=== PATIENT | female | born 1945 | race Caucasian/White ===

== ENCOUNTER → 2016-09-01 | Outpatient (CLI) | payer OTHER ==
[~2016-09-01] MED LIST: ASPI81TA28 PO; ATRINS INH; GFNSR600 PO; Ipratropium-Albuterol INH; LSN40 PO; LVQ750 PO; NCTI INH; NRV5 PO; OXGN; PENT400T2 PO; PRD10 PO; SIMV-151 PO
--- NOTE | 2016-09-01 08:29 | DIAGNOSTIC IMAGING REPORT ---
CT OF THE CHEST WITHOUT IV CONTRAST CLINICAL HISTORY: R91.1 pulmonary nodule. Emphysema. Adenopathy. COMPARISON STUDY: 03/14/2016 CT DOSE: 291.55 mGy.cm TECHNIQUE: CT of the thorax was performed from the thoracic inlet to the lung bases. Images are reviewed in the axial, sagittal, and coronal planes. IV contrast was not administered for this examination. FINDINGS: Thyroid: Imaged portions of the thyroid gland are normal in appearance. Thoracic aorta: The thoracic aorta is normal in course and caliber, noting standard 3 vessel arch anatomy. Heart: There are mild coronary artery calcifications. Lungs and pleural spaces: No pleural effusions are visualized. There is moderate pulmonary emphysema. There is no focal pulmonary consolidation. There is lower lobe bronchial wall thickening and mucous plugging. There is been interval resolution of the focal right lower lobe airspace opacities described on the prior study. There are few scattered granulomatous calcifications present. There is a stable 4.5 mm solid right lower lobe pulmonary nodule with associated lung cyst. Mediastinum: Mediastinal lymph nodes remain the upper limits of normal in size. Nadia: Clear. Axilla: There is mild right axillary lymphadenopathy similar to the preceding study Upper abdomen: There is stable left adrenal gland thickening. There is a stable 12 mm left renal mass likely representing a hyperdense cyst Skeletal structures: There is an L1 compression deformity. IMPRESSION: 1. Interval resolution of the previously identified right lower lobe airspace opacities 2. Pulmonary emphysema 3. Stable solid 4.5 mm right lower lobe pulmonary nodule, with an adjacent lung cyst 4. Persistent lower lobe bronchial wall thickening and mucous plugging 5. Partially visualized mild right axillary lymphadenopathy, similar to the prior study Electronically signed by: Dion Stern M.D. 09/01/2016 8:27 AM Dictated Date/Time: 09/01/2016 8:17 AM
== END | disposition home or self-care (01) ==
LOC: C.CTS 08:01
PROVIDERS: ATTEND Internal Medicine Pulmonary Disease
DX: R91.1 Solitary pulmonary nodule (principal); J43.9 Emphysema, unspecified; R59.0 Localized enlarged lymph nodes; J98.09 Other diseases of bronchus, not elsewhere classified

== ENCOUNTER 2018-06-20 14:28 | Inpatient (IN) ==
[2018-06-20 14:50] LABS: Basophils # (auto) 0.02 K/uL (0-0.2); Basophils % (auto) 0.2 %; Eosinophils # (auto) 0.08 K/uL (0-0.5); Eosinophils % (auto) 0.8 %; Hematocrit (blood only) 41.7 % (37-47); Hemoglobin 13.3 g/dL (12.0-16.0); Immature Granulocytes # (auto) 0.03 K/uL (0.00-0.02); Immature Granulocytes % (auto) 0.3 %; Lymphocytes # (auto) 1.86 K/uL (1.2-3.4); Lymphocytes % (auto) 18.1 %; Mean Corpuscular Hgb Conc 31.9 g/dL (32-36); Mean Corpuscular Volume 101.7 fL (80-100); Mean Platelet Volume 10.8 fL (7.4-10.4); Monocytes # (auto) 0.95 K/uL (0.11-0.59); Monocytes % (auto) 9.2 %; Neutrophils # (auto) 7.34 K/uL (1.4-6.5); Neutrophils % (auto) 71.4 %; Platelet Count 186 K/uL (130-400); RDW Coefficient of Variation 13.3 % (11.5-14.5); RDW Standard Deviation 49.6 fL (36.4-46.3); White Blood Count 10.28 K/uL (4.8-10.8)
--- NOTE | 2018-06-20 14:58 | XRay Report ---
XR chest 1V portable CLINICAL HISTORY: 72 years-old Female presenting with Dyspnea. TECHNIQUE: Portable upright AP view of the chest was obtained. COMPARISON: 12/12/[address] from 09/05/2017. FINDINGS: Atherosclerosis of the aortic arch. Cardiac silhouette normal in size. Lungs are hyperinflated. No fo dayan opacity. No pleural effusion or pneumothorax. Osseous structures normal. Upper abdomen normal. IMPRESSION: 1. Findings suggest emphysema. No focal infiltrate to suggest pneumonia. Electronically signed by: Janes Martinez M.D. 06/20/2018 2:57 PM
[2018-06-20 15:00] LABS: Alanine Aminotransferase 16 U/L (12-78); Albumin Level 3.2 gm/dl (3.4-5.0); Aspartate Aminotransferase 14 U/L (15-37); BUN Creatinine Ratio 23.3 (10-20); Blood Urea Nitrogen 16 mg/dl (7-18); Calcium 9.6 mg/dl (8.5-10.1); Carbon Dioxide 38 mmol/L (21-32); Chloride 98 mmol/L (98-107); Est GFR (African American) 102.2; Est GFR (Non-African American) 88.2; Glucose 125 mg/dl (70-99); Potassium 4.1 mmol/L (3.5-5.1); Sodium 139 mmol/L (136-145)
[2018-06-20 15:05] LABS: Albumin Globulin Ratio 0.8 (0.9-2); Alkaline Phosphatase 88 U/L (45-117); Bilirubin,Total 0.3 mg/dl (0.2-1); Globulin 4.2 gm/dl (2.5-4.0); Total Protein 7.4 gm/dl (6.4-8.2); Troponin I < 0.015 ng/ml (0-0.045)
[2018-06-20 15:38] LABS: Influenza A virus by PCR Neg for Influ A (Neg); Influenza B virus by PCR Neg for Influ B (Neg)
--- NOTE | 2018-06-20 17:30 | Emergency Department Note ---
Entered by Bonilla Bailey acting as a scribe for Maximus Linn DO History of Present Illness General Chief complaint: Shortness of Breath/Dyspnea Stated complaint: sob Time Seen by Provider: 06/20/18 14:30 Source: patient, EMS and other (nurse) History of Present Illness Onset (ago): hour(s) (prior to arrival) Location: chest (lungs) Pain Consistency: + other (overall worsening, but currently improved after treatments) Quality: + other (shortness of breath) Relieved By: + medication (increased supplemental oxygen, Duoneb) Associated symptoms: + other (urinary symptoms; denies fevers) The patient is a 72 year old female who presents to the Emergency Room with complaints of worsening shortness of breath prior to arrival. Nursing staff reports that the patient called her PCP complaining of shortness of breath, and today prior to arrival at the office her oxygen saturation was 76% on her usual 4 L of supplemental oxygen. This was increased to 82% after increasing the oxygen to 6 L, and EMS was called. EMS states that the patient was given 3 Duoneb and fluids prior to arrival, and the monitor temporarily showed what appeared to be atrial fibrillation. They note that the patient regularly smokes. They state that she has recently been complaining of urinary symptoms. They deny fevers. The patient reports that her current symptoms are improved from earlier. Home Medications Home Medications Medication Instructions Recorded Confirmed Type amlodipine 5 mg PO DAILY 06/20/18 06/20/18 History aspirin 81 mg PO DAILY 06/20/18 06/20/18 History budesonide-formoterol [Symbicort] 2 puff INHALATION BID 06/20/18 06/20/18 History cholecalciferol (vitamin D3) 1,000 unit PO DAILY 06/20/18 06/20/18 History [Vitamin D3] ipratropium-albuterol 1 vial INHALATION QID 06/20/18 06/20/18 History losartan 50 mg PO DAILY 06/20/18 06/20/18 History pentoxifylline 400 mg PO TID 06/20/18 06/20/18 History simvastatin 20 mg PO DAILY 06/20/18 06/20/18 History Allergies Allergy/AdvReac Type Severity Reaction Status Date / Time codeine Allergy Intermediate tinnitus Verified 06/20/18 14:56 Past Med/Surg History Medical History COPD (chronic obstructive pulmonary disease) (Chronic) Hypertension (Chronic) Pneumonia (Acute) Family History Other Family history non-contributory Social History Feels Safe at Home: Yes Smoking Status: Current every day smoker Review of Systems See HPI for pertinent positives & negatives. and A total of 10 systems reviewed and were otherwise negative Physical Exam Vital Signs Vital Signs - 24 hr 06/20/18 14:40 06/20/18 14:46 06/20/18 14:50 Temperature 36.5 C Temperature Source Oral Sepsis Recent Fever Within 48 Hours No Sepsis Action Taken by Nursing No Action Required Pulse Rate 110 H 109 H 114 H Pulse Rate [Finger] Pulse Rate from SpO2 Sensor 111 H 109 H 102 H Pulse Rhythm Regular Pulse Strength Normal Respiratory Rate 28 H 15 19 Respiratory Effort / Characteristics Spontaneous Pursed Lip Short of Breath Non-Labored Spontaneous Respiratory Depth Normal Blood Pressure 123/93 123/93 Blood Pressure [Right Arm] Blood Pressure Mean 103 103 Blood Pressure Mean [Right Arm] Blood Pressure Position Sitting Pulse Oximetry 83 L 82 L 79 L Oxygen Delivery Method Nasal Cannula Nasal Cannula Oxygen Flow Rate 6 4 06/20/18 15:00 06/20/18 15:03 06/20/18 15:07 Temperature Temperature Source Sepsis Recent Fever Within 48 Hours Sepsis Action Taken by Nursing Pulse Rate 100 H 99 H Pulse Rate [Finger] 100 H Pulse Rate from SpO2 Sensor 100 H 98 H Pulse Rhythm Pulse Strength Respiratory Rate 29 H 29 H 25 H Respiratory Effort / Characteristics Respiratory Depth Blood Pressure 144/84 H Blood Pressure [Right Arm] 144/84 H Blood Pressure Mean 104 Blood Pressure Mean [Right Arm] 104 Blood Pressure Position Pulse Oximetry 99 99 97 Oxygen Delivery Method Oxymask Oxygen Flow Rate 8 06/20/18 15:10 06/20/18 15:20 06/20/18 15:30 Temperature Temperature Source Sepsis Recent Fever Within 48 Hours Sepsis Action Taken by Nursing Pulse Rate 96 H Pulse Rate [Finger] Pulse Rate from SpO2 Sensor 93 H 97 H 104 H Pulse Rhythm Pulse Strength Respiratory Rate 28 H 26 H 27 H Respiratory Effort / Characteristics Respiratory Depth Blood Pressure Blood Pressure [Right Arm] Blood Pressure Mean Blood Pressure Mean [Right Arm] Blood Pressure Position Pulse Oximetry 96 96 95 Oxygen Delivery Method Oxygen Flow Rate 06/20/18 15:31 06/20/18 15:40 06/20/18 15:50 Temperature Temperature Source Sepsis Recent Fever Within 48 Hours Sepsis Action Taken by Nursing Pulse Rate Pulse Rate [Finger] Pulse Rate from SpO2 Sensor 95 H 91 H 86 Pulse Rhythm Pulse Strength Respiratory Rate 24 24 24 Respiratory Effort / Characteristics Respiratory Depth Blood Pressure 136/58 L Blood Pressure [Right Arm] Blood Pressure Mean 84 Blood Pressure Mean [Right Arm] Blood Pressure Position Pulse Oximetry 97 97 98 Oxygen Delivery Method Oxygen Flow Rate 06/20/18 16:00 06/20/18 16:01 06/20/18 16:04 Temperature Temperature Source Sepsis Recent Fever Within 48 Hours Sepsis Action Taken by Nursing Pulse Rate Pulse Rate [Finger] Pulse Rate from SpO2 Sensor 101 H 97 H Pulse Rhythm Pulse Strength Respiratory Rate 19 22 Respiratory Effort / Characteristics Respiratory Depth Blood Pressure 161/75 H Blood Pressure [Right Arm] Blood Pressure Mean 103 Blood Pressure Mean [Right Arm] Blood Pressure Position Pulse Oximetry 97 98 96 Oxygen Delivery Method Nasal Cannula Oxygen Flow Rate 4 06/20/18 16:15 06/20/18 16:33 06/20/18 16:34 Temperature Temperature Source Sepsis Recent Fever Within 48 Hours Sepsis Action Taken by Nursing Pulse Rate Pulse Rate [Finger] 84 Pulse Rate from SpO2 Sensor Pulse Rhythm Pulse Strength Respiratory Rate 37 H Respiratory Effort / Characteristics Respiratory Depth Blood Pressure Blood Pressure [Right Arm] 181/53 H Blood Pressure Mean Blood Pressure Mean [Right Arm] 95 Blood Pressure Position Pulse Oximetry 94 98 Oxygen Delivery Method Nasal Cannula Oxymask Oxymask Oxygen Flow Rate 4 7 5.5 06/20/18 16:45 06/20/18 16:46 Temperature Temperature Source Sepsis Recent Fever Within 48 Hours Sepsis Action Taken by Nursing Pulse Rate Pulse Rate [Finger] Pulse Rate from SpO2 Sensor Pulse Rhythm Pulse Strength Respiratory Rate Respiratory Effort / Characteristics Respiratory Depth Blood Pressure Blood Pressure [Right Arm] Blood Pressure Mean Blood Pressure Mean [Right Arm] Blood Pressure Position Pulse Oximetry 97 Oxygen Delivery Method Oxymask Oxymask Oxygen Flow Rate 5.5 4 CONSTITUTIONAL/VITAL SIGNS: Reviewed / noted above. GENERAL: Non-toxic in appearance. INTEGUMENTARY: Warm, dry, and [place]. HEAD: Normocephalic. EYES: without scleral icterus or trauma. ENT/OROPHARYNX: clear and moist. LYMPHADENOPATHY/NECK: Is supple without lymphadenopathy or meningismus. RESPIRATORY: Bilateral expiratory wheezing, diminished breath sounds bilaterally. CARDIOVASCULAR: Regular rate and rhythm. GI/ABDOMEN: Soft and nontender. No organomegaly or pulsatile mass. No rebound or guarding. Normal bowel sounds. EXTREMITIES: Warm and well perfused. BACK: No CVA tenderness. NEUROLOGICAL: Intact without focal deficits. PSYCHIATRIC: normal affect. MUSCULOSKELETAL: Normally developed with good muscle tone. Course 1435: The patient was evaluated in room A10, and a complete history and physical examination were performed. 1720: I checked on the patient, who is still hypoxic. 1724: I consulted Carmel Corrigan PA-C: [facility]. The patient will be reevaluated for hospitalization. Consultations Consultation #1: I consulted Carmel Corrigan PA-C: [facility]. The patient will be reevaluated for hospitalization. Time: 17:24 Administered Medications Medical Decision Making Differential Diagnosis Differential diagnosis: Etiologies such as infections, reactive airway disease, pneumonia, pneumothorax, COPD, CHF, cardiac ischemia, pulmonary embolism, musculoskeletal, gastrointestinal, as well as others were entertained. Medical Records Attestation: I reviewed the patient's medical records. Home Medications Current Medication List: was personally reviewed by me Laboratory Data Attestation: I reviewed the patient's lab results. Result diagrams: 06/20/18 14:12 06/20/18 14:12 Lab Results 06/20/18 06/20/18 06/20/18 Range/Units 14:12 14:12 14:12 WBC 10.28 (4.8-10.8) K/uL RBC 4.10 L (4.2-5.4) M/uL Hgb 13.3 (12.0-16.0) g/dL Hct 41.7 (37-47) % MCV 101.7 H (80-100) fL MCH 32.4 (25-34) pg MCHC 31.9 L (32-36) g/dL RDW Std Deviation 49.6 H (36.4-46.3) fL RDW Coeff of Frankie 13.3 (11.5-14.5) % Plt Count 186 (130-400) K/uL MPV 10.8 H (7.4-10.4) fL Immature Gran % (Auto) 0.3 % Neut % (Auto) 71.4 % Lymph % (Auto) 18.1 % Bond % (Auto) 9.2 % Eos % (Auto) 0.8 % Baso % (Auto) 0.2 % Immature Gran # (Auto) 0.03 H (0.00-0.02) K/uL Neut # (Auto) 7.34 H (1.4-6.5) K/uL Lymph # (Auto) 1.86 (1.2-3.4) K/uL Bond # (Auto) 0.95 H (0.11-0.59) K/uL Eos # (Auto) 0.08 (0-0.5) K/uL Baso # (Auto) 0.02 (0-0.2) K/uL PT Cancelled INR Cancelled APTT Cancelled PTT Ratio Cancelled Sodium 139 (136-145) mmol/L Potassium 4.1 (3.5-5.1) mmol/L Chloride 98 (98-107) mmol/L Carbon Dioxide 38 H (21-32) mmol/L Anion Gap 2.0 L (3-11) BUN 16 (7-18) mg/dl Creatinine 0.69 (0.6-1.2) mg/dl Est Cr Clr Drug Dosing 78.0 ml/min Est GFR ( Amer) 102.2 Est GFR (Non-Af Amer) 88.2 BUN/Creatinine Ratio 23.3 H (10-20) Glucose 125 H (70-99) mg/dl Calcium 9.6 (8.5-10.1) mg/dl Total Bilirubin 0.3 (0.2-1) mg/dl AST 14 L (15-37) U/L ALT 16 (12-78) U/L Alkaline Phosphatase 88 (45-117) U/L Troponin I < 0.015 (0-0.045) ng/ml Total Protein 7.4 (6.4-8.2) gm/dl Albumin 3.2 L (3.4-5.0) gm/dl Globulin 4.2 H (2.5-4.0) gm/dl Albumin/Globulin Ratio 0.8 L (0.9-2) Influenza Type A (PCR) (Neg) Influenza Type B (PCR) (Neg) 04/04/19 Range/Units 14:57 WBC (4.8-10.8) K/uL RBC (4.2-5.4) M/uL Hgb (12.0-16.0) g/dL Hct (37-47) % MCV (80-100) fL MCH (25-34) pg MCHC (32-36) g/dL RDW Std Deviation (36.4-46.3) fL RDW Coeff of Frankie (11.5-14.5) % Plt Count (130-400) K/uL MPV (7.4-10.4) fL Immature Gran % (Auto) % Neut % (Auto) % Lymph % (Auto) % Bond % (Auto) % Eos % (Auto) % Baso % (Auto) % Immature Gran # (Auto) (0.00-0.02) K/uL Neut # (Auto) (1.4-6.5) K/uL Lymph # (Auto) (1.2-3.4) K/uL Bond # (Auto) (0.11-0.59) K/uL Eos # (Auto) (0-0.5) K/uL Baso # (Auto) (0-0.2) K/uL PT INR APTT PTT Ratio Sodium (136-145) mmol/L Potassium (3.5-5.1) mmol/L Chloride (98-107) mmol/L Carbon Dioxide (21-32) mmol/L Anion Gap (3-11) BUN (7-18) mg/dl Creatinine (0.6-1.2) mg/dl Est Cr Clr Drug Dosing ml/min Est GFR ( Amer) Est GFR (Non-Af Amer) BUN/Creatinine Ratio (10-20) Glucose (70-99) mg/dl Calcium (8.5-10.1) mg/dl Total Bilirubin (0.2-1) mg/dl AST (15-37) U/L ALT (12-78) U/L Alkaline Phosphatase (45-117) U/L Troponin I (0-0.045) ng/ml Total Protein (6.4-8.2) gm/dl Albumin (3.4-5.0) gm/dl Globulin (2.5-4.0) gm/dl Albumin/Globulin Ratio (0.9-2) Influenza Type A (PCR) Neg for Influ A (Neg) Influenza Type B (PCR) Neg for Influ B (Neg) Imaging Data Radiologist's Impression: Radiology results as stated below per my review and the radiologist's interpretation: XR chest 1V portable CLINICAL HISTORY: 72 years-old Female presenting with Dyspnea. TECHNIQUE: Portable upright AP view of the chest was obtained. COMPARISON: 12/12/[address] from 09/05/2017. FINDINGS: Atherosclerosis of the aortic arch. Cardiac silhouette normal in size. Lungs are hyperinflated. No focal opacity. No pleural effusion or pneumothorax. Osseous structures normal. Upper abdomen normal. IMPRESSION: 1. Findings suggest emphysema. No focal infiltrate to suggest pneumonia. Electronically signed by: Janes Martinez M.D. 06/20/2018 2:57 PM ECG Data Attestation: I personally reviewed and interpreted this ECG as follows: Indication: SOB/dyspnea Rate (beats per minute): 104 Rhythm: sinus tachycardia Findings: no PAC, no PVC and no ST elevation Blood Pressure Blood Pressure Findings: Elevated blood pressure Blood Pressure Disposition: further management by hospitalist MDM Narrative This is a 72-year-old female who presents to the ED with a chief complaint of shortness of breath. The patient presented to her family doctor's office and was found to have saturations of 76% on 4 L. This was increased to 6 L and she was saturating 82%. The patient normally uses 4 L. She has a history of COPD. She was given 3 DuoNeb treatments in route by EMS and a fluid bolus of 150 cc. The patient states that she is feeling much better. She continues to smoke despite her COPD. Her physical exam revealed bilateral expiratory wheezing with diminished breath sounds bilateral. EKG showed a sinus tach at a rate of 104. Chest x-ray reveals COPD. Blood work reveals normal CBC. BUN and creatinine are elevated at 38 and 2.0. Uncertain if this is chronic or new. Troponin is negative. Flu swab was negative. The patient had received 3 DuoNeb treatments by EMS. Symptomatically, she seems to be improved. She did not improve with regards to her oxygen saturations, however. She remains hypoxic on her usual 4 L of oxygen. She is requiring 6-8 L Via mask. I spoke with the hospitalist, who will see the patient for further inpatient evaluation and care. Impression & Plan COPD exacerbation, Hypoxia The scribe's documentation has been prepared under my direction and personally reviewed by me in its entirety. I confirm that the note above accurately reflects all work, treatment, procedures, and medical decision making performed by me.
[2018-06-20] MEDS ORDERED: ALBUT/IPRATROP 3MG/0.5MG NEB 3 ML VIAL NEB STA (17:37)
[2018-06-20] MEDS ORDERED: ALBUT/IPRATROP 3MG/0.5MG NEB 3 ML VIAL ONE (17:40)
[2018-06-20 17:41] LABS: Partial Thromboplastin Ratio 0.9; Partial Thromboplastin Time 25.1 Seconds (21.0-31.0); Prothrombin Time 10.3 Seconds (9.0-12.0)
[2018-06-20] MEDS ORDERED: methylPREDNISolone 125 MG/2 ML VIAL IV STA (17:48)
[2018-06-20] MEDS ORDERED: SODIUM CHLORIDE 0.9% 1000ML 500 ML IV ONE (17:49)
--- NOTE | 2018-06-20 18:26 | History & Physical Report ---
Date of Service June 20, 2018 Assessment & Plan (1) Acute on chronic respiratory failure with hypoxia and hypercapnia: (2) COPD exacerbation: This is a 72-year-old female who has significant past medical history of severe COPD on 4 L O2, chronic respiratory failure, MERISSA on BiPAP, HTN, HLD, tobacco abuse, right lung nodule who presents to [facility] ED secondary to hypoxia noted at PCP. Patient was evaluated in ED and noted to be in respiratory distress, tachypneic, tripoding despite being on oxygen mask 9 L ABG ordered revealed pH 7.32, CO2 77, bicarb 39 Order was placed to place patient on BiPAP Further ER eval revealed chest x-ray without acute abnormality, WBC 10.28, hemoglobin 13.3, hematocrit 41.7, platelet 186, BUN 60, creatinine 0.69. Her influenza was negative. She has known Chronic respiratory failure with Severe COPD O2 dependent on [address] Spear Treating for acute COPD exacerbation -admit to telemetry -place pt on bipap given respiratory distress and hypercarbia -consult pulmonology given severity of COPD -IV solumedrol 60mg q6h -IV levaquin 500mg daily -Duoneb q6hr RT -budenoside neb bid -aggressive pulmonary toilet -repeat labs in a.m. (3) Hypertension: -Blood pressure elevated while in ED, likely in the setting of acute respiratory distress -Continue losartan and amlodipine -Treat respiratory distress (4) HLD (hyperlipidemia): -Continue statin (5) Tobacco abuse: -Encourage tobacco cessation -Nicotine patch ordered (6) MERISSA treated with BiPAP: -Bipap at HS (7) DVT prophylaxis: -lovenox Disposition: to be determined Follow up: PCP Dr. Kerr upon discharge Patient was seen and examined in collaboration with Dr. Irizarry, please see addendum Starting 06/21/18 pt will be followed by Dr. Ren History of Present Illness Chief Complaint: Increased SOB x 3 days. Primary Care Provider: Mitesh Kerr MD This is a 72-year-old female who has significant past medical history of severe COPD on 4 L O2, chronic respiratory failure, MERISSA on BiPAP, HTN, HLD, tobacco abuse, right lung nodule who presents to [facility] ED s econdary to hypoxia noted at PCP. Patient has been experiencing increasing shortness of breath for the past 3 days. She was seen by PCP this afternoon when her oxygen saturations were noted to be in the 70s. She made little improvement with increase of O2 to 6 L. Given profound hypoxia and increasing shortness of breath it was recommended she seek ED. EMS was summoned. She received 3 nebulizer treatments in route as well as IV fluid. Upon my evaluation patient was visibly tachypneic and tripoding. She states her symptoms started approximately 3 days ago with increasing shortness of breath. She further notes increased productive cough unsure nature of sputum. She denies fever, chills, sweats, lightheadedness, dizziness, chest pain, palpitations, nausea, vomiting, diarrhea, change in bowel or urinary habits. Overall her appetite remains good, "I need some coffee." Overall she feels slightly improved since arriving in ED but still feels short of breath. No known sick contacts. Allergies Allergy/AdvReac Type Severity Reaction Status Date / Time codeine Allergy Intermediate tinnitus Verified 06/20/18 14:56 Home Medications Home Medications Medication Instructions Recorded Confirmed Type amlodipine 5 mg PO DAILY 06/20/18 06/20/18 History aspirin 81 mg PO DAILY 06/20/18 06/20/18 History budesonide-formoterol [Symbicort] 2 puff INHALATION BID 06/20/18 06/20/18 History cholecalciferol (vitamin D3) 1,000 unit PO DAILY 06/20/18 06/20/18 History [Vitamin D3] ipratropium-albuterol 1 vial INHALATION QID 06/20/18 06/20/18 History losartan 50 mg PO DAILY 06/20/18 06/20/18 History pentoxifylline 400 mg PO TID 06/20/18 06/20/18 History simvastatin 20 mg PO DAILY 06/20/18 06/20/18 History Past Med/Surg History Medical History HLD (hyperlipidemia) (Chronic) Right lower lobe pulmonary nodule (Chronic) Chronic respiratory failure (Chronic) Tobacco abuse (Chronic) MERISSA treated with BiPAP (Chronic) COPD (chronic obstructive pulmonary disease) (Chronic) Hypertension (Chronic) Pneumonia (Resolved) Surgical History No pertinent past surgical history (Chronic) Family History Other Family history non-contributory Social History Preferred Language: [place] Communication Ability: Impaired Communication Ability Comment: secondy to tachypnea Beliefs That Will Affect Care: None Current Living Situation: Alone Other Information That Helps Us Care for You: No Feels Safe at Home: Yes Smoking Status: Current every day smoker Hx Alcohol Use: No Hx Substance Use: No Review of Systems All systems reviewed & are unremarkable except as noted in HPI & below Physical Exam Vital Signs (Past 24 Hours): Last Vital Signs Temp 36.5 C 06/20/18 14:46 Pulse 96 H 06/20/18 17:30 Resp 19 06/20/18 17:30 BP 162/55 H 06/20/18 17:30 Pulse Ox 95 06/20/18 17:30 Physical Exam: Gen: Elderly, F, sitting up at edge of bed in tripod position, visibly in respiratory distress, able to converse but difficulty given respiratory status Head: Normocephalic, Atraumatic Eyes: Sclera normal, no conjunctival injection, PERRLA, EOMI ENT: Gross hearing intact, normal pharynx, mucous membranes dry Neck: supple, no adenopathy, No JVD, no bruit, Resp: Decreased breath sounds throughout with over chest tightness,) expiratory wheezing noted bilaterally anteriorly and posterior, no rales rhonchi, increased inspiratory and exp effort with acute respiratory distress, no accessory muscle use CV: Tachycardic rate, regular rhythm, no murmur, rub, gallop, or ectopy Abd: +BS x 4, soft, nontender, nondistended Musculoskeletal: moves extremities active rom x 4, strength intact, good coding specialist strength Extremities: No edema bilaterally Skin: warm, dry, no rash, mild turgor, cap refill < 2sec Neuro: Alert and oriented x 3, speech normal, good mood/affect, cran nerve 2-12 intact grossly : deferred Results & Data Laboratory Results Short CBC 06/20/18 06/20/18 Range/Units 14:12 14:12 WBC 10.28 (4.8-10.8) K/uL Hgb 13.3 (12.0-16.0) g/dL Hct 41.7 (37-47) % Plt Count 186 (130-400) K/uL BUN 16 (7-18) mg/dl Creatinine 0.69 (0.6-1.2) mg/dl BMP 06/20/18 14:12 Sodium 139 Potassium 4.1 Chloride 98 Carbon Dioxide 38 H BUN 16 Creatinine 0.69 Glucose 125 H Calcium 9.6 Cardiac Enzymes 06/20/18 Range/Units 14:12 Troponin I < 0.015 (0-0.045) ng/ml Liver Function 06/20/18 Range/Units 14:12 Total Bilirubin 0.3 (0.2-1) mg/dl AST 14 L (15-37) U/L ALT 16 (12-78) U/L Alkaline Phosphatase 88 (45-117) U/L Albumin 3.2 L (3.4-5.0) gm/dl Diagnostic Findings CXR: IMPRESSION: 1. Findings suggest emphysema. No focal infiltrate to suggest pneumonia Medications Administered Discontinued Medications Albuterol (Duoneb) Confirm Administered Dose 3 ml .ROUTE .[employer] ONE Stop: 06/20/18 17:41 Last Admin: 06/20/18 17:41 Dose: 3 ml Documented by: [id number] Methylprednisolone (Solumedrol) 60 mg IV NOW STA Stop: 06/20/18 17:49 Last Admin: 06/20/18 18:15 Dose: 60 mg Documented by: [id number] ECG Rate (beats per minute): 104, poor quality ecg, repeat ordered Rhythm: sinus tachycardia Code Status & VTE Plan Code Status Full Code VTE Prophylaxis Plan VTE Prophylaxis will be ordered: Yes Supervising Physician Co-Signing Physician Notes Patient is a 72-year-old female with history of severe COPD, chronic oxygen dependency, obstructive sleep apnea on BiPAP, ongoing tobacco abuse and other problems presents with history of worsening shortness of breath since 3 days duration. Patient was noted to be in respiratory distress while in ED. She was requiring 6 L of supplemental oxygen to maintain her saturations. Her ABG is suggestive of chronic respiratory acidosis with metabolic alkalosis compensated. Chest x-ray showed no signs of infiltrate. On exam patient is chronically appearing, respiratory distress, normocephalic atraumatic, lungs decreased breath sounds, scattered wheezes, S1-S2, tachycardia no murmur, abdomen soft, nontender, trace pedal edema, neurologically alert awake and oriented, grossly no focal deficits. Patient is admitted for management of acute COPD exacerbation. Plan to start on IV Solu-Medrol, bronchodilators, Pulmicort, oxygen support as needed. Consulted pulmonary for input. Also started on Levaquin 500 mg daily. BiPAP as needed. Counseled to quit smoking. I personally reviewed the record. Patient is interviewed and examined at bedside. Patient's care is coordinated with Carmel Corrigan PA-C. Please refer to the documentation above for details of patient's presentation and for discussion of other issues. (1) HLD (hyperlipidemia) Hyperlipidemia type: unspecified Qualified Code(s): E78.5 - Hyperlipidemia, unspecified (2) Hypertension Hypertension type: essential hypertension Qualified Code(s): I10 - Essential (primary) hypertension
[2018-06-20 18:55] LABS: HCO3 ABG 39 mmol/L (19-24); PCO2 ABG 77 mmHg (35-46); PO2 ABG 68 mm/Hg (80-95); pH ABG 7.32 (7.35-7.45)
[2018-06-20 18:57] LABS: Allen Test POS (Pos)
[2018-06-20] MEDS ORDERED: ALUMINUM/MAGNESIUM SUSP 30 ML UDC PO PRN (19:33)
[2018-06-20] MEDS ORDERED: POLYETHYLENE (MIRALAX) 17 GM PACK PO PRN (19:33)
[2018-06-20] MEDS ORDERED: ONDANSETRON INJ 2 MG/ML 2 ML VIAL IV PRN (19:33)
[2018-06-20] MEDS ORDERED: MAGNESIUM HYDROXIDE SUSP 30 ML UDC PO PRN (19:33)
[2018-06-20] MEDS ORDERED: ACETAMINOPHEN 325 MG TAB PO PRN (19:33)
[2018-06-20] MEDS: BUDESONIDE 0.5 MG/2 ML VIAL (PULMICORT) NEB SCH (20:38)
[2018-06-20] MEDS: ALBUT/IPRATROP 3MG/0.5MG NEB 3 ML VIAL NEB SCH (20:38)
[2018-06-20] MEDS: LEVOFLOXACIN/D5W 500 MG/100 ML BAG IV SCH (20:47)
[2018-06-20] MEDS: PENTOXIFYLLINE 400MG EXT REL TAB PO SCH (20:50)
[2018-06-20] MEDS: methylPREDNISolone 60 MG in SYRINGE 0 ML IV SCH (23:18)
[2018-06-21] MEDS ORDERED: methylPREDNISolone 60 MG in SYRINGE 0 ML IV SCH
[2018-06-21 05:03] LABS: Appearance Urine Clear (Clear); Bilirubin Urine Negative (Negative); Blood Urine Negative (Negative); Color Urine Yellow; Glucose Urine UA Negative (Negative); Ketones Urine 1+ (Negative); Leukocyte Esterase Urine Negative (Negative); Nitrite Urine Negative (Negative); Protein Urine Negative (Negative); Specific Gravity Urine 1.023 (1.000-1.030); Urobilinogen Urine Negative (Negative)
[2018-06-21] MEDS: ALBUT/IPRATROP 3MG/0.5MG NEB 3 ML VIAL NEB SCH ×7 (05:42→23:46)
[2018-06-21 06:01] LABS: Hematocrit (blood only) 41.8 % (37-47); Hemoglobin 13.2 g/dL (12.0-16.0); Mean Corpuscular Hgb Conc 31.6 g/dL (32-36); Mean Platelet Volume 10.4 fL (7.4-10.4); Platelet Count 184 K/uL (130-400); RDW Coefficient of Variation 13.2 % (11.5-14.5); RDW Standard Deviation 49.3 fL (36.4-46.3); White Blood Count 9.01 K/uL (4.8-10.8)
[2018-06-21] MEDS: methylPREDNISolone 60 MG in SYRINGE 0 ML IV SCH ×3 (06:01→17:16)
[2018-06-21 06:44] LABS: BUN Creatinine Ratio 26.9 (10-20); Calcium 9.4 mg/dl (8.5-10.1); Creatinine Clr Calc Pharmacy 90.4 ml/min; Est GFR (African American) 108.9; Est GFR (Non-African American) 93.9; Magnesium 2.3 mg/dl (1.8-2.4); Potassium 4.8 mmol/L (3.5-5.1)
[2018-06-21] MEDS: BUDESONIDE 0.5 MG/2 ML VIAL (PULMICORT) NEB SCH ×2 (06:56→19:28)
[2018-06-21] MEDS: CHOLECALCIFEROL 1,000 UNITS TAB PO SCH (07:48)
[2018-06-21] MEDS: AMLODIPINE BESYLATE 5 MG TAB PO SCH (07:49)
[2018-06-21] MEDS: PENTOXIFYLLINE 400MG EXT REL TAB PO SCH ×3 (07:49→21:28)
[2018-06-21] MEDS: ASPIRIN 81 MG ECTAB PO SCH (07:49)
[2018-06-21] MEDS: LOSARTAN POTASSIUM 50 MG TAB PO SCH (07:49)
[2018-06-21] MEDS: SIMVASTATIN 20 MG TAB PO SCH (07:49)
[2018-06-21] MEDS: NICOTINE 21 MG/24 HR TDSY TD SCH (07:49)
--- NOTE | 2018-06-21 13:30 | Pulmonary Consultation ---
Date of Consultation June 21, 2018 Assessment & Plan (1) Acute on chronic respiratory failure with hypoxia and hypercapnia: acute on chronic hypoxic and hypercapnic respiratory failure due to COPD exacerbation continue bipap as needed and at night albuterol/ipratroipum will increase to q4 budesonide continue steroids levofloxacin for COPD no clear infection OOB when able smoking cessation Needs followup Ct for lung nodules in august History of Present Illness Reason for Consultation: COPD exacerbation Attending Physician: Dereck Ren MD History of Present Illness 72 y/o female with a history of COPD, hyperlipidemia, HTN, and MERISSA who presented with shortness of breath. She says that she has been short of breath for the past few days typical for her COPD. went to PCP and was found to be hypoxic to 70s on her usual 4 liters. She was started on bipap due to work of breathing. This morning she desat to 70s when she was taken off the bipap. She says that she has not had other symptoms besides the shortness of breath. no fevers no chills. no URI symptoms. no sick contacts. no cough. Allergies Allergy/AdvReac Type Severity Reaction Status Date / Time codeine Allergy Intermediate tinnitus Verified 06/20/18 14:56 Home Medications Home Medications Medication Instructions Recorded Confirmed Type amlodipine 5 mg PO DAILY 06/20/18 06/20/18 History aspirin 81 mg PO DAILY 06/20/18 06/20/18 History budesonide-formoterol [Symbicort] 2 puff INHALATION BID 06/20/18 06/20/18 History cholecalciferol (vitamin D3) 1,000 unit PO DAILY 06/20/18 06/20/18 History [Vitamin D3] ipratropium-albuterol 1 vial INHALATION QID 06/20/18 06/20/18 History losartan 50 mg PO DAILY 06/20/18 06/20/18 History pentoxifylline 400 mg PO TID 06/20/18 06/20/18 History simvastatin 20 mg PO DAILY 06/20/18 06/20/18 History Patient History Medical History HLD (hyperlipidemia) (Chronic) Right lower lobe pulmonary nodule (Chronic) Chronic respiratory failure (Chronic) Tobacco abuse (Chronic) MERISSA treated with BiPAP (Chronic) COPD (chronic obstructive pulmonary disease) (Chronic) Hypertension (Chronic) Pneumonia (Resolved) Surgical History No pertinent past surgical history (Chronic) Family History Other Family history non-contributory Social History Communication Ability: Effective Beliefs That Will Affect Care: None Current Living Situation: Alone Other Information That Helps Us Care for You: No Feels Safe at Home: Yes Smoking Status: Current every day smoker Hx Alcohol Use: No Hx Substance Use: No Review of Systems Constitutional: no fevers no chills no weight loss Eyes: no blurry or double vision EENT: no sore throat, no congestion Respiratory: no cough + shortness of breath Cardiovascular: no chest pain no palpitations GI: no abdominal pain, no nausea, no vomiting, no diarrhea, no constipation Gu: no dysuria, no frequency MSK: no joint pain, no muscle aches Skin: no rash Neuro: no headache, no dizziness, no focal weakness Endocrine: no heat or cold intolerance heme: no easy bruising, no lymphadenopathy Psych: no depression, no anxiety Physical Exam Vital Signs (Past 24 Hours): Last Vital Signs Temp 36.6 C 06/21/18 11:30 Pulse 86 06/21/18 11:30 Resp 23 06/21/18 11:30 BP 161/74 H 06/21/18 11:30 Pulse Ox 92 06/21/18 11:30 Physical Exam: Constitutional: Comfortable NAD on bipap HEENT: normocephalic atraumatic. MMM. no cervical lymphadenopathy CV: RRR nl s1,s2 no murmurs rubs or gallops Lungs: wheezing bilaterally with poor air movement. no accessory muscle use on bipap with good volumes Abd: soft nontender nondistended. normal bowel sounds Ext: no edema. no cyanosis, no clubbing Skin: warm dry Neuro: alert and oriented. moving all extremities Psych: normal mood and affect Results & Data Laboratory Results Laboratory Results - last 24 hr 06/20/18 06/20/18 06/20/18 14:12 14:12 14:12 WBC 10.28 RBC 4.10 L Hgb 13.3 Hct 41.7 MCV 101.7 H MCH 32.4 MCHC 31.9 L RDW Std Deviation 49.6 H RDW Coeff of Frankie 13.3 Plt Count 186 MPV 10.8 H Immature Gran % (Auto) 0.3 Neut % (Auto) 71.4 Lymph % (Auto) 18.1 Maries % (Auto) 9.2 Eos % (Auto) 0.8 Baso % (Auto) 0.2 Immature Gran # (Auto) 0.03 H Neut # (Auto) 7.34 H Lymph # (Auto) 1.86 Maries # (Auto) 0.95 H Eos # (Auto) 0.08 Baso # (Auto) 0.02 PT Cancelled INR Cancelled APTT Cancelled PTT Ratio Cancelled ABG pH ABG pCO2 ABG pO2 ABG HCO3 ABG O2 Saturation ABG Base Excess Chucho Test Barometric Pressure Oxygen Given Sodium 139 Potassium 4.1 Chloride 98 Carbon Dioxide 38 H Anion Gap 2.0 L BUN 16 Creatinine 0.69 Est Cr Clr Drug Dosing 78.0 Est GFR ( Amer) 102.2 Est GFR (Non-Af Amer) 88.2 BUN/Creatinine Ratio 23.3 H Glucose 125 H Calcium 9.6 Magnesium Total Bilirubin 0.3 AST 14 L ALT 16 Alkaline Phosphatase 88 Troponin I < 0.015 Total Protein 7.4 Albumin 3.2 L Globulin 4.2 H Albumin/Globulin Ratio 0.8 L Procalcitonin Urine Color Urine Appearance Urine pH Ur Specific Taiban Urine Protein Urine Glucose (UA) Urine Ketones Urine Blood Urine Nitrite Urine Bilirubin Urine Urobilinogen Ur Leukocyte Esterase Hepatitis C Ab Screen Influenza Type A (PCR) Influenza Type B (PCR) 06/20/18 06/20/18 06/20/18 14:12 14:12 14:57 WBC RBC Hgb Hct MCV MCH MCHC RDW Std Deviation RDW Coeff of Frankie Plt Count MPV Immature Gran % (Auto) Neut % (Auto) Lymph % (Auto) Maries % (Auto) Eos % (Auto) Baso % (Auto) Immature Gran # (Auto) Neut # (Auto) Lymph # (Auto) Maries # (Auto) Eos # (Auto) Baso # (Auto) PT INR APTT PTT Ratio ABG pH ABG pCO2 ABG pO2 ABG HCO3 ABG O2 Saturation ABG Base Excess Chucho Test Barometric Pressure Oxygen Given Sodium Potassium Chloride Carbon Dioxide Anion Gap BUN Creatinine Est Cr Clr Drug Dosing Est GFR ( Amer) Est GFR (Non-Af Amer) BUN/Creatinine Ratio Glucose Calcium Magnesium Total Bilirubin AST ALT Alkaline Phosphatase Troponin I Total Protein Albumin Globulin Albumin/Globulin Ratio Procalcitonin < 0.05 Urine Color Urine Appearance Urine pH Ur Specific Taiban Urine Protein Urine Glucose (UA) Urine Ketones Urine Blood Urine Nitrite Urine Bilirubin Urine Urobilinogen Ur Leukocyte Esterase Hepatitis C Ab Screen Neg Influenza Type A (PCR) Neg for Influ A Influenza Type B (PCR) Neg for Influ B 06/20/18 06/20/18 06/20/18 15:24 18:15 18:40 WBC RBC Hgb Hct MCV MCH MCHC RDW Std Deviation RDW Coeff of Frankie Plt Count MPV Immature Gran % (Auto) Neut % (Auto) Lymph % (Auto) Maries % (Auto) Eos % (Auto) Baso % (Auto) Immature Gran # (Auto) Neut # (Auto) Lymph # (Auto) Maries # (Auto) Eos # (Auto) Baso # (Auto) PT 10.3 INR 1.0 APTT 25.1 PTT Ratio 0.9 ABG pH Cancelled 7.32 L ABG pCO2 Cancelled 77 H ABG pO2 Cancelled 68 L ABG HCO3 Cancelled 39 H ABG O2 Saturation Cancelled 92.0 ABG Base Excess Cancelled 9.6 H Chucho Test Cancelled POS Barometric Pressure Cancelled 740.5 Oxygen Given Cancelled 6L O2 Sodium Potassium Chloride Carbon Dioxide Anion Gap BUN Creatinine Est Cr Clr Drug Dosing Est GFR ( Amer) Est GFR (Non-Af Amer) BUN/Creatinine Ratio Glucose Calcium Magnesium Total Bilirubin AST ALT Alkaline Phosphatase Troponin I Total Protein Albumin Globulin Albumin/Globulin Ratio Procalcitonin Urine Color Urine Appearance Urine pH Ur Specific [place] Urine Protein Urine Glucose (UA) Urine Ketones Urine Blood Urine Nitrite Urine Bilirubin Urine Urobilinogen Ur Leukocyte Esterase Hepatitis C Ab Screen Influenza Type A (PCR) Influenza Type B (PCR) 06/21/18 06/21/18 06/21/18 04:30 05:34 05:34 WBC 9.01 RBC 4.10 L Hgb 13.2 Hct 41.8 MCV 102.0 H MCH 32.2 MCHC 31.6 L RDW Std Deviation 49.3 H RDW Coeff of Frankie 13.2 Plt Count 184 MPV 10.4 Immature Gran % (Auto) Neut % (Auto) Lymph % (Auto) Maries % (Auto) Eos % (Auto) Baso % (Auto) Immature Gran # (Auto) Neut # (Auto) Lymph # (Auto) Maries # (Auto) Eos # (Auto) Baso # (Auto) PT INR APTT PTT Ratio ABG pH ABG pCO2 ABG pO2 ABG HCO3 ABG O2 Saturation ABG Base Excess Chucho Test Barometric Pressure Oxygen Given Sodium 139 Potassium 4.8 D Chloride 99 Carbon Dioxide 40 H Anion Gap 0 L BUN 15 Creatinine 0.57 L Est Cr Clr Drug Dosing 90.4 Est GFR ( Amer) 108.9 Est GFR (Non-Af Amer) 93.9 BUN/Creatinine Ratio 26.9 H Glucose 143 H Calcium 9.4 Magnesium 2.3 Total Bilirubin AST ALT Alkaline Phosphatase Troponin I Total Protein Albumin Globulin Albumin/Globulin Ratio Procalcitonin Urine Color Yellow Urine Appearance Clear Urine pH 5.0 Ur Specific Taiban 1.023 Urine Protein Negative Urine Glucose (UA) Negative Urine Ketones 1+ H Urine Blood Negative Urine Nitrite Negative Urine Bilirubin Negative Urine Urobilinogen Negative Ur Leukocyte Esterase Negative Hepatitis C Ab Screen Influenza Type A (PCR) Influenza Type B (PCR) Diagnostic Findings XR chest 1V portable CLINICAL HISTORY: 72 years-old Female presenting with Dyspnea. TECHNIQUE: Portable upright AP view of the chest was obtained. COMPARISON: 12/12/[address] from 09/05/2017. FINDINGS: Atherosclerosis of the aortic arch. Cardiac silhouette normal in size. Lungs are hyperinflated. No focal opacity. No pleural effusion or pneumothorax. Osseous structures normal. Upper abdomen normal. IMPRESSION: 1. Findings suggest emphysema. No focal infiltrate to suggest pneumonia. Electronically signed by: Janes Martinez M.D. 06/20/2018 2:57 PM
--- NOTE | 2018-06-21 14:27 | Hospitalist Progress Note ---
Date of Service June 21, 2018 Assessment & Plan (1) Acute on chronic respiratory failure with hypoxia and hypercapnia: Secondary to COPD exacerbation Management as outlined below Present on Admission?: Yes (2) COPD exacerbation: This is a 72-year-old female who has significant past medical history of severe COPD on 4 L O2, chronic respiratory failure, MERISSA on BiPAP, HTN, HLD, tobacco abuse, right lung nodule who presents to [facility] ED secondary to hypoxia noted at PCP. -place pt on bipap given respiratory distress and hypercarbia -consult pulmonology given severity of COPD -IV solumedrol 60mg q6h -IV levaquin 500mg daily -Duoneb q6hr RT -budenoside neb bid -aggressive pulmonary toilet -Clinically a little bit better -We will continue current treatment (3) Hypertension: -Blood pressure elevated while in ED, likely in the setting of acute respiratory distress -Continue losartan and amlodipine -Treat respiratory distress -Blood pressure is controlled (4) HLD (hyperlipidemia): -Continue statin (5) Tobacco abuse: -Encourage tobacco cessation -Nicotine patch ordered (6) MERISSA treated with BiPAP: -Bipap at HS (7) DVT prophylaxis: -lovenox Disposition: to be determined Follow up: PCP Dr. Kerr upon discharge Subjective 06/21 Patient was seen and examined in the telemetry unit She is a 72-year-old female with COPD and ongoing smoking was admitted with an exacerbation Has been feeling a little bit better but requiring BiPAP at the time Denies any chest pain, abdominal pain nausea and Physical Exam Vital Signs (Past 24 Hours): Last Vital Signs Temp 36.6 C 06/21/18 11:30 Pulse 86 06/21/18 11:30 Resp 23 06/21/18 11:30 BP 161/74 H 06/21/18 11:30 Pulse Ox 92 06/21/18 11:30 Physical Exam: Moderate shortness of breath at rest Constitutional: + ill appearing Eyes: PERRL, conjunctivae normal, anicteric sclerae ENMT: external ear and nose normal, oropharynx normal Neck: trachea midline, no thyromegaly Respiratory: + respiratory distress, + labored breathing and + uses accessory muscles Auscultation: + diminished lung sounds and + wheezes (Minimal wheezing secondary to very poor air entry) Cardiovascular: Rate/Rhythm: regular rhythm and + tachycardic Heart Sounds: normal S1 and normal S2 Gastrointestinal (Abdomen): Inspection/Auscultation: abdomen normal to inspection and normal bowel sounds Percussion/Palpation: abdomen soft Neurologic: Alert, awake and oriented x3. Generally weak Results & Data Laboratory Results Short CBC 06/20/18 06/21/18 Range/Units 14:12 05:34 WBC 10.28 9.01 (4.8-10.8) K/uL Hgb 13.3 13.2 (12.0-16.0) g/dL Hct 41.7 41.8 (37-47) % Plt Count 186 184 (130-400) K/uL BMP 06/20/18 06/21/18 14:12 05:34 Sodium 139 139 Potassium 4.1 4.8 D Chloride 98 99 Carbon Dioxide 38 H 40 H BUN 16 15 Creatinine 0.69 0.57 L Glucose 125 H 143 H Calcium 9.6 9.4 Cardiac Enzymes 06/20/18 Range/Units 14:12 Troponin I < 0.015 (0-0.045) ng/ml Liver Function 06/20/18 Range/Units 14:12 Total Bilirubin 0.3 (0.2-1) mg/dl AST 14 L (15-37) U/L ALT 16 (12-78) U/L Alkaline Phosphatase 88 (45-117) U/L Albumin 3.2 L (3.4-5.0) gm/dl Urine 06/21/18 Range/Units 04:30 Urine Color Yellow Urine Appearance Clear (Clear) Urine pH 5.0 (4.5-7.5) Ur Specific Lulu 1.023 (1.000-1.030) Urine Protein Negative (Negative) Urine Glucose (UA) Negative (Negative) Medications Administered Current Inpatient Medications Acetaminophen (Tylenol) 650 mg PO Q4H PRN PRN Reason: Pain or Fever Stop: 07/20/18 19:32 Al Hydrox/Mg Hydrox/Simethicone (Maalox) 15 ml PO Q4H PRN PRN Reason: Dyspepsia Stop: 07/20/18 19:32 Albuterol (Duoneb) 3 ml NEB Q4R JOSELYN Stop: 07/21/18 15:59 Amlodipine Besylate (Norvasc) 5 mg PO DAILY JOSELYN Stop: 07/21/18 08:59 Last Admin: 06/21/18 07:49 Dose: 5 mg Documented by: Aspirin (Ecotrin Ectab) 81 mg PO DAILY [facility] Stop: 07/21/18 08:59 Last Admin: 06/21/18 07:49 Dose: 81 mg Documented by: Budesonide (Pulmicort Respules) 0.5 mg NEB BIDR [facility] Stop: 07/20/18 19:59 Last Admin: 06/21/18 06:56 Dose: 0.5 mg Documented by: Levofloxacin/Dextrose (Levaquin/D5w) 500 mg in 100 mls @ 100 mls/hr IV Q24H [facility]; Protocol Stop: 06/27/18 19:59 Last Infusion: 06/20/18 22:18 Dose: Infused Documented by: Methylprednisolone 60 mg/ (Syringe) 0.96 mls @ 1.5 mls/min IV Q6 [facility] Stop: 07/21/18 00:00 Last Admin: 06/21/18 11:55 Dose: 1.5 mls/min Documented by: Losartan Potassium (Cozaar) 50 mg PO DAILY [facility] Stop: 07/21/18 08:59 Last Admin: 06/21/18 07:49 Dose: 50 mg Documented by: Magnesium Hydroxide (Milk Of Magnesia) 30 ml PO Q12H PRN PRN Reason: Constipation Stop: 07/20/18 19:32 Miscellaneous (Remove Nicoderm Patch) 1 ea N/A HS [facility] Stop: 07/21/18 20:59 Nicotine (Nicoderm Cq) 21 mg TD QAM [facility] Stop: 07/21/18 08:59 Last Admin: 06/21/18 07:49 Dose: 21 mg Documented by: Ondansetron HCl (Zofran) 4 mg IV Q6H PRN PRN Reason: Nausea Stop: 07/20/18 19:32 Pentoxifylline (Trental) 400 mg PO TID [facility] Stop: 07/20/18 20:59 Last Admin: 06/21/18 07:49 Dose: 400 mg Documented by: Polyethylene Glycol (Miralax Powder Packet) 17 gm PO DAILY PRN PRN Reason: Constipation Stop: 07/20/18 19:32 Simvastatin (Zocor) 20 mg PO DAILY [facility] Stop: 07/21/18 08:59 Last Admin: 06/21/18 07:49 Dose: 20 mg Documented by: Vitamin D (Vitamin D3) 1,000 units PO DAILY JOSELYN Stop: 07/21/18 08:59 Last Admin: 06/21/18 07:48 Dose: 1,000 units Documented by: (1) Hypertension Hypertension type: essential hypertension Qualified Code(s): I10 - Essential (primary) hypertension (2) HLD (hyperlipidemia) Hyperlipidemia type: unspecified Qualified Code(s): E78.5 - Hyperlipidemia, unspecified
[2018-06-21] MEDS: LEVOFLOXACIN/D5W 500 MG/100 ML BAG IV SCH (21:27)
[2018-06-22] MEDS: methylPREDNISolone 60 MG in SYRINGE 0 ML IV SCH ×4 (00:15→17:45)
[2018-06-22] MEDS: ALBUT/IPRATROP 3MG/0.5MG NEB 3 ML VIAL NEB SCH ×6 (03:08→23:12)
[2018-06-22 06:17] LABS: Hematocrit (blood only) 39.4 % (37-47); Hemoglobin 12.3 g/dL (12.0-16.0); Immature Granulocytes # (auto) 0.05 K/uL (0.00-0.02); Immature Granulocytes % (auto) 0.6 %; Lymphocytes # (auto) 0.79 K/uL (1.2-3.4); Lymphocytes % (auto) 9.9 %; Mean Corpuscular Hgb Conc 31.2 g/dL (32-36); Mean Corpuscular Volume 102.6 fL (80-100); Mean Platelet Volume 10.5 fL (7.4-10.4); Monocytes # (auto) 0.33 K/uL (0.11-0.59); Monocytes % (auto) 4.1 %; Neutrophils # (auto) 6.82 K/uL (1.4-6.5); Neutrophils % (auto) 85.4 %; Platelet Count 186 K/uL (130-400); RDW Standard Deviation 48.8 fL (36.4-46.3); Red Blood Count 3.84 M/uL (4.2-5.4); White Blood Count 7.99 K/uL (4.8-10.8)
[2018-06-22 06:46] LABS: BUN Creatinine Ratio 36.9 (10-20); Creatinine Clr Calc Pharmacy 79.3 ml/min; Est GFR (African American) 104.3; Magnesium 2.5 mg/dl (1.8-2.4); Potassium 4.8 mmol/L (3.5-5.1)
[2018-06-22] MEDS: BUDESONIDE 0.5 MG/2 ML VIAL (PULMICORT) NEB SCH ×2 (07:05→19:21)
[2018-06-22] MEDS: ASPIRIN 81 MG ECTAB PO SCH (08:06)
[2018-06-22] MEDS: SIMVASTATIN 20 MG TAB PO SCH (08:06)
[2018-06-22] MEDS: NICOTINE 21 MG/24 HR TDSY TD SCH (08:06)
[2018-06-22] MEDS: CHOLECALCIFEROL 1,000 UNITS TAB PO SCH (08:06)
[2018-06-22] MEDS: PENTOXIFYLLINE 400MG EXT REL TAB PO SCH ×3 (08:06→20:40)
[2018-06-22] MEDS: LOSARTAN POTASSIUM 50 MG TAB PO SCH (08:06)
[2018-06-22] MEDS: AMLODIPINE BESYLATE 5 MG TAB PO SCH (08:06)
[2018-06-22] MEDS ORDERED: FUROSEMIDE 20 MG in SYRINGE 0 ML IV ONE (09:45)
--- NOTE | 2018-06-22 09:51 | Pulmonology Progress Note ---
Date of Service June 22, 2018 Assessment & Plan (1) Acute on chronic respiratory failure with hypoxia and hypercapnia: acute on chronic hypoxic and hypercapnic respiratory failure due to COPD exacerbation improving continue bipap as needed and at night albuterol/ipratroipum budesonide continue steroids levofloxacin for COPD no clear infection OOB as much as able smoking cessation Needs followup CT chest for lung nodules in august Subjective breathing improved wore her bipap for part of night Physical Exam Vital Signs (Past 24 Hours): Last Vital Signs Temp 36.8 C 06/22/18 07:00 Pulse 83 06/22/18 07:07 Resp 18 06/22/18 07:07 BP 159/60 H 06/22/18 07:00 Pulse Ox 92 06/22/18 07:07 Physical Exam: Constitutional: Comfortable NAD on bipap HEENT: normocephalic atraumatic. MMM. CV: RRR nl s1,s2 no murmurs rubs or gallops Lungs: wheezing bilaterally with good air movement(improved from yesterday. no accessory muscle use on facemask 5 L Abd: soft nontender nondistended. normal bowel sounds Ext: + LE edema. no cyanosis, no clubbing Skin: warm dry Neuro: alert and awake. moving all extremities Psych: normal mood and affect
[2018-06-22] MEDS: SALMETEROL XINAFOATE 50MCG 28 BLISTER INH INH SCH ×2 (10:31→20:40)
--- NOTE | 2018-06-22 11:08 | Hospitalist Progress Note ---
Date of Service June 22, 2018 Assessment & Plan (1) Acute on chronic respiratory failure with hypoxia and hypercapnia: Secondary to COPD exacerbation Management as outlined below (2) COPD exacerbation: This is a 72-year-old female who has significant past medical history of severe COPD on 4 L O2, chronic respiratory failure, MERISSA on BiPAP, HTN, HLD, tobacco abuse, right lung nodule who presents to [facility] ED secondary to hypoxia noted at PCP. -place pt on bipap given respiratory distress and hypercarbia -consult pulmonology given severity of COPD -IV solumedrol 60mg q6h -IV levaquin 500mg daily -Duoneb q6hr RT -budenoside neb bid -aggressive pulmonary toilet -Clinicall much worse today -We will give a small dose of intravenous Lasix and Serevent disc added -Continue to use BiPAP as needed -If not any better will need pulmonary to evaluate the patient (3) Hypertension: -Blood pressure elevated while in ED, likely in the setting of acute respiratory distress -Continue losartan and amlodipine -Treat respiratory distress -Blood pressure is controlled (4) HLD (hyperlipidemia): -Continue statin (5) Tobacco abuse: -Encourage tobacco cessation -Nicotine patch ordered (6) MERISSA treated with BiPAP: -Bipap at HS (7) DVT prophylaxis: -lovenox Disposition: to be determined Follow up: PCP Dr. Kerr upon discharge Subjective 06/21 Patient was seen and examined in the telemetry unit She is a 72-year-old female with COPD and ongoing smoking was admitted with an exacerbation Has been feeling a little bit better but requiring BiPAP at the time Denies any chest pain, abdominal pain nausea and or vomiting / She has been very short of breath this morning She can hardly speak a sentence Has had her breakfast Denies any pain, any nausea or vomiting Physical Exam Vital Signs (Past 24 Hours): Last Vital Signs Temp 36.8 C 06/22/18 07:00 Pulse 84 06/22/18 08:00 Resp 18 06/22/18 07:07 BP 159/60 H 06/22/18 07:00 Pulse Ox 92 06/22/18 07:07 Physical Exam: Very short of breath at rest with wheezing Constitutional: + ill appearing Eyes: PERRL, conjunctivae normal, anicteric sclerae ENMT: external ear and nose normal, oropharynx normal Neck: trachea midline, no thyromegaly Respiratory: + respiratory distress, + labored breathing and + uses accessory muscles Auscultation: + diminished lung sounds and + wheezes (Minimal wheezi ng secondary to very poor air entry) Cardiovascular: Rate/Rhythm: regular rhythm and + tachycardic Heart Sounds: normal S1 and normal S2 Gastrointestinal (Abdomen): Inspection/Auscultation: abdomen normal to inspection and normal bowel sounds Percussion/Palpation: abdomen soft Neurologic: Alert, awake and oriented x3. Very short of breath to move her Results & Data Laboratory Results Short CBC 06/22/18 Range/Units 05:22 WBC 7.99 (4.8-10.8) K/uL Hgb 12.3 (12.0-16.0) g/dL Hct 39.4 (37-47) % Plt Count 186 (130-400) K/uL BMP 06/22/18 05:22 Sodium 140 Potassium 4.8 Chloride 98 Carbon Dioxide 43 H* BUN 24 H D Creatinine 0.65 Glucose 148 H Calcium 9.0 Medications Administered Current Inpatient Medications Acetaminophen (Tylenol) 650 mg PO Q4H PRN PRN Reason: Pain or Fever Stop: 07/20/18 19:32 Al Hydrox/Mg Hydrox/Simethicone (Maalox) 15 ml PO Q4H PRN PRN Reason: Dyspepsia Stop: 07/20/18 19:32 Albuterol (Duoneb) 3 ml NEB Q4R [facility] Stop: 07/21/18 15:59 Last Admin: 06/22/18 11:04 Dose: 3 ml Documented by: Amlodipine Besylate (Norvasc) 5 mg PO DAILY [facility] Stop: 07/21/18 08:59 Last Admin: 06/22/18 08:06 Dose: 5 mg Documented by: Aspirin (Ecotrin Ectab) 81 mg PO DAILY [facility] Stop: 07/21/18 08:59 Last Admin: 06/22/18 08:06 Dose: 81 mg Documented by: Budesonide (Pulmicort Respules) 0.5 mg NEB BIDR [facility] Stop: 07/20/18 19:59 Last Admin: 06/22/18 07:05 Dose: 0.5 mg Documented by: Levofloxacin/Dextrose (Levaquin/D5w) 500 mg in 100 mls @ 100 mls/hr IV Q24H [facility]; Protocol Stop: 06/27/18 19:59 Last Infusion: 06/21/18 23:54 Dose: Infused Documented by: Methylprednisolone 60 mg/ (Syringe) 0.96 mls @ 1.5 mls/min IV Q6 [facility] Stop: 07/21/18 00:00 Last Admin: 06/22/18 06:14 Dose: 1.5 mls/min Documented by: Losartan Potassium (Cozaar) 50 mg PO DAILY [facility] Stop: 07/21/18 08:59 Last Admin: 06/22/18 08:06 Dose: 50 mg Documented by: Magnesium Hydroxide (Milk Of Magnesia) 30 ml PO Q12H PRN PRN Reason: Constipation Stop: 07/20/18 19:32 Miscellaneous (Remove Nicoderm Patch) 1 ea N/A HS [facility] Stop: 07/21/18 20:59 Last Admin: 06/21/18 21:28 Dose: 1 ea Documented by: Nicotine (Nicoderm Cq) 21 mg TD QAM [facility] Stop: 07/21/18 08:59 Last Admin: 06/22/18 08:06 Dose: 21 mg Documented by: Ondansetron HCl (Zofran) 4 mg IV Q6H PRN PRN Reason: Nausea Stop: 07/20/18 19:32 Pentoxifylline (Trental) 400 mg PO TID [facility] Stop: 07/20/18 20:59 Last Admin: 06/22/18 08:06 Dose: 400 mg Documented by: Polyethylene Glycol (Miralax Powder Packet) 17 gm PO DAILY PRN PRN Reason: Constipation Stop: 07/20/18 19:32 Salmeterol Xinafoate (Serevent Diskus) 1 puffs INH BID [facility] Stop: 07/22/18 09:59 Last Admin: 06/22/18 10:31 Dose: 1 puffs Documented by: Simvastatin (Zocor) 20 mg PO DAILY [facility] Stop: 07/21/18 08:59 Last Admin: 06/22/18 08:06 Dose: 20 mg Documented by: Vitamin D (Vitamin D3) 1,000 units PO DAILY [facility] Stop: 07/21/18 08:59 Last Admin: 06/22/18 08:06 Dose: 1,000 units Documented by: (1) Hypertension Hypertension type: essential hypertension Qualified Code(s): I10 - Essential (primary) hypertension (2) HLD (hyperlipidemia) Hyperlipidemia type: unspecified Qualified Code(s): E78.5 - Hyperlipidemia, unspecified
[2018-06-23] MEDS: methylPREDNISolone 60 MG in SYRINGE 0 ML IV SCH ×4 (00:04→18:18)
[2018-06-23] MEDS: ALBUT/IPRATROP 3MG/0.5MG NEB 3 ML VIAL NEB SCH ×6 (04:13→23:09)
[2018-06-23] MEDS: BUDESONIDE 0.5 MG/2 ML VIAL (PULMICORT) NEB SCH ×2 (07:09→19:22)
[2018-06-23] MEDS: PENTOXIFYLLINE 400MG EXT REL TAB PO SCH ×3 (07:28→20:16)
[2018-06-23] MEDS: AMLODIPINE BESYLATE 5 MG TAB PO SCH (07:28)
[2018-06-23] MEDS: CHOLECALCIFEROL 1,000 UNITS TAB PO SCH (07:28)
[2018-06-23] MEDS: SIMVASTATIN 20 MG TAB PO SCH (07:28)
[2018-06-23] MEDS: LOSARTAN POTASSIUM 50 MG TAB PO SCH (07:28)
[2018-06-23] MEDS: SALMETEROL XINAFOATE 50MCG 28 BLISTER INH INH SCH ×2 (07:29→20:16)
[2018-06-23] MEDS: NICOTINE 21 MG/24 HR TDSY TD SCH (07:29)
[2018-06-23] MEDS: ASPIRIN 81 MG ECTAB PO SCH (07:29)
--- NOTE | 2018-06-23 08:10 | Pulmonology Progress Note ---
Date of Service June 23, 2018 Assessment & Plan (1) Acute on chronic respiratory failure with hypoxia and hypercapnia: acute on chronic hypoxic and hypercapnic respiratory failure due to COPD exacerbation improving after worsening yesterday afternoon encourage her to use bipap as needed and at night albuterol/ipratroipum budesonide and salmeterol taper steroids OOB as much as able smoking cessation Needs followup CT chest for lung nodules in august Subjective says breathing had gotten worse in afternoon yesterday but now overall better pt says she wore bipap overnight but per RN she dd not wear it much Physical Exam Vital Signs (Past 24 Hours): Last Vital Signs Temp 36.7 C 06/23/18 06:57 Pulse 83 06/23/18 07:14 Resp 16 06/23/18 07:14 BP 149/60 H 06/23/18 06:57 Pulse Ox 93 06/23/18 07:14 Physical Exam: Constitutional: Comfortable NAD on bipap HEENT: normocephalic atraumatic. MMM. CV: RRR nl s1,s2 no murmurs rubs or gallops Lungs: wheezing bilaterally with good air movement. no accessory muscle use. has facemask on her head as she is eating and is desatting Abd: soft nontender nondistended. normal bowel sounds Ext: + LE edema. no cyanosis, no clubbing Skin: warm dry Neuro: alert and awake. moving all extremities Psych: normal mood and affect
--- NOTE | 2018-06-23 11:32 | Hospitalist Progress Note ---
Date of Service June 23, 2018 Assessment & Plan (1) Acute on chronic respiratory failure with hypoxia and hypercapnia: Secondary to COPD exacerbation Management as outlined below (2) COPD exacerbation: This is a 72-year-old female who has significant past medical history of severe COPD on 4 L O2, chronic respiratory failure, MERISSA on BiPAP, HTN, HLD, tobacco abuse, right lung nodule who presents to [facility] ED secondary to hypoxia noted at PCP. -place pt on bipap given respiratory distress and hypercarbia -consult pulmonology given severity of COPD -IV solumedrol 60mg q6h -IV levaquin 500mg daily -Duoneb q6hr RT -budenoside neb bid -aggressive pulmonary toilet -Clinicall much worse today -We will give a small dose of intravenous Lasix and Serevent disc added -Continue to use BiPAP as needed -Appreciate pulmonary input and recommendation She is clinically little better today We will transfer her to medical floor and increase ambulation with assistance (3) Hypertension: -Blood pressure elevated while in ED, likely in the setting of acute respiratory distress -Continue losartan and amlodipine -Treat respiratory distress -Blood pressure is controlled (4) HLD (hyperlipidemia): -Continue statin (5) Tobacco abuse: -Encourage tobacco cessation -Nicotine patch ordered (6) MERISSA treated with BiPAP: -Bipap at HS Continue BiPAP (7) DVT prophylaxis: -lovenox Disposition: to be determined Follow up: PCP Dr. Kerr upon discharge Subjective 4/ Patient was seen and examined in the telemetry unit She is a 72-year-old female with COPD and ongoing smoking was admitted with an exacerbation Has been feeling a little bit better but requiring BiPAP at the time Denies any chest pain, abdominal pain nausea and or vomiting 4/ She has been very short of breath this morning She can hardly speak a sentence Has had her breakfast Denies any pain, any nausea or vomiting 06/23 Has been feeling a lot better today Denies any increasing chest pain and/or shortness of breath She feels that she is more or less at her baseline Was advised to have more ambulation and likely discharge tomorrow Physical Exam Vital Signs (Past 24 Hours): Last Vital Signs Temp 36.6 C 06/23/18 11:08 Pulse 84 06/23/18 11:15 Resp 24 06/23/18 11:15 BP 182/60 H 04/07/19 11:08 Pulse Ox 90 06/23/18 11:15 Physical Exam: Moderate shortness of breath at rest Constitutional: + acute distress (Moderate shortness of breath) and + ill appearing Eyes: PERRL, conjunctivae normal, anicteric sclerae ENMT: external ear and nose normal, oropharynx normal Neck: trachea midline, no thyromegaly Respiratory: + respiratory distress, + labored breathing and + uses accessory muscles Auscultation: + diminished lung sounds and + wheezes (Minimal wheezing secondary to very poor air entry); no crackles Cardiovascular: Rate/Rhythm: regular rhythm and + tachycardic Heart Sounds: normal S1 and normal S2 Gastrointestinal (Abdomen): Inspection/Auscultation: abdomen normal to inspection and normal bowel sounds Percussion/Palpation: abdomen soft Neurologic: Alert, awake and oriented x3. Generally very weak and lethargic Results & Data Medications Administered Current Inpatient Medications Acetaminophen (Tylenol) 650 mg PO Q4H PRN PRN Reason: Pain or Fever Stop: 07/20/18 19:32 Al Hydrox/Mg Hydrox/Simethicone (Maalox) 15 ml PO Q4H PRN PRN Reason: Dyspepsia Stop: 07/20/18 19:32 Albuterol (Duoneb) 3 ml NEB Q4R [facility] Stop: 07/21/18 15:59 Last Admin: 06/23/18 11:13 Dose: 3 ml Documented by: Amlodipine Besylate (Norvasc) 5 mg PO DAILY [facility] Stop: 07/21/18 08:59 Last Admin: 06/23/18 07:28 Dose: 5 mg Documented by: Aspirin (Ecotrin Ectab) 81 mg PO DAILY [facility] Stop: 07/21/18 08:59 Last Admin: 06/23/18 07:29 Dose: 81 mg Documented by: Budesonide (Pulmicort Respules) 0.5 mg NEB BIDR [facility] Stop: 07/20/18 19:59 Last Admin: 06/23/18 07:09 Dose: 0.5 mg Documented by: Methylprednisolone 60 mg/ (Syringe) 0.96 mls @ 1.5 mls/min IV Q6 [facility] Stop: 07/21/18 00:00 Last Admin: 06/23/18 11:28 Dose: 1.5 mls/min Documented by: Losartan Potassium (Cozaar) 50 mg PO DAILY [facility] Stop: 07/21/18 08:59 Last Admin: 06/23/18 07:28 Dose: 50 mg Documented by: Magnesium Hydroxide (Milk Of Magnesia) 30 ml PO Q12H PRN PRN Reason: Constipation Stop: 07/20/18 19:32 Miscellaneous (Remove Nicoderm Patch) 1 ea N/A HS [facility] Stop: 07/21/18 20:59 Last Admin: 06/22/18 20:40 Dose: 1 ea Documented by: Nicotine (Nicoderm Cq) 21 mg TD QAM [facility] Stop: 07/21/18 08:59 Last Admin: 06/23/18 07:29 Dose: 21 mg Documented by: Ondansetron HCl (Zofran) 4 mg IV Q6H PRN PRN Reason: Nausea Stop: 07/20/18 19:32 Pentoxifylline (Trental) 400 mg PO TID [facility] Stop: 07/20/18 20:59 Last Admin: 06/23/18 07:28 Dose: 400 mg Documented by: Polyethylene Glycol (Miralax Powder Packet) 17 gm PO DAILY PRN PRN Reason: Constipation Stop: 07/20/18 19:32 Salmeterol Xinafoate (Serevent Diskus) 1 puffs INH BID [facility] Stop: 07/22/18 09:59 Last Admin: 06/23/18 07:29 Dose: 1 puffs Documented by: Simvastatin (Zocor) 20 mg PO DAILY [facility] Stop: 07/21/18 08:59 Last Admin: 06/23/18 07:28 Dose: 20 mg Documented by: Vitamin D (Vitamin D3) 1,000 units PO DAILY [facility] Stop: 07/21/18 08:59 Last Admin: 06/23/18 07:28 Dose: 1,000 units Documented by: (1) Hypertension Hypertension type: essential hypertension Qualified Code(s): I10 - Essential (primary) hypertension (2) HLD (hyperlipidemia) Hyperlipidemia type: unspecified Qualified Code(s): E78.5 - Hyperlipidemia, unspecified
[2018-06-24] MEDS: methylPREDNISolone 60 MG in SYRINGE 0 ML IV SCH ×5 (00:06→23:44)
[2018-06-24] MEDS: ALBUT/IPRATROP 3MG/0.5MG NEB 3 ML VIAL NEB SCH ×8 (03:26→22:43)
[2018-06-24] MEDS ORDERED: ALBUT/IPRATROP 3MG/0.5MG NEB 3 ML VIAL NEB PRN (05:17)
[2018-06-24 06:38] LABS: Hematocrit (blood only) 39.4 % (37-47); Hemoglobin 12.1 g/dL (12.0-16.0); Immature Granulocytes # (auto) 0.07 K/uL (0.00-0.02); Immature Granulocytes % (auto) 0.8 %; Lymphocytes # (auto) 0.74 K/uL (1.2-3.4); Lymphocytes % (auto) 8.1 %; Mean Corpuscular Hgb Conc 30.7 g/dL (32-36); Mean Corpuscular Volume 101.8 fL (80-100); Mean Platelet Volume 10.7 fL (7.4-10.4); Monocytes # (auto) 0.32 K/uL (0.11-0.59); Monocytes % (auto) 3.5 %; Neutrophils # (auto) 7.99 K/uL (1.4-6.5); Neutrophils % (auto) 87.6 %; Platelet Count 198 K/uL (130-400); RDW Coefficient of Variation 13.5 % (11.5-14.5); Red Blood Count 3.87 M/uL (4.2-5.4); White Blood Count 9.12 K/uL (4.8-10.8)
[2018-06-24] MEDS: BUDESONIDE 0.5 MG/2 ML VIAL (PULMICORT) NEB SCH ×2 (07:12→19:52)
[2018-06-24 07:14] LABS: Calcium 9.3 mg/dl (8.5-10.1); Creatinine Clr Calc Pharmacy 81.3 ml/min; Est GFR (African American) 105.3; Est GFR (Non-African American) 90.9
--- NOTE | 2018-06-24 07:36 | XRay Report ---
XR chest 1V portable CLINICAL HISTORY: sob dyspnea COMPARISON STUDY: 03/22/2018 FINDINGS: Mild bibasilar atelectasis. Lungs otherwise are clear. There is a small fixed hiatal hernia . IMPRESSION: Mild bibasilar atelectasis. Otherwise negative study. The above report was generated using voice recognition software. It may contain grammatical, syntax or spelling errors. Electronically signed by: Yohan Patel M.D. 06/24/2018 7:34 AM
[2018-06-24 07:47] LABS: Magnesium 2.6 mg/dl (1.8-2.4); Potassium 4.7 mmol/L (3.5-5.1)
[2018-06-24] MEDS: AMLODIPINE BESYLATE 5 MG TAB PO SCH (07:47)
[2018-06-24] MEDS: LOSARTAN POTASSIUM 50 MG TAB PO SCH (07:47)
[2018-06-24] MEDS: NICOTINE 21 MG/24 HR TDSY TD SCH (07:47)
[2018-06-24] MEDS: SALMETEROL XINAFOATE 50MCG 28 BLISTER INH INH SCH ×2 (07:47→20:16)
[2018-06-24] MEDS: ASPIRIN 81 MG ECTAB PO SCH (07:47)
[2018-06-24] MEDS: CHOLECALCIFEROL 1,000 UNITS TAB PO SCH (07:48)
[2018-06-24] MEDS: PENTOXIFYLLINE 400MG EXT REL TAB PO SCH ×3 (07:48→20:16)
[2018-06-24] MEDS: SIMVASTATIN 20 MG TAB PO SCH (07:48)
--- NOTE | 2018-06-24 08:12 | Hospitalist Progress Note ---
Date of Service June 24, 2018 Assessment & Plan (1) Acute on chronic respiratory failure with hypoxia and hypercapnia: Secondary to COPD exacerbation Management as outlined below (2) COPD exacerbation: gradually improving ABG noted continue Solumedrol, Nebs add Mucomyst continue Budesonide, Salmeterol (3) Hypertension: elevated likely from COPD exacerbation, steroid -Continue losartan and amlodipine monitor (4) HLD (hyperlipidemia): -Continue statin (5) Tobacco abuse: -Encourage tobacco cessation -Nicotine patch ordered (6) MERISSA treated with BiPAP: -Bipap at HS Continue BiPAP (7) DVT prophylaxis: -lovenox Disposition: to be determined Follow up: PCP Dr. Kerr upon discharge Subjective ff up for COPD exacerbation was having SOB placed on Bipap, received nebs improving seen having breakfast dyspnea and cough improved compared to earlier today no chest pain denies other symptoms Physical Exam Vital Signs (Past 24 Hours): Last Vital Signs Temp 36.4 C L 06/23/18 23:00 Pulse 90 06/24/18 07:14 Resp 18 06/24/18 07:14 BP 172/61 H 06/23/18 23:00 Pulse Ox 97 06/24/18 07:14 Physical Exam: General- oriented x 3, not in distress, speaks in sentences with no effort or accessory muscle use Eyes- anicteric Neck- no JVD Lungs- distant breath sounds, mild rhonchi b/l Heart- normal rate, regular rhythm; no murmurs Abdomen- normal bowel sounds, nondistended, soft, nontender Extremities- no pretibial edema, no calf tenderness Neuro- alert, oriented x 3; no gross focal neurologic deficits Skin- warm & dry (1) HLD (hyperlipidemia) Hyperlipidemia type: unspecified Qualified Code(s): E78.5 - Hyperlipidemia, unspecified (2) Hypertension Hypertension type: essential hypertension Qualified Code(s): I10 - Essential (primary) hypertension
[2018-06-24 08:14] LABS: Allen Test Pos (Pos); HCO3 ABG 44 mmol/L (19-24); Oxygen Saturation ABG 92.5 % (90-95); PCO2 ABG 71 mmHg (35-46); PO2 ABG 66 mm/Hg (80-95); pH ABG 7.42 (7.35-7.45)
[2018-06-24] MEDS: ACETYLCYSTEINE 10% INHAL SOLN **DISPENSED FROM RESP. INH SCH ×2 (08:26→19:39)
[2018-06-24] MEDS: ENOXAPARIN INJ 40 MG/0.4 ML SYR SQ SCH (11:14)
--- NOTE | 2018-06-24 16:04 | Progress Note ---
DATE: 06/24/2018 PULMONARY MEDICINE PROGRESS NOTE Chart reviewed, patient examined. SUBJECTIVE: A 72-year-old with history of COPD, dyslipidemia, hypertension and obstructive sleep apnea, followed by Dr. Celestino Spear as an outpatient, was felt to be in acute on chronic hypoxic and hypercapnic respiratory failure due to COPD exacerbation. The patient was seen by Dr. Vikas Chilel on 06/21/2018 and advised to continue patient on nebulizer treatment q. 4 hours with DuoNeb and continue b.i.d. budesonide as well as intravenous steroids, levofloxacin and mobilization. OBJECTIVE: GENERAL: Today, the patient states she feels better. VITAL SIGNS: Her blood pressure is 161/63, pulse 56 and regular, respiratory rate 20, temperature 36.6, O2 sat 93% on 6 liters. SKIN: Without lesion. HEENT: Atraumatic, normocephalic. PERRLA. LUNGS: Wheezes bilaterally. CARDIAC: Regular rate and rhythm. I do not appreciate a gallop. ABDOMEN: Soft, scaphoid. No evidence of hepatosplenomegaly. EXTREMITIES: No pedal edema, clubbing or cyanosis. NEUROLOGICAL: Intact. No lateralizing signs. LABORATORY DATA: Chest x-ray showed mild bibasilar atelectasis, otherwise negative. Blood cultures negative. White count 9100, H and H 12 and 39. No significant peripheral eosinophilia. ABGs today pH 7.42, pCO2 of 71, pO2 of 66 on 5 liters. ASSESSMENT: A 72-year-old white female with severe chronic obstructive pulmonary disease, presents with acute on chronic hypoxic/hypercapnic respiratory failure, currently receiving aggressive medical management with significant improvement. Would slowly taper her IV Solu-Medrol, continue her nebulizer treatments as prescribed and mobilize the patient out of bed as well as continuing her nebulizer treatments with acetylcysteine b.i.d. We will follow along with you.
[2018-06-25] MEDS: ALBUT/IPRATROP 3MG/0.5MG NEB 3 ML VIAL NEB SCH ×6 (03:26→23:27)
[2018-06-25] MEDS: methylPREDNISolone 60 MG in SYRINGE 0 ML IV SCH ×3 (05:24→17:59)
[2018-06-25] MEDS: ACETYLCYSTEINE 10% INHAL SOLN **DISPENSED FROM RESP. INH SCH ×2 (07:12→20:27)
[2018-06-25] MEDS: BUDESONIDE 0.5 MG/2 ML VIAL (PULMICORT) NEB SCH ×2 (07:13→20:26)
[2018-06-25] MEDS: SALMETEROL XINAFOATE 50MCG 28 BLISTER INH INH SCH ×2 (08:03→20:46)
[2018-06-25] MEDS: SIMVASTATIN 20 MG TAB PO SCH (08:03)
[2018-06-25] MEDS: ASPIRIN 81 MG ECTAB PO SCH (08:03)
[2018-06-25] MEDS: PENTOXIFYLLINE 400MG EXT REL TAB PO SCH ×3 (08:03→20:22)
[2018-06-25] MEDS: AMLODIPINE BESYLATE 5 MG TAB PO SCH (08:03)
[2018-06-25] MEDS: CHOLECALCIFEROL 1,000 UNITS TAB PO SCH (08:03)
[2018-06-25] MEDS: NICOTINE 21 MG/24 HR TDSY TD SCH (08:04)
[2018-06-25] MEDS: ENOXAPARIN INJ 40 MG/0.4 ML SYR SQ SCH (08:04)
[2018-06-25] MEDS: LOSARTAN POTASSIUM 50 MG TAB PO SCH (08:07)
--- NOTE | 2018-06-25 18:37 | Hospitalist Progress Note ---
Date of Service June 25, 2018 Assessment & Plan (1) Acute on chronic respiratory failure with hypoxia and hypercapnia: Secondary to COPD exacerbation Management as outlined below (2) COPD exacerbation: gradually improving ABG noted Decrease Solu-Medrol to 60 mg daily Continue nebs every 4 hours Continue Mucomyst every 12 continue Budesonide, Salmeterol Appreciate pulmonary service recommendations (3) Hypertension: elevated likely from COPD exacerbation, steroid Not at goal Increase amlodipine to 7.5 mg p.o. daily -Continue losartan (4) HLD (hyperlipidemia): -Continue statin (5) Tobacco abuse: -Encourage tobacco cessation -Nicotine patch ordered (6) MERISSA treated with BiPAP: -Bipap at HS Continue BiPAP (7) DVT prophylaxis: -lovenox Disposition: to be determined Follow up: PCP Dr. Kerr upon discharge Subjective ff up for COPD exacerbation Seen resting in bed, using her tablet computer Comfortable, not in distress States she feels improved today No active dyspnea on my exam, cough also improving significantly Nonproductive No chest pain, dizziness, palpitations, nausea No other symptoms Physical Exam Vital Signs (Past 24 Hours): Last Vital Signs Temp 36.5 C 06/25/18 15:54 Pulse 79 06/25/18 15:54 Resp 20 06/25/18 15:54 BP 155/64 H 06/25/18 15:54 Pulse Ox 92 06/25/18 15:54 Physical Exam: General- oriented x 3, not in distress, speaks in sentences with no effort or accessory muscle use Eyes- anicteric Neck- no JVD Lungs-mild rhonchi bilateral bases, no wheezing, good air entry bilaterally Heart- normal rate, regular rhythm; no murmurs Abdomen- normal bowel sounds, nondistended, soft, nontender Extremities- no pretibial edema, no calf tenderness Neuro- alert, oriented x 3; no gross focal neurologic deficits Skin- warm & dry (1) Hypertension Hypertension type: essential hypertension Qualified Code(s): I10 - Essential (primary) hypertension (2) HLD (hyperlipidemia) Hyperlipidemia type: unspecified Qualified Code(s): E78.5 - Hyperlipidemia, unspecified
[2018-06-25] MEDS ORDERED: AMLODIPINE BESYLATE 5 MG TAB PO ONE (18:45)
[2018-06-26] MEDS: methylPREDNISolone 60 MG in SYRINGE 0 ML IV SCH ×3 (01:56→21:11)
[2018-06-26] MEDS: ALBUT/IPRATROP 3MG/0.5MG NEB 3 ML VIAL NEB SCH ×6 (03:18→23:06)
[2018-06-26] MEDS: BUDESONIDE 0.5 MG/2 ML VIAL (PULMICORT) NEB SCH ×2 (07:10→19:13)
[2018-06-26] MEDS: ACETYLCYSTEINE 10% INHAL SOLN **DISPENSED FROM RESP. INH SCH ×2 (07:16→19:13)
[2018-06-26] MEDS: PENTOXIFYLLINE 400MG EXT REL TAB PO SCH ×3 (08:13→20:46)
[2018-06-26] MEDS: SALMETEROL XINAFOATE 50MCG 28 BLISTER INH INH SCH ×2 (08:14→20:45)
[2018-06-26] MEDS: LOSARTAN POTASSIUM 50 MG TAB PO SCH (08:15)
[2018-06-26] MEDS: AMLODIPINE BESYLATE 5 MG TAB PO SCH (08:15)
[2018-06-26] MEDS: CHOLECALCIFEROL 1,000 UNITS TAB PO SCH (08:16)
[2018-06-26] MEDS: SIMVASTATIN 20 MG TAB PO SCH (08:16)
[2018-06-26] MEDS: ENOXAPARIN INJ 40 MG/0.4 ML SYR SQ SCH (08:16)
[2018-06-26] MEDS: ASPIRIN 81 MG ECTAB PO SCH (08:16)
[2018-06-26] MEDS: NICOTINE 21 MG/24 HR TDSY TD SCH (08:17)
--- NOTE | 2018-06-26 15:09 | Hospitalist Progress Note ---
Date of Service June 26, 2018 delayed entry date of service as noted above Assessment & Plan (1) Acute on chronic respiratory failure with hypoxia and hypercapnia: Secondary to COPD exacerbation Management as outlined below (2) COPD exacerbation: continues to improve taper Solu-Medrol to 60 mg Continue nebs every 4 hours Continue Mucomyst every 12 continue Budesonide, Salmeterol Appreciate pulmonary service recommendations (3) Hypertension: elevated likely from COPD exacerbation, steroid Not at goal Increase amlodipine to10 mg p.o. daily -Continue losartan (4) HLD (hyperlipidemia): -Continue statin (5) Tobacco abuse: -Encourage tobacco cessation -Nicotine patch ordered (6) MERISSA treated with BiPAP: -Bipap at HS Continue BiPAP (7) DVT prophylaxis: -lovenox Disposition: to be determined Follow up: PCP Dr. Kerr upon discharge Subjective ff up for COPD exacerbation seen resting in bed, comfortable not in distress breathing continues to improve less cough, non productive no other symptoms Physical Exam Vital Signs (Past 24 Hours): Last Vital Signs Temp 36.5 C 06/26/18 07:40 Pulse 86 06/26/18 11:51 Resp 18 06/26/18 11:51 BP 169/72 H 06/26/18 07:40 Pulse Ox 90 06/26/18 11:51 Physical Exam: General- oriented x 3, not in distress, speaks in sentences with no effort or accessory muscle use Eyes- anicteric Neck- no JVD Lungs- distant BS, intermittent rhonchi BL, no wheezing Heart- normal rate, regular rhythm; no murmurs Abdomen- normal bowel sounds, nondistended, soft, nontender Extremities- no pretibial edema, no calf tenderness Neuro- alert, oriented x 3; no gross focal neurologic deficits Skin- warm & dry (1) HLD (hyperlipidemia) Hyperlipidemia type: unspecified Qualified Code(s): E78.5 - Hyperlipidemia, unspecified (2) Hypertension Hypertension type: essential hypertension Qualified Code(s): I10 - Essential (primary) hypertension
[2018-06-26] MEDS ORDERED: AMLODIPINE BESYLATE 5 MG TAB PO SCH (16:15)
[2018-06-26] MEDS: cloNIDine HCl 0.1 MG TAB PO PRN (19:32)
[2018-06-27] MEDS: cloNIDine HCl 0.1 MG TAB PO PRN (00:36)
[2018-06-27] MEDS: ALBUT/IPRATROP 3MG/0.5MG NEB 3 ML VIAL NEB SCH ×5 (03:37→19:11)
[2018-06-27] MEDS: BUDESONIDE 0.5 MG/2 ML VIAL (PULMICORT) NEB SCH ×2 (07:05→19:11)
[2018-06-27] MEDS: ACETYLCYSTEINE 10% INHAL SOLN **DISPENSED FROM RESP. INH SCH ×2 (07:06→19:12)
[2018-06-27] MEDS: ENOXAPARIN INJ 40 MG/0.4 ML SYR SQ SCH (08:46)
[2018-06-27] MEDS: ASPIRIN 81 MG ECTAB PO SCH (08:46)
[2018-06-27] MEDS: PENTOXIFYLLINE 400MG EXT REL TAB PO SCH ×3 (08:46→20:33)
[2018-06-27] MEDS: NICOTINE 21 MG/24 HR TDSY TD SCH (08:47)
[2018-06-27] MEDS: CHOLECALCIFEROL 1,000 UNITS TAB PO SCH (08:48)
[2018-06-27] MEDS: SALMETEROL XINAFOATE 50MCG 28 BLISTER INH INH SCH ×2 (08:49→20:33)
[2018-06-27] MEDS: SIMVASTATIN 20 MG TAB PO SCH (08:49)
[2018-06-27] MEDS: AMLODIPINE BESYLATE 5 MG TAB PO SCH (08:50)
[2018-06-27] MEDS: LOSARTAN POTASSIUM 50 MG TAB PO SCH (08:50)
[2018-06-27] MEDS ORDERED: LOSARTAN POTASSIUM 25 MG TAB PO SCH (09:15)
[2018-06-27] MEDS ORDERED: AMLODIPINE BESYLATE 5 MG TAB PO SCH (09:15)
[2018-06-27] MEDS: methylPREDNISolone 60 MG in SYRINGE 0 ML IV SCH (09:45)
[2018-06-27] MEDS: LOSARTAN POTASSIUM 25 MG TAB PO SCH (09:50)
--- NOTE | 2018-06-27 15:02 | Hospitalist Progress Note ---
Date of Service June 27, 2018 Assessment & Plan (1) Acute on chronic respiratory failure with hypoxia and hypercapnia: Secondary to COPD exacerbation Management as outlined below (2) COPD exacerbation: continues to improve taper Solu-Medrol to 60 mg daily--> start Prednisone 60mg po tomorrow, slow taper course Continue nebs every 4 hours Continue Mucomyst every 12 continue Budesonide, Salmeterol Appreciate pulmonary service recommendations possible d/c tomorrow (3) Hypertension: elevated likely from COPD exacerbation, steroid Not at goal Increase amlodipine to10 mg p.o. daily -Continue losartan - monitor BP (4) HLD (hyperlipidemia): -Continue statin (5) Tobacco abuse: -Encourage tobacco cessation -Nicotine patch ordered (6) MERISSA treated with BiPAP: -Bipap at HS Continue BiPAP (7) DVT prophylaxis: -lovenox Disposition: to be determined Follow up: PCP Dr. Kerr upon discharge needs to ff up with Utility Mechanic Supervisor as well Subjective ff up for COPD exacerbation seen resting in bed, comfortable not in distress had some mild dyspnea with ambulation with PT OT today cough resolving no other symptoms Physical Exam Vital Signs (Past 24 Hours): Last Vital Signs Temp 36.7 C 06/27/18 07:56 Pulse 91 H 06/27/18 11:19 Resp 18 06/27/18 11:19 BP 157/62 H 06/27/18 07:56 Pulse Ox 89 L 06/27/18 11:19 Physical Exam: General- oriented x 3, not in distress, speaks in sentences with no effort or accessory muscle use Eyes- anicteric Neck- no JVD Lungs- distant but clear breath sounds bilaterally, no rales/wheezes Heart- normal rate, regular rhythm; no murmurs Abdomen- normal bowel sounds, nondistended, soft, nontender Extremities- no pretibial edema, no calf tenderness Neuro- alert, oriented x 3; no gross focal neurologic deficits Skin- warm & dry (1) Hypertension Hypertension type: essential hypertension Qualified Code(s): I10 - Essential (primary) hypertension (2) HLD (hyperlipidemia) Hyperlipidemia type: unspecified Qualified Code(s): E78.5 - Hyperlipidemia, unspecified
[2018-06-27] MEDS ORDERED: ALBUT/IPRATROP 3MG/0.5MG NEB 3 ML VIAL NEB PRN (15:21)
[2018-06-28] MEDS: ALBUT/IPRATROP 3MG/0.5MG NEB 3 ML VIAL NEB SCH ×3 (01:39→13:54)
[2018-06-28] MEDS: ACETYLCYSTEINE 10% INHAL SOLN **DISPENSED FROM RESP. INH SCH (06:56)
[2018-06-28] MEDS: BUDESONIDE 0.5 MG/2 ML VIAL (PULMICORT) NEB SCH (06:56)
[2018-06-28] MEDS ORDERED: predniSONE 20 MG TAB PO SCH (09:00)
[2018-06-28] MEDS ORDERED: AMLODIPINE BESYLATE 5 MG TAB PO SCH (09:00)
[2018-06-28] MEDS: SALMETEROL XINAFOATE 50MCG 28 BLISTER INH INH SCH (09:01)
[2018-06-28] MEDS: LOSARTAN POTASSIUM 25 MG TAB PO SCH (09:02)
[2018-06-28] MEDS: PENTOXIFYLLINE 400MG EXT REL TAB PO SCH ×2 (09:02→14:13)
[2018-06-28] MEDS: ENOXAPARIN INJ 40 MG/0.4 ML SYR SQ SCH (09:03)
[2018-06-28] MEDS: ASPIRIN 81 MG ECTAB PO SCH (09:03)
[2018-06-28] MEDS: SIMVASTATIN 20 MG TAB PO SCH (09:03)
[2018-06-28] MEDS: CHOLECALCIFEROL 1,000 UNITS TAB PO SCH (09:03)
[2018-06-28] MEDS: NICOTINE 21 MG/24 HR TDSY TD SCH (09:04)
[2018-06-28 10:05] LABS: Basophils # (auto) 0.01 K/uL (0-0.2); Basophils % (auto) 0.1 %; Eosinophils # (auto) 0.01 K/uL (0-0.5); Eosinophils % (auto) 0.1 %; Hematocrit (blood only) 38.7 % (37-47); Hemoglobin 12.5 g/dL (12.0-16.0); Immature Granulocytes % (auto) 2.1 %; Lymphocytes # (auto) 3.03 K/uL (1.2-3.4); Mean Corpuscular Hgb Conc 32.3 g/dL (32-36); Mean Corpuscular Volume 97.7 fL (80-100); Mean Platelet Volume 11.2 fL (7.4-10.4); Monocytes # (auto) 1.03 K/uL (0.11-0.59); Monocytes % (auto) 7.1 %; Neutrophils # (auto) 10.08 K/uL (1.4-6.5); Neutrophils % (auto) 69.6 %; Nucleated RBC # (auto) 0.05 K/uL (0-0); Nucleated RBC % (auto) 0.4 %; Platelet Count 181 K/uL (130-400); RDW Coefficient of Variation 13.7 % (11.5-14.5); RDW Standard Deviation 48.6 fL (36.4-46.3); Red Blood Count 3.96 M/uL (4.2-5.4); White Blood Count 14.46 K/uL (4.8-10.8)
[2018-06-28 10:37] LABS: BUN Creatinine Ratio 40.4 (10-20); Calcium 8.5 mg/dl (8.5-10.1); Creatinine Clr Calc Pharmacy 76.4 ml/min; Est GFR (African American) 103.2; Est GFR (Non-African American) 89.1
--- NOTE | 2018-06-28 12:07 | Hospitalist Progress Note ---
Date of Service June 28, 2018 Assessment & Plan (1) Acute on chronic respiratory failure with hypoxia and hypercapnia: Secondary to COPD exacerbation Management as outlined below (2) COPD exacerbation: continues to improve taper Solu-Medrol to 60 mg daily--> will taper steroid on discharge Continue nebs every 4 hours Continue Mucomyst every 12 continue Budesonide, Salmeterol Appreciate pulmonary service recommendations Clinically stable and seems to be better today She does have shortness of breath at rest and seems to be at her baseline She wants to go home today (3) Hypertension: elevated likely from COPD exacerbation, steroid Not at goal Increase amlodipine to10 mg p.o. daily -Continue losartan -BP has been under control (4) HLD (hyperlipidemia): -Continue statin (5) Tobacco abuse: -Encourage tobacco cessation -Nicotine patch ordered -Again stressed on quitting smoking (6) MERISSA treated with BiPAP: -Bipap at HS Continue BiPAP (7) DVT prophylaxis: -lovenox Disposition: to be determined Follow up: PCP Dr. Kerr upon discharge needs to ff up with Manager Patient as well We will discharge home this afternoon Subjective 06/28 Patient was seen and examined the medical floor She has been shortness of breath at rest which seems to be at her baseline She wants to go home today Denies any chest pain and/or palpitation, any nausea or vomiting He has been ambulating reasonably well Physical Exam Vital Signs (Past 24 Hours): Last Vital Signs Temp 36.9 C 06/28/18 07:48 Pulse 83 06/28/18 07:48 Resp 20 06/28/18 07:48 BP 163/71 H 06/28/18 07:48 Pulse Ox 96 06/28/18 07:48 Physical Exam: Moderate shortness of breath at rest Constitutional: + acute distress (Moderate shortness of breath) and + ill appearing Eyes: PERRL, conjunctivae normal, anicteric sclerae ENMT: external ear and nose normal, oropharynx normal Neck: trachea midline, no thyromegaly Respiratory: + respiratory distress, + labored breathing (Back to her baseline) and + uses accessory muscles (Back to her baseline) Auscultation: + diminished lung sounds and + wheezes (Minimal wheezing secondary to very poor air entry); no crackles Cardiovascular: Rate/Rhythm: regular rhythm and + tachycardic Heart Sounds: normal S1 and normal S2 Gastrointestinal (Abdomen): Inspection/Auscultation: abdomen normal to inspection and normal bowel sounds Percussion/Palpation: abdomen soft Neurologic: Alert, awake and oriented x3. Generally weak but no apparent neuro deficit Results & Data Laboratory Results Short CBC 06/28/18 Range/Units 09:54 WBC 14.46 H (4.8-10.8) K/uL Hgb 12.5 (12.0-16.0) g/dL Hct 38.7 (37-47) % Plt Count 181 (130-400) K/uL BMP 06/28/18 09:54 Sodium 136 Potassium Chloride 97 L Carbon Dioxide 36 H BUN 27 H Creatinine 0.67 Glucose 157 H Calcium 8.5 Medications Administered Current Inpatient Medications Acetaminophen (Tylenol) 650 mg PO Q4H PRN PRN Reason: Pain or Fever Stop: 07/20/18 19:32 Acetylcysteine (Mucomyst 10%) 3 ml INH Q12R JOSELYN Stop: 07/24/18 10:59 Last Admin: 06/28/18 06:56 Dose: 3 ml Documented by: Al Hydrox/Mg Hydrox/Simethicone (Maalox) 15 ml PO Q4H PRN PRN Reason: Dyspepsia Stop: 07/20/18 19:32 Albuterol (Duoneb) 3 ml NEB Q6R JOSELYN Stop: 07/27/18 19:59 Last Admin: 06/28/18 06:56 Dose: 3 ml Documented by: Albuterol (Duoneb) 3 ml NEB Q2H PRN PRN Reason: Shortness Of Breath Or Wheezing Stop: 07/27/18 15:20 Amlodipine Besylate (Norvasc) 10 mg PO DAILY [facility] Stop: 07/28/18 08:59 Last Admin: 06/28/18 09:03 Dose: 10 mg Documented by: Aspirin (Ecotrin Ectab) 81 mg PO DAILY JOSELYN Stop: 07/21/18 08:59 Last Admin: 06/28/18 09:03 Dose: 81 mg Documented by: Budesonide (Pulmicort Respules) 0.5 mg NEB BIDR JOSELYN Stop: 07/20/18 19:59 Last Admin: 06/28/18 06:56 Dose: 0.5 mg Documented by: Clonidine HCl (Catapres) 0.1 mg PO Q6H PRN PRN Reason: Hypertension Stop: 07/26/18 19:12 Last Admin: 06/27/18 00:36 Dose: 0.1 mg Documented by: Enoxaparin Sodium (Lovenox) 40 mg SQ QAM [facility] Stop: 07/24/18 09:59 Last Admin: 06/28/18 09:03 Dose: 40 mg Documented by: Losartan Potassium (Cozaar) 75 mg PO DAILY [facility] Stop: 07/27/18 08:59 Last Admin: 06/28/18 09:02 Dose: 75 mg Documented by: Magnesium Hydroxide (Milk Of Magnesia) 30 ml PO Q12H PRN PRN Reason: Constipation Stop: 07/20/18 19:32 Miscellaneous (Remove Nicoderm Patch) 1 ea N/A HS [facility] Stop: 07/21/18 20:59 Last Admin: 06/27/18 20:32 Dose: 1 ea Documented by: Nicotine (Nicoderm Cq) 21 mg TD QAM [facility] Stop: 07/21/18 08:59 Last Admin: 06/28/18 09:04 Dose: 21 mg Documented by: Ondansetron HCl (Zofran) 4 mg IV Q6H PRN PRN Reason: Nausea Stop: 07/20/18 19:32 Pentoxifylline (Trental) 400 mg PO TID [facility] Stop: 07/20/18 20:59 Last Admin: 06/28/18 09:02 Dose: 400 mg Documented by: Polyethylene Glycol (Miralax Powder Packet) 17 gm PO DAILY PRN PRN Reason: Constipation Stop: 07/20/18 19:32 Prednisone (Prednisone) 60 mg PO DAILY [facility] Stop: 07/28/18 08:59 Last Admin: 06/28/18 09:05 Dose: 60 mg Documented by: Salmeterol Xinafoate (Serevent Diskus) 1 puffs INH BID [facility] Stop: 07/22/18 09:59 Last Admin: 06/28/18 09:01 Dose: 1 puffs Documented by: Simvastatin (Zocor) 20 mg PO DAILY [facility] Stop: 07/21/18 08:59 Last Admin: 06/28/18 09:03 Dose: 20 mg Documented by: Vitamin D (Vitamin D3) 1,000 units PO DAILY [facility] Stop: 07/21/18 08:59 Last Admin: 04/12/19 09:03 Dose: 1,000 units Documented by: (1) Hypertension Hypertension type: essential hypertension Qualified Code(s): I10 - Essential (primary) hypertension (2) HLD (hyperlipidemia) Hyperlipidemia type: unspecified Qualified Code(s): E78.5 - Hyperlipidemia, unspecified
--- NOTE | 2018-07-01 09:12 | Discharge Summary ---
Date of Service July 01, 2018 Admission HPI Per Admitting Provider This is a 72-year-old female who has significant past medical history of severe COPD on 4 L O2, chronic respiratory failure, MERISSA on BiPAP, HTN, HLD, tobacco abuse, right lung nodule who presents to [facility] ED secondary to hypoxia noted at PCP. Patient has been experiencing increasing shortness of breath for the past 3 days. She was seen by PCP this afternoon when her oxygen saturations were noted to be in the 70s. She made little improvement with increase of O2 to 6 L. Given profound hypoxia and increasing shortness of breath it was recommended she seek ED. EMS was summoned. She received 3 nebulizer treatments in route as well as IV fluid. Upon my evaluation patient was visibly tachypneic and tripoding. She states her symptoms started approximately 3 days ago with increasing shortness of breath. She further notes increased productive cough unsure nature of sputum. She denies fever, chills, sweats, lightheadedness, dizziness, chest pain, palpitations, nausea, vomiting, diarrhea, change in bowel or urinary habits. Overall her appetite remains good, "I need some coffee." Overall she feels slightly improved since arriving in ED but still feels short of breath. No known sick contacts. Admission Exam Per Admitting Provider Vital Signs (Past 24 Hours): Last Vital Signs Temp 36.5 C 06/20/18 14:46 Pulse 96 H 06/20/18 17:30 Resp 19 06/20/18 17:30 BP 162/55 H 06/20/18 17:30 Pulse Ox 95 06/20/18 17:30 Physical Exam: Gen: Elderly, F, sitting up at edge of bed in tripod position, visibly in respiratory distress, able to converse but difficulty given respiratory status Head: Normocephalic, Atraumatic Eyes: Sclera normal, no conjunctival injection, PERRLA, EOMI ENT: Gross hearing intact, normal pharynx, mucous membranes dry Neck: supple, no adenopathy, No JVD, no bruit, Resp: Decreased breath sounds throughout with over chest tightness,) expiratory wheezing noted bilaterally anteriorly and posterior, no rales rhonchi, increased inspiratory and exp effort with acute respiratory distress, no accessory muscle use CV: Tachycardic rate, regular rhythm, no murmur, rub, gallop, or ectopy Abd: +BS x 4, soft, nontender, nondistended Musculoskeletal: moves extremities active rom x 4, strength intact, good border measurer and cutter strength Extremities: No edema bilaterally Skin: warm, dry, no rash, mild turgor, cap refill < 2sec Neuro: Alert and oriented x 3, speech normal, good mood/affect, cran nerve 2-12 intact grossly : deferred Principal Diagnosis COPD exacerbation, obstructive sleep apnea treated with BiPAP Discharge Exam Constitutional + acute distress (Moderate shortness of breath) and + ill appearing Eyes PERRL, conjunctivae normal, anicteric sclerae ENMT external ear and nose normal, oropharynx normal Neck trachea midline, no thyromegaly Respiratory + respiratory distress, + labored breathing (Back to her baseline) and + uses accessory muscles (Back to her baseline) Auscultation: + diminished lung sounds and + wheezes (Minimal wheezing secondary to very poor air entry); no crackles Cardiovascular Rate/Rhythm: regular rhythm and + tachycardic Heart Sounds: normal S1 and normal S2 Gastrointestinal (Abdomen) Inspection/Auscultation: abdomen normal to inspection and normal bowel sounds Percussion/Palpation: abdomen soft Discharge Data Allergies Allergy/AdvReac Type Severity Reaction Status Date / Time codeine Allergy Intermediate tinnitus Verified 06/20/18 14:56 Consultations 06/20/18 17:27 ED Decision to Admit Stat 06/20/18 19:33 Consult Case Management - Discharge Planning Routine 06/20/18 19:55 Consult Pulmonology Routine Hospital Course (1) Acute on chronic respiratory failure with hypoxia and hypercapnia: Secondary to COPD exacerbation Management as outlined below (2) COPD exacerbation: continues to improve taper Solu-Medrol to 60 mg daily--> will taper steroid on discharge Continue nebs every 4 hours Continue Mucomyst every 12 continue Budesonide, Salmeterol Appreciate pulmonary service recommendations Clinically stable and seems to be better today She does have shortness of breath at rest and seems to be at her baseline She wants to go home today (3) Hypertension: elevated likely from COPD exacerbation, steroid Not at goal Increase amlodipine to10 mg p.o. daily -Continue losartan -BP has been under control (4) HLD (hyperlipidemia): -Continue statin (5) Tobacco abuse: -Encourage tobacco cessation -Nicotine patch ordered -Again stressed on quitting smoking (6) MERISSA treated with BiPAP: -Bipap at HS Continue BiPAP (7) DVT prophylaxis: -lovenox Disposition: to be determined Follow up: PCP Dr. Kerr upon discharge needs to ff up with Mainframe Systems Engineer as well We will discharge home this afternoon Total Time Total Time Spent Total Time Spent (In Minutes): 35 Minutes Total Time Includes: Examination of the Patient, Discharge Planning, Medication Reconciliation and Communication With Other Providers Discharge Plan Discharge Items Patient Disposition: Home - Self-Care Reason For Visit: COPD EXACERBATION Discharge Diagnosis: COPD exacerbation, obstructive sleep apnea treated with BiPAP Condition: Fair Discharge Goals: Decrease discomfort, Improve function and Increase independence Activity: Resume your previous activity Non-emergency contact: Primary Care Provider Call non-emergency contact if: you have any medication questions and your symptoms worsen Follow-up/Referrals: Bradly Funez PA-C [[employer] [employer]] - 07/10/18 3:00 pm Mitesh Kerr MD [Primary Care Provider] - 07/02/18 9:05 am (Will need to see a Mainframe Systems Engineer as an OP) Diet: Heart Healthy Addtl Provider Instructions: Please quit smoking. Please take precaution to avoid exacerbating factors for your COPD as explained Prescriptions: New Serevent Diskus 50 mcg/dose Blister With Device 1 puff inhalation BID 30 Days Qty: 1 RF: 0 Combivent Respimat 20-100 mcg/actuation mist 1 puffs INH Q6H PRN (Reason: sob) Qty: 4 RF: 0 amlodipine [Norvasc] 5 mg Tablet 10 mg PO DAILY 30 Days Qty: 60 RF: 0 losartan 25 mg Tablet 75 mg PO DAILY 30 Days Qty: 90 RF: 0 prednisone 10 mg tablet 10 mg PO UD Qty: 50 RF: 0 Continued ipratropium-albuterol 0.5 mg-3 mg(2.5 mg base)/3 mL solution for nebulization 1 vial inhalation QID RF: 0 aspirin 81 mg Tablet,Delayed Release (Dr/Ec) 81 mg PO DAILY RF: 0 pentoxifylline 400 mg tablet extended release 400 mg PO TID RF: 0 simvastatin 20 mg tablet 20 mg PO DAILY RF: 0 cholecalciferol (vitamin D3) [Vitamin D3] 1,000 unit Capsule 1,000 unit PO DAILY RF: 0 Symbicort 160-4.5 mcg/actuation HFA aerosol inhaler 2 puff inhalation BID RF: 0 Changed losartan 50 mg tablet 75 mg PO DAILY Qty: 0 RF: 0 amlodipine 5 mg tablet 10 mg PO DAILY Qty: 0 RF: 0 Stand-Alone Forms: Counts Include [facility] Discharge Orders: Discharge Order (Routine); Ordered 06/28/18 Ordered By: Dereck Ren Admission Data Admit Date/Time: 06/20/18 18:19 Attending Provider: Dereck Ren Admit Provider: Les Irizarry Primary Care Provider: Mitesh Kerr Other Providers: Les Irizarry ; Vikas Chilel ; Dereck Ren ; IRB Approved Study,Marah ; Pk Harris Service: Medical Other Interventions: Discharge Summary Assessment (RN) Last Done: 06/28/18 13:17 DC Date/Time DO NOT enter until pt leaves facility: 06/28/18 14:49
== END 2018-06-28 14:49 | disposition home or self-care (01) | DRG 189 ==
LOC: ED 14:28 → SUATTDRO 18:19 → 2E 18:19 → 2W 06-23 15:33 → 4W 06-25 19:07

== ENCOUNTER 2018-08-16 17:33 | Inpatient (IN) ==
[2018-08-16] MEDS ORDERED: ALBUT/IPRATROP 3MG/0.5MG NEB 3 ML VIAL NEB STA (18:03)
[2018-08-16 18:25] LABS: Hematocrit (blood only) 36.3 % (37-47); Hemoglobin 11.9 g/dL (12.0-16.0); Mean Corpuscular Hgb Conc 32.8 g/dL (32-36); Mean Corpuscular Volume 95.5 fL (80-100); Mean Platelet Volume 10.3 fL (7.4-10.4); Platelet Count 178 K/uL (130-400); RDW Coefficient of Variation 14.1 % (11.5-14.5); RDW Standard Deviation 49.3 fL (36.4-46.3); White Blood Count 8.81 K/uL (4.8-10.8)
--- NOTE | 2018-08-16 18:25 | XRay Report ---
SINGLE VIEW CHEST CLINICAL HISTORY: Hypoxia. COPD. FINDINGS: An AP, portable, upright chest radiograph is compared to study dated 07/10/2018 and correlat ed with chest CT dated 09/05/2017. The examination is degraded by portable technique and apical lordot ic positioning. The heart is top normal for projection and there is atherosclerotic calcification of the thoracic aorta. The pulmonary vasculature is noncongested. Emphysema and chronic interstitial th ickening are similar to previous. There is bibasilar scarring/atelectasis. No airspace consolidation or pleural effusion is identified. No pneumothorax is seen. The skeletal structures are osteopenic. T he bony thorax is grossly intact. IMPRESSION: Emphysema with no acute cardiopulmonary abnormality. Electronically signed by: Pietro Soto M.D. 08/16/2018 6:23 PM
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
[2018-08-16 18:41] LABS: BUN Creatinine Ratio 21.6 (10-20); Calcium 9.5 mg/dl (8.5-10.1); Creatinine Clr Calc Pharmacy 77.1 ml/min; Est GFR (African American) 101.5; Est GFR (Non-African American) 87.6
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
[2018-08-16] MEDS ORDERED: ACETAMINOPHEN 325 MG TAB PO PRN (22:08)
[2018-08-16] MEDS ORDERED: POLYETHYLENE (MIRALAX) 17 GM PACK PO PRN (22:08)
[2018-08-16] MEDS ORDERED: ONDANSETRON INJ 2 MG/ML 2 ML VIAL IV PRN (22:08)
[2018-08-16] MEDS: BUDESONIDE/FORMOTEROL FUMARATE 160/4.5 60 PUFFS/INHALER INH SCH (23:15)
[2018-08-16] MEDS: ALBUTEROL HFA 8 GM INHALER INH PRN (23:16)
[2018-08-16] MEDS: OXYCODONE/ACETAMINOPHEN 5mg/325mg TAB PO PRN (23:18)
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
[2018-08-16] MEDS: NICOTINE 7 MG/24 HR TDSY TD SCH (23:56)
[2018-08-17] MEDS: SODIUM CHLORIDE 0.9% 1000ML 1,000 ML IV SCH ×2 (00:04→12:06)
[2018-08-17] MEDS ORDERED: HYDROmorphone INJ 0.5 MG/0.5 ML SYR IV PRN (00:06)
[2018-08-17] MEDS: ALBUTEROL HFA 8 GM INHALER INH PRN ×3 (04:51→23:28)
[2018-08-17 05:31] LABS: Basophils # (auto) 0.02 K/uL (0-0.2); Basophils % (auto) 0.3 %; Eosinophils # (auto) 0.07 K/uL (0-0.5); Eosinophils % (auto) 0.9 %; Hematocrit (blood only) 35.3 % (37-47); Hemoglobin 11.6 g/dL (12.0-16.0); Immature Granulocytes # (auto) 0.04 K/uL (0.00-0.02); Immature Granulocytes % (auto) 0.5 %; Lymphocytes # (auto) 3.25 K/uL (1.2-3.4); Lymphocytes % (auto) 40.9 %; Mean Corpuscular Hgb Conc 32.9 g/dL (32-36); Mean Corpuscular Volume 95.7 fL (80-100); Mean Platelet Volume 10.1 fL (7.4-10.4); Monocytes # (auto) 0.82 K/uL (0.11-0.59); Monocytes % (auto) 10.3 %; Neutrophils # (auto) 3.74 K/uL (1.4-6.5); Neutrophils % (auto) 47.1 %; Platelet Count 162 K/uL (130-400); RDW Standard Deviation 48.7 fL (36.4-46.3); Red Blood Count 3.69 M/uL (4.2-5.4); White Blood Count 7.94 K/uL (4.8-10.8)
[2018-08-17] MEDS: OXYCODONE/ACETAMINOPHEN 5mg/325mg TAB PO PRN ×3 (05:34→20:33)
[2018-08-17 05:50] LABS: Calcium 8.4 mg/dl (8.5-10.1); Creatinine Clr Calc Pharmacy 79.4 ml/min; Est GFR (African American) 102.5; Est GFR (Non-African American) 88.4; Magnesium 2.1 mg/dl (1.8-2.4); Potassium 3.5 mmol/L (3.5-5.1)
[2018-08-17] MEDS: ALBUT/IPRATROP 3MG/0.5MG NEB 3 ML VIAL INH SCH ×4 (07:35→19:38)
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
[2018-08-17] MEDS: BUDESONIDE/FORMOTEROL FUMARATE 160/4.5 60 PUFFS/INHALER INH SCH ×2 (07:55→20:34)
[2018-08-17] MEDS: PENTOXIFYLLINE 400MG EXT REL TAB PO SCH ×3 (07:56→20:35)
[2018-08-17] MEDS: LOSARTAN POTASSIUM 25 MG TAB PO SCH (07:57)
[2018-08-17] MEDS: ASPIRIN 81 MG ECTAB PO SCH (07:57)
[2018-08-17] MEDS: CHOLECALCIFEROL 1,000 UNITS TAB PO SCH (07:57)
[2018-08-17] MEDS: NICOTINE 7 MG/24 HR TDSY TD SCH (08:04)
[2018-08-17] MEDS: TIOTROPIUM BROMIDE 5 PUFF/90 MCG INH INH SCH (09:26)
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
[2018-08-17] MEDS: LORATADINE 10 MG TAB PO SCH (20:34)
[2018-08-17] MEDS: SIMVASTATIN 20 MG TAB PO SCH (20:35)
[2018-08-17] MEDS: AMLODIPINE BESYLATE 5 MG TAB PO SCH (20:35)
[2018-08-18 06:50] LABS: Hematocrit (blood only) 32.8 % (37-47); Hemoglobin 10.7 g/dL (12.0-16.0); Mean Corpuscular Hgb Conc 32.6 g/dL (32-36); Mean Platelet Volume 10.5 fL (7.4-10.4); Platelet Count 151 K/uL (130-400); RDW Coefficient of Variation 14.3 % (11.5-14.5); RDW Standard Deviation 51.2 fL (36.4-46.3); Red Blood Count 3.38 M/uL (4.2-5.4); White Blood Count 7.87 K/uL (4.8-10.8)
[2018-08-18] MEDS: ALBUT/IPRATROP 3MG/0.5MG NEB 3 ML VIAL INH SCH ×4 (07:13→19:44)
[2018-08-18 07:21] LABS: BUN Creatinine Ratio 27.2 (10-20); Calcium 8.4 mg/dl (8.5-10.1); Creatinine Clr Calc Pharmacy 91.8 ml/min; Est GFR (African American) 107.5; Est GFR (Non-African American) 92.7; Potassium 3.9 mmol/L (3.5-5.1)
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
[2018-08-18] MEDS: TIOTROPIUM BROMIDE 5 PUFF/90 MCG INH INH SCH (09:01)
[2018-08-18] MEDS: BUDESONIDE/FORMOTEROL FUMARATE 160/4.5 60 PUFFS/INHALER INH SCH ×2 (09:01→21:10)
[2018-08-18] MEDS: ASPIRIN 81 MG ECTAB PO SCH (09:02)
[2018-08-18] MEDS: CHOLECALCIFEROL 1,000 UNITS TAB PO SCH (09:02)
[2018-08-18] MEDS: NICOTINE 7 MG/24 HR TDSY TD SCH (09:02)
[2018-08-18] MEDS: PENTOXIFYLLINE 400MG EXT REL TAB PO SCH ×3 (09:03→21:10)
[2018-08-18] MEDS: LOSARTAN POTASSIUM 25 MG TAB PO SCH (09:03)
[2018-08-18 09:08] LABS: Prothrombin Time 9.9 Seconds (9.0-12.0)
[2018-08-18] MEDS: HEPARIN SOD 5,000 UNIT/0.5 ML VIAL SQ SCH ×2 (13:16→21:11)
[2018-08-18] MEDS: OXYCODONE/ACETAMINOPHEN 5mg/325mg TAB PO PRN (14:09)
[2018-08-18] MEDS: LORATADINE 10 MG TAB PO SCH (21:10)
[2018-08-18] MEDS: AMLODIPINE BESYLATE 5 MG TAB PO SCH (21:10)
[2018-08-18] MEDS: SIMVASTATIN 20 MG TAB PO SCH (21:10)
[2018-08-19] MEDS: OXYCODONE/ACETAMINOPHEN 5mg/325mg TAB PO PRN ×2 (01:15→13:10)
[2018-08-19] MEDS: HEPARIN SOD 5,000 UNIT/0.5 ML VIAL SQ SCH ×2 (05:53→13:09)
[2018-08-19 06:03] LABS: Hematocrit (blood only) 32.9 % (37-47); Hemoglobin 10.5 g/dL (12.0-16.0); Mean Corpuscular Hgb Conc 31.9 g/dL (32-36); Mean Corpuscular Volume 96.8 fL (80-100); Mean Platelet Volume 10.7 fL (7.4-10.4); Platelet Count 160 K/uL (130-400); RDW Coefficient of Variation 14.2 % (11.5-14.5); RDW Standard Deviation 49.8 fL (36.4-46.3); White Blood Count 7.82 K/uL (4.8-10.8)
[2018-08-19 06:38] LABS: BUN Creatinine Ratio 28.2 (10-20); Calcium 8.8 mg/dl (8.5-10.1); Creatinine Clr Calc Pharmacy 77.1 ml/min; Est GFR (African American) 101.5; Est GFR (Non-African American) 87.6; Potassium 3.8 mmol/L (3.5-5.1)
[2018-08-19] MEDS: ALBUT/IPRATROP 3MG/0.5MG NEB 3 ML VIAL INH SCH ×2 (08:05→11:29)
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
[2018-08-19] MEDS: TIOTROPIUM BROMIDE 5 PUFF/90 MCG INH INH SCH (08:44)
[2018-08-19] MEDS: BUDESONIDE/FORMOTEROL FUMARATE 160/4.5 60 PUFFS/INHALER INH SCH (08:44)
[2018-08-19] MEDS: CHOLECALCIFEROL 1,000 UNITS TAB PO SCH (08:45)
[2018-08-19] MEDS: PENTOXIFYLLINE 400MG EXT REL TAB PO SCH ×2 (08:45→13:11)
[2018-08-19] MEDS: ASPIRIN 81 MG ECTAB PO SCH (08:45)
[2018-08-19] MEDS: LOSARTAN POTASSIUM 25 MG TAB PO SCH (08:45)
[2018-08-19] MEDS: NICOTINE 7 MG/24 HR TDSY TD SCH (08:46)
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
== END 2018-08-19 16:19 | DRG 563 ==
LOC: ED 17:33 → 3N 21:05

== ENCOUNTER 2018-10-27 14:10 | Inpatient (IN) ==
--- NOTE | 2018-10-27 15:45 | XRay Report ---
XR chest 1V portable CLINICAL HISTORY: 73 years-old Female presenting with sob. TECHNIQUE: Portable upright AP view of the chest was obtained. COMPARISON: 09/27/2018. FINDINGS: Atherosclerosis of the aortic arch. Cardiac silhouette enlarged. Main pulmonary artery may be enlarge d. Bibasilar opacities new from prior. Lungs are mildly hyperinflated. No large effusion or pneumotho rax. Osteopenia suspected. IMPRESSION: 1. Bibasilar opacities new from prior likely atelectasis or aspiration. 2. Cardiomegaly. No advanced congestive change or wendi pulmonary edema. Electronically signed by: Janes Martinez M.D. 10/27/2018 3:44 PM
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
[2018-10-27 16:07] LABS: Basophils # (auto) 0.01 K/uL (0-0.2); Basophils % (auto) 0.1 %; Hemoglobin 11.7 g/dL (12.0-16.0); Immature Granulocytes # (auto) 0.05 K/uL (0.00-0.02); Immature Granulocytes % (auto) 0.5 %; Lymphocytes # (auto) 2.29 K/uL (1.2-3.4); Lymphocytes % (auto) 21.9 %; Mean Corpuscular Hgb Conc 33.4 g/dL (32-36); Mean Corpuscular Volume 95.4 fL (80-100); Mean Platelet Volume 9.7 fL (7.4-10.4); Monocytes # (auto) 0.97 K/uL (0.11-0.59); Monocytes % (auto) 9.3 %; Neutrophils # (auto) 7.03 K/uL (1.4-6.5); Neutrophils % (auto) 67.2 %; Platelet Count 208 K/uL (130-400); RDW Coefficient of Variation 14.5 % (11.5-14.5); RDW Standard Deviation 50.4 fL (36.4-46.3); Red Blood Count 3.67 M/uL (4.2-5.4); White Blood Count 10.45 K/uL (4.8-10.8)
[2018-10-27 16:23] LABS: Alanine Aminotransferase 69 U/L (12-78); Albumin Level 3.3 gm/dl (3.4-5.0); Aspartate Aminotransferase 47 U/L (15-37); BUN Creatinine Ratio 39.2 (10-20); Blood Urea Nitrogen 32 mg/dl (7-18); Calcium 9.6 mg/dl (8.5-10.1); Carbon Dioxide 33 mmol/L (21-32); Chloride 101 mmol/L (98-107); Est GFR (African American) 84.7; Est GFR (Non-African American) 73.1; Glucose 96 mg/dl (70-99); Magnesium 2.4 mg/dl (1.8-2.4); Potassium 3.7 mmol/L (3.5-5.1); Sodium 140 mmol/L (136-145)
[2018-10-27 16:25] LABS: D Dimer 1800 ug/L FEU (0-500)
[2018-10-27 16:28] LABS: Albumin Globulin Ratio 0.8 (0.9-2); Alkaline Phosphatase 100 U/L (45-117); Bilirubin,Total 0.6 mg/dl (0.2-1); Globulin 4.3 gm/dl (2.5-4.0); NT Pro B Type Natriuretic Pept 132 pg/ml (0-900); Total Protein 7.6 gm/dl (6.4-8.2); Troponin I < 0.015 ng/ml (0-0.045)
[2018-10-27] MEDS ORDERED: methylPREDNISolone 125 MG/2 ML VIAL IV STA (16:57)
[2018-10-27] MEDS ORDERED: ALBUT/IPRATROP 3MG/0.5MG NEB 3 ML VIAL NEB STA (16:57)
[2018-10-27] MEDS ORDERED: OPTIRAY 320 125ml IV PRN (17:13)
--- NOTE | 2018-10-27 17:35 | CT Scan Report ---
CT angio chest PE protocol CLINICAL HISTORY: 73 years-old Female presenting with shortness of breath, clinical concern for pulmo nary embolus. TECHNIQUE: Multidetector CT angiography of the chest was performed after administration of intravenou s contrast. 3-D volumetric and/or maximum intensity projection (MIP) images were subsequently reconst ructed for review. IV contrast: Optiray 320. One or more dose lowering techniques were used consisten t with the principles of ALARA (as low as reasonably achievable), including automatic exposure contro l, mA or kV adjustment to individual patient size, and/or use of iterative reconstruction. COMPARISON: CTA chest from 08/17/2018. CT DOSE (mGy.cm): The estimated cumulative dose is 745.23 mGy.cm. FINDINGS: Pressure Test Operator topogram: Unremarkable. Pulmonary vasculature: The study is adequate for assessment of the pulmonary vascular tree. No filling defect within the pul monary arteries to suggest embolus. Main pulmonary artery is not enlarged. No flattening of the inter ventricular septum. No intracardiac filling defect. No reflux of contrast into the hepatic veins. Remaining chest: Soft tissues: Normal thyroid and thoracic inlet. No axillary, supraclavicular, mediastinal, or hilar lymphadenopathy. Atherosclerosis of the aorta. 4 vessel aortic arch. Normal heart size. Coronary laurel ry and aortic valve calcification. No pericardial or pleural effusion. Hepatic steatosis. Punctate ca lcifications in the spleen likely indicate a history of granulomatous disease. Nodular thickening of the left adrenal gland likely underlying benign adenomas though indeterminate. Exophytic high density lesion arising from the upper pole of the left kidney, indeterminate. Lungs and airways: No pneumothorax. Debris noted in the mid to lower trachea. Extensive debris or muc ous plugging in segmental and subsegmental bronchi of the lower lobes, right greater than left. Bronc hial wall thickening. Moderate centrilobular emphysema with an upper lobe predominance. Pulmonary art eries mildly enlarged relative to adjacent bronchi. No interlobular septal thickening. Dependent cons olidation in the lower lobes, likely atelectasis. Peripheral nodular consolidation in the left upper lobe (series 4 image 131), new from prior. Musculoskeletal: Degenerative changes of the spine. Moderate compression deformity of L1 incompletely included within the field of view on prior exam but chronic appearing. IMPRESSION: 1. No evidence of pulmonary embolus. 2. Debris in the trachea and extensive debris and/or leak mucous plugging in the lower lobe segmenta l and subsegmental airways with bronchial wall thickening. This could indicate bronchitis or aspirati on. 3. Associated lower lobe atelectasis. 4. Nodular peripheral consolidation in the left upper lobe new from prior. Follow-up CT in 3-6 month s recommended to ensure resolution. 5. 6. 7. Electronically signed by: Janes Martinez M.D. 8. 10/27/2018 5:33 PM
[2018-10-27] MEDS ORDERED: SODIUM CHLORIDE 0.9% 1000ML 1,000 ML IV ONE (18:26)
[2018-10-27] MEDS ORDERED: PIPERACILLIN/TAZOBACTAM 4.5 GM/120 ML BAG IV ONE (18:47)
[2018-10-27] MEDS ORDERED: PIPERACILL/TAZOBAC CONSULT ACTIVE PRN ×2 (18:47→20:59)
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
[2018-10-27] MEDS ORDERED: POLYETHYLENE (MIRALAX) 17 GM PACK PO PRN (20:59)
[2018-10-27] MEDS ORDERED: GLUCOSE 40% GEL 15 GM TUBE PO PRN (20:59)
[2018-10-27] MEDS ORDERED: DEXTROSE 50% 50 ML SYRINGE IV PRN (20:59)
[2018-10-27] MEDS ORDERED: GLUCAGON FOR INJ 1 MG VIAL SQ PRN (20:59)
[2018-10-27] MEDS ORDERED: MAGNESIUM HYDROXIDE SUSP 30 ML UDC PO PRN (20:59)
[2018-10-27] MEDS ORDERED: CARBOHYDRATES FOR HYPOGLYCEMIA PO PRN (20:59)
[2018-10-27] MEDS ORDERED: ONDANSETRON INJ 2 MG/ML 2 ML VIAL IV PRN (20:59)
[2018-10-27] MEDS ORDERED: ALUMINUM/MAGNESIUM SUSP 30 ML UDC PO PRN (20:59)
[2018-10-27] MEDS ORDERED: GLUCOSE 10 TABS/TUBE PO PRN (20:59)
[2018-10-27] MEDS ORDERED: ACETAMINOPHEN 325 MG TAB PO PRN (20:59)
--- NOTE | 2018-10-27 21:54 | Emergency Department Note ---
Entered by Yvette Haque acting as a scribe for History of Present Illness General Chief complaint: Shortness of Breath/Dyspnea Stated complaint: SHORTNESS OF BREATH, LEFT LEG BRUISE Time Seen by Provider: 10/27/18 15:00 Source: patient History of Present Illness Onset (ago): day(s) (few) Location: chest Pain Consistency: + other (worsening ) Maximum Pain Intensity: 1 Quality: + other (shortness of breath) Associated symptoms: + other (+bruise on left leg; +trouble moving; -dizziness; -lightheadeness; -heart issues); no chest pain, no fever/chills and no nausea/vomiting The patient is a 73 year old female who presents to the Emergency Room with complaints of worsening shortness of breath over the past few days. The patient also notes of a bruise on her left leg, but the patient reports that she does not know how she obtained it. The patient reports she fell two day ago and had to call a friend to get back up to her feet in her house. The patient notes she was standing all day without drinking and eating two days ago before the fall. The patient does not believe the fall and the bruise on her left leg are related. The patient then reports that she could not move or breathe well yesterday. The patient also reports she felt short of breath earlier today. The patient denies fevers, chills, cough different from baseline, or being around anyone who has been sick. The patient also denies chest pain, dizziness, lightheadedness, nausea/vomiting, or heart issues. The patient reports she recently had a pneumonia shot. The patient notes history of COPD, and the patient notes she uses 4 L of oxygen and 7 L when standing. The patient notes using a nebulizer at home. The patient reports she has a concentrator at home for oxygen, and she reports she feels comfortable with the amount of oxygen she has. The patient reports she does not have to take prednisone each day for breathing, but she notes she has used it in the past. The patient states she typically takes Claritin for allergies. No other recent travel or sick contacts. States she has previously had a pneumonia vaccination. EMR reviewed including recent admission in August. Home Medications Home Medications Medication Instructions Recorded Confirmed Type Symbicort 2 puff INHALATION AMHS 06/20/18 10/27/18 History aspirin 81 mg PO QAM 06/20/18 10/27/18 History cholecalciferol (vitamin D3) 1,000 unit PO QAM 06/20/18 10/27/18 History [Vitamin D3] pentoxifylline 400 mg PO TID 06/20/18 10/27/18 History albuterol sulfate [Ventolin HFA] 2 puff INHALATION Q4H PRN 08/16/18 10/27/18 History loratadine 10 mg PO HS 08/16/18 10/27/18 History Fleet Enema 197 ml KS DIRECTED PRN 09/06/18 10/27/18 History Spiriva Respimat 2 puff INHALATION QAM 09/06/18 10/27/18 History acetaminophen [Mapap 650 mg PO Q4H PRN MDD 3000 MG/24 09/06/18 10/27/18 History (acetaminophen)] HOURS bisacodyl [Dulcolax (bisacodyl)] 10 mg KS DIRECTED PRN 09/06/18 10/27/18 History magnesium hydroxide [Milk of 30 ml PO DIRECTED PRN 09/06/18 10/27/18 History Magnesia] levalbuterol HCl 1.25 mg INHALATION Q6R #30 ea 09/11/18 10/27/18 Rx amlodipine 5 mg PO DAILY 10/27/18 10/27/18 History atorvastatin 20 mg PO PM 10/27/18 10/27/18 History losartan 75 mg PO DAILY 10/27/18 10/27/18 History Allergies Allergy/AdvReac Type Severity Reaction Status Date / Time codeine AdvReac Intermediate tinnitus Verified 10/27/18 15:01 Past Med/Surg History Medical History COPD (chronic obstructive pulmonary disease) (Chronic) Dyslipidemia (Chronic) Peripheral vascular disease (Chronic) COPD (chronic obstructive pulmonary disease) (Chronic) Acute on chronic respiratory failure with hypoxia and hypercapnia (Chronic) HLD (hyperlipidemia) (Chronic) Right lower lobe pulmonary nodule (Chronic) Chronic respiratory failure (Chronic) Tobacco abuse (Chronic) MERISSA treated with BiPAP (Chronic) COPD (chronic obstructive pulmonary disease) (Chronic) Hypertension (Chronic) Pneumonia (Resolved) Surgical History History of lumbar surgery (Chronic) Family History Brother Heart disease Social History Preferred Language: Peruvian Communication Ability: Effective Documentation Liaison Required: No Beliefs That Will Affect Care: None marital status: / Current Living Situation: Alone Other Information That Helps Us Care for You: No Feels Safe at Home: Yes Safety Concerns: Feels Safe At This Time Smoking Status: Former smoker Tobacco Type: cigarettes ; Cigarettes Per Day: 0.5-1ppd x 55 years ; Do You Dip or Chew Tobacco: No ; Smoking End Date: quit 06/2018 ; Second Hand Exposure: No ; Tobacco Cessation Education Requested by Patient: No Hx Alcohol Use: No Hx Substance Use: No Review of Systems See HPI for pertinent positives & negatives. and A total of 10 systems reviewed and were otherwise negative Physical Exam Vital Signs Vital Signs - 24 hr 10/27/18 14:11 10/27/18 14:14 10/27/18 16:00 Temperature 36.6 C Temperature Source Oral Sepsis Recent Fever Within 48 Hours No Sepsis New/Unexplained Change in Mental Status No Sepsis Action Taken by Nursing No Action Required Pulse Rate 66 77 Pulse Rate [Apical] Pulse Rate from SpO2 Sensor 77 Respiratory Rate 20 23 Respiratory Effort / Characteristics Non-Labored Spontaneous Respiratory Depth Normal Respiratory Pattern Regular Blood Pressure 134/104 H 165/54 H Blood Pressure Mean 114 91 Pulse Oximetry 92 92 96 Oxygen Delivery Method Nasal Cannula Nasal Cannula Nasal Cannula Oxygen Flow Rate 2 2 4 10/27/18 16:30 10/27/18 17:13 10/27/18 17:30 Temperature Temperature Source Sepsis Recent Fever Within 48 Hours Sepsis New/Unexplained Change in Mental Status Sepsis Action Taken by Nursing Pulse Rate 72 89 82 Pulse Rate [Apical] Pulse Rate from SpO2 Sensor 74 92 H 72 Respiratory Rate 21 25 H 20 Respiratory Effort / Characteristics Respiratory Depth Respiratory Pattern Blood Pressure 165/106 H Blood Pressure Mean 125 Pulse Oximetry 94 93 94 Oxygen Delivery Method Nasal Cannula Oxygen Flow Rate 4 10/27/18 17:39 10/27/18 18:00 10/27/18 19:04 Temperature Temperature Source Sepsis Recent Fever Within 48 Hours Sepsis New/Unexplained Change in Mental Status Sepsis Action Taken by Nursing Pulse Rate 83 79 Pulse Rate [Apical] 82 Pulse Rate from SpO2 Sensor 83 Respiratory Rate 21 20 22 Respiratory Effort / Characteristics Spontaneous Respiratory Depth Respiratory Pattern Blood Pressure 167/65 H 157/52 H Blood Pressure Mean 99 87 Pulse Oximetry 92 93 95 Oxygen Delivery Method Nasal Cannula Nasal Cannula Oxygen Flow Rate 4 4 GENERAL: alert, well appearing, well nourished, no distress, non-toxic, nasal cannula in place EYE EXAM: normal conjunctiva, PERRL and EOM's grossly intact OROPHARYNX: no exudate, no erythema, lips, buccal mucosa, and tongue normal and mucous membranes are moist NECK: supple, no nuchal rigidity, no adenopathy, non-tender LUNGS: Diminished bilaterally. No wheezes, rhonchi, or rales. Normal chest wall mechanics HEART: no murmurs, S1 normal and S2 normal ABDOMEN: abdomen soft, non-tender, normo-active bowel sounds, no masses, no rebound or guarding. BACK: Back is symmetrical on inspection and there is no deformity, no midline tenderness, no CVA tenderness. SKIN: no rashes and no bruising UPPER EXTREMITIES: upper extremities are grossly normal. FROM, nml pulses b/l. LOWER EXTREMITIES: 1+ edema bilaterally. Contusion noted to left mid-shaft pretibial region that is tender to palpation. No obvious joint effusions or joint deformities. NEURO EXAM: Normal sensorium, cranial nerves II-XII grossly intact, normal speech, no gross weakness of arms, no gross weakness of legs. Course 151: Past medical records reviewed. The patient was evaluated in room C11B. A complete history and physical exam was performed. 0: I reevaluated and updated the patient on her case. 185: I discussed the patient with FITO Ross. Carmel will further evaluate the patient. Consultations Consultation #1: I discussed the patient with FITO Ross. Carmel will further evaluate the patient. Time: 18:54 Administered Medications Discontinued Medications Albuterol (Duoneb) 3 ml NEB NOW STA Stop: 10/27/18 16:58 Last Admin: 10/27/18 17:38 Dose: 3 ml Documented by: [id number] Sodium Chloride (Nss 1000ml) 1,000 mls @ 999 mls/hr IV .Q1H1M ONE Stop: 10/27/18 19:26 Last Infusion: 10/27/18 19:37 Dose: 0 mls/hr Documented by: [id number] Admin: 10/27/18 18:30 Dose: 999 mls/hr Documented by: [id number] Piperacillin Sod/Tazobactam Sod (Zosyn) 4.5 gm in 120 mls @ 240 mls/hr IV NOW ONE Stop: 10/27/18 19:16 Last Infusion: 10/27/18 20:02 Dose: 0 mls/hr Documented by: [id number] Admin: 10/27/18 19:29 Dose: 240 mls/hr Documented by: [id number] Ioversol (Optiray 320 125ml) 92 ml IV ONCE PRN PRN Reason: Interaction Checking Stop: 10/31/18 17:12 Last Admin: 10/27/18 17:13 Dose: 91 ml Documented by: [id number] Methylprednisolone (Solumedrol) 60 mg IV NOW STA Stop: 10/27/18 16:58 Last Admin: 10/27/18 17:36 Dose: 60 mg Documented by: [id number] Medical Decision Making Differential Diagnosis Differential diagnosis: Etiologies such as infections, reactive airway disease, pneumonia, pneumothorax, COPD, CHF, cardiac ischemia, pulmonary embolism, musculoskeletal, gastrointestinal, as well as others were entertained. Medical Records Attestation: I reviewed the patient's medical records. Home Medications Current Medication List: was personally reviewed by me Laboratory Data Attestation: I reviewed the patient's lab results. Result diagrams: 10/27/18 15:55 10/27/18 15:55 Lab Results 10/27/18 10/27/18 10/27/18 Range/Units 15:55 15:55 15:55 WBC 10.45 (4.8-10.8) K/uL RBC 3.67 L (4.2-5.4) M/uL Hgb 11.7 L (12.0-16.0) g/dL Hct 35.0 L (37-47) % MCV 95.4 (80-100) fL MCH 31.9 (25-34) pg MCHC 33.4 (32-36) g/dL RDW Std Deviation 50.4 H (36.4-46.3) fL RDW Coeff of Frankie 14.5 (11.5-14.5) % Plt Count 208 (130-400) K/uL MPV 9.7 (7.4-10.4) fL Immature Gran % (Auto) 0.5 % Neut % (Auto) 67.2 % Lymph % (Auto) 21.9 % Charlotte % (Auto) 9.3 % Eos % (Auto) 1.0 % Baso % (Auto) 0.1 % Immature Gran # (Auto) 0.05 H (0.00-0.02) K/uL Neut # (Auto) 7.03 H (1.4-6.5) K/uL Lymph # (Auto) 2.29 (1.2-3.4) K/uL Charlotte # (Auto) 0.97 H (0.11-0.59) K/uL Eos # (Auto) 0.10 (0-0.5) K/uL Baso # (Auto) 0.01 (0-0.2) K/uL D-Dimer 1800 H* (0-500) ug/L FEU Sodium 140 (136-145) mmol/L Potassium 3.7 (3.5-5.1) mmol/L Chloride 101 (98-107) mmol/L Carbon Dioxide 33 H (21-32) mmol/L Anion Gap 6.0 (3-11) BUN 32 H (7-18) mg/dl Creatinine 0.81 (0.6-1.2) mg/dl Est Cr Clr Drug Dosing Not Reportable Est GFR ( Amer) 84.7 Est GFR (Non-Af Amer) 73.1 BUN/Creatinine Ratio 39.2 H (10-20) Glucose 96 (70-99) mg/dl Calcium 9.6 (8.5-10.1) mg/dl Magnesium 2.4 (1.8-2.4) mg/dl Total Bilirubin 0.6 (0.2-1) mg/dl AST 47 H (15-37) U/L ALT 69 (12-78) U/L Alkaline Phosphatase 100 (45-117) U/L Troponin I < 0.015 (0-0.045) ng/ml NT-Pro-B Natriuret Pep 132 (0-900) pg/ml Total Protein 7.6 (6.4-8.2) gm/dl Albumin 3.3 L (3.4-5.0) gm/dl Globulin 4.3 H (2.5-4.0) gm/dl Albumin/Globulin Ratio 0.8 L (0.9-2) Procalcitonin (0-0.5) ng/ml 10/27/18 Range/Units 15:55 WBC (4.8-10.8) K/uL RBC (4.2-5.4) M/uL Hgb (12.0-16.0) g/dL Hct (37-47) % MCV (80-100) fL MCH (25-34) pg MCHC (32-36) g/dL RDW Std Deviation (36.4-46.3) fL RDW Coeff of Frankie (11.5-14.5) % Plt Count (130-400) K/uL MPV (7.4-10.4) fL Immature Gran % (Auto) % Neut % (Auto) % Lymph % (Auto) % Charlotte % (Auto) % Eos % (Auto) % Baso % (Auto) % Immature Gran # (Auto) (0.00-0.02) K/uL Neut # (Auto) (1.4-6.5) K/uL Lymph # (Auto) (1.2-3.4) K/uL Charlotte # (Auto) (0.11-0.59) K/uL Eos # (Auto) (0-0.5) K/uL Baso # (Auto) (0-0.2) K/uL D-Dimer (0-500) ug/L FEU Sodium (136-145) mmol/L Potassium (3.5-5.1) mmol/L Chloride (98-107) mmol/L Carbon Dioxide (21-32) mmol/L Anion Gap (3-11) BUN (7-18) mg/dl Creatinine (0.6-1.2) mg/dl Est Cr Clr Drug Dosing Est GFR ( Amer) Est GFR (Non-Af Amer) BUN/Creatinine Ratio (10-20) Glucose (70-99) mg/dl Calcium (8.5-10.1) mg/dl Magnesium (1.8-2.4) mg/dl Total Bilirubin (0.2-1) mg/dl AST (15-37) U/L ALT (12-78) U/L Alkaline Phosphatase (45-117) U/L Troponin I (0-0.045) ng/ml NT-Pro-B Natriuret Pep (0-900) pg/ml Total Protein (6.4-8.2) gm/dl Albumin (3.4-5.0) gm/dl Globulin (2.5-4.0) gm/dl Albumin/Globulin Ratio (0.9-2) Procalcitonin 0.34 (0-0.5) ng/ml Imaging Data Radiologist's Impression: Radiology results as stated below per my review and the radiologist's interpretation: XR chest 1V portable CLINICAL HISTORY: 73 years-old Female presenting with sob. TECHNIQUE: Portable upright AP view of the chest was obtained. COMPARISON: 09/27/2018. FINDINGS: Atherosclerosis of the aortic arch. Cardiac silhouette enlarged. Main pulmonary artery may be enlarged. Bibasilar opacities new from prior. Lungs are mildly hyperinflated. No large effusion or pneumothorax. Osteopenia suspected. IMPRESSION: 1. Bibasilar opacities new from prior likely atelectasis or aspiration. 2. Cardiomegaly. No advanced congestive change or wendi pulmonary edema. Electronically signed by: Janes Martinez M.D. 10/27/2018 3:44 PM XR tibia fibula LT 2V CLINICAL HISTORY: 73 years-old Female presenting with leg pain, trauma. TECHNIQUE: Frontal and lateral views of the left lower leg were obtained. COMPARISON: None. FINDINGS: Left knee joint and ankle mortise congruent. [place] inferior to the lateral malleolus likely represents a remote avulsion fracture. No acute fracture or malalignment. Underlying osteopenia may be present. No advanced degenerative change. Subcutaneous edema is noted in the mid to lower leg. IMPRESSION: 1. No acute osseous injury. 2. Nonspecific edema in the mid to lower leg. Electronically signed by: Janes Martinez M.D. 10/27/2018 3:[address] angio chest PE protocol CLINICAL HISTORY: 73 years-old Female presenting with shortness of breath, clinical concern for pulmonary embolus. TECHNIQUE: Multidetector CT angiography of the chest was performed after admin istration of intravenous contrast. 3-D volumetric and/or maximum intensity projection (MIP) images were subsequently reconstructed for review. IV contrast: Optiray 320. One or more dose lowering techniques were used consistent with the principles of ALARA (as low as reasonably achievable), including automatic exposure control, mA or kV adjustment to individual patient size, and/or use of iterative reconstruction. COMPARISON: CTA chest from 08/17/2018. CT DOSE (mGy.cm): The estimated cumulative dose is 745.23 mGy.cm. FINDINGS: Endocrinologist topogram: Unremarkable. Pulmonary vasculature: The study is adequate for assessment of the pulmonary vascular tree. No filling defect within the pulmonary arteries to suggest embolus. Main pulmonary artery is not enlarged. No flattening of the interventricular septum. No intracardiac filling defect. No reflux of contrast into the hepatic veins. Remaining chest: Soft tissues: Normal thyroid and thoracic inlet. No axillary, supraclavicular, mediastinal, or hilar lymphadenopathy. Atherosclerosis of the aorta. 4 vessel aortic arch. Normal heart size. Coronary artery and aortic valve calcification. No pericardial or pleural effusion. Hepatic steatosis. Punctate calcifications in the spleen likely indicate a history of granulomatous disease. Nodular thickening of the left adrenal gland likely underlying benign adenomas though indeterminate. Exophytic high density lesion arising from the upper pole of the left kidney, indeterminate. Lungs and airways: No pneumothorax. Debris noted in the mid to lower trachea. Extensive debris or mucous plugging in segmental and subsegmental bronchi of the lower lobes, right greater than left. Bronchial wall thickening. Moderate centrilobular emphysema with an upper lobe predominance. Pulmonary arteries mild ly enlarged relative to adjacent bronchi. No interlobular septal thickening. Dependent consolidation in the lower lobes, likely atelectasis. Peripheral nodular consolidation in the left upper lobe (series 4 image 131), new from prior. Musculoskeletal: Degenerative changes of the spine. Moderate compression deformity of L1 incompletely included within the field of view on prior exam but chronic appearing. IMPRESSION: 1. No evidence of pulmonary embolus. 2. Debris in the trachea and extensive debris and/or leak mucous plugging in the lower lobe segmental and subsegmental airways with bronchial wall thickening. This could indicate bronchitis or aspiration. 3. Associated lower lobe atelectasis. 4. Nodular peripheral consolidation in the left upper lobe new from prior. Follow-up CT in 3-6 months recommended to ensure resolution. 5. 6. 7. Electronically signed by: Janes Martinez M.D. 8. 10/27/2018 5:33 PM ECG Data Attestation: I personally reviewed and interpreted this ECG as follows: Indication: SOB/dyspnea Rate (beats per minute): 81 Rhythm: normal sinus Findings: + other (normal axis, normal intervals ); no PAC, no PVC, no acute ischemic change and no ectopy Blood Pressure Blood Pressure Findings: Normal blood pressure Blood Pressure Disposition: further management by hospitalist MDM Narrative Patient here well-appearing despite complaints. Patient with significant past pulmonary history including COPD/emphysema, chronic home oxygen, prior multilobar pneumonia, prior cor pulmonale. Patient's labs here are reassuring, however chest x-ray and subsequent follow-up CT suggestive of possible severe bronchitis versus aspiration. Troponin negative and EKG reassuring, I do not suspect ACS. No evidence of acute congestive heart failure contributing to shortness of breath. CT negative for PE. Patient reported feeling improved with nebs and steroids here. Patient was started on Zosyn to cover for possible aspiration. Upon additional questioning, patient does admit to occasional choking on food, particularly meat. Discussed with patient likely need for dysphasia and swallow evaluation. Patient states she has never had this previously. Patient denies any prior history of severe GERD or EGD. Patient made aware of all results and was in agreement with plan for additional inpatient management. Patient's oxygen saturations remained stable here on her usual 4 L/min via nasal cannula. Patient's other vital signs stable throughout. Impression & Plan Acute dyspnea, COPD (chronic obstructive pulmonary disease), Dysphagia, Acute pain of left lower extremity Discharge Plan Visit Data *Final* Discharge Date/Time: 10/27/18 20:46 Chief Complaint: Shortness of Breath/Dyspnea Stated Complaint: SHORTNESS OF BREATH, LEFT LEG BRUISE ED Provider: Rupal Doe Discharge Problem: Acute dyspnea, COPD (chronic obstructive pulmonary disease), Dysphagia, Acute pain of left lower extremity Patient Disposition: Admitted As Inpatient Discharge Instructions Interventions: ED Discharge Assessment Last Done: 10/27/18 20:46 Discharge Problem: COPD (chronic obstructive pulmonary disease) Qualifiers: COPD type: unspecified COPD Qualified Code(s): J44.9 - Chronic obstructive pulmonary disease, unspecified Dysphagia Qualifiers: Dysphagia type: unspecified Qualified Code(s): R13.10 - Dysphagia, unspecified The scribe's documentation has been prepared under my direction and personally reviewed by me in its entirety. I confirm that the note above accurately reflects all work, treatment, procedures, and medical decision making performed by me.
[2018-10-27 22:15] LABS: Prothrombin Time 10.2 Seconds (9.0-12.0)
[2018-10-27] MEDS: LORATADINE 10 MG TAB PO SCH (22:53)
[2018-10-27] MEDS: ATORVASTATIN 20 MG TAB PO SCH (22:53)
[2018-10-27] MEDS: PENTOXIFYLLINE 400MG EXT REL TAB PO SCH (22:53)
[2018-10-27] MEDS: BUDESONIDE/FORMOTEROL FUMARATE 160/4.5 60 PUFFS/INHALER INH SCH (22:54)
[2018-10-27] MEDS: AMLODIPINE BESYLATE 5 MG TAB PO SCH (22:58)
[2018-10-27] MEDS: ALBUT/IPRATROP 3MG/0.5MG NEB 3 ML VIAL NEB SCH ×2 (23:34)
[2018-10-28] MEDS: PIPERACILLIN/TAZOBACTAM 3.375 GM in DEXTROSE 5% 100 ML IV SCH ×3 (00:26→15:49)
[2018-10-28] MEDS: ALBUT/IPRATROP 3MG/0.5MG NEB 3 ML VIAL NEB SCH ×6 (03:11→23:19)
[2018-10-28] MEDS: ENOXAPARIN INJ 40 MG/0.4 ML SYR SQ SCH (06:36)
[2018-10-28 06:54] LABS: Est GFR (African American) 84.7; Est GFR (Non-African American) 73.1
[2018-10-28] MEDS ORDERED: Nursing to Pharmacy Communication ONE (06:54)
[2018-10-28] MEDS: AMLODIPINE BESYLATE 5 MG TAB PO SCH ×2 (06:59→21:00)
[2018-10-28] MEDS: PENTOXIFYLLINE 400MG EXT REL TAB PO SCH ×3 (07:55→21:00)
[2018-10-28] MEDS: ASPIRIN 81 MG ECTAB PO SCH (07:56)
[2018-10-28] MEDS: LOSARTAN POTASSIUM 50 MG TAB PO SCH (07:56)
[2018-10-28] MEDS: CHOLECALCIFEROL 1,000 UNITS TAB PO SCH (07:56)
[2018-10-28] MEDS: predniSONE 20 MG TAB PO SCH (07:56)
[2018-10-28] MEDS: TIOTROPIUM BROMIDE 5 PUFF/90 MCG INH INH SCH (07:57)
[2018-10-28] MEDS: BUDESONIDE/FORMOTEROL FUMARATE 160/4.5 60 PUFFS/INHALER INH SCH ×2 (07:57→21:00)
--- NOTE | 2018-10-28 12:56 | Fluoroscopy Report ---
FL video swallow HISTORY: Aspiration assess for aspiration, abnormal Chest CT TECHNIQUE: Video fluoroscopic evaluation of swallowing was performed in the AP and lateral projection s by the speech pathology staff. The patient is fed nectar-thick and thin liquid barium, a barium coa mimi wafer, and barium pudding. FLUOROSCOPY TIME: 2.9 minutes NUMBER OF FLUOROSCOPIC IMAGES: 444 COMPARISON STUDY: None. FINDINGS: There is normal hyoid excursion and epiglottic deflection. No significant penetration or as piration identified. Swallowing function is within normal limits. IMPRESSION: 1. No aspiration identified. 2. Please see the speech pathologist report for detailed findings and recommendations. The above report was generated using voice recognition software. It may contain grammatical, syntax or spelling errors. Electronically signed by: Yohan Patel M.D. 10/28/2018 12:55 PM
--- NOTE | 2018-10-28 15:05 | Hospitalist Progress Note ---
Date of Service October 28, 2018 Assessment & Plan (1) Chronic respiratory failure: (2) COPD exacerbation: Infective exacerbation of COPD Management as mentioned below Clinically much better We will continue nebulized bronchodilator, oral steroid and extensive pulmonary toileting Was advised to ambulate (3) Pneumonia: Mrs. Mayfield is a 73-year-old female who has significant past medical history of severe COPD on 4 L O2, chronic respiratory failure, MERISSA on BiPAP, HTN, HLD, former tobacco abuse, right lung nodule who presents to [facility] ED secondary to increased SOB x 2 days and LLE pain x 2 days. Chest x-ray concerning for bibasilar atelectasis versus aspiration CTA: Negative for PE, debris and trachea, extensive mucus plugging, bronchial wall thickening in the lower lobe segmental and subsegmental airways with yudelka rn for bronchitis versus aspiration, along with new OLIMPIA pulm nodule Patient remained stable on her chronic 4 L of O2, no increased oxygen requirement Discussed about pulmonary evaluation and possible bronchoscopy-she refused to have that right now We will keep for appointment to the rice drier operator as an outpatient (4) Dehydration: Secondary to poor p.o. intake for the past 2 days BUN/creatinine elevated from baseline 33/0.81 Baseline creatinine 0.6 Mild renal insufficiency Received IVF 1 L while in ED Repeat BMP in a.m. (5) Hematoma of left lower extremity: Exam consistent with LLE hematoma Conservative management, ice, rest, elevation Ambulate as tolerated Denies any significant symptoms (6) Hypertension: Blood pressure elevated while in ED On losartan, amlodipine Remains on the upper side of normal (7) MERISSA treated with BiPAP: Bipap at HS (8) HLD (hyperlipidemia): Continue statin (9) Peripheral vascular disease: continue pentoxifylline (10) Left upper lobe pulmonary nodule: new per current CT scan recommend f/u CT in 3-6 months (11) DVT prophylaxis: Lovenox SQ Disposition: To be determined Follow-up: PCP Dr. Ding upon discharge, repeat CT scan 3-6 month Clinically much better We will continue current treatment Possible discharge tomorrow or day after We will keep appointment with the rice drier operator and outpatient Subjective 10/28 The patient was seen and examined in telemetry unit She has history of CAD COPD on 4 L nasal cannula at home Admitted with COPD exacerbation likely secondary to pneumonia She has been feeling a lot better since admission and getting adequate pulmonary toileting Denies any significant symptoms Review of Systems Review of Systems: All systems reviewed and are unremarkable except as noted below Constitutional: + weakness Respiratory: + cough and + dyspnea on exertion Cardiovascular: no chest pain Physical Exam Physical Exam: Minimal shortness of breath at rest Constitutional: well developed and well nourished; no acute distress Eyes: PERRL, conjunctivae normal, anicteric sclerae ENMT: external ear and nose normal, oropharynx normal Neck: trachea midline, no thyromegaly Respiratory: normal respiratory effort and + respiratory distress (Minimal distress at rest due to shortness of breath but no wheezing) Auscultation: + diminished lung sounds; no wheezes Cardiovascular: Rate/Rhythm: regular rate and regular rhythm Gastrointestinal (Abdomen): Inspection/Auscultation: abdomen normal to inspection Percussion/Palpation: abdomen soft Musculoskeletal: No acute arthritis in any joint. Hematoma of the left neves seems to be improving Neurologic: moves all extremities Lymphatic: no cervical or axillary lymphadenopathy Results & Data Vital Signs (Past 12 Hours) Vital Signs Temp Pulse Pulse Pulse Resp BP Pulse Ox 10/28/18 12:37 36.6 C 81 20 157/72 H 10/28/18 11:12 80 18 94 10/28/18 07:07 77 18 92 10/28/18 06:54 36.6 C 76 24 152/66 H 92 10/28/18 04:20 36.5 C 80 19 158/67 H 93 10/28/18 03:11 80 80 16 96 Laboratory Results Short CBC 10/27/18 Range/Units 15:55 WBC 10.45 (4.8-10.8) K/uL Hgb 11.7 L (12.0-16.0) g/dL Hct 35.0 L (37-47) % Plt Count 208 (130-400) K/uL BMP 10/27/18 10/28/18 15:55 05:40 Sodium 140 Potassium 3.7 Chloride 101 Carbon Dioxide 33 H BUN 32 H Creatinine 0.81 0.81 Glucose 96 Calcium 9.6 Cardiac Enzymes 10/27/18 Range/Units 15:55 Troponin I < 0.015 (0-0.045) ng/ml Liver Function 10/27/18 Range/Units 15:55 Total Bilirubin 0.6 (0.2-1) mg/dl AST 47 H (15-37) U/L ALT 69 (12-78) U/L Alkaline Phosphatase 100 (45-117) U/L Albumin 3.3 L (3.4-5.0) gm/dl Medications Administered Current Inpatient Medications Acetaminophen (Tylenol) 650 mg PO Q4H PRN PRN Reason: Pain or Fever Stop: 11/26/18 20:58 Al Hydrox/Mg Hydrox/Simethicone (Maalox) 15 ml PO Q4H PRN PRN Reason: Dyspepsia Stop: 11/26/18 20:58 Albuterol (Duoneb) 3 ml NEB Q4R JOSELYN Stop: 11/26/18 20:58 Last Admin: 10/28/18 11:12 Dose: 3 ml Documented by: Amlodipine Besylate (Norvasc) 5 mg PO HS COUNTS INCLUDE 234 BEDS AT THE [facility] Stop: 11/27/18 20:59 Aspirin (Ecotrin Ectab) 81 mg PO QAM JOSELYN Stop: 11/27/18 08:59 Last Admin: 10/28/18 07:56 Dose: 81 mg Documented by: Atorvastatin Calcium (Lipitor) 20 mg PO PM JOSELYN Stop: 11/26/18 20:59 Last Admin: 10/27/18 22:53 Dose: 20 mg Documented by: Budesonide/Formoterol Fumarate (Symbicort 160mcg/4.5mcg) 2 puffs INH AMHS COUNTS INCLUDE 234 BEDS AT THE [facility] Stop: 11/26/18 20:59 Last Admin: 10/28/18 07:57 Dose: 2 puffs Documented by: Dextrose (Dextrose 50%) 25 - 50 ml IV UD PRN; Protocol PRN Reason: Hypoglycemia Protocol Stop: 11/26/18 20:58 Enoxaparin Sodium (Lovenox) 40 mg SQ Q24H JOSELYN Stop: 11/27/18 05:59 Last Admin: 10/28/18 06:36 Dose: 40 mg Documented by: Glucagon (Glucagen) 1 mg SQ UD PRN; Protocol PRN Reason: Hypoglycemia Protocol Stop: 11/26/18 20:58 Glucose (Glucose 40%) 15 - 30 gm PO UD PRN; Protocol PRN Reason: Hypoglycemia Protocol Stop: 11/26/18 20:58 Glucose (Dex4 Glucose) 4 - 8 tabs PO UD PRN; Protocol PRN Reason: Hypoglycemia Protocol Stop: 11/26/18 20:58 Piperacillin Sod/Tazobactam (Sod 3.375 gm/ Dextrose) 115 mls @ 28.75 mls/hr IV Q8H COUNTS INCLUDE 234 BEDS AT THE [facility]; Protocol Stop: 11/04/18 00:00 Last Infusion: 10/28/18 11:28 Dose: Infused Documented by: Loratadine (Claritin) 10 mg PO HS JOSELYN Stop: 11/26/18 20:59 Last Admin: 10/27/18 22:53 Dose: 10 mg Documented by: Losartan Potassium (Cozaar) 75 mg PO DAILY JOSELYN Stop: 11/27/18 08:59 Last Admin: 10/28/18 07:56 Dose: 75 mg Documented by: Magnesium Hydroxide (Milk Of Magnesia) 30 ml PO Q12H PRN PRN Reason: Constipation Stop: 11/26/18 20:58 Miscellaneous (Carbohydrates For Hypoglycemia) 15 - 30 gm PO UD PRN PRN Reason: Hypoglycemia Treatment Stop: 11/26/18 20:58 Miscellaneous Information (Consult) 1 ea N/A UD PRN PRN Reason: Consult Stop: 11/26/18 20:58 Ondansetron HCl (Zofran) 4 mg IV Q6H PRN PRN Reason: Nausea Stop: 11/26/18 20:58 Pentoxifylline (Trental) 400 mg PO TID COUNTS INCLUDE 234 BEDS AT THE [facility] Stop: 11/26/18 20:59 Last Admin: 10/28/18 07:55 Dose: 400 mg Documented by: Polyethylene Glycol (Miralax Powder Packet) 17 gm PO DAILY PRN PRN Reason: Constipation Stop: 11/26/18 20:58 Prednisone (Prednisone) 40 mg PO DAILY COUNTS INCLUDE 234 BEDS AT THE [facility] Stop: 11/27/18 08:59 Last Admin: 10/28/18 07:56 Dose: 40 mg Documented by: Tiotropium [place] (Spiriva) 1 puffs INH QAM COUNTS INCLUDE 234 BEDS AT THE [facility] Stop: 11/27/18 08:59 Last Admin: 10/28/18 07:57 Dose: 1 puffs Documented by: Vitamin D (Vitamin D3) 1,000 units PO QAM COUNTS INCLUDE 234 BEDS AT THE [facility] Stop: 11/27/18 08:59 Last Admin: 10/28/18 07:56 Dose: 1,000 units Documented by: (1) Pneumonia Laterality: bilateral Lung location: unspecified part of lung Pneumonia type: due to unspecified organism Qualified Code(s): J18.9 - Pneumonia, unspecified organism (2) Hypertension Hypertension type: essential hypertension Qualified Code(s): I10 - Essential (primary) hypertension (3) HLD (hyperlipidemia) Hyperlipidemia type: unspecified Qualified Code(s): E78.5 - Hyperlipidemia, unspecified
[2018-10-28] MEDS: ATORVASTATIN 20 MG TAB PO SCH (21:00)
[2018-10-28] MEDS: LORATADINE 10 MG TAB PO SCH (21:00)
[2018-10-29] MEDS: ALBUT/IPRATROP 3MG/0.5MG NEB 3 ML VIAL NEB SCH ×6 (04:15→23:09)
[2018-10-29] MEDS: ENOXAPARIN INJ 40 MG/0.4 ML SYR SQ SCH (05:54)
[2018-10-29 07:26] LABS: Basophils # (auto) 0.02 K/uL (0-0.2); Basophils % (auto) 0.2 %; Eosinophils # (auto) 0.09 K/uL (0-0.5); Hematocrit (blood only) 31.7 % (37-47); Hemoglobin 10.2 g/dL (12.0-16.0); Immature Granulocytes # (auto) 0.06 K/uL (0.00-0.02); Immature Granulocytes % (auto) 0.7 %; Lymphocytes # (auto) 2.64 K/uL (1.2-3.4); Lymphocytes % (auto) 29.5 %; Mean Corpuscular Hgb Conc 32.2 g/dL (32-36); Mean Corpuscular Volume 95.8 fL (80-100); Mean Platelet Volume 10.3 fL (7.4-10.4); Monocytes # (auto) 0.73 K/uL (0.11-0.59); Monocytes % (auto) 8.2 %; Neutrophils % (auto) 60.4 %; Platelet Count 203 K/uL (130-400); RDW Coefficient of Variation 14.4 % (11.5-14.5); RDW Standard Deviation 50.8 fL (36.4-46.3); Red Blood Count 3.31 M/uL (4.2-5.4); White Blood Count 8.94 K/uL (4.8-10.8)
[2018-10-29] MEDS: BUDESONIDE/FORMOTEROL FUMARATE 160/4.5 60 PUFFS/INHALER INH SCH ×2 (08:03→20:26)
[2018-10-29] MEDS: LOSARTAN POTASSIUM 50 MG TAB PO SCH (08:03)
[2018-10-29] MEDS: TIOTROPIUM BROMIDE 5 PUFF/90 MCG INH INH SCH (08:03)
[2018-10-29] MEDS: PENTOXIFYLLINE 400MG EXT REL TAB PO SCH ×3 (08:04→20:26)
[2018-10-29] MEDS: predniSONE 20 MG TAB PO SCH (08:04)
[2018-10-29] MEDS: ASPIRIN 81 MG ECTAB PO SCH (08:04)
[2018-10-29] MEDS: CHOLECALCIFEROL 1,000 UNITS TAB PO SCH (08:04)
[2018-10-29 08:11] LABS: BUN Creatinine Ratio 27.7 (10-20); Calcium 8.6 mg/dl (8.5-10.1); Creatinine Clr Calc Pharmacy 76.1 ml/min; Est GFR (Non-African American) 88.9; Magnesium 2.2 mg/dl (1.8-2.4); Potassium 3.3 mmol/L (3.5-5.1)
[2018-10-29] MEDS: PIPERACILLIN/TAZOBACTAM 3.375 GM in DEXTROSE 5% 100 ML IV SCH ×3 (08:15→15:33)
--- NOTE | 2018-10-29 16:25 | Hospitalist Progress Note ---
Date of Service October 29, 2018 Assessment & Plan (1) Chronic respiratory failure: Secondary to COPD exacerbation and management as below Present on Admission?: Yes (2) COPD exacerbation: Infective exacerbation of COPD Management as mentioned below Clinically much better We will continue nebulized bronchodilator, oral steroid and extensive pulmonary toileting Was advised to ambulate Clinically shows improvement Likely to be discharged tomorrow (3) Pneumonia: Mrs. Mayfield is a 73-year-old female who has significant past medical history of severe COPD on 4 L O2, chronic respiratory failure, MERISSA on BiPAP, HTN, HLD, former tobacco abuse, right lung nodule who presents to [facility] ED secondary to increased SOB x 2 days and LLE pain x 2 days. Chest x-ray concerning for bibasilar atelectasis versus aspiration CTA: Negative for PE, debris and trachea, extensive mucus plugging, bronchial wall thickening in the lower lobe segmental and subsegmental airways with concern for bronchitis versus aspiration, along with new OLIMPIA pulm nodule Patient remained stable on her chronic 4 L of O2, no increased oxygen requirement Discussed about pulmonary evaluation and possible bronchoscopy-she refused to have that right now We will keep for appointment to the chief engineer research as an outpatient Continue Zosyn for now likely to continue with doxycycline on discharge (4) Dehydration: Secondary to poor p.o. intake for the past 2 days BUN/creatinine elevated from baseline 33/0.81 Baseline creatinine 0.6 Mild renal insufficiency Received IVF 1 L while in ED Repeat BMP in a.m. (5) Hematoma of left lower extremity: Exam consistent with LLE hematoma Conservative management, ice, rest, elevation Ambulate as tolerated Denies any significant symptoms Improved a lot (6) Hypertension: Blood pressure elevated while in ED On losartan, amlodipine Remains on the upper side of normal (7) MERISSA treated with BiPAP: Bipap at HS (8) HLD (hyperlipidemia): Continue statin (9) Peripheral vascular disease: continue pentoxifylline (10) Left upper lobe pulmonary nodule: new per current CT scan recommend f/u CT in 3-6 months (11) DVT prophylaxis: Lovenox SQ Disposition: To be determined Follow-up: PCP Dr. Ding upon discharge, repeat CT scan 3-6 month Clinically much better We will continue current treatment Possible discharge tomorrow or day after We will keep appointment with the chief engineer research and outpatient No active home tomorrow Subjective 8/12 The patient was seen and examined in telemetry unit She has history of CAD COPD on 4 L nasal cannula at home Admitted with COPD exacerbation likely secondary to pneumonia She has been feeling a lot better since admission and getting adequate pulmonary toileting Denies any significant symptoms 10/29 The patient was seen and examined in telemetry unit Her breathing is much improved but not yet ready to be discharged Still has wheezing and significant shortness of breath on ambulation Review of Systems Review of Systems: All systems reviewed and are unremarkable except as noted below Constitutional: + weakness Respiratory: + cough and + dyspnea on exertion Physical Exam Physical Exam: Minimal shortness of breath at rest Constitutional: well developed, well nourished, + acute distress and + ill appearing Eyes: PERRL, conjunctivae normal, anicteric sclerae ENMT: external ear and nose normal, oropharynx normal Neck: trachea midline, no thyromegaly Respiratory: normal respiratory effort and + respiratory distress (Minimal distress at rest due to shortness of breath but no wheezing) Auscultation: + diminished lung sounds; no wheezes Cardiovascular: Rate/Rhythm: regular rate and regular rhythm Gastrointestinal (Abdomen): Inspection/Auscultation: abdomen normal to inspection Percussion/Palpation: abdomen soft Neurologic: moves all extremities General awake Lymphatic: no cervical or axillary lymphadenopathy Results & Data Vital Signs (Past 12 Hours) Vital Signs Temp Pulse Resp BP Pulse Ox 10/29/18 15:30 88 24 94 10/29/18 11:47 36.6 C 85 20 165/66 H 90 10/29/18 11:24 78 18 94 10/29/18 07:16 78 18 93 10/29/18 07:04 36.6 C 79 20 151/61 H 90 Laboratory Results Short CBC 10/29/18 Range/Units 07:10 WBC 8.94 (4.8-10.8) K/uL Hgb 10.2 L (12.0-16.0) g/dL Hct 31.7 L (37-47) % Plt Count 203 (130-400) K/uL BMP 10/29/18 07:10 Sodium 144 Potassium 3.3 L Chloride 107 Carbon Dioxide 31 BUN 18 Creatinine 0.66 Glucose 100 H Calcium 8.6 Medications Administered Current Inpatient Medications Acetaminophen (Tylenol) 650 mg PO Q4H PRN PRN Reason: Pain or Fever Stop: 11/26/18 20:58 Al Hydrox/Mg Hydrox/Simethicone (Maalox) 15 ml PO Q4H PRN PRN Reason: Dyspepsia Stop: 11/26/18 20:58 Albuterol (Duoneb) 3 ml NEB Q4R JOSELYN Stop: 11/26/18 20:58 Last Admin: 10/29/18 15:25 Dose: 3 ml Documented by: Amlodipine Besylate (Norvasc) 5 mg PO HS JOSELYN Stop: 11/27/18 20:59 Last Admin: 10/28/18 21:00 Dose: 5 mg Documented by: Aspirin (Ecotrin Ectab) 81 mg PO QAM JOSELYN Stop: 11/27/18 08:59 Last Admin: 10/29/18 08:04 Dose: 81 mg Documented by: Atorvastatin Calcium (Lipitor) 20 mg PO PM [facility] Stop: 11/26/18 20:59 Last Admin: 10/28/18 21:00 Dose: 20 mg Documented by: Budesonide/Formoterol Fumarate (Symbicort 160mcg/4.5mcg) 2 puffs INH [facility]HS [facility] Stop: 11/26/18 20:59 Last Admin: 10/29/18 08:03 Dose: 2 puffs Documented by: Dextrose (Dextrose 50%) 25 - 50 ml IV UD PRN; Protocol PRN Reason: Hypoglycemia Protocol Stop: 11/26/18 20:58 Enoxaparin Sodium (Lovenox) 40 mg SQ Q24H JOSELYN Stop: 11/27/18 05:59 Last Admin: 10/29/18 05:54 Dose: 40 mg Documented by: Glucagon (Glucagen) 1 mg SQ UD PRN; Protocol PRN Reason: Hypoglycemia Protocol Stop: 11/26/18 20:58 Glucose (Glucose 40%) 15 - 30 gm PO UD PRN; Protocol PRN Reason: Hypoglycemia Protocol Stop: 11/26/18 20:58 Glucose (Dex4 Glucose) 4 - 8 tabs PO UD PRN; Protocol PRN Reason: Hypoglycemia Protocol Stop: 11/26/18 20:58 Piperacillin Sod/Tazobactam (Sod 3.375 gm/ Dextrose) 115 mls @ 28.75 mls/hr IV Q8H JOSELYN; Protocol Stop: 11/04/18 00:00 Last Admin: 10/29/18 15:33 Dose: 28.8 mls/hr Documented by: Loratadine (Claritin) 10 mg PO HS JOSELYN Stop: 11/26/18 20:59 Last Admin: 10/28/18 21:00 Dose: 10 mg Documented by: Losartan Potassium (Cozaar) 75 mg PO DAILY JOSELYN Stop: 11/27/18 08:59 Last Admin: 10/29/18 08:03 Dose: 75 mg Documented by: Magnesium Hydroxide (Milk Of Magnesia) 30 ml PO Q12H PRN PRN Reason: Constipation Stop: 11/26/18 20:58 Miscellaneous (Carbohydrates For Hypoglycemia) 15 - 30 gm PO UD PRN PRN Reason: Hypoglycemia Treatment Stop: 11/26/18 20:58 Miscellaneous Information (Consult) 1 ea N/A UD PRN PRN Reason: Consult Stop: 11/26/18 20:58 Ondansetron HCl (Zofran) 4 mg IV Q6H PRN PRN Reason: Nausea Stop: 11/26/18 20:58 Pentoxifylline (Trental) 400 mg PO TID [facility] Stop: 11/26/18 20:59 Last Admin: 10/29/18 14:25 Dose: 400 mg Documented by: Polyethylene Glycol (Miralax Powder Packet) 17 gm PO DAILY PRN PRN Reason: Constipation Stop: 11/26/18 20:58 Prednisone (Prednisone) 40 mg PO DAILY [facility] Stop: 11/27/18 08:59 Last Admin: 10/29/18 08:04 Dose: 40 mg Documented by: Tiotropium [place] (Spiriva) 1 puffs INH QAM [facility] Stop: 11/27/18 08:59 Last Admin: 10/29/18 08:03 Dose: Not Given Documented by: Vitamin D (Vitamin D3) 1,000 units PO QAM [facility] Stop: 11/27/18 08:59 Last Admin: 10/29/18 08:04 Dose: 1,000 units Documented by: (1) Pneumonia Laterality: bilateral Lung location: unspecified part of lung Pneumonia type: due to unspecified organism Qualified Code(s): J18.9 - Pneumonia, unspecified organism (2) Hypertension Hypertension type: essential hypertension Qualified Code(s): I10 - Essential (primary) hypertension (3) HLD (hyperlipidemia) Hyperlipidemia type: unspecified Qualified Code(s): E78.5 - Hyperlipidemia, unspecified
[2018-10-29] MEDS: LORATADINE 10 MG TAB PO SCH (20:25)
[2018-10-29] MEDS: AMLODIPINE BESYLATE 5 MG TAB PO SCH (20:25)
[2018-10-29] MEDS: ATORVASTATIN 20 MG TAB PO SCH (20:25)
[2018-10-29] MEDS ORDERED: ALBUTEROL HFA 8 GM INHALER INH PRN (21:16)
[2018-10-29] MEDS ORDERED: cloNIDine HCl 0.1 MG TAB PO ONE (21:59)
[2018-10-30] MEDS: PIPERACILLIN/TAZOBACTAM 3.375 GM in DEXTROSE 5% 100 ML IV SCH ×2 (00:18→08:08)
[2018-10-30] MEDS: ALBUT/IPRATROP 3MG/0.5MG NEB 3 ML VIAL NEB SCH ×3 (03:26→11:16)
[2018-10-30] MEDS: ENOXAPARIN INJ 40 MG/0.4 ML SYR SQ SCH (05:50)
[2018-10-30 07:16] LABS: Creatinine Clr Calc Pharmacy 67.5 ml/min; Est GFR (African American) 92.9; Est GFR (Non-African American) 80.2
[2018-10-30] MEDS: predniSONE 20 MG TAB PO SCH (08:05)
[2018-10-30] MEDS: ASPIRIN 81 MG ECTAB PO SCH (08:05)
[2018-10-30] MEDS: CHOLECALCIFEROL 1,000 UNITS TAB PO SCH (08:05)
[2018-10-30] MEDS: PENTOXIFYLLINE 400MG EXT REL TAB PO SCH (08:05)
[2018-10-30] MEDS: LOSARTAN POTASSIUM 50 MG TAB PO SCH (08:05)
[2018-10-30] MEDS: BUDESONIDE/FORMOTEROL FUMARATE 160/4.5 60 PUFFS/INHALER INH SCH (08:06)
[2018-10-30] MEDS: TIOTROPIUM BROMIDE 5 PUFF/90 MCG INH INH SCH (08:08)
--- NOTE | 2018-10-30 10:53 | Hospitalist Progress Note ---
Date of Service October 30, 2018 Assessment & Plan (1) Chronic respiratory failure: Secondary to COPD exacerbation and management as below (2) COPD exacerbation: Infective exacerbation of COPD Management as mentioned below Clinically much better We will continue nebulized bronchodilator, oral steroid and extensive pulmonary toileting Was advised to ambulate Clinically shows improvement Much improved today and is ambulating without any significant symptoms Wants to go home today and will be discharged home this afternoon (3) Pneumonia: Mrs. Mayfield is a 73-year-old female who has significant past medical history of severe COPD on 4 L O2, chronic respiratory failure, MERISSA on BiPAP, HTN, HLD, former tobacco abuse, right lung nodule who presents to [facility] ED secondary to increased SOB x 2 days and LLE pain x 2 days. Chest x-ray concerning for bibasilar atelectasis versus aspiration CTA: Negative for PE, debris and trachea, extensive mucus plugging, bronchial wall thickening in the lower lobe segmental and subsegmental airways with concern for bronchitis versus aspiration, along with new OLIMPIA pulm nodule Patient remained stable on her chronic 4 L of O2, no increased oxygen requirement Discussed about pulmonary evaluation and possible bronchoscopy-she refused to have that right now We will keep for appointment to the restaurant assistant manager as an outpatient Continue Zosyn for now likely to continue with doxycycline on discharge We will continue oral digoxin for 10 days in total of (4) Dehydration: Secondary to poor p.o. intake for the past 2 days BUN/creatinine elevated from baseline 33/0.81 Baseline creatinine 0.6 Mild renal insufficiency Received IVF 1 L while in ED Repeat BMP in a.m. (5) Hematoma of left lower extremity: Exam consistent with LLE hematoma Conservative management, ice, rest, elevation Ambulate as tolerated Denies any significant symptoms Improved a lot (6) Hypertension: Blood pressure elevated while in ED On losartan, amlodipine Remains on the upper side of normal (7) MERISSA treated with BiPAP: Bipap at HS (8) HLD (hyperlipidemia): Continue statin (9) Peripheral vascular disease: continue pentoxifylline (10) Left upper lobe pulmonary nodule: new per current CT scan recommend f/u CT in 3-6 months (11) DVT prophylaxis: Lovenox SQ Disposition: To be determined Follow-up: PCP Dr. Ding upon discharge, repeat CT scan 3-6 month Clinically much better We will continue current treatment Possible discharge tomorrow or day after We will keep appointment with the restaurant assistant manager and outpatient Will discharge home today 10/30 Supervising Physician Co-Signing Physician Notes Care coordinated with Carmel PAYTON. Agree with above note. Patient seen and examined. Please refer to her notes for full details. Vital signs reviewed. Physical exam: General exam: Alert and oriented. Not in acute distress. CVS: S1 and S2 heard, regular rate and rhythm, no murmurs. RS: Clear to auscultation, mild b/l wheezing or crackles. ABD: Soft, bowel sounds present, nontender, no distention. OPERATING ROOM SCHEDULER: Nonfocal. EXT: No edema, no erythema. Labs: Reviewed. Assessment and plan: 73 F with hx of copd chronic resp failure on home oxygen presents with sob and hematoma of left lower extremity. Copd ex possible aspiration iv zosyn, steroids and nebs monitor Left leg hematoma spontaneous? will monitor. Other diagnosis and plan of care as per Carmel PAYTON. Alfonso sommer MD. Subjective 10/28 The patient was seen and examined in telemetry unit She has history of CAD COPD on 4 L nasal cannula at home Admitted with COPD exacerbation likely secondary to pneumonia She has been feeling a lot better since admission and getting adequate pulmonary toileting Denies any significant symptoms 10/29 The patient was seen and examined in telemetry unit Her breathing is much improved but not yet ready to be discharged Still has wheezing and significant shortness of breath on ambulation 10/30 Patient was seen and examined in telemetry unit He complains of weakness and tiredness and she has not had a good sleep last night Her breathing seems to be much better She has been ambulating around without any significant shortness of breath She wants to go home today and is ready Review of Systems Review of Systems: All systems reviewed and are unremarkable except as noted below Respiratory: + dyspnea (Minimal shortness of breath at rest); no cough Integumentary: Has generalized bruising with a small hematoma left neves without any breach of skin Physical Exam Physical Exam: Sitting on a chair with minimal shortness of breath with normal conversation Constitutional: well developed, well nourished, + acute distress and + ill appearing Eyes: PERRL, conjunctivae normal, anicteric sclerae ENMT: external ear and nose normal, oropharynx normal Neck: trachea midline, no thyromegaly Respiratory: normal respiratory effort and + respiratory distress (Minimal distress at rest due to shortness of breath but no wheezing) Auscultation: + diminished lung sounds; no wheezes Cardiovascular: Rate/Rhythm: regular rate and regular rhythm Gastrointestinal (Abdomen): Inspection/Auscultation: abdomen normal to inspection Percussion/Palpation: abdomen soft Musculoskeletal: No acute arthritis in any joints Neurologic: moves all extremities Lymphatic: no cervical or axillary lymphadenopathy Results & Data Vital Signs (Past 12 Hours) Vital Signs Temp Pulse Resp BP Pulse Ox 10/30/18 07:31 71 18 98 10/30/18 07:08 36.8 C 76 18 162/72 H 97 10/30/18 03:26 86 16 93 10/30/18 02:43 36.6 C 78 20 168/75 H 91 10/29/18 23:41 36.6 C 82 20 171/62 H 92 10/29/18 23:09 85 16 94 Laboratory Results BMP 10/30/18 06:10 Creatinine 0.75 Medications Administered Current Inpatient Medications Acetaminophen (Tylenol) 650 mg PO Q4H PRN PRN Reason: Pain or Fever Stop: 11/26/18 20:58 Al Hydrox/Mg Hydrox/Simethicone (Maalox) 15 ml PO Q4H PRN PRN Reason: Dyspepsia Stop: 11/26/18 20:58 Albuterol (Duoneb) 3 ml NEB Q4R JOSELYN Stop: 11/26/18 20:58 Last Admin: 10/30/18 07:31 Dose: 3 ml Documented by: Albuterol (Ventolin Hfa) 2 puffs INH Q4H PRN PRN Reason: Shortness Of Breath Or Wheezin Stop: 11/28/18 21:15 Amlodipine Besylate (Norvasc) 5 mg PO HS JOSELYN Stop: 11/27/18 20:59 Last Admin: 10/29/18 20:25 Dose: 5 mg Documented by: Aspirin (Ecotrin Ectab) 81 mg PO QAM JOSELYN Stop: 11/27/18 08:59 Last Admin: 10/30/18 08:05 Dose: 81 mg Documented by: Atorvastatin Calcium (Lipitor) 20 mg PO PM JOSELYN Stop: 11/26/18 20:59 Last Admin: 10/29/18 20:25 Dose: 20 mg Documented by: Budesonide/Formoterol Fumarate (Symbicort 160mcg/4.5mcg) 2 puffs INH AMHS JOSELYN Stop: 11/26/18 20:59 Last Admin: 10/30/18 08:06 Dose: 1 puffs Documented by: Dextrose (Dextrose 50%) 25 - 50 ml IV UD PRN; Protocol PRN Reason: Hypoglycemia Protocol Stop: 11/26/18 20:58 Enoxaparin Sodium (Lovenox) 40 mg SQ Q24H JOSELYN Stop: 11/27/18 05:59 Last Admin: 10/30/18 05:50 Dose: 40 mg Documented by: Glucagon (Glucagen) 1 mg SQ UD PRN; Protocol PRN Reason: Hypoglycemia Protocol Stop: 11/26/18 20:58 Glucose (Glucose 40%) 15 - 30 gm PO UD PRN; Protocol PRN Reason: Hypoglycemia Protocol Stop: 11/26/18 20:58 Glucose (Dex4 Glucose) 4 - 8 tabs PO UD PRN; Protocol PRN Reason: Hypoglycemia Protocol Stop: 11/26/18 20:58 Piperacillin Sod/Tazobactam (Sod 3.375 gm/ Dextrose) 115 mls @ 28.75 mls/hr IV Q8H JOSELYN; Protocol Stop: 11/04/18 00:00 Last Admin: 10/30/18 08:08 Dose: 28.8 mls/hr Documented by: Loratadine (Claritin) 10 mg PO HS COUNTS INCLUDE 234 BEDS AT THE [facility] Stop: 11/26/18 20:59 Last Admin: 10/29/18 20:25 Dose: 10 mg Documented by: Losartan Potassium (Cozaar) 75 mg PO DAILY JOSELYN Stop: 11/27/18 08:59 Last Admin: 10/30/18 08:05 Dose: 75 mg Documented by: Magnesium Hydroxide (Milk Of Magnesia) 30 ml PO Q12H PRN PRN Reason: Constipation Stop: 11/26/18 20:58 Miscellaneous (Carbohydrates For Hypoglycemia) 15 - 30 gm PO UD PRN PRN Reason: Hypoglycemia Treatment Stop: 11/26/18 20:58 Miscellaneous Information (Consult) 1 ea N/A UD PRN PRN Reason: Consult Stop: 11/26/18 20:58 Ondansetron HCl (Zofran) 4 mg IV Q6H PRN PRN Reason: Nausea Stop: 11/26/18 20:58 Pentoxifylline (Trental) 400 mg PO TID COUNTS INCLUDE 234 BEDS AT THE [facility] Stop: 11/26/18 20:59 Last Admin: 10/30/18 08:05 Dose: 400 mg Documented by: Polyethylene Glycol (Miralax Powder Packet) 17 gm PO DAILY PRN PRN Reason: Constipation Stop: 11/26/18 20:58 Prednisone (Prednisone) 40 mg PO DAILY COUNTS INCLUDE 234 BEDS AT THE [facility] Stop: 11/27/18 08:59 Last Admin: 10/30/18 08:05 Dose: 40 mg Documented by: Tiotropium [place] (Spiriva) 1 puffs INH QAM COUNTS INCLUDE 234 BEDS AT THE [facility] Stop: 11/27/18 08:59 Last Admin: 10/30/18 08:08 Dose: Not Given Documented by: Vitamin D (Vitamin D3) 1,000 units PO QAM COUNTS INCLUDE 234 BEDS AT THE [facility] Stop: 11/27/18 08:59 Last Admin: 10/30/18 08:05 Dose: 1,000 units Documented by: (1) HLD (hyperlipidemia) Hyperlipidemia type: unspecified Qualified Code(s): E78.5 - Hyperlipidemia, unspecified (2) Hypertension Hypertension type: essential hypertension Qualified Code(s): I10 - Essential (primary) hypertension (3) Pneumonia Laterality: bilateral Lung location: unspecified part of lung Pneumonia type: due to unspecified organism Qualified Code(s): J18.9 - Pneumonia, unspecified organism
[2018-10-30 11:30] LABS: BUN Creatinine Ratio 26.6 (10-20); Calcium 9.1 mg/dl (8.5-10.1); Creatinine Clr Calc Pharmacy 65.8 ml/min; Est GFR (Non-African American) 77.7; Potassium 3.6 mmol/L (3.5-5.1)
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
== END 2018-10-30 13:50 | disposition home health service (06) | DRG 190 ==
LOC: ED 14:10 → 2S 19:45

== ENCOUNTER 2023-07-20 13:06 | Inpatient (IN) ==
[2023-07-20] MEDS ORDERED: MoRPHine SULFATE 2 MG/ML CARP IV PRN (14:00)
--- NOTE | 2023-07-20 14:06 | Emergency Department Note ---
Impression & Plan Fracture of right hip, COPD (chronic obstructive pulmonary disease), Fall, Leukocytosis ED Provider Note NAME: MICHELLE TALLEY AGE: 78 SEX: F : 1945 ARRIVES VIA: Ambulance INFORMANT: [Patient][nursing] ED PROVIDER(S): [Pietro Coulter MD] CHIEF COMPLAINT: Hip pain, fall HISTORY OF PRESENT ILLNESS: The patient is a 78-year-old female with severe COPD. She typically wears 6 L of oxygen daily. The patient fell in her kitchen, she is not sure why she fell but she did not lose consciousness. She was not able to stand after the fall because of right hip pain. She was brought by ambulance. In route, she was given a nebulizer treatment, nothing was administered for pain. Patient denies any headache or neck pain. No upper extremity pain, back pain or rib pain. She has been in baseline health. PMHx/PSHx/Social Hx: See Below PHYSICAL EXAM: GENERAL: Patient is in no acute distress. HEENT: No acute trauma, normocephalic atraumatic, mucous membranes moist, no nasal congestion. NECK: No stridor, no adenopathy, no meningismus, trachea is midline. LUNGS: Diminished breath sounds with wheezing bilaterally, no obvious respiratory distress. HEART: Heart tones are quite distant. Rhythm did seem slightly irregular, no obvious murmur. ABDOMEN: Soft, nontender, no peritonitis. EXTREMITIES: No cyanosis. There is shortening with external rotation of the right lower extremity. She has a strong distal right dorsalis pedis pulse. She is tender in the area of the right lateral hip with palpation. NEUROLOGIC: Oriented x 3, no acute motor or sensory deficits, no focal weakness. SKIN: No jaundice, no diaphoresis. DIFFERENTIAL DIAGNOSIS: Fracture, dislocation, sprain, strain, anemia, electrolyte imbalance, among others. EMERGENCY DEPARTMENT PROCEDURES: MEDICAL DECISION MAKING: There is a moderate leukocytosis. This white count elevation could be consistent with infection or just her stress and pain. There is a normal hemoglobin. There is a normal platelet count. No coagulopathy. No renal failure or significant electrolyte abnormality. No concerning liver enzyme elevation. Urinalysis does not show findings of infection. Chest x-ray shows COPD with some atelectasis, no obvious pneumonia, no CHF. Right hip and pelvis films were performed, there was a right intertrochanteric hip fracture, no pelvic fracture. Patient received IV morphine for pain, IV Zofran for nausea. She was maintained on nasal cannula O2 supplementation. I talked to the patient about her findings. She will need a hospital stay with an orthopedic consult. She likely will require surgical intervention. It appears only the right hip has been injured with this fall. I spoke with orthopedics on-call-Dr. Foy, I spoke with case management. The on-call hospitalist was consulted. Prior/Outside records/notes reviewed: Today's EMS notes describing her presentation and transport to this hospital. ECG per my interpretation: Indication was hip fracture. The ECG shows a sinus rhythm with some PVCs. The rate was 97. There was no acute ST elevation, QTc was 472. Continuous Cardiac Monitoring per my interpretation: An order was placed for continuous cardiac monitoring. The monitor shows a rate of 98 with sinus rhythm with PVCs. Imaging/x-ray results per my interpretation: Chest x-ray shows some COPD with atelectasis at the bases. No pneumonia or pneumothorax. Right pelvis and femur films show a fracture of the right hip which appears intratrochanteric. Chronic Medical/Social conditions affecting care: Advanced age. Care/Management discussed with: Case management, the on-call hospitalist. Orthopedics on-call-Dr. Foy. Level of care consideration(s): After review of the information above and other included data: --I believe the patient requires escalation of care to admission DISPOSITION: Admission with orthopedic consult Past Med/Surg History Medical History COPD (chronic obstructive pulmonary disease) Dyslipidemia Peripheral vascular disease COPD (chronic obstructive pulmonary disease) Acute on chronic respiratory failure with hypoxia and hypercapnia HLD (hyperlipidemia) Right lower lobe pulmonary nodule Chronic respiratory failure Tobacco abuse MERISSA treated with BiPAP Pneumonia Hypertension COPD (chronic obstructive pulmonary disease) Surgical History History of lumbar surgery Family History Brother Heart disease Social History Smoking Status: Current every day smoker Cigarettes Per Day: 0.5-1ppd x 55 years; Second Hand Exposure: No; Do You Dip or Chew Tobacco: No; Hx Alcohol Use: No Hx Substance Use: No Preferred Language: Croatian Communication Ability: Effective Communication Ability Comment: secondy to tachypnea Visual Impairment: No Limitations Pilot Control Operator Required: No Beliefs That Will Affect Care: None marital status: / Current Living Situation: Alone How many Children do You have: 3 Feels Safe at Home: Yes Assistive Devices: Oxygen - Continuous Allergies Allergies Allergy/AdvReac Type Severity Reaction Status Date / Time codeine AdvReac Intermediate tinnitus Verified 02/11/19 12:57 Home Meds Home Medications Medication Instructions Recorded Confirmed aspirin 81 mg tablet,delayed 81 mg PO QAM 06/20/18 12/25/18 release budesonide-formoterol HFA 160 2 puff inhalation AMHS 06/20/18 12/25/18 mcg-4.5 mcg/actuation aerosol inhaler (Symbicort) cholecalciferol (vitamin D3) 25 1,000 unit PO QAM 06/20/18 12/25/18 mcg (1,000 unit) capsule (Vitamin D3) pentoxifylline 400 mg 400 mg PO TID 06/20/18 12/25/18 tablet,extended release loratadine 10 mg tablet 10 mg PO HS 08/16/18 12/25/18 amlodipine 5 mg tablet 5 mg PO DAILY 10/27/18 12/25/18 atorvastatin 20 mg tablet 20 mg PO PM 10/27/18 12/25/18 losartan 50 mg tablet 75 mg PO DAILY 10/27/18 12/25/18 Oxygen Home E0424 #1 ea 11/05/18 12/25/18 potassium 99 mg tablet 99 mg PO DAILY 12/25/18 12/25/18 Previous Rx's Medication Instructions Recorded guaifenesin 600 mg tablet, 600 mg PO BID #60 tabs 11/05/18 extended release 12 hr (Mucinex) tiotropium bromide 2.5 2 puffs inhalation DAILY #1 inhaler 11/05/18 mcg/actuation mist for inhalation (Spiriva Respimat) CPAP Supplies #1 ea 12/25/18 sodium chloride 7 % for 4 ml inhalation DAILY PRN cough 12/30/18 nebulization and congestion #60 mL albuterol sulfate 90 mcg/actuation 2 puff inhalation Q4H PRN 02/11/19 aerosol inhaler (Ventolin HFA) Shortness Of Breath Or Wheezing #54 grams levalbuterol HCl 0.63 mg/3 mL 0.63 mg (3 mL) inhalation Q6H #360 02/11/19 solution for nebulization mL furosemide 20 mg tablet 20 mg PO DAILY PRN edema #30 tabs 04/03/19 Results & Data (ED) Vital Signs Vital Signs - 24 hr 07/20/23 13:29 07/20/23 13:32 07/20/23 13:36 Temperature 36.8 C Temperature Source Oral Pulse Rate 100 H 98 H Pulse Rate [Right Finger] Pulse Rhythm [Right Finger] Pulse Strength [Right Finger] Respiratory Rate 22 Respiratory Effort / Characteristics Non-Labored Respiratory Depth Normal Respiratory Pattern Regular Blood Pressure 165/90 H Blood Pressure [Right Arm] Blood Pressure Mean 115 Blood Pressure Mean [Right Arm] Blood Pressure Position Sitting Blood Pressure Position [Right Arm] Pulse Oximetry 88 L 98 Oxygen Delivery Method Room Air Nasal Cannula Oxygen Flow Rate 6 Sepsis Recent Fever Within 48 Hours No Sepsis New/Unexplained Change in Mental Status N/A Sepsis Action Taken by Nursing No Action Required 07/20/23 16:43 Temperature Temperature Source Pulse Rate Pulse Rate [Right Finger] 93 H Pulse Rhythm [Right Finger] Regular Pulse Strength [Right Finger] Normal Respiratory Rate 18 Respiratory Effort / Characteristics Non-Labored Respiratory Depth Normal Respiratory Pattern Regular Blood Pressure Blood Pressure [Right Arm] 195/151 H Blood Pressure Mean Blood Pressure Mean [Right Arm] 165 Blood Pressure Position Blood Pressure Position [Right Arm] Sitting Pulse Oximetry 98 Oxygen Delivery Method Oxymask Oxygen Flow Rate 8 Sepsis Recent Fever Within 48 Hours Sepsis New/Unexplained Change in Mental Status Sepsis Action Taken by [facility] Medications Current Medication List: was personally reviewed by me Laboratory Data Attestation: I reviewed the patient's lab results. 07/20/23 13:25 07/20/23 13:25 Lab Results 07/20/23 07/20/23 Range/Units 13:25 15:28 WBC 16.45 H (4.8-10.8) K/ul RBC 3.94 L (4.20-5.40) M/uL Hgb 12.1 (12.0-16.0) g/dl Hct 38.9 (37.0-47.0) % MCV 98.7 (80.0-100.0) fL MCH 30.7 (25.0-34.0) pg MCHC 31.1 L (32.0-36.0) g/dL RDW Std Deviation 44.8 (36.4-46.3) fL RDW Coeff of Frankie 12.3 (11.5-14.5) % Plt Count 136 (130-400) K/uL MPV 11.8 (9.4-12.4) fL Immature Gran % (Auto) 0.6 % Neut % (Auto) 89.9 % Lymph % (Auto) 4.2 % Redwood % (Auto) 5.0 % Eos % (Auto) 0.1 % Baso % (Auto) 0.2 % Neut # (Auto) 14.79 H (1.40-6.50) K/uL Lymph # (Auto) 0.69 L (1.20-3.40) K/uL Redwood # (Auto) 0.83 H (0.11-0.59) K/uL Eos # (Auto) 0.01 (0.00-0.50) K/uL Baso # (Auto) 0.03 (0.00-0.20) K/uL Immature Gran # (Auto) 0.10 (0.01-0.20) K/uL PT 10.2 (9.0-12.0) Seconds INR 0.9 (0.9-1.1) APTT 22 (21-31) Seconds PTT Ratio 0.8 Sodium 138 (136-145) mmol/L Potassium 4.4 (3.5-5.1) mmol/L Chloride 97 L (98-107) mmol/L Carbon Dioxide 36 H (21-32) mmol/L Anion Gap 5 (3-11) BUN 19 (6-23) mg/dl Creatinine 0.69 (0.6-1.2) mg/dl Est Cr Clr Drug Dosing 109.0 ml/min Est GFR ( Amer) 98.0 ml/min Est GFR (Non-Af Amer) 84.6 ml/min BUN/Creatinine Ratio 27.5 H (10-20) Glucose 163 H (70-99(Fasting)) mg/dl Calcium 9.4 (8.6-10.3) mg/dl Total Bilirubin 0.5 (0.2-1.0) mg/dl AST 24 (13-39) U/L ALT 18 (7-52) U/L Alkaline Phosphatase 92 (34-104) U/L Total Protein 6.7 (6.0-8.3) gm/dl Albumin 4.2 (3.4-5.0) gm/dl Globulin 2.5 (2.5-4.0) gm/dl Albumin/Globulin Ratio 1.7 (0.9-2) Urine Color Yellow Urine Appearance Clear (Clear) Urine pH 6.5 (4.5-7.5) Ur Specific [place] 1.016 (1.000-1.030) Urine Protein 1+ H (Negative) Urine Glucose (UA) Negative (Negative) Urine Ketones Negative (Negative) Urine Blood Negative (Negative) Urine Nitrite Negative (Negative) Urine Bilirubin Negative (Negative) Urine Urobilinogen Negative (Negative) Ur Leukocyte Esterase Negative (Negative) Urine WBC (Auto) 0-5 (0-5) /hpf Urine RBC (Auto) 0-2 (0-2) /hpf U Hyaline Cast (Auto) 0-2 (0-2) /lpf U Epithel Cells (Auto) 0-2 (0-2) /hpf Urine Bacteria (Auto) None Seen (None Seen) Administered Medications Discontinued Medications Morphine Sulfate (Morphine Sulfate 2 Mg/Ml Carp) 2 mg IV NOW STA Stop: 07/20/23 14:01 Last Admin: 07/20/23 14:16 Dose: 2 mg [place] [facility] [place]dans[place] HCl (Ondansetron Inj 2 Mg/Ml 2 Ml Vial) 4 mg IV NOW STA Stop: 07/20/23 14:01 Last Admin: 07/20/23 14:26 Dose: 4 mg [place]ed [place] [facility] [place] Data Radiologist's Impression: Hip/Pelvis X-Ray 07/20/23 14:00 SINGLE VIEW PELVIS SINGLE 2 VIEWS RIGHT HIP CLINICAL HISTORY: Fall. Right hip injury. FINDINGS: An AP view of the pelvis with AP and crosstable lateral views of the right hip are correlated with pelvic CT dated 11/09/2013. The skeletal structures are osteopenic. There is a comminuted and mildly displaced intertrochanteric fracture of the right proximal femur. There is medial displacement of the lesser trochanter. Overlying soft tissue edema is observed. No additional acute fracture is seen involving the left hip or the bony pelvis. Severe osteoarthritic change is present in both hips. There is degenerative sclerosis pelvis the sacroiliac joints. Atherosclerotic calcification is noted in the femoral arteries. IMPRESSION: Comminuted intertrochanteric fracture of the right proximal femur as above. Electronically signed by: Pietro Soto M.D. 07/20/2023 2:58 PM Chest X-Ray 07/20/23 14:01 XR chest 1V portable HISTORY: 78 years-old Female hip fx acute chest trauma status post fall COMPARISON: 12/20/2018 TECHNIQUE: AP view the chest FINDINGS: Cardiomediastinal and hilar silhouettes are unchanged. Atherosclerosis of the aorta. Emphysema with chronic interstitial coarsening. Mild bibasilar atelectasis. The bones appear to be grossly intact. IMPRESSION: Emphysema without acute process. ACT 112: Negative or not required by law. The above report was generated using voice recognition software. It may contain grammatical, syntax or spelling errors. Electronically signed by: Nathaniel Keene M.D. 07/20/2023 3:09 PM Discharge Plan Visit Data Chief Complaint: Fall Stated Complaint: GROUND LEVEL FALL, R HIP PAIN ED Provider: Pietro Coulter Discharge Problem: Fracture of right hip, COPD (chronic obstructive pulmonary disease), Fall, Leukocytosis Patient Disposition: Admitted As Inpatient Condition: Fair Forms Stand Alone Forms: [facility], [facility] Prescriptions Prescriptions: No Action sodium chloride 7 % solution for nebulization 4 ml INH DAILY PRN (Reason: cough and congestion ) Qty: 60 3RF Rx Instructions: mix with levalbuterol furosemide 20 mg tablet 20 mg PO DAILY PRN (Reason: edema) Qty: 30 0RF levalbuterol HCl 0.63 mg/3 mL solution for nebulization 1.25 mg inhalation ONCE Qty: 3 0RF albuterol sulfate [Ventolin HFA] 90 mcg/actuation HFA aerosol inhaler 2 puff inhalation Q4H PRN (Reason: Shortness Of Breath Or Wheezing) Qty: 54 3RF levalbuterol HCl 0.63 mg/3 mL solution for nebulization 0.63 mg INH Q6H Qty: 360 3RF Rx Instructions: J44.9 COPD R00.0 TACHYCARDIA Can be mixed with 7% NaCl once daily (DME) Oxygen Home E0424 Liters Per Minute See Dose Instructions .ROUTE .MEDSUPPLY Qty: 1 Rx Instructions: As directed Spiriva Respimat 2.5 mcg/actuation mist 2 puffs INH DAILY Qty: 1 5RF guaifenesin [Mucinex] 600 mg tablet extended release 12hr 600 mg PO BID Qty: 60 5RF potassium 99 mg tablet 99 mg PO DAILY (DME) CPAP Supplies Misc See Dose Instructions .ROUTE .MEDSUPPLY Qty: 1 0RF Dose Instruction: As directed Rx Instructions: BIPAP SUPPLIES- [facility] CHO[facility] losartan 50 mg tablet 75 mg PO DAILY atorvastatin 20 mg Tablet 20 mg PO PM amlodipine 5 mg Tablet 5 mg PO DAILY aspirin 81 mg Tablet,Delayed Release (Dr/Ec) 81 mg PO QAM pentoxifylline 400 mg tablet extended release 400 mg PO TID Patient Comments: Patient states she takes 1 tablet in the morning and 2 tablets at bedtime cholecalciferol (vitamin D3) [Vitamin D3] 1,000 unit Capsule 1,000 unit PO QAM Symbicort 160-4.5 mcg/actuation HFA aerosol inhaler 2 puff inhalation AMHS loratadine 10 mg tablet 10 mg PO HS Referrals Referrals: PCP,NO [Physician] - Discharge Problem: Fracture of right hip Qualifiers: Encounter type: initial encounter Fracture type: closed Qualified Code(s): S 72.001A - Fracture of unspecified part of neck of right femur, initial encounter for closed fracture COPD (chronic obstructive pulmonary disease) Qualifiers: COPD type: unspecified COPD Qualified Code(s): J44.9 - Chronic obstructive pulmonary disease, unspecified Fall Qualifiers: Encounter type: initial encounter Qualified Code(s): W19.XXXA - Unspecified fall, initial encounter Leukocytosis Qualifiers: Leukocytosis type: unspecified Qualified Code(s): D72.829 - Elevated white blood cell count, unspecified
[2023-07-20] MEDS: MoRPHine SULFATE 2 MG/ML CARP IV STA (14:16)
[2023-07-20] MEDS: ONDANSETRON INJ 2 MG/ML 2 ML VIAL IV STA (14:26)
[2023-07-20 14:40] LABS: Basophils # (auto) 0.03 K/uL (0.00-0.20); Basophils % (auto) 0.2 %; Eosinophils # (auto) 0.01 K/uL (0.00-0.50); Eosinophils % (auto) 0.1 %; Hematocrit (blood only) 38.9 % (37.0-47.0); Hemoglobin 12.1 g/dl (12.0-16.0); Immature Granulocytes % (auto) 0.6 %; Lymphocytes # (auto) 0.69 K/uL (1.20-3.40); Lymphocytes % (auto) 4.2 %; Mean Corpuscular Hemoglobin 30.7 pg (25.0-34.0); Mean Corpuscular Hgb Conc 31.1 g/dL (32.0-36.0); Mean Corpuscular Volume 98.7 fL (80.0-100.0); Mean Platelet Volume 11.8 fL (9.4-12.4); Monocytes # (auto) 0.83 K/uL (0.11-0.59); Neutrophils # (auto) 14.79 K/uL (1.40-6.50); Neutrophils % (auto) 89.9 %; Platelet Count 136 K/uL (130-400); RDW Coefficient of Variation 12.3 % (11.5-14.5); RDW Standard Deviation 44.8 fL (36.4-46.3); Red Blood Count 3.94 M/uL (4.20-5.40); White Blood Count 16.45 K/ul (4.8-10.8)
[2023-07-20 14:46] LABS: INR 0.9 (0.9-1.1); Partial Thromboplastin Ratio 0.8; Partial Thromboplastin Time 22 Seconds (21-31); Prothrombin Time 10.2 Seconds (9.0-12.0)
[2023-07-20 14:55] LABS: Albumin Globulin Ratio 1.7 (0.9-2); Albumin Level 4.2 gm/dl (3.4-5.0); BUN Creatinine Ratio 27.5 (10-20); Bilirubin,Total 0.5 mg/dl (0.2-1.0); Calcium 9.4 mg/dl (8.6-10.3); Est GFR (Non-African American) 84.6 ml/min; Globulin 2.5 gm/dl (2.5-4.0); Potassium 4.4 mmol/L (3.5-5.1); Total Protein 6.7 gm/dl (6.0-8.3)
--- NOTE | 2023-07-20 14:59 | XRay Report ---
SINGLE VIEW PELVIS SINGLE 2 VIEWS RIGHT HIP CLINICAL HISTORY: Fall. Right hip injury. FINDINGS: An AP view of the pelvis with AP and crosstable lateral views of the right hip are correlat ed with pelvic CT dated 11/09/2013. The skeletal structures are osteopenic. There is a comminuted and mildly displaced intertrochanteric fracture of the right proximal femur. There is medial displacement of the lesser trochanter. Overlying soft tissue edema is observed. No additional acute fracture is s een involving the left hip or the bony pelvis. Severe osteoarthritic change is present in both hips. There is degenerative sclerosis pelvis the sacroiliac joints. Atherosclerotic calcification is noted in the femoral arteries. IMPRESSION: Comminuted intertrochanteric fracture of the right proximal femur as above. Electronically signed by: Pietro Soto M.D. 07/20/2023 2:58 PM
--- NOTE | 2023-07-20 15:10 | XRay Report ---
XR chest 1V portable HISTORY: 78 years-old Female hip fx acute chest trauma status post fall COMPARISON: 12/20/2018 TECHNIQUE: AP view the chest FINDINGS: Cardiomediastinal and hilar silhouettes are unchanged. Atherosclerosis of the aorta. Emphysema with c hronic interstitial coarsening. Mild bibasilar atelectasis. The bones appear to be grossly intact. IMPRESSION: Emphysema without acute process. ACT 112: Negative or not required by law. The above report was generated using voice recognition software. It may contain grammatical, syntax o r spelling errors. Electronically signed by: Nathaniel Keene M.D. 07/20/2023 3:09 PM
[2023-07-20 15:42] LABS: Appearance Urine Clear (Clear); Bacteria Urine Automated None Seen (None Seen); Bilirubin Urine Negative (Negative); Blood Urine Negative (Negative); Cast Urine Automated 0-2 /lpf (0-2); Color Urine Yellow; Epithelial Cell Urine Auto 0-2 /hpf (0-2); Glucose Urine UA Negative (Negative); Ketones Urine Negative (Negative); Leukocyte Esterase Urine Negative (Negative); Nitrite Urine Negative (Negative); Protein Urine 1+ (Negative); RBC Urine Automated 0-2 /hpf (0-2); Specific Gravity Urine 1.016 (1.000-1.030); Urobilinogen Urine Negative (Negative); WBC Urine Automated 0-5 /hpf (0-5); pH Urine 6.5 (4.5-7.5)
--- NOTE | 2023-07-20 20:39 | Orthopedic Consultation ---
Date of Service July 20, 2023 Assessment & Plan (1) Fracture of right hip: I discussed the diagnosis and treatment options with her at bedside. I am recommending intramedullary nail fixation of the right hip. She understands the risk benefits alternatives to the procedure and is elected to proceed. Questions were answered at bedside. She will be n.p.o. past midnight tonight. She is currently on the OR schedule for fixation of her right hip tomorrow morning. The decision was made for surgery. History of Present Illness Reason for Consultation: Right intertrochanteric hip fracture. Requesting Physician: . Yanely is a pleasant 78-year-old female whose a minimal ambulator. She ambulates a little bit every day with a walker but spends most of her day in bed. She lives by herself. She has a psychometrist that comes in for about 3 hours every day. Unfortunately she fell earlier today in her home. She began having right hip pain. She came to the emergency room where radiographs demonstrated an intertrochanteric right hip fracture. Orthopedics was consulted to evaluate and treat.. Allergies Allergy/AdvReac Type Severity Reaction Status Date / Time codeine AdvReac Intermediate tinnitus Verified 07/20/23 17:44 Home Medications Medication Instructions Recorded Confirmed Type aspirin 81 mg tablet,delayed 81 mg PO QAM 06/20/18 07/20/23 History release cholecalciferol (vitamin D3) 25 1,000 unit PO QAM 06/20/18 07/20/23 History mcg (1,000 unit) capsule (Vitamin D3) pentoxifylline 400 mg 400 mg PO TID 06/20/18 07/20/23 History tablet,extended release loratadine 10 mg tablet 10 mg PO HS 08/16/18 07/20/23 History amlodipine 5 mg tablet 5 mg PO DAILY 10/27/18 07/20/23 History atorvastatin 20 mg tablet 20 mg PO PM 10/27/18 07/20/23 History Oxygen Home E0424 #1 ea 11/05/18 12/25/18 History guaifenesin 600 mg tablet, 600 mg PO BID #60 tabs 11/05/18 07/20/23 Rx extended release 12 hr (Mucinex) tiotropium bromide 2.5 2 puffs inhalation DAILY #1 inhaler 11/05/18 07/20/23 Rx mcg/actuation mist for inhalation (Spiriva Respimat) CPAP Supplies #1 ea 12/25/18 12/25/18 Rx potassium 99 mg tablet 99 mg PO DAILY 12/25/18 07/20/23 History albuterol sulfate 90 mcg/actuation 2 puff inhalation Q4H PRN 02/11/19 07/20/23 Rx aerosol inhaler (Ventolin HFA) Shortness Of Breath Or Wheezing #54 grams furosemide 40 mg tablet 40 mg PO QAM PRN .SWELLING/WT GAIN 07/20/23 07/20/23 History ibuprofen 200 mg tablet 200 mg PO Q6H PRN Pain 07/20/23 07/20/23 History levalbuterol HCl 0.63 mg/3 mL 0.63 mg inhalation Q6H PRN 07/20/23 07/20/23 History solution for nebulization Shortness Of Breath Or Wheezing losartan 100 mg tablet 100 mg PO QAM 07/20/23 07/20/23 History Past Med/Surg History Medical History COPD (chronic obstructive pulmonary disease) Dyslipidemia Peripheral vascular disease COPD (chronic obstructive pulmonary disease) Acute on chronic respiratory failure with hypoxia and hypercapnia HLD (hyperlipidemia) Right lower lobe pulmonary nodule Chronic respiratory failure Tobacco abuse MERISSA treated with BiPAP Pneumonia Hypertension COPD (chronic obstructive pulmonary disease) Surgical History History of lumbar surgery Family History Brother Heart disease Social History Smoking Status: Current every day smoker Cigarettes Per Day: 0.5-1ppd x 55 years; Second Hand Exposure: No; Do You Dip or Chew Tobacco: No; Hx Alcohol Use: No Hx Substance Use: No Preferred Language: Palestinian Communication Ability: Effective Communication Ability Comment: secondy to tachypnea Visual Impairment: No Limitations Supervisor [employer] Required: No Beliefs That Will Affect Care: None marital status: / Current Living Situation: Alone How many Children do You have: 3 Feels Safe at Home: Yes Assistive Devices: Oxygen - Continuous Review of Systems All systems reviewed & are unremarkable except as noted in HPI & below. Physical Exam On physical examination of the right hip, her right leg is little bit shortened and externally rotated. She has pain with logroll of the right hip. Most of her pain is located in her groin.. Constitutional WD/WN, vitals as above Eyes PERRL, conjunctivae normal, anicteric sclerae ENMT external ear and nose normal, oropharynx normal Neck trachea midline, no thyromegaly Respiratory normal respiratory effort Cardiovascular RRR, no murmur, no edema Gastrointestinal (Abdomen) normal bowel sounds, soft, nontender, no hepatosplenomegaly Psychiatric A+Ox3, euthymic affect Results & Data Results & Data Laboratory Results . Diagnostic Findings X-rays of the right hip do show advanced degenerative joint disease of the hip but also shows a minimally displaced but comminuted intertrochanteric right hip fracture.. PG Care Time/CCT Total # of Minutes Spent Total Time Spent with Patient: Total time spent is greater than 50% in coordination of care (as documented) at patient's floor/unit and/or counseling patient: Coding Level of Care Code 83312 IN/OBS CONSULT LVL 4,60M (57 - DECISION FOR SURGERY) Diagnoses Fracture of right hip S72.001A Encounter type: initial encounter Fracture type: closed (1) Fracture of right hip Encounter type: initial encounter Fracture type: closed Qualified Code(s): S72.001A - Fracture of unspecified part of neck of right femur, initial encounter for closed fracture
--- NOTE | 2023-07-20 21:13 | History & Physical Report ---
Date of Service July 20, 2023 Assessment & Plan (1) Osteoporotic fracture of right hip: (2) Fracture of right hip: Plan: Admit to [facility] Patient presenting from home after a mechanical fall In the ED, hip/pelvis XR comminuted intertrochanteric fracture of the right proximal femur Pain control with bowel regimen Ortho consult, tentatively planning for intramedullary nail fixation of the right hip tomorrow Check vitamin D level Patient has COPD with chronic hypoxic respiratory failure on 6 L of oxygen, currently saturating well on her chronic 6 L. Reports cough and shortness of breath are at her chronic baseline. No other cardiopulmonary complaints. EKG without acute ST changes. CXR unremarkable. Patient considered acceptable risk to proceed to surgery. (3) Leukocytosis: Plan: WBC 16 K No obvious signs of infection at this time, UA unremarkable, CXR without infiltrate Likely reactive secondary to fall/fracture Monitor CBC (4) Ankle pain, right: Plan: X-ray ordered (5) Hyperglycemia: Plan: Glucose 163 on BMP ? Stress response secondary to fall/fracture Check A1c with a.m. labs (6) Chronic hypoxic respiratory failure: (7) COPD (chronic obstructive pulmonary disease): Plan: Saturating well on chronic 6 L of oxygen Continue home inhalers (8) Hypertension: Plan: BP elevated likely situational/due to pain Control pain, reevaluate BP Continue home amlodipine, losartan (9) Peripheral vascular disease: Plan: Hold ASA for now due to surgical procedure tomorrow Continue pentoxifylline (10) HLD (hyperlipidemia): Plan: Chronic, stable Continue statin DVT PROPHYLAXIS SCDs due to surgical procedure tomorrow, further DVT prophylaxis deferred to Ortho Patient seen in collaboration with Dr. Trammell. I spent a total of 75 minutes coordinating, documenting, and providing care for this patient excluding time spent in the performance of separately billed services. This included personally reviewing all current laboratories and imaging studies, medication reconciliation, outpatient chart review, and discussion with specialists. History of Present Illness Chief Complaint: Fall, right hip pain Primary Care Provider: PELON Mays 78-year-old female with PMH COPD, chronic hypoxic respiratory failure on 6 L of oxygen, PVD, tobacco abuse, sleep apnea, dyslipidemia, and other problems as below who presents to the ED for evaluation of fall and right hip pain. History is obtained from the patient and review of outpatient PCP records. Patient reports she was in her kitchen when she tripped and fell onto the ground. She reports experiencing right hip pain and she was unable to get up. She pressed her life alert button and was brought to the ED for further evaluation. Patient reports she otherwise has been feeling well recently. Chronic cough and shortness of breath is unchanged from baseline. Denies chest pain. No lightheadedness, dizziness, diaphoresis, syncopal events. She denies abdominal pain, nausea, vomiting, diarrhea. No urinary symptoms. Patient is currently reporting some right ankle pain. In the ED, hip/pelvis x-ray shows Comminuted intertrochanteric fracture of the right proximal femur. Labs show WBC 16 K, otherwise unremarkable. Patient was given IV morphine and IV Zofran in the ED. Allergies Allergy/AdvReac Type Severity Reaction Status Date / Time codeine AdvReac Intermediate tinnitus Verified 07/20/23 17:44 Home Medications Medication Instructions Recorded Confirmed Type aspirin 81 mg tablet,delayed 81 mg PO QAM 06/20/18 07/20/23 History release cholecalciferol (vitamin D3) 25 1,000 unit PO QAM 06/20/18 07/20/23 History mcg (1,000 unit) capsule (Vitamin D3) pentoxifylline 400 mg 400 mg PO TID 06/20/18 07/20/23 History tablet,extended release loratadine 10 mg tablet 10 mg PO HS 08/16/18 07/20/23 History amlodipine 5 mg tablet 5 mg PO DAILY 10/27/18 07/20/23 History atorvastatin 20 mg tablet 20 mg PO PM 10/27/18 07/20/23 History Oxygen Home E0424 #1 ea 11/05/18 12/25/18 History guaifenesin 600 mg tablet, 600 mg PO BID #60 tabs 11/05/18 07/20/23 Rx extended release 12 hr (Mucinex) tiotropium bromide 2.5 2 puffs inhalation DAILY #1 inhaler 11/05/18 07/20/23 Rx mcg/actuation mist for inhalation (Spiriva Respimat) potassium 99 mg tablet 99 mg PO DAILY 12/25/18 07/20/23 History albuterol sulfate 90 mcg/actuation 2 puff inhalation Q4H PRN 02/11/19 07/20/23 Rx aerosol inhaler (Ventolin HFA) Shortness Of Breath Or Wheezing #54 grams furosemide 40 mg tablet 40 mg PO QAM PRN .SWELLING/WT GAIN 07/20/23 07/20/23 History ibuprofen 200 mg tablet 200 mg PO Q6H PRN Pain 07/20/23 07/20/23 History levalbuterol HCl 0.63 mg/3 mL 0.63 mg inhalation Q6H PRN 07/20/23 07/20/23 History solution for nebulization Shortness Of Breath Or Wheezing losartan 100 mg tablet 100 mg PO QAM 07/20/23 07/20/23 History Past Med/Surg History Medical History (Updated 07/20/23 @ 21:42 by SIDDHARTHA Morelos) Chronic hypoxic respiratory failure COPD (chronic obstructive pulmonary disease) Dyslipidemia Peripheral vascular disease HLD (hyperlipidemia) Right lower lobe pulmonary nodule Chronic respiratory failure Tobacco abuse MERISSA treated with BiPAP Hypertension Surgical History History of lumbar surgery Family History Brother Heart disease Social History Smoking Status: Current every day smoker Cigarettes Per Day: 0.5-1ppd x 55 years; Second Hand Exposure: No; Do You Dip or Chew Tobacco: No; Hx Alcohol Use: No Hx Substance Use: No Preferred Language: Armenian Communication Ability: Effective Communication Ability Comment: secondy to tachypnea Visual Impairment: No Limitations Pump 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 Supervisor Required: No Beliefs That Will Affect Care: None marital status: / Current Living Situation: Alone How many Children do You have: 3 Feels Safe at Home: Yes Assistive Devices: Oxygen - Continuous Physical Exam Constitutional: WD/WN, vitals as above no acute distress Eyes: PERRL, conjunctivae normal, anicteric sclerae ENMT: external ear and nose normal, oropharynx normal Respiratory: normal respiratory effort; no respiratory distress Auscultation: + diminished lung sounds Cardiovascular: Rate/Rhythm: regular rate and regular rhythm Vessels: normal peripheral pulses Gastrointestinal (Abdomen): normal bowel sounds, soft, nontender, no hepatosplenomegaly Musculoskeletal: RLE shortened and externally rotated, edema noted to the right foot Skin: no rashes, warm and dry Neurologic: PERRL, EOMI, accommodation nl, no face palsy, no dysarthria Psychiatric: A+Ox3, euthymic affect Results & Data Results & Data Vital Signs (Past 12 Hours) Vital Signs Temp Pulse Pulse Resp BP BP Pulse Ox 07/20/23 19:00 85 18 195/84 H 98 07/20/23 16:43 93 H 18 195/151 H 98 07/20/23 13:36 98 H 07/20/23 13:32 98 07/20/23 13:29 36.8 C 100 H 22 165/90 H 88 L O2 Del Method O2 Flow Rate 07/20/23 19:00 Oxymask 8 07/20/23 16:43 Oxymask 8 07/20/23 13:36 07/20/23 13:32 Nasal Cannula 6 07/20/23 13:29 Room Air Laboratory Results Short CBC 07/20/23 Range/Units 13:25 WBC 16.45 H (4.8-10.8) K/ul Hgb 12.1 (12.0-16.0) g/dl Hct 38.9 (37.0-47.0) % Plt Count 136 (130-400) K/uL BMP 07/20/23 13:25 Sodium 138 Potassium 4.4 Chloride 97 L Carbon Dioxide 36 H BUN 19 Creatinine 0.69 Glucose 163 H Calcium 9.4 Liver Function 07/20/23 Range/Units 13:25 Total Bilirubin 0.5 (0.2-1.0) mg/dl AST 24 (13-39) U/L ALT 18 (7-52) U/L Alkaline Phosphatase 92 (34-104) U/L Albumin 4.2 (3.4-5.0) gm/dl Urine 07/20/23 Range/Units 15:28 Urine Color Yellow Urine Appearance Clear (Clear) Urine pH 6.5 (4.5-7.5) Ur Specific [place] 1.016 (1.000-1.030) Urine Protein 1+ H (Negative) Urine Glucose (UA) Negative (Negative) Diagnostic Findings Hip/Pelvis X-Ray 07/20/23 14:00 SINGLE VIEW PELVIS SINGLE 2 VIEWS RIGHT HIP CLINICAL HISTORY: Fall. Right hip injury. FINDINGS: An AP view of the pelvis with AP and crosstable lateral views of the right hip are correlated with pelvic CT dated 11/09/2013. The skeletal structures are osteopenic. There is a comminuted and mildly displaced intertrochanteric fracture of the right proximal femur. There is medial displacement of the lesser trochanter. Overlying soft tissue edema is observed. No additional acute fracture is seen involving the left hip or the bony pelvis. Severe osteoar thritic change is present in both hips. There is degenerative sclerosis pelvis the sacroiliac joints. Atherosclerotic calcification is noted in the femoral arteries. IMPRESSION: Comminuted intertrochanteric fracture of the right proximal femur as above. Electronically signed by: Pietro Soto M.D. 07/20/2023 2:58 PM Chest X-Ray 07/20/23 14:01 XR chest 1V portable HISTORY: 78 years-old Female hip fx acute chest trauma status post fall COMPARISON: 12/20/2018 TECHNIQUE: AP view the chest FINDINGS: Cardiomediastinal and hilar silhouettes are unchanged. Atherosclerosis of the aorta. Emphysema with chronic interstitial coarsening. Mild bibasilar atelectasis. The bones appear to be grossly intact. IMPRESSION: Emphysema without acute process. ACT 112: Negative or not required by law. The above report was generated using voice recognition software. It may contain grammatical, syntax or spelling errors. Electronically signed by: Nathaniel Keene M.D. 07/20/2023 3:09 PM Supervising Physician Co-Signing Physician Notes I have seen and examined the patient and have discussed the case with the provider above. I have reviewed the advanced practitioner's documentation, and I agree with, and take responsibility for that plan of care. 78 yo F with chronic hypoxia on supplemental oxygen.presents with acute right hip fracture after a mechanical fall today pain is present in her hip BP is elevated to 160s systolic, HR 85, AF, 98% oxymask 8LPM NAD, WNWD mentating clearly, following instructions CV: reg rate and rhythm, S1/2 heard, no murmurs, no edema Lungs: CTAB Extremities: NVI Neuro: no gross focal deficits. Labs/meds/EKG/imaging reviewed 1. Right hip fracture: cont plan for surgery in am as noted above. 2. HTN: uncontrolled, attempt to improve pain control and recheck, hydrocodone administered. Cont home meds. 3. chronic hypoxic resp failure: CXR clear with evidence of known emphysema. Cont oxygen supplementation Caprice Jp, [facility] Hospitalist (2) Fracture of right hip Encounter type: initial encounter Fracture type: closed Qualified Code(s): S72.001A - Fracture of unspecified part of neck of right femur, initial encounter for closed fracture (3) Leukocytosis Leukocytosis type: unspecified Qualified Code(s): D72.829 - Elevated white blood cell count, unspecified (7) COPD (chronic obstructive pulmonary disease) COPD type: unspecified COPD Qualified Code(s): J44.9 - Chronic obstructive pulmonary disease, unspecified (8) Hypertension Hypertension type: essential hypertension Qualified Code(s): I10 - Essential (primary) hypertension (10) HLD (hyperlipidemia) Hyperlipidemia type: unspecified Qualified Code(s): E78.5 - Hyperlipidemia, unspecified
[2023-07-20] MEDS ORDERED: MoRPHine SULFATE 4 MG/ML 1 ML CARP\\VIAL IV PRN (21:19)
[2023-07-20] MEDS ORDERED: ACETAMINOPHEN 325 MG TAB PO PRN (21:19)
[2023-07-20] MEDS ORDERED: NALOXONE HCL 0.4 MG/1 ML VIAL/CARP IV PRN (21:19)
[2023-07-20] MEDS ORDERED: MAGNESIUM HYDROXIDE SUSP 30 ML UDC PO PRN (21:19)
[2023-07-20] MEDS ORDERED: ONDANSETRON INJ 2 MG/ML 2 ML VIAL IV PRN (21:19)
[2023-07-20] MEDS ORDERED: bisacodyL 10 MG SUPP PR PRN (21:19)
[2023-07-20] MEDS: HYDROCODONE/ACETAMOPHEN 5/325MG TAB PO STA (21:24)
[2023-07-20] MEDS: ATORVASTATIN 20 MG TAB PO SCH (23:15)
[2023-07-20] MEDS: NICOTINE 21 MG/24 HR TDSY TD SCH (23:15)
[2023-07-20] MEDS: guaiFENesin 600 MG TABCR PO SCH (23:15)
[2023-07-20] MEDS: ACETAMINOPHEN 500 MG TAB PO SCH (23:15)
[2023-07-20] MEDS: LORATADINE 10 MG TAB PO SCH (23:15)
[2023-07-20] MEDS: PENTOXIFYLLINE 400MG EXT REL TAB PO SCH (23:15)
[2023-07-20] MEDS: oxyCODONE HCL IR 5 MG TAB (IMMEDIATE RELEASE) PO PRN (23:15)
[2023-07-21] MEDS: amLODIPine BESYLATE 5 MG TAB PO SCH (00:38)
--- NOTE | 2023-07-21 01:31 | Communication Note ---
Date of Service: July 21, 2023 Patient requiring more O2 as per RN. Confusion, agitation more pronounced after oxycodone administration. SBP 190s. Coarse lung breath sounds and loose rattling cough as per RN. No aspiration concerns as per RN. Patient unable to answer questions regarding headache, chest pain, SOB, duration of cough symptoms. Chronic cough/SOB symptoms as per admission H&P PPE Disoriented, respiratory distress RRR Decreased breath sounds, expiratory wheezes Chest x-ray as per interpretation atelectasis Platelets 105 Ap Encephalopathy Multifactorial Hypertensive crisis Acute on chronic respiratory failure, possible COPD exacerbation Oxycodone possibly contributory New onset thrombocytopenia PCU transfer Increase amlodipine dose, hydralazine as needed SBP greater than 160 Check ABG BiPAP for now, possible CO2 retention given elevated levels on admission blood work Solu-Medrol followed by prednisone course, nebs RTC Hold oxycodone for now and add to ADR list Tramadol as needed pain not relieved by Tylenol Pulmonary consult for preop eval if without improvement. Hold pentoxifylline for now given thrombocytopenia ADDENDUM 07/20, 7AM Dr. Foy of Orthopedics updated of overnight events. Defer surgery this a.m., N.p.o. after midnight for possible OR tomorrow a.m. 07/21 once medically stable as per discussion.
[2023-07-21] MEDS: ALBUT/IPRATROP 3MG/0.5MG NEB 3 ML VIAL NEB STA (01:40)
[2023-07-21] MEDS ORDERED: methylPREDNISolone 125 MG/2 ML VIAL IV STA (01:56)
[2023-07-21 02:13] LABS: Hematocrit (blood only) 33.5 % (37.0-47.0); Mean Corpuscular Hemoglobin 31.5 pg (25.0-34.0); Mean Corpuscular Hgb Conc 32.8 g/dL (32.0-36.0); Mean Platelet Volume 11.7 fL (9.4-12.4); Platelet Count 109 K/uL (130-400); RDW Coefficient of Variation 12.4 % (11.5-14.5); Red Blood Count 3.49 M/uL (4.20-5.40); White Blood Count 10.78 K/ul (4.8-10.8)
[2023-07-21 02:17] LABS: Base Excess ABG 9.7 mEq/L (-9-1.8); HCO3 ABG 38 mmol/L (19-24); Oxygen Saturation ABG 98.3 % (90-95); PCO2 ABG 67 mmHg (35-46); PO2 ABG 88 mmHg (80-95); pH ABG 7.36 (7.35-7.45)
[2023-07-21] MEDS: methylPREDNISolone 20 MG in SYRINGE 0 ML IV STA (02:17)
[2023-07-21 02:29] LABS: Allen Test Pos (Pos)
[2023-07-21 02:31] LABS: BUN Creatinine Ratio 33.3 (10-20); Calcium 8.8 mg/dl (8.6-10.3); Creatinine Clr Calc Pharmacy 77.9 ml/min; Est GFR (African American) 102.6 ml/min; Est GFR (Non-African American) 88.5 ml/min; Potassium 4.4 mmol/L (3.5-5.1)
[2023-07-21 02:33] LABS: Basophils # (auto) 0.03 K/uL (0.00-0.20); Basophils % (auto) 0.3 %; Immature Granulocytes # (auto) 0.04 K/uL (0.01-0.20); Immature Granulocytes % (auto) 0.4 %; Lymphocytes # (auto) 1.46 K/uL (1.20-3.40); Lymphocytes % (auto) 14.1 %; Monocytes # (auto) 0.87 K/uL (0.11-0.59); Monocytes % (auto) 8.4 %; Neutrophils # (auto) 7.93 K/uL (1.40-6.50); Neutrophils % (auto) 76.8 %; Partial Thromboplastin Ratio 0.7; Partial Thromboplastin Time 20 Seconds (21-31)
[2023-07-21 04:20] LABS: Base Excess VBG 9.1 mEq/L; HCO3 VBG 38 mmol/L; Oxygen Saturation VBG 68.8 %; PCO2 VBG 72 mmHg (38-50); PO2 VBG 39 mmHg; pH VBG 7.33 (7.36-7.41)
[2023-07-21] MEDS: SODIUM CHLORIDE 0.9% 1,000 ML IV ONE (04:41)
[2023-07-21] MEDS ORDERED: ceFAZolin 2000MG 2,000 MG/15 ML SYR IV SCH (06:00)
[2023-07-21] MEDS: IPRATROPIUM BROMIDE NEB SOLN 0.02% 0.5MG/2.5ML VIAL INH SCH (06:05)
[2023-07-21] MEDS: LEVALBUTEROL 1.25 MG/3 ML NEB NEB SCH (06:06)
[2023-07-21] MEDS: IPRATROPIUM BROMIDE NEB SOLN 0.02% 0.5MG/2.5ML VIAL INH STA (06:06)
[2023-07-21] MEDS: LEVALBUTEROL 1.25 MG/3 ML NEB NEB STA (06:06)
[2023-07-21 06:33] LABS: Base Excess ABG 9.7 mEq/L (-9-1.8); HCO3 ABG 38 mmol/L (19-24); PCO2 ABG 65 mmHg (35-46); PO2 ABG 68 mmHg (80-95); pH ABG 7.37 (7.35-7.45)
--- NOTE | 2023-07-21 06:50 | XRay Report ---
RIGHT ANKLE 2 VIEWS CLINICAL HISTORY: Fall. Right ankle pain. FINDINGS: Crosstable AP and lateral views of the right ankle [facility] The AP view is degraded by positioning. The skeletal structures are osteop enic. No fracture is seen. The ankle mortise is intact. There is no significant joint effusion. Soft tissue edema is seen around the ankle. IMPRESSION: Soft tissue swelling with no radiographic evidence of acute fracture. Electronically signed by: Pietro Soto M.D. 07/21/2023 6:47 AM
[2023-07-21] MEDS ORDERED: hydrALAZINE HCL 20 MG/ML VIAL IV PRN ×2 (07:07→13:11)
--- NOTE | 2023-07-21 07:21 | Orthopedic Progress Note ---
Date of Service July 21, 2023 Assessment & Plan (1) Osteoporotic fracture of right hip: Unfortunately, she is dealing with an exasperation of pulmonary issues. She was being treated by the hospitalist. We will hold off on a surgery today. She can have a full diet today and should be n.p.o. past midnight tonight. Will place her on the operating room schedule for intramedullary nail fixation of her right hip tomorrow pending medical clearance. Shahrzad Ny was seen and examined at bedside this morning. Unfortunately she is dealing with some pulmonary issues. I did speak with the hospitalist. She is not medically ready for surgery today.. Review of Systems All systems reviewed & are unremarkable except as noted in HPI & below. Physical Exam On physical examination of the right hip, her right leg is little bit shortened and externally rotated.. Results & Data Results & Data Laboratory Results . Diagnostic Findings . PG Care Time/CCT Total # of Minutes Spent Total Time Spent with Patient: Total time spent is greater than 50% in coordination of care (as documented) at patient's floor/unit and/or counseling patient: Coding Level of Care Code 56765 SUB INP/OBS CARE 2/35MIN Diagnoses Osteoporotic fracture of right hip M80.051A
[2023-07-21 07:22] LABS: Allen Test Pos (Pos)
[2023-07-21] MEDS: methylPREDNISolone 125 MG/2 ML VIAL IV STA (07:25)
[2023-07-21] MEDS: dilTIAZem HCl 5 MG/ML 5 ML VIAL IV STA (07:25)
--- NOTE | 2023-07-21 07:26 | XRay Report ---
SINGLE VIEW CHEST CLINICAL HISTORY: Hypoxia FINDINGS: An AP, portable, upright chest radiograph is compared to study dated 07/20/2023 and correlate d with chest CT dated 10/27/2018. The examination is degraded by portable technique and apical lordoti c positioning. The heart is enlarged noting atherosclerotic calcification of the thoracic aorta. The pulmonary vasculature is not congested. Emphysema and chronic interstitial thickening similar to prev ious. Foci of parenchymal scarring are seen throughout both lungs. Bibasilar opacities likely represe nt scarring/atelectasis. No large pleural effusion or pneumothorax is seen. The skeletal structures a re osteopenic. The bony thorax is grossly intact. IMPRESSION: 1. Cardiomegaly and emphysema without radiographic evidence of congestive failure. 2. Bibasilar opacities likely representing scarring/atelectasis. Correlate clinically. ACT 112: Negative or not required by law. Electronically signed by: Pietro Soto M.D. 07/21/2023 7:24 AM
[2023-07-21] MEDS: hydrALAZINE HCL 20 MG/ML VIAL IV ONE (07:47)
[2023-07-21] MEDS: DOXYCYCLINE HYCLATE 100 MG in DEXTROSE 5% MINI-B 100 ML IV STA ×2 (07:54→22:07)
[2023-07-21] MEDS ORDERED: amLODIPine BESYLATE 5 MG TAB PO SCH (09:00)
[2023-07-21] MEDS ORDERED: predniSONE 20 MG TAB PO SCH (09:00)
[2023-07-21] MEDS ORDERED: UMECLIDINIUM BROMIDE 62.5MCG/BLISTER 7 PUFFS/INHALER INH SCH (09:00)
[2023-07-21] MEDS: LEVALBUTEROL HCL 0.63 MG/3 ML NEB INH PRN (10:27)
[2023-07-21] MEDS: LOSARTAN POTASSIUM 50 MG TAB PO SCH (10:35)
[2023-07-21] MEDS: FUROSEMIDE 40 MG/4 ML VIAL IV ONE (10:36)
[2023-07-21] MEDS: CHOLECALCIFEROL 25 MCG (1000 UNITS) TAB PO SCH (10:36)
[2023-07-21] MEDS ORDERED: methylPREDNISolone 125 MG/2 ML VIAL IV SCH (11:30)
--- NOTE | 2023-07-21 11:38 | Pulmonary Consultation ---
Date of Consultation July 21, 2023 Assessment & Plan (1) Acute exacerbation of chronic obstructive pulmonary disease: (2) Chronic hypoxic respiratory failure: (3) Osteoporotic fracture of right hip: Encounter type: initial encounter Qualified Code(s): M80.051A - Age-related osteoporosis with current pathological fracture, right femur, initial encounter for fracture (4) Diastolic CHF, acute on chronic: Plan 78-year-old female with a history of advanced COPD noncompliant with BiPAP therapy, significant underlying anxiety, chronic hypoxia and continued tobacco abuse presenting to the hospital due to a right hip fracture and COPD exacerbation. Hypercapnia resolving with the use of BiPAP. Recommend continued BiPAP support for the time being considering a trial off of BiPAP later today. Goal O2 sats of 88 to 92%. Patient notes she uses oxygen chronically and even smokes well oxygen. I advised her on the risks of smoking cigarettes while using oxygen. She was advised not to have any open flame near supplemental oxygen as this can cause an explosion in significant lindsey. She clearly has evidence of diastolic heart failure exacerbation and COPD exacerbation at this time. Recommend diuresis to maintain euvolemia. Will start the patient on an ICS/LABA nebulizer regimen. Will also increase her steroids to methylprednisone at a dose of 40 mg twice daily. Continue doxycycline for 5 days total. I do not think she is optimized for elective surgery today. Can reconsider potential surgery tomorrow depending on respiratory status. Will order repeat echocardiogram as last echo was from 2019. At that time she had evidence of LVH. Check troponin and BNP. Patient will need ICS/LABA/LAMA inhaler upon discharge. She is currently only on a LABA and LAMA inhaler. Will benefit from outpatient pulmonary follow-up, PFTs and pulmonary rehab. Consider palliative care referral given multiple comorbidities including advanced COPD. Thank you for the consult. Will follow. Care coordinated with the bedside RN and hospitalist service via [place] text. History of Present Illness Reason for Consultation: Acute COPD exacerbation Attending Physician: Pk Harris MD History of Present Illness 78-year-old female with a extensive tobacco abuse history, chronic hypoxemia on supplemental oxygen, osteoporosis, MERISSA noncompliant with BiPAP therapy, hyperlipidemia and PVD who presented to the hospital due to a fall and fractured her right hip. She has had ongoing severe shortness of breath which is worsened prior to yesterday. She is required BiPAP support due to acute hypercapnia which is now resolving on her latest ABG. She has been reportedly very anxious. Her chest x-ray revealed cardiomegaly and severe emphysema. Bibasilar atelectasis was noted. CT chest was personally reviewed by me from 10/27/2018 which showed significant centrilobular emphysema predominantly in the upper lobes. Patient notes that she continues to smoke about half a pack of cigarettes a day even when wearing supplemental oxygen. She was receiving 20 mg of prednisone daily and is currently on doxycycline 100 twice daily. Allergies Allergy/AdvReac Type Severity Reaction Status Date / Time codeine AdvReac Intermediate tinnitus Verified 07/20/23 17:44 oxycodone AdvReac Intermediate Confusion Verified 07/21/23 02:25 Home Medications Medication Instructions Recorded Confirmed Type aspirin 81 mg tablet,delayed 81 mg PO QAM 06/20/18 07/20/23 History release cholecalciferol (vitamin D3) 25 1,000 unit PO QAM 06/20/18 07/20/23 History mcg (1,000 unit) capsule (Vitamin D3) pentoxifylline 400 mg 400 mg PO TID 06/20/18 07/20/23 History tablet,extended release loratadine 10 mg tablet 10 mg PO HS 08/16/18 07/20/23 History amlodipine 5 mg tablet 5 mg PO DAILY 10/27/18 07/20/23 History atorvastatin 20 mg tablet 20 mg PO PM 10/27/18 07/20/23 History Oxygen Home E0424 #1 ea 11/05/18 12/25/18 History guaifenesin 600 mg tablet, 600 mg PO BID #60 tabs 11/05/18 07/20/23 Rx extended release 12 hr (Mucinex) tiotropium bromide 2.5 2 puffs inhalation DAILY #1 inhaler 11/05/18 07/20/23 Rx mcg/actuation mist for inhalation (Spiriva Respimat) potassium 99 mg tablet 99 mg PO DAILY 12/25/18 07/20/23 History albuterol sulfate 90 mcg/actuation 2 puff inhalation Q4H PRN 02/11/19 07/20/23 Rx aerosol inhaler (Ventolin HFA) Shortness Of Breath Or Wheezing #54 grams furosemide 40 mg tablet 40 mg PO QAM PRN .SWELLING/WT GAIN 07/20/23 07/20/23 History ibuprofen 200 mg tablet 200 mg PO Q6H PRN Pain 07/20/23 07/20/23 History levalbuterol HCl 0.63 mg/3 mL 0.63 mg inhalation Q6H PRN 07/20/23 07/20/23 History solution for nebulization Shortness Of Breath Or Wheezing losartan 100 mg tablet 100 mg PO QAM 07/20/23 07/20/23 History Patient History Medical History (Updated 07/21/23 @ 11:36 by Irvin Jason MD) Diastolic CHF, acute on chronic Acute exacerbation of chronic obstructive pulmonary disease Chronic hypoxic respiratory failure COPD (chronic obstructive pulmonary disease) Dyslipidemia Peripheral vascular disease HLD (hyperlipidemia) Right lower lobe pulmonary nodule Chronic respiratory failure Tobacco abuse MERISSA treated with BiPAP Hypertension Surgical History History of lumbar surgery Family History Brother Heart disease Social History Smoking Status: Current every day smoker Tobacco Type: Cigarettes Cigarettes Per Day: 1 ppd; Second Hand Exposure: No; Do You Dip or Chew Tobacco: No; Hx Alcohol Use: No Hx Substance Use: No Preferred Language: Georgian Communication Ability: Effective Communication Ability Comment: secondy to tachypnea Visual Impairment: No Limitations Biomedical Field Service 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 Disheveled appearing. Anxious. Eyes: Pupils are equal round and reactive to light. Conjunctivae are normal. Anicteric sclera. Ears nose, mouth and throat: Mallampati class 2. Normal posterior oropharynx. Uvula is midline. BiPAP mask in place. Neck: Trachea is midline. Visual inspection is normal. Respiratory: Diffusely wheezy with prolonged phase of exhalation. Mild tachypnea. Cardiovascular: Regular rate and rhythm. No murmurs. No edema. Gastrointestinal: Normal bowel sounds, soft, nontender and nondistended. No hepatosplenomegaly noted. Musculoskeletal: No cyanosis. Patient is able to move all extremities. Strength is 5 out of 5 in the upper and lower extremities. Skin: No rashes, warm dry and intact. Neurologic: No obvious focal neurological deficits seen. Psychiatric: Alert and oriented x3 with an anxious mood Results & Data Results & Data Vital Signs (Past 12 Hours) Vital Signs Temp Pulse Pulse Resp BP Pulse Ox O2 Del Method 07/21/23 07:15 36.6 C 109 H 20 148/65 H 92 BiPAP 07/21/23 07:11 102 H 21 92 07/21/23 06:53 90 161/78 H 91 BiPAP 07/21/23 06:11 BiPAP 07/21/23 06:07 108 H 23 95 07/21/23 06:07 107 H 24 94 BiPAP 07/21/23 05:01 90 24 95 07/21/23 03:02 76 07/21/23 02:01 84 18 94 07/21/23 01:49 91 H 18 99 Oxymask 07/21/23 01:48 84 16 166/59 H 97 Oxymask O2 Flow Rate FiO2 07/21/23 07:15 07/21/23 07:11 40 07/21/23 06:53 07/21/23 06:11 07/21/23 06:07 40 07/21/23 06:07 40 07/21/23 05:01 40 07/21/23 03:02 07/21/23 02:01 40 07/21/23 01:49 7 07/21/23 01:48 8 PG Care Time/CCT Total # of Minutes Spent Total Time Spent with Patient: Total time spent is greater than 50% in coordination of care (as documented) at patient's floor/unit and/or counseling patient: Coding Level of Care Code 84359 INT INP/OBS CARE MIN Diagnoses Acute exacerbation of chronic obstructive pulmonary disease J44.1 Chronic hypoxic respiratory failure J96.11 Fracture of right hip due to osteoporosis, initial encounter M80.051A Encounter type: initial encounter Diastolic CHF, acute on chronic I50.33
[2023-07-21] MEDS: ceFAZolin 3000MG 3,000 MG/72.5 ML BAG IV SCH (11:43)
[2023-07-21] MEDS: FORMOTEROL 20 MCG/2 ML VIAL NEB SCH (12:20)
[2023-07-21] MEDS: BUDESONIDE 0.5 MG/2 ML VIAL (PULMICORT) NEB STA (12:21)
[2023-07-21] MEDS: methylPREDNISolone 40 MG in SYRINGE 0 ML IV SCH ×2 (12:46→20:47)
--- NOTE | 2023-07-21 13:04 | Hospitalist Progress Note ---
Date of Service July 21, 2023 Assessment & Plan (1) Osteoporotic fracture of right hip: (2) Fracture of right hip: Plan: Admit to [facility] Patient presenting from home after a mechanical fall In the ED, hip/pelvis XR comminuted intertrochanteric fracture of the right proximal femur Pain control with bowel regimen Ortho consult, tentatively planning for intramedullary nail fixation of the right hip tomorrow Check vitamin D level Patient has COPD with chronic hypoxic respiratory failure on 6 L of oxygen, currently saturating well on her chronic 6 L. Reports cough and shortness of breath are at her chronic baseline. No other cardiopulmonary complaints. EKG without acute ST changes. CXR unremarkable. Patient considered acceptable risk to proceed to surgery. / COPD exacerbation Possible acute on chronic diastolic congestive heart failure exacerbation component Repeat chest x-ray noted Echocardiogram ordered Lasix 40 mg IV 1 dose given Solu-Medrol 40 mg twice daily, Perforomist and Pulmicort twice daily started Continue Xopenex Atrovent nebs every 6 hours Continue doxycycline Pulmonology service consulted, appreciate the recommendations Patient currently being optimized from the respiratory standpoint Will reevaluate patient's progress tomorrow and at that point we will decide whether patient can proceed with planned orthopedic surgery (3) Ankle pain, right: Plan: X-ray ordered: No fractures (4) Hyperglycemia: Plan: Glucose 163 on BMP ? Stress response secondary to fall/fracture A1c 5.9 (5) Chronic hypoxic respiratory failure: (6) COPD (chronic obstructive pulmonary disease): Plan: Management exacerbation as above (7) Hypertension: Plan: BP elevated likely situational/due to pain Control pain, reevaluate BP Continue home amlodipine, losartan As needed hydralazine (8) Peripheral vascular disease: Plan: Hold ASA for now in light of planned orthopedic surgery Continue pentoxifylline (9) HLD (hyperlipidemia): Plan: Chronic, stable Continue statin DVT PROPHYLAXIS SCDs due to surgical procedure tomorrow, further DVT prophylaxis deferred to Ortho Admission and Anticipated Discharge Date Admission Date: July 20, 2023 Subjective Follow-up for femur fracture, etc Events overnight noted seen resting in bed, on Bipap comfortable, not in distress patient reports breathing is about the same as yesterday still has some dyspnea no chest pain, palpitations, dizziness No other new symptoms Review of Systems Review of Systems: all noted and negative except for above Physical Exam Physical Exam: General- oriented x 3, not in distress, speaks in sentences with no effort or accessory muscle use Eyes- anicteric Neck- no JVD Lungs-mild diffuse wheeze bilaterally Heart- normal rate, regular rhythm; no murmurs Abdomen- normal bowel sounds, nondistended, soft, no tenderness Extremities- Right lower extremity externally rotated no pretibial edema, no calf tenderness Neuro- alert, oriented x 3; no gross focal neurologic deficits Skin- warm & dry Results & Data Results & Data Vital Signs (Past 12 Hours) Vital Signs Temp Pulse Pulse Resp BP Pulse Ox O2 Del Method 07/21/23 12:24 82 20 96 07/21/23 12:21 82 20 96 BiPAP 07/21/23 11:35 36.7 C 93 H 18 169/66 H 94 BiPAP 07/21/23 07:15 36.6 C 109 H 20 148/65 H 92 BiPAP 07/21/23 07:11 102 H 21 92 07/21/23 06:53 90 161/78 H 91 BiPAP 07/21/23 06:11 BiPAP 07/21/23 06:07 108 H 23 95 07/21/23 06:07 107 H 24 94 BiPAP 07/21/23 05:01 90 24 95 07/21/23 03:02 76 07/21/23 02:01 84 18 94 07/21/23 01:49 91 H 18 99 Oxymask 07/21/23 01:48 84 16 166/59 H 97 Oxymask O2 Flow Rate FiO2 07/21/23 12:24 40 07/21/23 12:21 40 07/21/23 11:35 07/21/23 07:15 07/21/23 07:11 40 07/21/23 06:53 07/21/23 06:11 07/21/23 06:07 40 07/21/23 06:07 40 07/21/23 05:01 40 07/21/23 03:02 07/21/23 02:01 40 07/21/23 01:49 7 07/21/23 01:48 8 all noted and reviewed including below (1) Osteoporotic fracture of right hip Encounter type: initial encounter Qualified Code(s): M80.051A - Age-related osteoporosis with current pathological fracture, right femur, initial encounter for fracture (2) Fracture of right hip Encounter type: initial encounter Fracture type: closed Qualified Code(s): S72.001A - Fracture of unspecified part of neck of right femur, initial encounter for closed fracture (6) COPD (chronic obstructive pulmonary disease) COPD type: unspecified COPD Qualified Code(s): J44.9 - Chronic obstructive pulmonary disease, unspecified (7) Hypertension Hypertension type: essential hypertension Qualified Code(s): I10 - Essential (primary) hypertension (9) HLD (hyperlipidemia) Hyperlipidemia type: unspecified Qualified Code(s): E78.5 - Hyperlipidemia, unspecified
[2023-07-21] MEDS: BUDESONIDE 0.5 MG/2 ML VIAL (PULMICORT) NEB SCH (19:03)
[2023-07-21 19:18] LABS: Adenovirus PCR Not Detected (NotDetected); Bordetella parapertussis PCR Not Detected (NotDetected); Bordetella pertussis PCR Not Detected (NotDetected); Chlamydia pneumoniae PCR Not Detected (NotDetected); Coronavirus 229E PCR Not Detected (NotDetected); Coronavirus CoV-2 (COVID19)PCR Not Detected (NotDetected); Coronavirus HKU1 PCR Not Detected (NotDetected); Coronavirus NL63 PCR Not Detected (NotDetected); Coronavirus OC43PCR Not Detected (NotDetected); Human Metapneumovirus PCR Not Detected (NotDetected); Influenza A PCR Not Detected (NotDetected); Influenza B PCR Not Detected (NotDetected); Mycoplasma pneumoniae PCR Not Detected (NotDetected); Parainfluenza Virus 1 PCR Not Detected (NotDetected); Parainfluenza Virus 2 PCR Not Detected (NotDetected); Parainfluenza Virus 3 PCR Not Detected (NotDetected); Parainfluenza Virus 4 PCR Not Detected (NotDetected); Respiratory Syncytial VirusPCR Not Detected (NotDetected); Rhinovirus/Enterovirus PCR Not Detected (NotDetected)
[2023-07-21 20:52] LABS: Base Excess ABG 12.1 mEq/L (-9-1.8); HCO3 ABG 38 mmol/L (19-24); Oxygen Saturation ABG 99.1 % (90-95); PCO2 ABG 52 mmHg (35-46); PO2 ABG 165 mmHg (80-95); pH ABG 7.47 (7.35-7.45)
[2023-07-21 20:54] LABS: Allen Test Pos (Pos)
[2023-07-21] MEDS ORDERED: DOXYCYCLINE HYCLATE 100 MG CAP PO SCH (21:00)
[2023-07-21] MEDS: OLANZapine 10 MG/2.1 ML SDV IM PRN (22:12)
--- NOTE | 2023-07-22 07:08 | Anesthesiology Consultation ---
Date of Service July 22, 2023 Assessment & Plan Chart Review Chart Review: Acceptable Risk for Surgery and Patient NOT seen in Pre Admission Testing Consults Requested none History Surgery Operation Date: 07/21/23 07:30 Proposed Procedures p Intramedullary Nail Right Hip - Khanh Foy DO Operation Date: 07/22/23 07:30 Proposed Procedures p Intramedullary Nail Right Hip(Right) - Khanh Foy DO Height/Weight Height: 5 ft 4 in Weight: 72.8 kg Allergies Allergy/AdvReac Type Severity Reaction Status Date / Time codeine AdvReac Intermediate tinnitus Verified 07/20/23 17:44 oxycodone AdvReac Intermediate Confusion Verified 07/21/23 02:25 Medications Home Medications Medication Instructions Recorded Confirmed Last Taken aspirin 81 mg tablet,delayed 81 mg PO QAM 06/20/18 07/20/23 08/16/18 release cholecalciferol (vitamin D3) 25 1,000 unit PO QAM 06/20/18 07/20/23 08/16/18 mcg (1,000 unit) capsule (Vitamin D3) pentoxifylline 400 mg 400 mg PO TID 06/20/18 07/20/23 08/16/18 tablet,extended release loratadine 10 mg tablet 10 mg PO HS 08/16/18 07/20/23 08/15/18 amlodipine 5 mg tablet 5 mg PO DAILY 10/27/18 07/20/23 Unknown atorvastatin 20 mg tablet 20 mg PO PM 10/27/18 07/20/23 Unknown Oxygen Home E0424 #1 ea 11/05/18 12/25/18 Unknown guaifenesin 600 mg tablet, 600 mg PO BID #60 tabs 11/05/18 07/20/23 Unknown extended release 12 hr (Mucinex) tiotropium bromide 2.5 2 puffs inhalation DAILY #1 inhaler 11/05/18 07/20/23 Unknown mcg/actuation mist for inhalation (Spiriva Respimat) potassium 99 mg tablet 99 mg PO DAILY 12/25/18 07/20/23 Unknown albuterol sulfate 90 mcg/actuation 2 puff inhalation Q4H PRN 02/11/19 07/20/23 Unknown aerosol inhaler (Ventolin HFA) Shortness Of Breath Or Wheezing #54 grams furosemide 40 mg tablet 40 mg PO QAM PRN .SWELLING/WT GAIN 07/20/23 07/20/23 Unknown ibuprofen 200 mg tablet 200 mg PO Q6H PRN Pain 07/20/23 07/20/23 Unknown levalbuterol HCl 0.63 mg/3 mL 0.63 mg inhalation Q6H PRN 07/20/23 07/20/23 Unknown solution for nebulization Shortness Of Breath Or Wheezing losartan 100 mg tablet 100 mg PO QAM 07/20/23 07/20/23 Unknown Active Medications Generic Name Dose Route Start Last Admin Trade Name Freq PRN Reason Stop Dose Admin Acetaminophen 1,000 mg 07/20/23 22:00 07/21/23 23:13 Acetaminophen 500 Mg Tab PO 08/19/23 21:59 Not Given Q8H JOSELYN Amlodipine Besylate 10 mg 07/21/23 00:30 07/21/23 00:38 Amlodipine Besylate 5 Mg Tab PO 08/20/23 00:29 10 mg QAM JOSELYN Administration Atorvastatin Calcium 20 mg 07/20/23 21:19 07/21/23 23:12 Atorvastatin 20 Mg Tab PO 08/19/23 21:18 Not Given PM JOSELYN Budesonide 0.5 mg 07/21/23 19:00 07/22/23 07:17 Budesonide 0.5 Mg/2 Ml Vial (Pulmicort) NEB 08/20/23 18:59 0.5 mg BIDR JOSELYN Administration Formoterol Fumarate 20 mcg 07/21/23 11:00 07/22/23 07:16 Formoterol 20 Mcg/2 Ml Vial NEB 08/20/23 10:59 20 mcg BIDR JOSELYN Administration Guaifenesin 600 mg 07/20/23 21:19 07/21/23 23:12 Guaifenesin 600 Mg Tabcr PO 08/19/23 21:18 Not Given BID JOSELYN Methylprednisolone 40 mg/ 0.64 mls @ 1.5 mls/min 07/21/23 20:25 07/21/23 20:47 Syringe IV 08/20/23 20:24 1.5 mls/min BID JOSELYN Administration Ipratropium Danielson 0.5 mg 07/21/23 07:00 07/22/23 07:17 Ipratropium Danielson Neb Soln 0.02% 0.5mg/2.5ml Vial INH 08/20/23 06:59 Not Given Q6R JOSELYN Levalbuterol HCl 0.63 mg 07/20/23 21:19 07/21/23 10:27 Levalbuterol Hcl 0.63 Mg/3 Ml Neb INH 08/19/23 21:18 0.63 mg Q6H PRN Administration Shortness Of Breath Or Wheezing Protocol Levalbuterol HCl 1.25 mg 07/21/23 07:00 07/22/23 07:17 Levalbuterol 1.25 Mg/3 Ml Neb NEB 08/20/23 06:59 Not Given Q6R JOSELYN Loratadine 10 mg 07/20/23 21:19 07/21/23 23:13 Loratadine 10 Mg Tab PO 08/19/23 21:18 Not Given HS JOSELYN Losartan Potassium 100 mg 07/21/23 09:00 07/21/23 10:35 Losartan Potassium 50 Mg Tab PO 08/20/23 08:59 100 mg QAM JOSELYN Administration Miscellaneous 1 each 07/21/23 08:59 07/21/23 10:31 Remove Nicoderm Patch N/A 08/20/23 08:58 1 each DAILY@0859 JOSELYN Administration Nicotine 1 patch 07/20/23 21:45 07/21/23 12:46 Nicotine 21 Mg/24 Hr Tdsy TD 08/19/23 21:44 1 patch QAM JOSELYN Administration Olanzapine 2.5 mg 07/21/23 01:34 07/22/23 02:24 Olanzapine 10 Mg/2.1 Ml Sdv IM 08/20/23 01:33 2.5 mg Q4H PRN Administration Agitation Pentoxifylline 400 mg 07/20/23 21:19 07/20/23 23:15 Pentoxifylline 400mg Ext Rel Tab PO 08/19/23 21:18 400 mg TID JOSELYN Administration Vitamin D 25 mcg 07/21/23 09:00 07/21/23 10:36 Cholecalciferol 25 Mcg (1000 Units) Tab PO 08/20/23 08:59 25 mcg QAM JOSELYN Administration Past Medical History Medical History Diastolic CHF, acute on chronic Acute exacerbation of chronic obstructive pulmonary disease Chronic hypoxic respiratory failure COPD (chronic obstructive pulmonary disease) Dyslipidemia Peripheral vascular disease HLD (hyperlipidemia) Right lower lobe pulmonary nodule Chronic respiratory failure Tobacco abuse MERISSA treated with BiPAP Hypertension Past Family History Family History Brother Heart disease Past Surgical History Surgical History History of lumbar surgery Social History Smoking Status: Current every day smoker tobacco type: cigarettes Smoking cigarettes per day: 1 ppd Do You Dip or Chew Tobacco: No Hx Alcohol Use: No Hx Substance Use: No substance use type: does not use Physical Exam Vital Signs Last Vital Signs Temp 36.6 C 07/22/23 02:08 Pulse 95 H 07/22/23 02:19 Resp 24 07/22/23 02:19 BP 154/63 H 07/22/23 02:08 Pulse Ox 94 07/22/23 02:19 O2 Del Method BiPAP 07/22/23 02:08 O2 Flow Rate 6 07/21/23 21:00 FiO2 40 07/22/23 02:19 Testing Laboratory Results 07/21/23 01:51 07/21/23 01:51 PT 10.2 Seconds (9.0-12.0) 07/20/23 13:25 INR 0.9 (0.9-1.1) 07/20/23 13:25 APTT 20 Seconds (21-31) L 07/21/23 01:51 Urine Color Yellow 07/20/23 15:28 Urine Appearance Clear (Clear) 07/20/23 15:28 Urine pH 6.5 (4.5-7.5) 07/20/23 15:28 Ur Specific [place] 1.016 (1.000-1.030) 07/20/23 15:28 Urine Protein 1+ (Negative) H 07/20/23 15:28 Urine Glucose (UA) Negative (Negative) 07/20/23 15:28 Urine Ketones Negative (Negative) 07/20/23 15:28 Urine Nitrite Negative (Negative) 07/20/23 15:28 Ur Leukocyte Esterase Negative (Negative) 07/20/23 15:28 Urine WBC (Auto) 0-5 /hpf (0-5) 07/20/23 15:28 Urine RBC (Auto) 0-2 /hpf (0-2) 07/20/23 15:28 U Hyaline Cast (Auto) 0-2 /lpf (0-2) 07/20/23 15:28 U Epithel Cells (Auto) 0-2 /hpf (0-2) 07/20/23 15:28 Urine Bacteria (Auto) None Seen (None Seen) 07/20/23 15:28 Echocardiogram Date: 07/21/23 EF: 65-70 Right ventricle mildly dilated
[2023-07-22] MEDS ORDERED: BUPIVACAINE 0.5 % 5 MG/1 ML PF 10ML VIAL ONE (07:15)
--- NOTE | 2023-07-22 07:52 | XRay Report ---
XR chest 1V portable HISTORY: low o2 COMPARISON: Chest 07/21/2023. FINDINGS: No pneumothorax. No pleural effusions. The heart remains top normal in size. Emphysema agai n noted. No evidence for pulmonary edema. There are bibasilar linear densities which have slightly pr ogressed. IMPRESSION: Bibasilar linear densities which have slightly progressed. This could represent atelectasis or a deve loping pneumonia. ACT 112: Negative or not required by law. Electronically signed by: Charles Aleman M.D. 07/22/2023 7:51 AM
[2023-07-22] MEDS ORDERED: predniSONE 20 MG TAB PO SCH (09:00)
[2023-07-22 09:03] LABS: Basophils # (auto) 0.03 K/uL (0.00-0.20); Basophils % (auto) 0.2 %; Eosinophils # (auto) 0.07 K/uL (0.00-0.50); Eosinophils % (auto) 0.5 %; Hematocrit (blood only) 35.6 % (37.0-47.0); Hemoglobin 11.5 g/dl (12.0-16.0); Immature Granulocytes # (auto) 0.08 K/uL (0.01-0.20); Immature Granulocytes % (auto) 0.6 %; Lymphocytes # (auto) 1.05 K/uL (1.20-3.40); Lymphocytes % (auto) 7.5 %; Mean Corpuscular Hgb Conc 32.3 g/dL (32.0-36.0); Mean Platelet Volume 11.5 fL (9.4-12.4); Monocytes # (auto) 0.84 K/uL (0.11-0.59); Neutrophils # (auto) 11.94 K/uL (1.40-6.50); Neutrophils % (auto) 85.2 %; Platelet Count 116 K/uL (130-400); RDW Coefficient of Variation 12.4 % (11.5-14.5); RDW Standard Deviation 43.4 fL (36.4-46.3); Red Blood Count 3.71 M/uL (4.20-5.40); White Blood Count 14.01 K/ul (4.8-10.8)
[2023-07-22] MEDS: DOXYCYCLINE HYCLATE 100 MG CAP PO SCH (09:15)
[2023-07-22 09:17] LABS: BUN Creatinine Ratio 42.6 (10-20); Calcium 9.4 mg/dl (8.6-10.3); Creatinine Clr Calc Pharmacy 68.8 ml/min; Est GFR (African American) 98.5 ml/min; Potassium 4.5 mmol/L (3.5-5.1)
--- NOTE | 2023-07-22 09:17 | Orthopedic Progress Note ---
Date of Service July 22, 2023 Assessment & Plan (1) Osteoporotic fracture of right hip: We talked to her about her current condition. Right now she is back to baseline at 6 L of nasal cannula. She would still like to get her hip fixed today. She is quite painful. I think that is reasonable. I will talk to the anesthesiologist. Will see how she does through this morning and plan on fixing her hip later this morning if her pulmonary status does not change. She should currently be NPO. Shahrzad Ny was seen and examined at bedside this morning. Overall she is doing a lot better. She had a rough day yesterday. She was on 15 L of oxygen by BiPAP. They try to wean her by she continued to have respiratory difficulties. However, this morning she seems to be doing much better. She is off the BiPAP and she is back to her baseline of 6 L by nasal cannula. She still having a lot of pain in the right hip. Review of Systems All systems reviewed & are unremarkable except as noted in HPI & below. Physical Exam On physical examination the right hip, the right leg is shortened and externally rotated. She has a lot of pain with logroll of the right hip.. Results & Data Results & Data Laboratory Results . Diagnostic Findings . PG Care Time/CCT Total # of Minutes Spent Total Time Spent with Patient: Total time spent is greater than 50% in coordination of care (as documented) at patient's floor/unit and/or counseling patient: Coding Level of Care Code 31887 SUB INP/OBS CARE 2/35MIN Diagnoses Fracture of right hip due to osteoporosis, initial encounter M80.051A Encounter type: initial encounter (1) Osteoporotic fracture of right hip Encounter type: initial encounter Qualified Code(s): M80.051A - Age-related osteoporosis with current pathological fracture, right femur, initial encounter for fracture
[2023-07-22] MEDS ORDERED: SODIUM CHLORIDE 0.9% PF INJ 10 ML VIAL ONE (10:56)
[2023-07-22] MEDS ORDERED: fentaNYL citrate PF 100 MCG/2 ML VIAL ONE (10:56)
[2023-07-22] MEDS ORDERED: PROPOFOL IV EMULSION 10 MG/ML 20 ML VIAL IV ONE (10:56)
[2023-07-22] MEDS ORDERED: LIDOCAINE 2% 2 ML VIAL/AMP(20MG/ML) INFIL ONE (10:56)
[2023-07-22] MEDS: ceFAZolin 2000MG 2,000 MG/15 ML SYR IV ONE (11:28)
[2023-07-22] MEDS: TRANEXAMIC ACID 100 MG/ML 10 ML VIAL IV ONE (12:00)
[2023-07-22] MEDS: BUPIVACAINE/EPINEPHRINE 0.5% MPF 1:200,000 30 ML VIAL ONE (12:11)
[2023-07-22] MEDS: BUPIVACAINE/EPINEPHRINE 0.25% 1:200,000 30 ML VIAL ONE (12:11)
[2023-07-22] MEDS: ceFAZolin 2,000 MG/15 ML IV PUSH IV ONE (12:11)
--- NOTE | 2023-07-22 12:45 | Operative Report ---
PG Post Operative Report Pre & Post Diagnosis Operation Date: 07/22/23 07:30 Pre-Op Diagnosis: Right hip fracture Post-Op Diagnosis: Right hip fracture I identified the patient and participated in the time-out.: Yes Procedure Operation Date: 07/22/23 07:30 Actual Procedures p Intramedullary Nail Right Hip(Right) - Khanh Foy DO Surgeon Khanh Foy DO [employer] Detective Samir Lock PA-C Estimated Blood Loss 30 Findings Consistent with Post-Op Diagnosis Specimens None Description of Procedure On July 22, 2023 Yanely was brought down from her hospital room to the preoperative holding area. The operative extremity identified and signed. She was given a preoperative antibiotic. She was taken back to the operating room and given a spinal anesthetic. She was then transferred to the fracture table. The right leg was brought out to traction. Fluoroscopic images confirmed reduction of the fracture. The right hip was then prepped and draped sterile fashion. A timeout was done. The patient and the operative extremity was properly identified. A longitudinal incision was made just superior to the greater trochanter. Dissection was taken down through the fascia. A guidepin was placed at the tip of the greater trochanter and advanced into the femoral canal. Appropriate placement was checked on fluoroscopy. A 16 mm opening reamer was then used to open the femoral canal. A Synthes 11 mm short TFN nail was then impacted into place. Appropriate placement was checked on fluoroscopy. A small lateral incision was made for advancement of the cannula for the helical blade. The cannula was then advanced to the lateral cortex. A guidepin was placed into the center center position of the femoral head. The helical blade measured to be 80 mm. The helical blade was then drilled and the final helical blade was then impacted into place. The fracture was compressed and the helical blade was locked statically. A distal locking screw was then placed. Final fluoroscopic images showed complete reduction of the fracture and good alignment of the hardware. The wounds were then irrigated. The fascia was closed with #1 Vicryl. Deep layers were closed with 2-0 Vicryl. Skin was closed with 3-0 Vicryl and jarad. She was then placed in soft dressings. She was then transferred back to a hospital bed. She was taken to the postanesthesia care unit in stable condition. She tolerated the procedure well. Samir Lock PA-C, was present for the entire procedure. He was critical for patient positioning, prepping, draping, retraction exposure, wound closure and application of sterile dressing. I attest to the content of the Intraoperative Record and any orders documented therein. Any exceptions are noted below.
--- NOTE | 2023-07-22 13:24 | XRay Report ---
XR chest 1V portable HISTORY: Hypoxia COMPARISON: Chest 07/21/2023. FINDINGS: No pneumothorax. There are trace bilateral pleural effusions and patchy bibasilar densities again noted. The cardiac silhouette is top normal in size. No evidence for pulmonary edema. Calcific ations within the aortic knob. IMPRESSION: No significant change in the trace bilateral pleural effusions and small patchy bibasilar densities. This may represent atelectasis or pneumonia. ACT 112: Negative or not required by law. Electronically signed by: Charles Aleman M.D. 07/22/2023 1:23 PM
--- NOTE | 2023-07-22 13:46 | Fluoroscopy Report ---
FL hip RT 2-3V CLINICAL HISTORY: RIGHT SHORT TROCHNAIL COMPARISON STUDY: None. FLUOROSCOPY TIME: 50 seconds. FLUOROSCOPY IMAGES: 4 Ka,r: 10.9 mGy FINDINGS: Status post internal fixation of a right proximal femoral fracture with a short intramedull rania adam and interlocking femoral neck pin. The hardware is intact. The alignment is near-anatomic. IMPRESSION: Fluoroscopic assistance as above. ACT 112: Negative or not required by law. Electronically signed by: Charles Aleman M.D. 07/22/2023 1:45 PM
--- NOTE | 2023-07-22 14:32 | Anesthesiology Progress Note ---
Date of Service July 22, 2023 Anesthesia Post Procedure Vital Signs Vital Signs: Temp Pulse Pulse Pulse Resp BP Pulse Ox 07/22/23 13:59 36.4 C L 73 151/70 H 07/22/23 13:35 77 21 156/53 H 90 07/22/23 13:25 79 20 151/62 H 92 07/22/23 13:15 80 22 160/78 H 100 07/22/23 13:05 75 22 157/55 H 90 07/22/23 12:59 36.1 C L 74 20 157/55 H 93 07/22/23 10:57 20 94 07/22/23 08:00 89 07/22/23 08:00 07/22/23 07:18 89 18 92 07/22/23 07:15 36.8 C 92 H 20 155/66 H 92 07/22/23 02:19 95 H 24 94 07/22/23 02:08 36.6 C 93 H 20 154/63 H 97 07/22/23 00:31 76 19 95 07/21/23 23:05 36.8 C 79 20 152/54 H 94 07/21/23 22:35 89 25 H 90 07/21/23 22:25 77 07/21/23 21:00 07/21/23 19:35 19 96 07/21/23 19:08 36.8 C 85 18 155/66 H 90 07/21/23 19:04 85 18 94 07/21/23 15:30 36.8 C 85 19 151/94 H 94 O2 Del Method O2 Flow Rate FiO2 07/22/23 13:59 BiPAP 07/22/23 13:35 BiPAP 07/22/23 13:25 BiPAP 07/22/23 13:15 BiPAP 07/22/23 13:05 BiPAP 07/22/23 12:59 BiPAP 07/22/23 10:57 Oxymask 6 07/22/23 08:00 07/22/23 08:00 BiPAP, High Flow Nasal Cannula 6 07/22/23 07:18 Nasal Cannula 6 07/22/23 07:15 Nasal Cannula 6.0 07/22/23 02:19 40 07/22/23 02:08 BiPAP 07/22/23 00:31 BiPAP 40 07/21/23 23:05 BiPAP 07/21/23 22:35 40 07/21/23 22:25 07/21/23 21:00 BiPAP, High Flow Nasal Cannula 6 07/21/23 19:35 60 07/21/23 19:08 Nasal Cannula 8.0 07/21/23 19:04 Nasal Cannula 6 07/21/23 15:30 Oxymask 4.0 Pain Intensity Right Hip: Pain Intensity: 8 Transfer of Care Handoff Completed per policy Notes Mental Status: alert / awake / arousable Patient Amnestic to Procedure: Yes Nausea / Vomiting: adequately controlled Pain: adequately controlled Airway Patency, RR, SpO2: stable & adequate BP & HR: stable & adequate Hydration State: stable & adequate Anesthetic Complications: no major complications apparent and Pt Satisfied with anesthetic care Notes: This is a 78 year old F with severe COPD and chronic hypoxic repiratory failure who has been requiring bipap intermittently during hospital stay. Today, she was oxygenting 90-95% on 6 L O2 mask. Performed neuraxial anethesia and maintained patient on bipap during intraop and post-op phase. Upon presentation to pacu ,patient oxygen sat dropped as low as 70% thought to be secondary to brief termination in oxygen during transport or pulse ox technical issues. Put patient on 100% bipap briefly and sats improved. checked CXR which ruled out any new pulmonary congestion, ptx, and obtained ABG which revealed respiratory acidosis with CO2 80 (baseline 60). Patient awake and alert, communicating appropriately. Weaned FiO2 back to 40% and patient maintained saturation 90-92%. Discharged to ICU step down unit
[2023-07-22 14:42] LABS: iSTAT Allen Test Pass; iSTAT Art Bld Gas pCO2 Correct 78 mmHg (35-46); iSTAT Art Bld Gas pH Corrected 7.285 (7.35-7.45); iSTAT Arterial Blood Gas HCO3 37 meg/L (19-24); iSTAT Arterial Blood Gas pCO2 81 mmHg (35-46); iSTAT Arterial Blood Gas pH 7.27 (7.35-7.45); iSTAT Arterial Blood Gas pO2 195 mmHg (80-95); iSTAT Arterial Blood Gas pO2 C 191; iSTAT Carbon Dioxide > 40 mmol/L (24-31); iSTAT FiO2 100 %; iSTAT Hematocrit 31 % (37-47); iSTAT Hemoglobin 10.5 g/dl (12.0-16.0); iSTAT Potassium 4.1 mmol/L (3.3-5.0); iSTAT Site L Radial; iSTAT Sodium 137 mmol/L (135-144)
--- NOTE | 2023-07-22 15:26 | Hospitalist Progress Note ---
Date of Service July 22, 2023 Assessment & Plan (1) Osteoporotic fracture of right hip: (2) Fracture of right hip: Plan: Admit to [facility] Patient presenting from home after a mechanical fall In the ED, hip/pelvis XR comminuted intertrochanteric fracture of the right proximal femur Pain control with bowel regimen Ortho consult, tentatively planning for intramedullary nail fixation of the right hip tomorrow Check vitamin D level Patient has COPD with chronic hypoxic respiratory failure on 6 L of oxygen, currently saturating well on her chronic 6 L. Reports cough and shortness of breath are at her chronic baseline. No other cardiopulmonary complaints. EKG without acute ST changes. CXR unremarkable. Patient considered acceptable risk to proceed to surgery. / COPD exacerbation Possible acute on chronic diastolic congestive heart failure exacerbation component Repeat chest x-ray noted Echocardiogram ordered Lasix 40 mg IV 1 dose given Solu-Medrol 40 mg twice daily, Perforomist and Pulmicort twice daily started Continue Xopenex Atrovent nebs every 6 hours Continue doxycycline Pulmonology service consulted, appreciate the recommendations Patient currently being optimized from the respiratory standpoint Will reevaluate patient's progress tomorrow and at that point we will decide whether patient can proceed with planned orthopedic surgery 5 S/p p Intramedullary Nail Right Hip Respiratory is improving Continue Solu-Medrol 40 mg twice daily, Perforomist, Pulmicort, Xopenex Atrovent, doxycycline Monitor closely (3) Ankle pain, right: Plan: X-ray ordered: No fractures (4) Hyperglycemia: Plan: Glucose 163 on BMP ? Stress response secondary to fall/fracture A1c 5.9 (5) Chronic hypoxic respiratory failure: (6) COPD (chronic obstructive pulmonary disease): Plan: Management exacerbation as above (7) Hypertension: Plan: BP elevated likely situational/due to pain Control pain, reevaluate BP Continue home amlodipine, losartan As needed hydralazine (8) Peripheral vascular disease: Plan: Hold ASA for now in light of orthopedic surgery Continue pentoxifylline (9) HLD (hyperlipidemia): Plan: Chronic, stable Continue statin DVT PROPHYLAXIS SCDs Start Lovenox once okay with orthopedics Admission and Anticipated Discharge Date Admission Date: July 20, 2023 Subjective ff up for R hip fracture, COPD exacerbation, etc. Seen resting in bed, comfortable, not in distress On BiPAP States she feels fine overall Has minimal back pain No shortness of breath, cough, chest pain, palpitation, dizziness No Nausea vomiting No other nursing Review of Systems Review of Systems: all noted and negative except for above Physical Exam Physical Exam: General- oriented x 3, not in distress, speaks in sentences with no effort or accessory muscle use Eyes- anicteric Neck- no JVD Lungs- clear breath sounds bilaterally, no rales/wheezes Heart- normal rate, regular rhythm; no murmurs Abdomen- normal bowel sounds, nondistended, soft, nontender Extremities- no pretibial edema, no calf tenderness Neuro- alert, oriented x 3; no gross focal neurologic deficits Skin- warm & dry Results & Data Results & Data Vital Signs (Past 12 Hours) Vital Signs Temp Pulse Pulse Pulse Resp BP Pulse Ox 07/22/23 14:28 36.8 C 77 18 122/65 90 07/22/23 13:59 36.4 C L 73 151/70 H 07/22/23 13:35 77 21 156/53 H 90 07/22/23 13:25 79 20 151/62 H 92 07/22/23 13:15 80 22 160/78 H 100 07/22/23 13:05 75 22 157/55 H 90 07/22/23 12:59 36.1 C L 74 20 157/55 H 93 07/22/23 10:57 20 94 07/22/23 08:00 89 07/22/23 08:00 07/22/23 07:18 89 18 92 07/22/23 07:15 36.8 C 92 H 20 155/66 H 92 O2 Del Method O2 Flow Rate 07/22/23 14:28 BiPAP 07/22/23 13:59 BiPAP 07/22/23 13:35 BiPAP 07/22/23 13:25 BiPAP 07/22/23 13:15 BiPAP 07/22/23 13:05 BiPAP 07/22/23 12:59 BiPAP 07/22/23 10:57 Oxymask 6 07/22/23 08:00 07/22/23 08:00 BiPAP, High Flow Nasal Cannula 6 07/22/23 07:18 Nasal Cannula 6 07/22/23 07:15 Nasal Cannula 6.0 all noted and reviewed including below (1) Osteoporotic fracture of right hip Encounter type: initial encounter Qualified Code(s): M80.051A - Age-related osteoporosis with current pathological fracture, right femur, initial encounter for fracture (2) Fracture of right hip Encounter type: initial encounter Fracture type: closed Qualified Code(s): S72.001A - Fracture of unspecified part of neck of right femur, initial encounter for closed fracture (6) COPD (chronic obstructive pulmonary disease) COPD type: unspecified COPD Qualified Code(s): J44.9 - Chronic obstructive pulmonary disease, unspecified (7) Hypertension Hypertension type: essential hypertension Qualified Code(s): I10 - Essential (primary) hypertension (9) HLD (hyperlipidemia) Hyperlipidemia type: unspecified Qualified Code(s): E78.5 - Hyperlipidemia, unspecified
--- NOTE | 2023-07-22 16:24 | Pulmonology Progress Note ---
Date of Service July 22, 2023 Assessment & Plan (1) Acute exacerbation of chronic obstructive pulmonary disease: (2) Chronic hypoxic respiratory failure: (3) Osteoporotic fracture of right hip: Encounter type: initial encounter Qualified Code(s): M80.051A - Age-related osteoporosis with current pathological fracture, right femur, initial encounter for fracture (4) Diastolic CHF, acute on chronic: Plan 78-year-old female with a history of advanced COPD noncompliant with BiPAP therapy, significant underlying anxiety, chronic hypoxia and continued tobacco abuse presenting to the hospital due to a right hip fracture and COPD exacerbation. Hypercapnia resolving with the use of BiPAP. Recommend continued BiPAP support for the time being and considering a trial off of BiPAP later today. Goal O2 sats of 88 to 92%. Patient notes she uses oxygen chronically and even smokes with oxygen. I advised her on the risks of smoking cigarettes while using oxygen. She was advised not to have any open flame near supplemental oxygen as this can cause an explosion in significant lindsey. Continue ICS/LABA nebulizer regimen. Continue IV steroids for today addition to p.o. tomorrow. Continue doxycycline for 5 days total. Patient's wheezing has significantly improved today. She tolerated surgery well and ABGs are improving. Echo 07/21/2023 with normal EF. RV mildly dilated Patient will need ICS/LABA/LAMA inhaler upon discharge. She is currently only on a LABA and LAMA inhaler. Will benefit from outpatient pulmonary follow-up, PFTs and pulmonary rehab. Consider palliative care referral given multiple comorbidities including advanced COPD. Thank you for the consult. Will follow. Admission and Anticipated Discharge Date Admission Date: July 20, 2023 Subjective Status post fixation of her femur today. Doing well on BiPAP support. Denies any shortness of breath or significant pain at the present time. Review of Systems Review of Systems: All systems reviewed & are unremarkable except as noted in HPI & below Physical Exam Physical Exam: Constitutional: Patient appears to be of their stated age. Disheveled appearing. Anxious. Eyes: Pupils are equal round and reactive to light. Conjunctivae are normal. Anicteric sclera. Ears nose, mouth and throat: Mallampati class 2. Normal posterior oropharynx. Uvula is midline. BiPAP mask in place. Neck: Trachea is midline. Visual inspection is normal. Respiratory: Minimal wheeze with prolonged phase of exhalation. Mild tachypnea. Cardiovascular: Regular rate and rhythm. No murmurs. No edema. Gastrointestinal: Normal bowel sounds, soft, nontender and nondistended. No hepatosplenomegaly noted. Musculoskeletal: No cyanosis. Patient is able to move all extremities. Strength is 5 out of 5 in the upper and lower extremities. Skin: No rashes, warm dry and intact. Neurologic: No obvious focal neurological deficits seen. Psychiatric: Alert and oriented x3 with an anxious mood Results & Data Results & Data Vital Signs (Past 12 Hours) Vital Signs Temp Pulse Pulse Pulse Resp BP Pulse Ox 07/22/23 15:21 36.4 C L 65 20 172/95 H 98 07/22/23 14:28 36.8 C 77 18 122/65 90 07/22/23 14:00 83 21 96 07/22/23 13:59 36.4 C L 73 151/70 H 07/22/23 13:35 77 21 156/53 H 90 07/22/23 13:25 79 20 151/62 H 92 07/22/23 13:15 80 22 160/78 H 100 07/22/23 13:05 75 22 157/55 H 90 07/22/23 12:59 36.1 C L 74 20 157/55 H 93 07/22/23 10:57 20 94 07/22/23 08:00 89 07/22/23 08:00 07/22/23 07:18 89 18 92 07/22/23 07:15 36.8 C 92 H 20 155/66 H 92 O2 Del Method O2 Flow Rate FiO2 07/22/23 15:21 BiPAP 07/22/23 14:28 BiPAP 07/22/23 14:00 40 07/22/23 13:59 BiPAP 07/22/23 13:35 BiPAP 07/22/23 13:25 BiPAP 07/22/23 13:15 BiPAP 07/22/23 13:05 BiPAP 07/22/23 12:59 BiPAP 07/22/23 10:57 Oxymask 6 07/22/23 08:00 07/22/23 08:00 BiPAP, High Flow Nasal Cannula 6 07/22/23 07:18 Nasal Cannula 6 07/22/23 07:15 Nasal Cannula 6.0 PG Care Time/CCT Total # of Minutes Spent Total Time Spent with Patient: Total time spent is greater than 50% in coordination of care (as documented) at patient's floor/unit and/or counseling patient: Coding Level of Care Code 55644 SUB INP/OBS CARE MIN Diagnoses Acute exacerbation of chronic obstructive pulmonary disease J44.1 Chronic hypoxic respiratory failure J96.11 Fracture of right hip due to osteoporosis, initial encounter M80.051A Encounter type: initial encounter Diastolic CHF, acute on chronic I50.33
[2023-07-22] MEDS: hydrALAZINE HCL 20 MG/ML VIAL IV PRN (16:43)
--- OUTSIDE RECORDS SUMMARY | 2023-07-22 16:51 | External Medical Summary | Summary of Care ---
Author Name Unknown Organization [facility] Address [address] [place] [address] Phone [phone] Care Team Providers Care Doggy Daycare Activities Director Name Role Phone Sharri Mc MD Primary Care Provide r Reason for Visit * Reason Onset Date Comments Information 06/19/2023 Documentation do esn't suppport wheelchair order Encounter Details Date Type Department Care Team (Late st Contact Info) Description 06/19/2023 Telephone Family Medicine [address] [phone] Chrissy Mays [address] [place] [address] Information (Documentation doesn't supppor... Allergies Active Allergy Reactions Criticality Noted Date Comments Codeine 12/22/2014 Ringing in her head documented as of this encounter (statuses as of 06/21/2023) Medications Medication Sig Dispensed Refills Start Date End Date Status oxygen GAS 4liters at rest 6 liters with movements 1 Each 0 12/22/2014 Active cholecalciferol, VIT D3, (VITAMIN D3) 1000 UNITS Tablet Take 1 Tab by mouth daily. 30 Tab 0 09/03/2018 Active guaifenesin ER (MUCINEX) 600 MG TB12 Take 600 mg by mouth 2 times a day. 0 Active aspirin enteric coated (ASPIRIN LOW DOSE) 81 MG TBEC TAKE 1 TABLET BY MOUTH EVERY DAY 100 Tab 1 07/21/2019 Active zoster vac recomb adjuvanted (SHINGRIX) 50 MCG/0.5ML injectionIndication s:Need for vaccination for zoster Inject 0.5 mL into a large muscle now and repeat dose in 60 to 180 days 1 Each 1 10/20/2019 Active Additional Information Patient not taking.Reported on 01/18/2022 Potassium Citrate 99 MG CAPS Take 1 Cap by mouth daily. 0 Active Ibuprofen 200 MG Oral Tablet (Motrin) Take 1 Tablet by mouth every 8 hours as needed for Pain, Moderate. 30 Tablet 5 01/31/2021 Active Loratadine 10 MG Oral Tablet (Claritin)Indicatio ns:Allergic rhinitis, unspecified seasonality, unspecified trigger TAKE 1 TABLET BY MOUTH EVERY DAY 90 Tablet 0 10/06/2021 Active Pentoxifylline ER 400 MG Oral Tablet Extended Release (TRENtal)Indication s:Primary hypertension Take 1 Tablet by mouth in the morning and 1 Tablet at noon and 1 Tablet before bedtime. 270 Tablet 1 05/02/2023 Active Losartan Potassium 100 MG Oral Tablet (Cozaar)Indications :Primary hypertension Take 1 Tablet by mouth in the morning. 30 Tablet 5 05/02/2023 Active Spiriva Respimat 2.5 MCG/ACT Inhalation Aerosol Solution (Tiotropium [place] Monohydrate)Indicat ions:COPD, severe (HCC) INHALE 2 PUFFS BY MOUTH EVERY DAY 12 g 1 05/09/2023 Active Atorvastatin Calcium 20 MG Oral Tablet (Lipitor)Indication s:Dyslipidemia, goal LDL below 100 TAKE 1 TABLET BY MOUTH EVERYDAY AT BEDTIME 90 Tablet 3 05/24/2023 Active Levalbuterol HCl 0.63 MG/3ML Inhalation Nebulization Solution (Xopenex)Indication s:COPD, severe (HCC) Inhale 3 mL via nebulizer every 6 hours. DX COPD J 44.9 120 mL 1 05/31/2023 Active Furosemide 40 MG Oral Tablet (Lasix)Indications: Bilateral edema of lower extremity TAKE 1 TABLET BY MOUTH EVERY DAY IN THE MORNING 90 Tablet 1 05/31/2023 Active Albuterol Sulfate HFA 108 (90 Base) MCG/ACT Inhalation Aerosol SolutionIndications :COPD, severe (HCC) INHALE 2 PUFFS BY MOUTH IN THE MORNING AT AT NOON IN THE EVENING AND BEFORE BEDTIME 54 g 1 06/12/2023 Active amLODIPine Besylate 5 MG Oral Tablet (Norvasc)Indication s:Hypertension goal BP (blood pressure) < 140/90 Take 2 Tablets by mouth in the morning. 90 Tablet 2 06/14/2023 Active documented as of this encounter (statuses as of 06/21/2023) Active Problems Problem Noted Date Diagnosed Date Stage 3a chronic kidney disease 10/28/2021 Overview: EGFR 58 Adrenal nodule 02/11/2019 Peripheral vascular disease 08/22/2018 Primary hypertension 12/22/2014 COPD, severe 12/22/2014 Dyslipidemia, goal LDL below 100 12/22/2014 Tobacco abuse Apnea, sleep documented as of this encounter (statuses as of 06/21/2023) Resolved Problems Problem Noted Date Diagnosed Date Resolved Date Chronic respiratory failure 01/31/2021 01/31/2021 Pressure ulcer of right heel, unstageable 11/04/2018 12/05/2018 Fracture of 2nd metatarsal 08/16/2018 0 08/20/2018 Overview: right Fracture of second metatarsa l bone of right foot 08/16/2018 12/05/2018 Fracture of fourth metatarsa l bone of right foot 08/16/2018 12/05/2018 Fracture of lateral cuneifor m bone of right foot 08/16/2018 12/05/2018 Fracture of medial cuneiform bone of right foot 08/16/2018 12/05/2018 Nodule of right lung 019 Fracture of third metatarsal bone of right foot 12/05/2018 documented as of this encounter (statuses as of 06/21/2023) Immunizations Name Administration Dates Next Due COVID-19 mRNA, LNP-s, No Pre serve, 2-Dose Series (Moderna) 09/01/2020,08/03/2020 DTaP Dipth/Tet/Acell Pertussis (Infanrix), Peds 01/07/2019 Pneumococcal Conjugate Vacc, 13 Valent (Prevnar) 03/02/2013 Pneumococcal Polysaccharide PPV23 (Pneumovax) 05/25/2016 Season Influenza, Quad, PF, Adjuvanted, 65+ Yrs, IM (FLUAD) 02/20/2020 Seasonal Influenza, PF, 6 M & above, IM , (FluLaval or Fluzone) 12/05/2018,12/31/2017,01/30/2017 Seasonal Influenza, Quadriva lent Hd (Fluzone Hd) 05/02/2023,01/18/2022,01/31/2021 documented as of this encounter Social History Tobacco Use Types Packs/Day Years Used Date Smoking Tobacco: Former Cigarettes 0.5 58.9 S tarted: 07/16/1964 Smokeless Tobacco: Never Alcohol Use Standard Drinks/Week Comments No 0 (1 standard drink = 0.6 oz pur e alcohol) PHQ-2 Answer Date Recorded PHQ Adult Total Score 4 07/21/2020 Hunger Vital Sign Answer Date Recorded Worried About Running Out of Food in the Last Ye ar Never true 02/26/2019 Ran Out of Food in the Last Year Never true 02/26/2019 Sex and Gender Information Value Date Recorded Sex Assigned at Female 07/21/2020 11:14 AM EDT Gender Identity Female 07/21/2020 11:14 AM EDT Sexual Orientation Straight 07/21/2020 11 :14 AM EDT Job Start Date Occupation Industry Not on file Not on file Not on file documented as of this encounter Miscellaneous Notes * Telephone Encounter - Saadia Gonsales CMA - 06/19/2023 9:54 AM EDT [facility] sent a fax stating that the 06/14/2023 does not meet medicare criteria to justify the need for the standard wheelchair. "Must rule out use of cane or walker. Must use in home." They faxed the Medicare criteria. I put the fax on Chrissy's desk to review. documented in this encounter Plan of Treatment Upcoming Encounters Date Type Department Care Team (Late st Contact Info) Description 2023 9:00 AM EDT Office Visit Family Medicine [place] [facility] [place] [phone] Chrissy Mays CRNP [address] [place] [address] [place] [address] 09/25/2023 9:00 AM EDT Office Visit Audiology [facility] [address] [place] [address] Tabatha Adhikari Au.D. [address] [place] [address] 11/12/2023 10:20 AM EDT Office Visit [address] [place] [phone] Sharri Mc MD [address] [place] [address] [place] [address] Health Maintenance Due Date Last Done Comments Alpha-1 Antitrypsin 07/16/1965 Zoster Vaccines (1 of 2) 07/16/1997 *ADVANCE DIRECTIVE NOT ON FILE 10/20/2018 DXA Scan 06/21/2020 06/22/2015 Depression Screening 07/21/2021 07/21/2020 COVID-19 Vaccine ( season) 2022 09/01/2020, 08/03/2020 GFR 12/15/2023 06/14/2023, 04/19, 01/18/2022, Additional history exists Albumin/Creatinine Ratio 05/02/2024 05/02/2023, 10/17 CKD HGB USE SMARTSET 92103 05/02/202405/02, 05/02/2023, 10/28/2021, Additional history exists CKD PHOS USE SMARTSET 62103 05/02/2024 05/02/2023, 0 10/30/2018 O2 ASSESSMENT COMPLETED IN PAST YEAR FOR COPD 06/13/2024 06/14/2023 DTaP,Tdap,and Td Vaccines (2 - Tdap) 01/07/2029 01/07/2019, 12/10/2000 Pneumococcal Vaccine: 65+ Years Completed 05/25/2016, 03/02/2014, 03/02/2013 Influenza Vaccine (FLU shot) Completed , 01/18/2022, 01/31/2021, Additional history exists GARDASIL-HPV IMMUNIZATION SERIES Aged Out No longer eligible based on patient's age to complete this topic Hepatitis B Aged Out No longer eligi ble based on patient's age to complete this topic MENINGOCOCCAL (MENACTRA/MENVEO) Aged Out No longer eligible based on patient's age to complete this topic documented as of this encounter Medical Devices Not on filedocumented as of this encounter Care Teams Doggy Daycare Activities Director Relationship Specialty Start Date End Date Sharri Mc MD [address] [place] [address] [place] [address] PCP - General Family Medicine 05/10/23 documented as of this encounter
--- OUTSIDE RECORDS SUMMARY | 2023-07-22 16:51 | External Medical Summary | Summary of Care ---
Author Name Unknown Organization [facility] Address [address] [place] [address] Phone [phone] Care Team Providers Care Custodial Laborer Name Role Phone Sharri Mc MD Primary Care Provide r Reason for Visit * Reason Onset Date Comments Medication Question 07/19/2023 Encounter Details Date Type Department Care Team (Late st Contact Info) Description 07/19/2023 Telephone Family Medicine [address] [place] [phone] Sharri Mc MD [address] [place] [address] [place] [address] Medication Question (/) Allergies Active Allergy Reactions Criticality Noted Date Comments Codeine 12/22/2014 Ringing in her head documented as of this encounter (statuses as of 07/20/2023) Medications Medication Sig Dispensed Refills Start Date End Date Status oxygen GAS 4liters at rest 6 liters with movements 1 Each 0 12/22/2014 Active cholecalciferol, VIT D3, (VITAMIN D3) 1000 UNITS Tablet Take 1 Tab by mouth daily. 30 Tab 0 09/03/2018 Active guaifenesin ER (MUCINEX) 600 MG TB12 Take 1 Tablet by mouth in the morning and 1 Tablet before bedtime. 0 Active aspirin enteric coated (ASPIRIN LOW DOSE) 81 MG TBEC TAKE 1 TABLET BY MOUTH EVERY DAY 100 Tab 1 07/21/2019 Active zoster vac recomb adjuvanted (SHINGRIX) 50 MCG/0.5ML injectionIndications :Need for vaccination for zoster Inject 0.5 mL into a large muscle now and repeat dose in 60 to 180 days 1 Each 1 10/20/2019 Active Potassium Citrate 99 MG CAPS Take 1 Cap by mouth daily. 0 Active Ibuprofen 200 MG Oral Tablet (Motrin) Take 1 Tablet by mouth every 8 hours as needed for Pain, Moderate. 30 Tablet 5 01/31/2021 Active Loratadine 10 MG Oral Tablet (Claritin)Indication s:Allergic rhinitis, unspecified seasonality, unspecified trigger TAKE 1 TABLET BY MOUTH EVERY DAY 90 Tablet 0 10/06/2021 Active Pentoxifylline ER 400 MG Oral Tablet Extended Release (TRENtal)Indications :Primary hypertension Take 1 Tablet by mouth in the morning and 1 Tablet at noon and 1 Tablet before bedtime. 270 Tablet 1 05/02/2023 Active Losartan Potassium 100 MG Oral Tablet (Cozaar)Indications: Primary hypertension Take 1 Tablet by mouth in the morning. 30 Tablet 5 05/02/2023 Active Spiriva Respimat 2.5 MCG/ACT Inhalation Aerosol Solution (Tiotropium [place] Monohydrate)Indicati ons:COPD, severe (HCC) INHALE 2 PUFFS BY MOUTH EVERY DAY 12 g 1 05/09/2023 Active Atorvastatin Calcium 20 MG Oral Tablet (Lipitor)Indications :Dyslipidemia, goal LDL below 100 TAKE 1 TABLET BY MOUTH EVERYDAY AT BEDTIME 90 Tablet 3 05/24/2023 Active Levalbuterol HCl 0.63 MG/3ML Inhalation Nebulization Solution (Xopenex)Indications :COPD, severe (HCC) Inhale 3 mL via nebulizer every 6 hours. DX COPD J 44.9 120 mL 1 05/31/2023 Active Albuterol Sulfate HFA 108 (90 Base) MCG/ACT Inhalation Aerosol SolutionIndications: COPD, severe (HCC) INHALE 2 PUFFS BY MOUTH IN THE MORNING AT AT NOON IN THE EVENING AND BEFORE BEDTIME 54 g 1 06/12/2023 Active amLODIPine Besylate 5 MG Oral Tablet (Norvasc)Indications :Hypertension goal BP (blood pressure) < 140/90 Take 2 Tablets by mouth in the morning. 90 Tablet 2 06/14/2023 Active Furosemide 40 MG Oral Tablet (Lasix)Indications:B ilateral edema of lower extremity TAKE 1 TABLET BY MOUTH EVERY DAY IN THE MORNING as needed for leg swelling or weight gain of 2-3 lbs a day or 5 lbs a week. 30 Tablet 0 2023 Active documented as of this encounter (statuses as of 07/20/2023) Active Problems Problem Noted Date Diagnosed Date Stage 3a chronic kidney disease 10/28/2021 Overview: EGFR 58 Adrenal nodule 02/11/2019 Peripheral vascular disease 08/22/2018 Primary hypertension 12/22/2014 COPD, severe 12/22/2014 Dyslipidemia, goal LDL below 100 12/22/2014 Tobacco abuse Apnea, sleep documented as of this encounter (statuses as of 07/20/2023) Resolved Problems Problem Noted Date Diagnosed Date [...] as of this encounter (statuses as of 07/20/2023) Immunizations Name Administration Dates Next Due COVID-19 [...] Used Date Smoking Tobacco: Former Cigarettes 0.5 59 S tarted: 07/16/1964 Smokeless Tobacco: Never Alcohol [...] encounter Miscellaneous Notes * Telephone Encounter - Evelin Villalta CPhT - 07/19/2023 12:03 PM EDT Patient was calling to see if an antibiotic is needed for a possible UTI. Patient stated she gave aurine sample at her appt on 2023. Please advise Thank you, Evelin Villalta CPhT [facility]pharm[facility]) 07/19/2023,12:04 PM documented in this encounter Plan of Treatment Upcoming Encounters Date Type Department Care Team (Late st Contact Info) Description 09/25/2023 9:00 AM EDT Office Visit Audiology [facility] [address] [place] [address] Tabatha Adhikari Au.D. [address] [place] [address] 11/12/2023 10:20 AM EDT Office Visit Family Medicine [address] [place] [phone] Sharri Mc MD [address] [place] [address] [place] [address] Health Maintenance Due Date Last Done Comments Alpha-1 Antitrypsin 07/16/1965 Zoster Vaccines (1 of 2) 07/16/1997 *ADVANCE DIRECTIVE NOT ON FILE 10/20/2018 DXA Scan 06/21/2020 06/22/2015 Depression Screening 07/21/2021 07/21/2020 COVID-19 Vaccine ( season) 2022 09/01/2020, 08/03/2020 GFR 12/15/2023 06/14/2023, 04/19, 01/18/2022, Additional history exists Albumin/Creatinine Ratio 05/02/2024 05/02/2023, 10/17 CKD HGB USE SMARTSET 98751 05/02/202405/02, 05/02/2023, 10/28/2021, Additional history exists CKD PHOS USE SMARTSET 95308 05/02/2024 05/02/2023, 0 10/30/2018 O2 ASSESSMENT COMPLETED IN PAST YEAR FOR COPD 07/16/2024 2023 DTaP,Tdap,and Td Vaccines (2 - Tdap) 01/07/2029 [...] filedocumented as of this encounter Care Teams Custodial Laborer Relationship Specialty Start Date End Date Sharri Mc MD [address] [place] [address] [place] [address] PCP - General Family Medicine 05/10/23 documented as of this encounter
--- OUTSIDE RECORDS SUMMARY | 2023-07-22 16:51 | External Medical Summary | Summary of Care ---
Author Name Unknown Organization [facility] Address [address] [place] [address] Phone [phone] Care Team Providers Care Generation Engineering Technologist Name Role Phone Sharri Mc MD Primary Care Provide r Reason for Visit * Reason Onset Date Comments Follow Up 06/25/2023 Encounter Details Date Type Department Care Team (Late st Contact Info) Description 06/25/2023 Telephone Family Medicine [address] [place] [phone] Chrissy Mays [address] [place] [address] Follow Up Allergies Active Allergy Reactions Criticality Noted Date Comments Codeine 12/22/2014 Ringing in her head documented as of this encounter (statuses as of 06/25/2023) Medications Medication Sig Dispensed Refills Start Date [...] Respimat 2.5 MCG/ACT Inhalation Aerosol Solution (Tiotropium [place] Monohydrate)Indicat ions:COPD, severe (HCC) INHALE 2 PUFFS [...] as of this encounter (statuses as of 06/25/2023) Active Problems Problem Noted Date Diagnosed Date Stage 3a chronic kidney disease 10/28/2021 Overview: EGFR 58 Adrenal nodule 02/11/2019 Peripheral vascular disease 08/22/2018 Primary hypertension 12/22/2014 COPD, severe 12/22/2014 Dyslipidemia, goal LDL below 100 12/22/2014 Tobacco abuse Apnea, sleep documented as of this encounter (statuses as of 06/25/2023) Resolved Problems Problem Noted Date Diagnosed Date [...] as of this encounter (statuses as of 06/25/2023) Immunizations Name Administration Dates Next Due COVID-19 [...] encounter Miscellaneous Notes * Telephone Encounter - Delmy Gonsalves LPN - 06/25/2023 5:58 PM EDT I faxed the addended office visit note to Dwayne. * Telephone Encounter - Chrissy Mays CRNP - 06/25/2023 12:20 PM EDT Addendum created to the note to try to support need for wheelchair. documented in this encounter Plan of Treatment Upcoming Encounters Date Type Department Care Team (Late st Contact Info) Description 2023 9:00 AM EDT Office Visit Family Medicine [address] [place] [phone] Chrissy Mays CRNP [address] [place] [address] [place] [address] 09/25/2023 9:00 AM EDT Office Visit Audiology [facility] [address] [place] [address] Tabatha Adhikari Au.D. [address] [place] [address] 11/12/2023 10:20 AM EDT Office Visit Family Medicine [address] [place] [phone] Sharri Mc MD [address] [place] [address] [place] [address] Health Maintenance Due Date Last Done Comments Alpha-1 Antitrypsin 07/16/1965 Zoster Vaccines (1 of 2) 07/16/1997 *ADVANCE DIRECTIVE NOT ON FILE 10/20/2018 DXA Scan 06/21/2020 06/22/2015 Depression Screening 07/21/2021 07/21/2020 COVID-19 Vaccine ( season) 2022 09/01/2020, 08/03/2020 GFR 12/15/2023 06/14/2023, 04/19, 01/18/2022, Additional history exists Albumin/Creatinine Ratio 05/02/2024 05/02/2023, 10/17 CKD HGB USE SMARTSET 37222 05/02/202405/02, 05/02/2023, 10/28/2021, Additional history exists CKD PHOS USE SMARTSET 96496 05/02/2024 05/02/2023, 0 10/30/2018 O2 ASSESSMENT COMPLETED [...] filedocumented as of this encounter Care Teams Generation Engineering Technologist Relationship Specialty Start Date End Date Sharri Mc MD [address] [place] [address] [place] [address] PCP - General Family Medicine 05/10/23 documented as of this encounter
--- OUTSIDE RECORDS SUMMARY | 2023-07-22 16:51 | External Medical Summary | Summary of Care ---
Author Name Unknown Organization [facility] Address [address] [place] [address] Phone [phone] Care Team Providers Care Cosmetic Counselor Name Role Phone Sharri Mc MD Primary Care Provide r Reason for Visit * Reason Comments Re-Check Encounter Details Date Type Department Care Team (Late st Contact Info) Description 2023 9:00 AM EDT Office Visit Family Medicine [address] [place] [phone] Chrissy Mays [address] [place] [address] Hypertension goal BP (blood pressure) < 140/90*; Stage 3a chronic kidney disease (HCC); Urinary frequency; Bilateral edema of lower extremity; On supplemental oxygen therapy Allergies Active Allergy Reactions Criticality Noted Date Comments Codeine 12/22/2014 Ringing in her head documented as of this encounter (statuses as of 2023) Medications Medication Sig Dispensed Refills Start Date [...] zoster vac recomb adjuvanted (SHINGRIX) 50 MCG/0.5ML injectionIndicatio ns:Need for vaccination for zoster Inject 0.5 mL [...] 01/31/2021 Active Loratadine 10 MG Oral Tablet (Claritin)Indicati ons:Allergic rhinitis, unspecified seasonality, unspecified trigger TAKE 1 TABLET BY MOUTH EVERY DAY 90 Tablet 0 10/06/2021 Active Pentoxifylline ER 400 MG Oral Tablet Extended Release (TRENtal)Indicatio ns:Primary hypertension Take 1 Tablet by mouth in the morning and 1 Tablet at noon and 1 Tablet before bedtime. 270 Tablet 1 05/02/2023 Active Losartan Potassium 100 MG Oral Tablet (Cozaar)Indication s:Primary hypertension Take 1 Tablet by mouth in the morning. 30 Tablet 5 05/02/2023 Active Spiriva Respimat 2.5 MCG/ACT Inhalation Aerosol Solution (Tiotropium [place] Monohydrate)Indica tions:COPD, severe (HCC) INHALE 2 PUFFS BY MOUTH EVERY DAY 12 g 1 05/09/2023 Active Atorvastatin Calcium 20 MG Oral Tablet (Lipitor)Indicatio ns:Dyslipidemia, goal LDL below 100 TAKE 1 TABLET BY MOUTH EVERYDAY AT BEDTIME 90 Tablet 3 05/24/2023 Active Levalbuterol HCl 0.63 MG/3ML Inhalation Nebulization Solution (Xopenex)Indicatio ns:COPD, severe (HCC) Inhale 3 mL via nebulizer every 6 hours. DX COPD J 44.9 120 mL 1 05/31/2023 Active Albuterol Sulfate HFA 108 (90 Base) MCG/ACT Inhalation Aerosol SolutionIndication s:COPD, severe (HCC) INHALE 2 PUFFS BY MOUTH IN THE MORNING AT AT NOON IN THE EVENING AND BEFORE BEDTIME 54 g 1 06/12/2023 Active amLODIPine Besylate 5 MG Oral Tablet (Norvasc)Indicatio ns:Hypertension goal BP (blood pressure) < 140/90 Take 2 Tablets by mouth in the morning. 90 Tablet 2 06/14/2023 Active Furosemide 40 MG Oral Tablet (Lasix)Indications :Bilateral edema of lower extremity TAKE 1 TABLET BY MOUTH EVERY DAY IN THE MORNING as needed for leg swelling or weight gain of 2-3 lbs a day or 5 lbs a week. 30 Tablet 0 2023 Active Furosemide 40 MG Oral Tablet (Lasix)Indications :Bilateral edema of lower extremity TAKE 1 TABLET BY MOUTH EVERY DAY IN THE MORNING 90 Tablet 1 05/31/2023 Discontinued documented as of this encounter (statuses as of 2023) Active Problems Problem Noted Date Diagnosed Date Stage 3a chronic kidney disease 10/28/2021 Overview: EGFR 58 Adrenal nodule 02/11/2019 Peripheral vascular disease 08/22/2018 Primary hypertension 12/22/2014 COPD, severe 12/22/2014 Dyslipidemia, goal LDL below 100 12/22/2014 Tobacco abuse Apnea, sleep documented as of this encounter (statuses as of 2023) Resolved Problems Problem Noted Date Diagnosed Date [...] as of this encounter (statuses as of 2023) Immunizations Name Administration Dates Next Due COVID-19 [...] 61 S tarted: 07/16/1962 Smokeless Tobacco: Never Tobacco Cessation:Counseling Given: Not Answered Alcohol Use Standard Drinks/Week Comments No 0 [...] on file documented as of this encounter Last Filed Vital Signs Vital Sign Reading Time Taken Comments Blood Pressure 132/60 2023 8:53 AM EDT Pulse 75 2023 8:31 AM EDT Temperature 36.2 C (97.1 F) 2023 8:31 AM ED T Respiratory Rate 16 2023 8:31 AM EDT Oxygen Saturation 91% 2023 8:31 AM EDT Inhaled Oxygen Concentration - - Weight - - Height - - Body Mass Index - - documented in this encounter Nursing Notes * Delmy Gonsalves LPN - 2023 10:01 AM EDT [facility] to get oxygen tank wheelchair [place] * Delmy Gonsalves LPN - 2023 8:27 AM EDT 1 month recheck B/p Not taking Furosemide. Caregiver asking for order to get oxygen tank mcgill for her wheelchair. Not able to weigh pt today due to her having a new wheelchair. Weight of chair is unknown at this time. documented in this encounter Plan of Treatment Upcoming Encounters Date Type Department Care Team (Late st Contact Info) Description 09/25/2023 9:00 AM EDT Office Visit Audiology [facility] [address] [facility] [place] [address] Tabatha Adhikari Au.D. [address] [place] [address] 11/12/2023 10:20 AM EDT Office Visit Family Medicine [address] [place] [phone] Sharri Mc MD [address] [place] [address] [place] [address] Scheduled Orders Name Type Priority Associated Diagnoses Orde r Schedule CULTURE, URINE, QUANTITATIVE Lab Routine Urinary frequency Ordered: 2023 Health Maintenance Due Date Last Done Comments Alpha-1 Antitrypsin 07/16/1965 Zoster Vaccines (1 of 2) 07/16/1997 *ADVANCE DIRECTIVE NOT ON FILE 10/20/2018 DXA Scan 06/21/2020 06/22/2015 Depression Screening 07/21/2021 07/21/2020 COVID-19 Vaccine ( season) 2022 09/01/2020, 08/03/2020 GFR 12/15/2023 06/14/2023, 04/19, 01/18/2022, Additional history exists Albumin/Creatinine Ratio 05/02/2024 05/02/2023, 10/17 CKD HGB USE SMARTSET 74535 05/02/202405/02, 05/02/2023, 10/28/2021, Additional history exists CKD PHOS USE SMARTSET 98693 05/02/2024 05/02/2023, 0 10/30/2018 O2 ASSESSMENT COMPLETED [...] Not on filedocumented as of this encounter Procedures Procedure Name Priority Date/Time Associated Diagnosis Comments URINALYSIS, POINT OF CARE (ENTER/EDIT) Routine 2023 Urinary frequency documented in this encounter Results * URINALYSIS, POINT OF CARE (ENTER/EDIT) (2023) Color, Urine Yellow Yellow or Light Yellow Clarity, Urine Slightly Cloudy Clear Glucose, Urine Negative Negative mg/dL Bilirubin, Urine Negative Negative Ketone, Urine Negative Negative mg/dL Specific [place], Urine 1.015 1.003 - 1.030 Blood, Urine Negative Negative pH, Urine 7.5 5.0 - 7.5 units Protein, Urine Negative Negative mg/dL Urobilinogen, Urine 0.2 0.2 - 1.0 mg/dL Nitrite, Urine Negative Negative Esterase, Urine Negative Negative Urine 2023 Chrissy [facility] POINT OF CA RE TEST ENTER/EDIT ORDERABLES documented in this encounter Visit Diagnoses Diagnosis Hypertension goal BP (blood pressure) < 140/90- Primary Unspecified essential hypertension Stage 3a chronic kidney disease (HCC) Urinary frequency Bilateral edema of lower extremity Edema On supplemental oxygen therapy Dependence on supplemental oxygen documented in this encounter Care Teams Cosmetic Counselor Relationship Specialty Start Date End Date Sharri Mc MD [address] [place] [address] [place] [address] PCP - General Family Medicine 05/10/23 documented as of this encounter
--- OUTSIDE RECORDS SUMMARY | 2023-07-22 16:51 | External Medical Summary | Summary of Care ---
Author Name Unknown Organization [facility] Address [address] [place] [address] Phone [phone] Care Team Providers Care Retail Sales Lead Name Role Phone Sharri Mc MD Primary Care Provide r Reason for Visit * Reason Onset Date Comments Test Results Lab 06/18/2023 Encounter Details Date Type Department Care Team (Late st Contact Info) Description 06/18/2023 Telephone Family Medicine [address] [place] [phone] Chrissy Mays [address] [place] [address] Test Results Lab Allergies Active Allergy Reactions Criticality Noted Date Comments Codeine 12/22/2014 Ringing in her head documented as of this encounter (statuses as of 06/18/2023) Medications Medication Sig Dispensed Refills Start Date [...] Respimat 2.5 MCG/ACT Inhalation Aerosol Solution (Tiotropium [place] Monohydrate)Indicat ions:COPD, severe (HCC) INHALE 2 PUFFS [...] as of this encounter (statuses as of 06/18/2023) Active Problems Problem Noted Date Diagnosed Date Stage 3a chronic kidney disease 10/28/2021 Overview: EGFR 58 Adrenal nodule 02/11/2019 Peripheral vascular disease 08/22/2018 Primary hypertension 12/22/2014 COPD, severe 12/22/2014 Dyslipidemia, goal LDL below 100 12/22/2014 Tobacco abuse Apnea, sleep documented as of this encounter (statuses as of 06/18/2023) Resolved Problems Problem Noted Date Diagnosed Date [...] as of this encounter (statuses as of 06/18/2023) Immunizations Name Administration Dates Next Due COVID-19 [...] encounter Miscellaneous Notes * Telephone Encounter - Chrissy Mays CRNP - 06/18/2023 8:09 AM EDT Letter sent. documented in this encounter Plan of Treatment Upcoming Encounters Date Type Department Care Team (Late st Contact Info) Description 2023 9:00 AM EDT Office Visit [address] [place] [phone] Chrissy Mays CRNP [address] [place] [address] [place] [address] 09/25/2023 9:00 AM EDT Office Visit Audiology [facility] [address] [place] [address] Tabatha Adhikari Au.D. [address] [place] [address] 11/12/2023 10:20 AM EDT Office Visit Family Medicine [address] [place] [phone] Sharri Mc MD [address] [place] [address] [place] [address] Health Maintenance Due Date Last Done Comments Alpha-1 Antitrypsin 07/16/1965 Zoster Vaccines (1 of 2) 07/16/1997 *ADVANCE DIRECTIVE NOT ON FILE 10/20/2018 DXA Scan 06/21/2020 06/22/2015 Depression Screening 07/21/2021 07/21/2020 COVID-19 Vaccine ( season) 2022 09/01/2020, 08/03/2020 GFR 12/15/2023 06/14/2023, 04/19, 01/18/2022, Additional history exists Albumin/Creatinine Ratio 05/02/2024 05/02/2023, 10/17 CKD HGB USE SMARTSET 66547 05/02/202405/02, 05/02/2023, 10/28/2021, Additional history exists CKD PHOS USE SMARTSET 95239 05/02/2024 05/02/2023, 0 10/30/2018 O2 ASSESSMENT COMPLETED [...] filedocumented as of this encounter Care Teams Retail Sales Lead Relationship Specialty Start Date End Date Sharri Mc MD [address] [place] [address] [place] [address] PCP - General Family Medicine 05/10/23 documented as of this encounter
--- OUTSIDE RECORDS SUMMARY | 2023-07-22 16:51 | External Medical Summary | Summary of Care ---
Author Name Unknown Organization [facility] Address [address] [place] [address] Phone [phone] Care Team Providers Care Manager Manufacturing Name Role Phone Sharri Mc MD Primary Care Provide r Reason for Visit * Reason Comments Re-Check Encounter Details Date Type Department Care Team (Late st Contact Info) Description 2023 9:00 AM EDT Office Visit Family Medicine [address] [place] [phone] Chrissy Mays [address] [place] [address] Hypertension goal BP (blood pressure) < [...] Respimat 2.5 MCG/ACT Inhalation Aerosol Solution (Tiotropium [place] Monohydrate)Indica tions:COPD, severe (HCC) INHALE 2 PUFFS [...] Notes * Delmy Gonsalves LPN - 2023 8:27 [...] 09/25/2023 9:00 AM EDT Office Visit Audiology [facility] [address] [place] [address] Tabatha Adhikari Au.D. [address] [place] [address] 11/12/2023 10:20 AM EDT Office Visit Family Medicine [address] [place] [phone] Sharri Mc MD [address] [place] [address] [place] [address] Scheduled Orders Name Type Priority Associated Diagnoses [...] 05/02/2024 05/02/2023, 10/17 CKD HGB USE SMARTSET 38723 05/02/202405/02, 05/02/2023, 10/28/2021, Additional history exists CKD PHOS USE SMARTSET 31097 05/02/2024 05/02/2023, 0 10/30/2018 O2 ASSESSMENT COMPLETED [...] Negative Ketone, Urine Negative Negative mg/dL Specific [place], Urine 1.015 1.003 - 1.030 Blood, Urine [...] oxygen documented in this encounter Care Teams Manager Manufacturing Relationship Specialty Start Date End Date Sharri Mc MD [address] [place] [address] [place] [address] PCP - General Family Medicine 05/10/23 documented as of this encounter
--- OUTSIDE RECORDS SUMMARY | 2023-07-22 16:51 | External Medical Summary ---
Author Name Unknown Address Unknown Organization [id number]:[facility] [place] - [address] [place] [id number] Laboratory Report Ordering Provider Test Date Status BRENDAN BIRD 2023 09:28:26 Final Observation Date Value Abnormality Reference (Units) Status Bacteria identified in Specimen by Culture 2023 09:28:26 No significant growth Final Test: Culture, Urine, Quanti tative
Specimen Source: Urine, Clean Catch
Specimen Type: Urine
Specimen Date: 2023 9:28 AM
Result Date: 07/18/2023 4:37 PM
Result Status: Final result
Resulting Lab: [facility] [facility]
[address]
[place] [id number]

CULTURE

No significant growth

null Performing Location [facility] [place] - [address] [facility] [address]
--- OUTSIDE RECORDS SUMMARY | 2023-07-22 16:51 | External Medical Summary | Summary of Care ---
Author Name Unknown Organization [facility] Address [address] [place] [address] Phone [phone] Care Team Providers Care Firebrick Layer Name Role Phone Sharri Mc MD Primary Care Provide r Reason for Referral * Ancillary Services (Within 30 days (routine)) - Authorized Specialty Diagnoses / Procedures Referred By Nemo soria Referred To Contact Audiology Diagnoses Other specified hearing loss of both ears Chrissy Mays CRNP [address] [place] [address] [place] [address] Referral ID Status Reason Start Date Expiration Date Visits Requested Visits Authorized [id number] Authorized Ancillary Services Required 06/14/[phone] Question Answer Referral Priority Within 30 days (routine) Where should this appointment be scheduled? External Reason for Referral: Hearing Loss Is this sudden hearing loss or post chemotherapy hearing loss? No Reason for Visit * Reason Comments Re-Check Encounter Details Date Type Department Care Team (Late st Contact Info) Description 06/14/2023 11:40 AM EDT Office Visit Family Medicine [address] [place] [address] Chrissy Mays CRNP [address] [place] [address] [place] [id number] Hypertension goal BP (blood pressure) < 140/90*; Stage 3a chronic kidney disease (HCC); COPD, severe (HCC); Ambulatory dysfunction; Other specified hearing loss of both ears Allergies Active Allergy Reactions Criticality Noted Date [...] zoster vac recomb adjuvanted (SHINGRIX) 50 MCG/0.5ML injectionIndicati ons:Need for vaccination for zoster Inject 0.5 mL [...] 01/31/2021 Active Loratadine 10 MG Oral Tablet (Claritin)Indicat ions:Allergic rhinitis, unspecified seasonality, unspecified trigger TAKE 1 TABLET BY MOUTH EVERY DAY 90 Tablet 0 10/06/2021 Active Pentoxifylline ER 400 MG Oral Tablet Extended Release (TRENtal)Indicati ons:Primary hypertension Take 1 Tablet by mouth in the morning and 1 Tablet at noon and 1 Tablet before bedtime. 270 Tablet 1 05/02/2023 Active Losartan Potassium 100 MG Oral Tablet (Cozaar)Indicatio ns:Primary hypertension Take 1 Tablet by mouth in the morning. 30 Tablet 5 05/02/2023 Active Spiriva Respimat 2.5 MCG/ACT Inhalation Aerosol Solution (Tiotropium [place] Monohydrate)Indic ations:COPD, severe (HCC) INHALE 2 PUFFS BY MOUTH EVERY DAY 12 g 1 05/09/2023 Active Atorvastatin Calcium 20 MG Oral Tablet (Lipitor)Indicati ons:Dyslipidemia, goal LDL below 100 TAKE 1 TABLET BY MOUTH EVERYDAY AT BEDTIME 90 Tablet 3 05/24/2023 Active Levalbuterol HCl 0.63 MG/3ML Inhalation Nebulization Solution (Xopenex)Indicati ons:COPD, severe (HCC) Inhale 3 mL via nebulizer every 6 hours. DX COPD J 44.9 120 mL 1 05/31/2023 Active Furosemide 40 MG Oral Tablet (Lasix)Indication s:Bilateral edema of lower extremity TAKE 1 TABLET BY MOUTH EVERY DAY IN THE MORNING 90 Tablet 1 05/31/2023 Active Albuterol Sulfate HFA 108 (90 Base) MCG/ACT Inhalation Aerosol SolutionIndicatio ns:COPD, severe (HCC) INHALE 2 PUFFS BY MOUTH IN THE MORNING AT AT NOON IN THE EVENING AND BEFORE BEDTIME 54 g 1 06/12/2023 Active amLODIPine Besylate 5 MG Oral Tablet (Norvasc)Indicati ons:Hypertension goal BP (blood pressure) < 140/90 Take 2 Tablets by mouth in the morning. 90 Tablet 2 06/14/2023 Active amLODIPine Besylate 5 MG Oral Tablet (Norvasc)Indicati ons:Primary hypertension TAKE 1 TABLET BY MOUTH EVERY DAY 90 Tablet 2 05/08/2023 06/14/19 24 Discontinued documented as of this encounter (statuses [...] Sign Reading Time Taken Comments Blood Pressure 148/60 06/14/2023 11:22 AM EDT Pulse 88 06/14/2023 11:22 AM EDT Temperature 36.2 C (97.1 F) 06/14/2023 11:22 AM E DT Respiratory Rate 16 06/14/2023 11:22 AM EDT Oxygen Saturation 94% 06/14/2023 11:22 AM EDT Inhaled Oxygen Concentration - - Weight 72.6 kg (160 lb) 06/14/2023 11:22 AM EDT Height - - Body Mass Index 30.23 05/02/2023 1:53 PM EST documented in this encounter Progress Notes * Chrissy Mays CRNP - 06/14/2023 11:54 AM EDT Images from the original note were not included. History of Present Illness Yanely Mayfield is a 77 year old female that presents for Re-Check Previous Dr. Kerr patient presents today with caregiver. Past medical hx of HTN, COPD, HLD, sleep apnea, PVD, CKD III. HTN: A little over one month ago Losartan was increased from 75 mg to 100 mg. Also on amlodipine 5 mg and lasix for leg swelling. Systolic BP remains elevated today. Pt admits that she drinks mostly coffee and that she drinks very little water and does not monitor dietary salt intake. Denies any headaches, vision changes, or dizziness. COPD: former smoker; wears oxygen chronically; uses Spiriva inhaler daily and albuterol as needed; reports breathing is well controlled with current regimen; chronic cough with productive sputum takes guaifenesin and loratadine. Denies any chest pain, worsening shortness of breath or worsening cough. HLD: on atorvastatin / last lipid panel 04/2023 and well controlled CKD III: last GFR 04/2023 WNL / elevated albumin creat ratio 04/2023 Normally uses a walker at home to ambulate short distances around her apartment and takes frequent rest periods; but is unable to ambulate far distances because of getting short of breath. Requires awheelchair anytime she needs to leave her apartment or is having worsening shortness of breath and is requesting to get her own wheelchair. Also hard of hearing / recently had ear wax removed at urgent care which helped some, but would like to get hearing aides. Addendum note: patient mobility is limited both inside and outside her home due to her shortness ofbreath and chronic oxygen use making it difficult to complete daily tasks. She does have a cane andwalker but activity causes worsening shortness of breath. Having a wheelchair will help her with ADL's such as getting to her kitchen/bathroom and being able to go outside. She reported there is a step to get into her home, but that she would be able to have a ramp installed. She does have a caregiver who comes into the home and can assist her. Patient Active Problem List Diagnosis Code Primary hypertension I10 COPD, severe ([facility]) J44.9 Dyslipidemia, goal LDL below 100 E78.5 Tobacco abuse Z72.0 Apnea, sleep G47.30 Peripheral vascular disease ([facility]) I73.9 Adrenal nodule ([facility]) E27.8 Stage 3a chronic kidney disease ([facility]) N18.31 Current Outpatient Medications Medication Sig Dispense Refill amLODIPine Besylate 5 MG Oral Tablet (Norvasc) Take 2 Tablets by mouth in the morning. 90 Tablet 2 oxygen GAS 4liters at rest 6 liters with movements 1 Each 0 cholecalciferol, VIT D3, (VITAMIN D3) 1000 UNITS Tablet Take 1 Tab by mouth daily. 30 Tab 0 guaifenesin ER (MUCINEX) 600 MG TB12 Take 600 mg by mouth 2 times a day. aspirin enteric coated (ASPIRIN LOW DOSE) 81 MG TBEC TAKE 1 TABLET BY MOUTH EVERY DAY 100 Tab 1 zoster vac recomb adjuvanted (SHINGRIX) 50 MCG/0.5ML injection Inject 0.5 mL into a large muscle now and repeat dose in 60 to 180 days (Patient not taking: Reported on 01/18/2022 ) 1 Each 1 Potassium Citrate 99 MG CAPS Take 1 Cap by mouth daily. Ibuprofen 200 MG Oral Tablet (Motrin) Take 1 Tablet by mouth every 8 hours as needed for Pain, Moderate. 30 Tablet 5 Loratadine 10 MG Oral Tablet (Claritin) TAKE 1 TABLET BY MOUTH EVERY DAY 90 Tablet 0 Pentoxifylline ER 400 MG Oral Tablet Extended Release (TRENtal) Take 1 Tablet by mouth in the morning and 1 Tablet at noon and 1 Tablet before bedtime. 270 Tablet 1 Losartan Potassium 100 MG Oral Tablet (Cozaar) Take 1 Tablet by mouth in the morning. 30 Tablet 5 Spiriva Respimat 2.5 MCG/ACT Inhalation Aerosol Solution (Tiotropium [place] Monohydrate) INHALE 2 PUFFS BY MOUTH EVERY DAY 12 g 1 Atorvastatin Calcium 20 MG Oral Tablet (Lipitor) TAKE 1 TABLET BY MOUTH EVERYDAY AT BEDTIME 90 Tablet 3 Levalbuterol HCl 0.63 MG/3ML Inhalation Nebulization Solution (Xopenex) Inhale 3 mL via nebulizer every 6 hours. DX COPD J 44.9 120 mL 1 Furosemide 40 MG Oral Tablet (Lasix) TAKE 1 TABLET BY MOUTH EVERY DAY IN THE MORNING 90 Tablet 1 Albuterol Sulfate HFA 108 (90 Base) MCG/ACT Inhalation Aerosol Solution INHALE 2 PUFFS BY MOUTH IN THE MORNING AT AT NOON IN THE EVENING AND BEFORE BEDTIME 54 g 1 No current facility-administered medications for this visit. Review of patient's allergies indicates: Allergen Reactions Codeine Ringing in her head Past Medical History: Diagnosis Date Acute exacerbation of chronic obstructive pulmonary disease (COPD) ([facility]) 06/20/2018 admitted [facility] Acute exacerbation of chronic obstructive pulmonary disease (COPD) ([facility]) 10/27/2018 [facility] Apnea, sleep Chronic respiratory failure ([facility]) Dyslipidemia, goal LDL below 100 12/22/2014 Fracture of fourth metatarsal bone of right foot 08/16/2018 Fracture of lateral cuneiform bone of right foot 08/16/2018 Fracture of medial cuneiform bone of right foot 08/16/2018 Fracture of right foot 08/16/2018 Fracture of second metatarsal bone of right foot 08/16/2018 Fracture of third metatarsal bone of right foot HTN, goal below 140/90 Hyperlipidemia LDL goal < 100 Moderate COPD (chronic obstructive pulmonary disease) ([facility]) Need for hepatitis C screening test 04/06/2015 negative Nodule of right lung Stage 3a chronic kidney disease ([facility]) 10/28/2021 EGFR 58 Tobacco abuse Past Surgical History: Procedure Laterality Date CT ABD/PELVIS W WO IV CONTRAST AND W ORAL CONT 04/30/15 1 cm left adrenal cyst, 1 cm probable hemorrhagic cyst left kidney. Wedge L1 CTA CHEST NON-CORONARY W CONTRAST 12/09/14 old compression fracture, right lung disease, 1 cm lesion left upper kidney CTA CHEST/ABDOMEN W CONTRAST 10/27/2018 no PE, increased secretions and mucus plugging INFORMATION 1974? L4 laminectomy? MAMMOGRAM SCREENING BILATERAL Bilateral 06/11/15 scattered fibroglandular densities, category 1 normal MOBILE DXA 06/11/15 Lumbar T +0.4Femur T -1.2, fx risk 8.6%/1.2% low/mod risk repeat 5 years SPIROMETRY 03/29/2018 severe obstructive defect, with some reversibility post bronchodilator Social History Socioeconomic History Marital status: Spouse name: Not on file Number of children: Not on file Years of education: Not on file Highest education level: Not on file Occupational History Not on file Tobacco Use Smoking status: Former Current packs/day: 0.50 Average packs/day: 0.5 packs/day for 58.9 years (29.5 ttl pk-yrs) Types: Cigarettes Start date: 07/16/1964 Smokeless tobacco: Never Substance and Sexual Activity Alcohol use: No Drug use: No Sexual activity: Never Other Topics Concern Not on file Social History Narrative Not on file Social Determinants of Health Financial Resource Strain: Not on file Food Insecurity: No Food Insecurity (02/26/2019) Hunger Vital Sign Worried About Running Out of Food in the Last Year: Never true Ran Out of Food in the Last Year: Never true Transportation Needs: Not on file Physical Activity: Not on file Stress: Not on file Social Connections: Not on file Intimate Partner Violence: Not on file Housing Stability: Not on file Physical Exam Vitals: 06/14/23 1122 Temp: 36.2 C (97.1 F) Pulse: 88 Resp: 16 SpO2: 94% BP: 148/60 General: alert, oriented x3, and no distress Head: Normocephalic Ears: External ears normal, Canals clear, TM's Normal Heart: regular rate & rhythm, no murmur, no gallops, S-1 normal, and S-2 normal Lungs: normal respiratory rate and rhythm, prolonged expiratory phase, expiratory wheezes bilaterally Extremities: no edema Skin: warm and dry I have reviewed the following results: Lipid Panel, CBC, BMP, and Albumin / Creatinine Ratio, Urine(04/2023) Assessment and Plan Hypertension goal BP (blood pressure) < 140/90 - elevated in office today / asymptomatic - will increase amlodipine to 10 mg daily - recommend trying to increase water intake and follow low salt diet - plan to recheck BP in 1 month Stage 3a chronic kidney disease (HCC) - will check kidney function today based on recent losartan increase - BASIC METABOLIC PANEL; Future COPD, severe (HCC) - well controlled at today's visit - would benefit from a wheelchair at home to use for days of worsening shortness of breath and to use when traveling outside of her home - DURABLE MEDICAL EQUIPMENT Ambulatory dysfunction - DURABLE MEDICAL EQUIPMENT Other specified hearing loss of both ears - will refer to audiology for hearing test / discuss hearing aides - AUDIOLOGY REFERRAL OP Wrap-Up Follow-up: Return in about 1 month (around 07/15/2023). | Check-out note: Please schedule 1 month follow up with me for blood pressure check; keep appointment with Dr. Mc for October. Time: I spent a total of 30-39 minutes (exact time 36 mins) on the date of service in preparation, delivery, and documentation of the care provided to Yanely Mayfield excluding any time spent in the performance of separately billed services. documented in this encounter Nursing Notes * Delmy Gonsalves LPN - 06/14/2023 3:26 PM EDT Faxed DME, office visit and demographics to [facility] for the Wheel chair. * Delmy Gonsalves LPN - 06/14/2023 11:16 AM EDT C/o trouble hearing for months. Wants wheel chair. documented in this encounter Plan of Treatment Upcoming Encounters Date Type Department Care Team (Late st Contact Info) Description 2023 9:00 AM EDT Office Visit Family Medicine [address] [place] [phone] Chrissy Mays CRNP [address] [place] [address] [place] [address] 09/25/2023 9:00 AM EDT Office Visit Audiology [address] [place] [phone] Tabatha Adhikari Au.D. [address] [place] [address] 11/12/2023 10:20 AM EDT Office Visit Family Medicine [address] [place] [phone] Sharri Mc MD [address] [place] [address] [place] [address] Scheduled Referrals Name Type Priority Associated Diagnoses Orde r Schedule AUDIOLOGY REFERRAL OP Referral Within 30 days (routine) Other specified hearing loss of both ears Ordered: 06/14/2023 Health Maintenance Due Date Last Done Comments Alpha-1 Antitrypsin 07/16/1965 Zoster Vaccines (1 of 2) 07/16/1997 *ADVANCE DIRECTIVE NOT ON FILE 10/20/2018 DXA Scan 06/21/2020 06/22/2015 Depression Screening 07/21/2021 07/21/2020 COVID-19 Vaccine ( season) 2022 09/01/2020, 08/03/2020 GFR 12/15/2023 06/14/2023, 04/19, 01/18/2022, Additional history exists Albumin/Creatinine Ratio 05/02/2024 05/02/2023, 10/17 CKD HGB USE SMARTSET 81682 05/02/202405/02, 05/02/2023, 10/28/2021, Additional history exists CKD PHOS USE SMARTSET 57832 05/02/2024 05/02/2023, 0 10/30/2018 O2 ASSESSMENT COMPLETED [...] Not on filedocumented as of this encounter Results * (ABNORMAL) BASIC METABOLIC PANEL (06/14/2023 12:20 PM EDT) BUN 13 6 - 20 mg/dL 06/14/2023 11:19 PM EDT [facility] Creatinine 0.6 0.5 - 1.0 mg/dL 06/14/2023 11:19 PM EDT [facility] Estimated Glomerular Filtration Rate >90 >=60 mL/min 06/14/2023 11:19 PM EDT [facility] Comment:eGFR is calculated b ased on the CKD-EPI 2020 equation Sodium 136 135 - 146 mmol/L 06/14/2023 11:19 PM EDT [facility] Potassium 4.4 3.5 - 5.1 mmol/L 06/14/2023 11:19 PM EDT [facility] Chloride 94(L) 98 - 107 mmol/L 06/14/2023 11:19 PM EDT [facility] CO2 36(H) 22 - 32 mmol/L 06/14/2023 11:19 PM EDT [facility] Anion Gap 6(L) 7 - 15 mmol/L 06/14/2023 11:19 PM EDT [facility] Glucose 104 70 - 120 mg/dL 06/14/2023 11:19 PM EDT [facility] Calcium 9.4 8.4 - 10.2 mg/dL 06/14/2023 11:19 PM EDT [facility] Blood Venous blood specimen / Unknown Venipuncture / Unknown 06/14/2023 12:20 PM EDT 06/14/2023 12:20 PM EDT Chrissy CARL LAB BLOOD ORDER ASIF [facility] [address] [place] [address] documented in this encounter Visit Diagnoses Diagnosis Hypertension goal BP (blood pressure) < 140/90- Primary Unspecified essential hypertension Stage 3a chronic kidney disease (HCC) COPD, severe (HCC) Chronic airway obstruction, not elsewhere classified Ambulatory dysfunction Other specified hearing loss of both ears documented in this encounter Care Teams Firebrick Layer Relationship Specialty Start Date End Date Sharri Mc MD [address] [place] [address] [place] [address] PCP - General Family Medicine 05/10/23 documented as of this encounter"
--- OUTSIDE RECORDS SUMMARY | 2023-07-22 16:51 | External Medical Summary | Summary of Care ---
Author Name Unknown Organization [facility] Address [address] [place] [address] Phone [phone] Care Team Providers Care Behavioral Health Specialist Name Role Phone Sharri Mc MD Primary Care Provide r Reason for Visit * Reason Comments Re-Check Encounter Details Date Type Department Care Team (Late st Contact Info) Description 2023 9:00 AM EDT Office Visit Family Medicine [address] [place] [phone] Chrissy Mays [address] [place] [address] Hypertension goal BP (blood pressure) < [...] Respimat 2.5 MCG/ACT Inhalation Aerosol Solution (Tiotropium [place] Monohydrate)Indica tions:COPD, severe (HCC) INHALE 2 PUFFS [...] 09/25/2023 9:00 AM EDT Office Visit Audiology [facility] [address] [place] [phone] Tabatha Adhikari Au.D. [address] [place] [address] 11/12/2023 10:20 AM EDT Office Visit Family Medicine [address] [place] [phone] Sharri Mc MD [address] [place] [address] [place] [address] Scheduled Orders Name Type Priority Associated Diagnoses [...] 05/02/2024 05/02/2023, 10/17 CKD HGB USE SMARTSET 78564 05/02/202405/02, 05/02/2023, 10/28/2021, Additional history exists CKD PHOS USE SMARTSET 61320 05/02/2024 05/02/2023, 0 10/30/2018 O2 ASSESSMENT COMPLETED [...] Negative Ketone, Urine Negative Negative mg/dL Specific [place], Urine 1.015 1.003 - 1.030 Blood, Urine [...] oxygen documented in this encounter Care Teams Behavioral Health Specialist Relationship Specialty Start Date End Date Sharri Mc MD [address] [place] [address] [place] [address] PCP - General Family Medicine 05/10/23 documented as of this encounter
--- OUTSIDE RECORDS SUMMARY | 2023-07-22 16:52 | External Medical Summary | Summary of Care ---
Author Name Unknown Organization [facility] [address] [facility] [address] Phone [phone] Care Team Providers Care Crystal Lapper Name Role Phone Unavailable Primary Care Provider Unavailabl e Reason for Visit * Reason Comments eRx-Medication Refill Encounter Details Date Type Department Care Team (Late st Contact Info) Description 05/08/2023 Refill Family Medicine [address] [place] [phone] Mitesh Kerr MD [address] [place] [address] [place] [address] Primary hypertension Allergies Active Allergy Reactions Criticality Noted Date Comments Codeine 12/22/2014 Ringing in her head documented as of this encounter (statuses as of 05/08/2023) Medications Medication Sig Dispensed Refills Start Date [...] EVERY DAY 90 Tablet 0 10/06/2021 Active Spiriva Respimat 2.5 MCG/ACT Inhalation Aerosol Solution (Tiotropium [place] Monohydrate)Indic ations:COPD, severe (HCC) INHALE 2 PUFFS BY MOUTH EVERY DAY 12 g 1 11/07/2022 Active Atorvastatin Calcium 20 MG Oral Tablet (Lipitor)Indicati ons:Dyslipidemia, goal LDL below 100 TAKE 1 TABLET BY MOUTH EVERYDAY AT BEDTIME 90 Tablet 1 11/07/2022 Active Ventolin HFA 108 (90 Base) MCG/ACT Inhalation Aerosol SolutionIndicatio ns:COPD, severe (HCC) Inhale 2 Puffs by mouth in the morning and 2 Puffs at noon and 2 Puffs in the evening and 2 Puffs before bedtime. 18 g 1 04/20/2023 Active Furosemide 40 MG Oral Tablet (Lasix)Indication s:Bilateral edema of lower extremity TAKE 1 TABLET BY MOUTH EVERY DAY IN THE MORNING 30 Tablet 0 04/25/2023 Active Levalbuterol HCl 0.63 MG/3ML Inhalation Nebulization Solution (Xopenex)Indicati ons:COPD, severe (HCC) Inhale 3 mL via nebulizer every 6 hours. DX COPD J 44.9 120 mL 1 05/02/2023 Active Pentoxifylline ER 400 MG Oral Tablet Extended Release (TRENtal)Indicati ons:Primary hypertension Take 1 Tablet by mouth in the morning and 1 Tablet at noon and 1 Tablet before bedtime. 270 Tablet 1 05/02/2023 Active Losartan Potassium 100 MG Oral Tablet (Cozaar)Indicatio ns:Primary hypertension Take 1 Tablet by mouth in the morning. 30 Tablet 5 05/02/2023 Active amLODIPine Besylate 5 MG Oral Tablet (Norvasc)Indicati ons:Primary hypertension TAKE 1 TABLET BY MOUTH EVERY DAY 90 Tablet 2 05/08/2023 Active amLODIPine Besylate 5 MG Oral Tablet (Norvasc)Indicati ons:Primary hypertension TAKE 1 TABLET BY MOUTH EVERY DAY 90 Tablet 0 01/22/2023 05/08/19 24 Discontinued documented as of this encounter (statuses as of 05/08/2023) Active Problems Problem Noted Date Diagnosed Date Stage 3a chronic kidney disease 10/28/2021 Overview: EGFR 58 Adrenal nodule 02/11/2019 Peripheral vascular disease 08/22/2018 Primary hypertension 12/22/2014 COPD, severe 12/22/2014 Dyslipidemia, goal LDL below 100 12/22/2014 Tobacco abuse Apnea, sleep documented as of this encounter (statuses as of 05/08/2023) Resolved Problems Problem Noted Date Diagnosed Date [...] as of this encounter (statuses as of 05/08/2023) Immunizations Name Administration Dates Next Due COVID-19 [...] Used Date Smoking Tobacco: Former Cigarettes 0.5 58.8 S tarted: 07/16/1964 Smokeless Tobacco: Never Alcohol [...] encounter Miscellaneous Notes * Telephone Encounter - Lucinda Martin RPh - 05/08/2023 7:33 PM ESTSigned Prescriptions: Disp Refills amLODIPine Besylate 5 MG Oral Tablet (Norv*90 Tab*2 Sig: TAKE 1 TABLET BY MOUTH EVERY DAYAuthorizing Provider: YASMEEN LOWRY User: LUCINDA MARTIN-------- documented in this encounter Plan of Treatment Health Maintenance Due Date Last Done Comments Alpha-1 Antitrypsin 07/16/1965 O2 ASSESSMENT COMPLETED IN PAST YEAR FOR COPD 07/16/1965 Zoster Vaccines (1 of 2) 07/16/1997 *ADVANCE DIRECTIVE NOT ON FILE 10/20/2018 DXA Scan 06/21/2020 06/22/2015 Depression Screening 07/21/2021 07/21/2020 COVID-19 Vaccine (3 - 2023-24 season) 2022 09/01/2020, 08/03/2020 GFR 10/31/2023 05/02/2023, 04/2021, 10/28/2021, Additional history exists Albumin/Creatinine Ratio 05/02/2024 05/02/2023, 10/17 CKD HGB USE SMARTSET 53109 05/02/202405/02, 05/02/2023, 10/28/2021, Additional history exists CKD PHOS USE SMARTSET 70058 05/02/2024 05/02/2023, 0 10/30/2018 DTaP,Tdap,and Td Vaccines (2 - Tdap) 01/07/2029 [...] Not on filedocumented as of this encounter Visit Diagnoses Diagnosis Primary hypertension Unspecified essential hypertension documented in this encounter
--- OUTSIDE RECORDS SUMMARY | 2023-07-22 16:52 | External Medical Summary ---
Author Name Unknown Address Unknown Organization K01:[facility] - [facility] [address] [place] [address] Laboratory Report Ordering Provider Test Date Status BRENDAN BIRD 06/14/2023 12:20:07 Final Observation Date Value Abnormality Reference (Units ) Status BUN 06/14/2023 12:20:07 13 6-20 (mg/dL) Final Creatinine 06/14/2023 12:20:07 0.6 0.5-1.0 (mg/dL) Final Glomerular filtration rate/1.73 sq M.predicted [Volume Rate/Area] in Serum, Plasma or Blood by Creatinine-based formula (CKD-EPI) 06/14/2023 12:20:07 >90 >=60 (mL/min) Final eGFR is calculated based on the CKD-EPI 2020 equation Sodium 06/14/2023 12:20:07 136 135-146 (m mol/L) Final Potassium 06/14/2023 12:20:07 4.4 3.5-5.1 (m mol/L) Final Cl 06/14/2023 12:20:07 94 Below low normal 98- 107 (mmol/L) Final CO2 06/14/2023 12:20:07 36 Above high normal 22 -32 (mmol/L) Final Anion gap 06/14/2023 12:20:07 6 Below low normal 7-1 5 (mmol/L) Final Glucose 06/14/2023 12:20:07 104 70-120 (mg /dL) Final Calcium 06/14/2023 12:20:07 9.4 8.4-10.2 ( mg/dL) Final Performing Location [facility] - [address] [place] [address]
--- OUTSIDE RECORDS SUMMARY | 2023-07-22 16:52 | External Medical Summary | Summary of Care ---
Author Name Unknown Organization [facility] Address [address] [facility] [place] [address] Phone [phone] Care Team Providers Care Cash Crop Farmer Name Role Phone Unavailable Primary Care Provider Unavailabl e Reason for Visit * Reason Onset Date Comments Medication Refill 05/02/2023 Encounter Details Date Type Department Care Team (Late st Contact Info) Description 05/02/2023 Refill Family Medicine [address] [place] [phone] Yasmeen Lowry PA-C [address] [place] [address] [place] [address] COPD, severe (HCC) Allergies Active Allergy Reactions Criticality Noted Date Comments Codeine 12/22/2014 Ringing in her head documented as of this encounter (statuses as of 05/02/2023) Medications Medication Sig Dispensed Refills Start Date [...] Respimat 2.5 MCG/ACT Inhalation Aerosol Solution (Tiotropium [place] Monohydrate)Indica tions:COPD, severe (HCC) INHALE 2 PUFFS BY MOUTH EVERY DAY 12 g 1 11/07/2022 Active Atorvastatin Calcium 20 MG Oral Tablet (Lipitor)Indicatio ns:Dyslipidemia, goal LDL below 100 TAKE 1 TABLET BY MOUTH EVERYDAY AT BEDTIME 90 Tablet 1 11/07/2022 Active Pentoxifylline ER 400 MG Oral Tablet Extended Release (TRENtal)Indicatio ns:Primary hypertension TAKE 1 TABLET BY MOUTH THREE TIMES A DAY 270 Tablet 1 11/28/2022 Active Symbicort 160-4.5 MCG/ACT Inhalation Aerosol (Budesonide-Formot amie)Indications:C OPD, severe (HCC) TAKE 2 PUFFS BY MOUTH TWICE A DAY 30.6 g 1 12/20/2022 Active amLODIPine Besylate 5 MG Oral Tablet (Norvasc)Indicatio ns:Primary hypertension TAKE 1 TABLET BY MOUTH EVERY DAY 90 Tablet 0 01/22/2023 Active Losartan Potassium 50 MG Oral Tablet (Cozaar)Indication s:Primary hypertension TAKE BY MOUTH 1 TABLET IN THE MORNING. WITH 25 MG FOR 75 MG DOSE. 90 Tablet 1 02/06/2023 Active Losartan Potassium 25 MG Oral Tablet (Cozaar)Indication s:Primary hypertension TAKE 1 TAB BY MOUTH DAILY. TAKE ALONG WITH 50MG TABLET TO EQUAL 75MG DAILY 90 Tablet 1 04/04/2023 Active Ventolin HFA 108 (90 Base) MCG/ACT Inhalation Aerosol SolutionIndication s:COPD, severe (HCC) Inhale 2 Puffs by mouth in the morning and 2 Puffs at noon and 2 Puffs in the evening and 2 Puffs before bedtime. 18 g 1 04/20/2023 Active Furosemide 40 MG Oral Tablet (Lasix)Indications :Bilateral edema of lower extremity TAKE 1 TABLET BY MOUTH EVERY DAY IN THE MORNING 30 Tablet 0 04/25/2023 Active Levalbuterol HCl 0.63 MG/3ML Inhalation Nebulization Solution (Xopenex)Indicatio ns:COPD, severe (HCC) Inhale 3 mL via nebulizer every 6 hours. DX COPD J 44.9 120 mL 1 05/02/2023 Active Levalbuterol HCl 0.63 MG/3ML Inhalation Nebulization Solution (Xopenex)Indicatio ns:COPD, severe (HCC) Inhale 3 mL via nebulizer every 6 hours. DX COPD J 44.9 120 mL 0 04/23/2023 Discontinue d(Refill) documented as of this encounter (statuses as of 05/02/2023) Active Problems Problem Noted Date Diagnosed Date Stage 3a chronic kidney disease 10/28/2021 Overview: EGFR 58 Adrenal nodule 02/11/2019 Peripheral vascular disease 08/22/2018 Primary hypertension 12/22/2014 COPD, severe 12/22/2014 Dyslipidemia, goal LDL below 100 12/22/2014 Tobacco abuse Apnea, sleep documented as of this encounter (statuses as of 05/02/2023) Resolved Problems Problem Noted Date Diagnosed Date [...] as of this encounter (statuses as of 05/02/2023) Immunizations Name Administration Dates Next Due COVID-19 [...] Seasonal Influenza, Quadriva lent Hd (Fluzone Hd) 01/18/2022,01/31/2021 documented as of this encounter Social History Tobacco Use Types Packs/Day Years Used Date Smoking Tobacco: Former Cigarettes 0.5 52 S tarted: 07/16/1964 Smokeless Tobacco: Never Alcohol [...] encounter Miscellaneous Notes * Telephone Encounter - Yasmeen Lowry PA-C - 05/02/2023 9:55 AM ESTSigned Prescriptions: Disp Refills Levalbuterol HCl 0.63 MG/3ML Inhalation Ne*120 mL 1 Sig: Inhale 3 mL via nebulizer every 6 hours. DX COPD J 44.9 Authorizing Provider: YASMEEN LOWRY * Telephone Encounter - Marianne Cha RN - 05/02/2023 9:32 AM ESTPending Prescriptions: Disp Refills Levalbuterol HCl 0.63 MG/3ML Inhalation Ne*120 mL 1 Sig: Inhale 3 mL via nebulizer every 6 hours. DX COPD J 44.9 * Telephone Encounter - Adrienne Figueredo OSA - 05/02/2023 9:20 AM EST Did you pend patient's preferred pharmacy and medication before forwarding?yes Pharmacy: [id number] [id number] [facility] Pending Prescriptions: Disp Refills Levalbuterol HCl 0.63 MG/3ML Inhalation N*120 mL 0 Sig: Inhale 3 mL via nebulizer every 6 hours. DX COPD J 44.9 Last Visit: 01/18/2022 (in office), Visit date not found (telemedicine) Next Visit: 05/02/2023 If no future appointments scheduled, and last appointment is greater than a year ago, please schedule patient for a follow-up appointment Last date the medication was ordered: 04/23/23 Is this request for a controlled substance?No Urine Drug Screen:No results found for this or any previous visit. Patient Phone Numbers Labs: Lab Results Component Value Date/Time CREAT 0.6 01/18/2022 03:31 PM CREAT 0.7 01/31/2019 04:02 PM POTASSIUM 4.0 01/18/2022 03:31 PM POTASSIUM 4.2 01/31/2019 04:02 PM TSH 1.88 10/28/2021 02:50 PM LDLCALC 72 10/28/2021 02:50 PM LDLCALC 100 06/28/2017 01:27 PM LDLDIRECT NOT APPLICABLE 06/28/2017 01:27 PM ALT 16 10/28/2021 02:50 PM ALT 16 12/27/2016 10:29 AM documented in this encounter Plan of Treatment Upcoming Encounters Date Type Department Care Team (Late st Contact Info) Description 05/02/2023 2:00 PM EST Office Visit Family Medicine [address] [place] [phone] Yasmeen Lowry PA-C [address] [place] [address] [place] [address] Health Maintenance Due Date Last Done Comments Alpha-1 Antitrypsin 07/16/1965 O2 ASSESSMENT COMPLETED IN PAST YEAR FOR COPD 07/16/1965 Zoster Vaccines (1 of 2) 07/16/1997 *ADVANCE DIRECTIVE NOT ON FILE 10/20/2018 CKD PHOS USE SMARTSET 08426 10/31/2019 10/30/2018 DXA Scan 06/21/2020 06/22/2015 Depression Screening 07/21/2021 07/21/2020 GFR 07/18/2022 01/18/2022, 10/17, 07/09/2020, Additional history exists Albumin/Creatinine Ratio 10/28/2022 10/28/2021 CKD HGB USE SMARTSET 62996 10/28/202210/28, 10/28/2021, 07/09/2020, Additional history exists COVID-19 Vaccine ( season) 2022 09/01/2020, 08/03/2020 Influenza Vaccine (FLU shot) (#1) 2022 01/18/2022, 01/31/2021, 02/20/2020, Additional history exists DTaP,Tdap,and Td Vaccines (2 - Tdap) 01/07/2029 01/07/2019, 12/10/2000 Pneumococcal Vaccine: 65+ Years Completed 05/25/2016, 03/02/2014, 03/02/2013 GARDASIL-HPV IMMUNIZATION SERIES Aged Out No longer [...] as of this encounter Visit Diagnoses Diagnosis COPD, severe (HCC) Chronic airway obstruction, not elsewhere classified documented in this encounter
--- OUTSIDE RECORDS SUMMARY | 2023-07-22 16:52 | External Medical Summary ---
Author Name Unknown Address Unknown Organization K01:LABORATORY [facility] [place] - [address] [facility] [address] Laboratory Report Ordering Provider Test Date Status OLEG WRIGHT 05/02/2023 14:25:06 Final Observation Date Value Abnormality Reference (Units ) Status Triglyceride 05/02/2023 14:25:06 66 <=174 ( mg/dL) Final Triglyceride Reference Range s (mg/dL):
<150 Acceptable
150-174 Borderline high
175-499 High
>=500 Very high Cholesterol 05/02/2023 14:25:06 180 <200 (mg /dL) Final Total Cholesterol Reference Ranges (mg/dL):
<200 Desirable
200-239 Borderline high
>=240 High HDL 05/02/2023 14:25:06 96 >49 (mg/dL ) Final HDL Cholesterol Reference Ra nges (mg/dL):
>=60 High (Desirable)
<50 Low (Undesirable) For Females
<40 Low (Undesirable) For Males NON-HDL CHOLESTEROL 05/02/2023 14:25:06 84 <=159 (mg/dL) Final Non-HDL Cholesterol Referenc e Range (mg/dL):
<100 Target level for high risk ASCVD patient
<130 Optimal for general population
130-159 Near optimal for general population
160-189 Borderline High
190-219 High
>=220 Very High LDL, (calculated) 05/02/2023 14:25:06 71 <= 129 (mg/dL) Final LDL Cholesterol Reference Ra nges (mg/dL):
<70 Target level for high risk ASCVD patient
<100 Optimal for general population
100-129 Near optimal for general population
130-159 Borderline high
160-189 High
>=190 Very high Performing Location LABORATORY [facility] [place] - [address] [facility] [address]
--- OUTSIDE RECORDS SUMMARY | 2023-07-22 16:52 | External Medical Summary | Summary of Care ---
Author Name Unknown Organization [facility] Address [address] [facility] [place] [address] Phone [phone] Care Team Providers Care Clinical Nurse Educator Name Role Phone Unavailable Primary Care Provider Unavailabl e Reason for Visit * Reason Comments eRx-Medication Refill Encounter Details Date Type Department Care Team (Late st Contact Info) Description 05/08/2023 Refill [place] [address] [place] [address] Yasmeen Lowry PA-C [address] [place] [address] [place] [address] COPD, severe (HCC) Allergies Active Allergy Reactions Criticality Noted Date Comments Codeine 12/22/2014 Ringing in her head documented as of this encounter (statuses as of 05/09/2023) Medications Medication Sig Dispensed Refills Start Date [...] EVERY DAY 90 Tablet 0 10/06/2021 Active Atorvastatin Calcium 20 MG Oral Tablet [...] EVERY DAY 90 Tablet 2 05/08/2023 Active Spiriva Respimat 2.5 MCG/ACT Inhalation Aerosol Solution (Tiotropium [place] Monohydrate)Indic ations:COPD, severe (HCC) INHALE 2 PUFFS BY MOUTH EVERY DAY 12 g 1 05/09/2023 Active Spiriva Respimat 2.5 MCG/ACT Inhalation Aerosol Solution (Tiotropium [place] Monohydrate)Indic ations:COPD, severe (HCC) INHALE 2 PUFFS BY MOUTH EVERY DAY 12 g 1 11/07/2022 05/09/19 24 Discontinued documented as of this encounter (statuses as of 05/09/2023) Active Problems Problem Noted Date Diagnosed Date Stage 3a chronic kidney disease 10/28/2021 Overview: EGFR 58 Adrenal nodule 02/11/2019 Peripheral vascular disease 08/22/2018 Primary hypertension 12/22/2014 COPD, severe 12/22/2014 Dyslipidemia, goal LDL below 100 12/22/2014 Tobacco abuse Apnea, sleep documented as of this encounter (statuses as of 05/09/2023) Resolved Problems Problem Noted Date Diagnosed Date [...] as of this encounter (statuses as of 05/09/2023) Immunizations Name Administration Dates Next Due COVID-19 [...] encounter Miscellaneous Notes * Telephone Encounter - Jovita Norris [facility] - 05/09/2023 6:25 AM ESTSigned Prescriptions: Disp Refills Spiriva Respimat 2.5 MCG/ACT Inhalation Ae*12 g 1 Sig: INHALE 2PUFFS BY MOUTH EVERY DAYAuthorizing Provider: YASMEEN LOWRY User: JOVITA NORRIS-- documented in this encounter Plan of Treatment Health Maintenance Due Date Last Done Comments Alpha-1 Antitrypsin 07/16/1965 O2 ASSESSMENT COMPLETED IN PAST YEAR FOR COPD 07/16/1965 Zoster Vaccines (1 of 2) 07/16/1997 *ADVANCE DIRECTIVE NOT ON FILE 10/20/2018 DXA Scan 06/21/2020 06/22/2015 Depression Screening 07/21/2021 07/21/2020 COVID-19 Vaccine ( season) 2022 09/01/2020, 08/03/2020 GFR 10/31/2023 05/02/2023, 1104/2021, 10/28/2021, Additional history exists Albumin/Creatinine Ratio 05/02/2024 05/02/2023, 10/17 CKD HGB USE SMARTSET 82299 05/02/202405/02, 05/02/2023, 10/28/2021, Additional history exists CKD PHOS USE SMARTSET 35906 05/02/2024 05/02/2023, 0 10/30/2018 DTaP,Tdap,and Td Vaccines [...]
--- OUTSIDE RECORDS SUMMARY | 2023-07-22 16:52 | External Medical Summary | Summary of Care ---
Author Name Unknown Organization [facility] Address [address] [place] [address] Phone [phone] Care Team Providers Care Computer Patternmaker Name Role Phone Unavailable Primary Care Provider Unavailabl e Reason for Visit * Reason Onset Date Comments Medication Refill 04/23/2023 Encounter Details Date Type Department Care Team (Late st Contact Info) Description 04/23/2023 Refill Family Medicine [address] [phone] Mitesh Kerr MD [address] [place], [place] [address] [address] COPD, severe (HCC) Allergies Active Allergy Reactions Criticality Noted Date Comments Codeine 12/22/2014 Ringing in her head documented as of this encounter (statuses as of 04/23/2023) Medications Medication Sig Dispensed Refills Start Date [...] Respimat 2.5 MCG/ACT Inhalation Aerosol Solution (Tiotropium [place] Monohydrate)Indica tions:COPD, severe (HCC) INHALE 2 PUFFS [...] MG DOSE. 90 Tablet 1 02/06/2023 Active Furosemide 40 MG Oral Tablet (Lasix)Indications :Bilateral edema of lower extremity TAKE 1 TABLET BY MOUTH EVERY DAY IN THE MORNING 30 Tablet 0 03/02/2023 Active Losartan Potassium 25 MG Oral Tablet [...] before bedtime. 18 g 1 04/20/2023 Active Levalbuterol HCl 0.63 MG/3ML Inhalation Nebulization Solution (Xopenex)Indicatio ns:COPD, severe (HCC) Inhale 3 mL via nebulizer every 6 hours. DX COPD J 44.9 120 mL 0 04/23/2023 Active Levalbuterol HCl 0.63 MG/3ML Inhalation Nebulization Solution (Xopenex)Indicatio ns:COPD, severe (HCC) Inhale 3 mL via nebulizer every 6 hours. DX COPD J 44.9 120 mL 5 01/31/2021 4 Discontinue d(Refill) documented as of this encounter (statuses as of 04/23/2023) Active Problems Problem Noted Date Diagnosed Date Stage 3a chronic kidney disease 10/28/2021 Overview: EGFR 58 Adrenal nodule 02/11/2019 Peripheral vascular disease 08/22/2018 Primary hypertension 12/22/2014 COPD, severe 12/22/2014 Dyslipidemia, goal LDL below 100 12/22/2014 Tobacco abuse Apnea, sleep documented as of this encounter (statuses as of 04/23/2023) Resolved Problems Problem Noted Date Diagnosed Date [...] as of this encounter (statuses as of 04/23/2023) Immunizations Name Administration Dates Next Due COVID-19 [...] encounter Miscellaneous Notes * Telephone Encounter - Zulema Kwan, [facility] - 04/23/2023 1:01 PM ESTSigned Prescriptions: Disp Refills Levalbuterol HCl 0.63 MG/3ML Inhalation Ne*120 mL 0 Sig: Inhale 3 mL via nebulizer every 6 hours. DX COPD J 44.9Authorizing Provider: YASMEEN LOWRY User: ZULEMA KWAN * Telephone Encounter - Zulema Kwan [facility] - 04/23/2023 1:00 PM EST RX authorized. Zero refills given until upcoming office visit. Thank You, Zulema Kwan [facility] Clinical Pharmacist [facility] ([facility]) (formerly Telepharmacy) [phone] 04/23/2023, 1:00 PM * Telephone Encounter - Bonilla Mendoza auto clutch rebuilder - 04/23/2023 12:40 PM EST Pt is out of meds. Did you pend patient's preferred pharmacy and medication before forwarding?yes Pharmacy: [facility] #[id number] Pending Prescriptions: Disp Refills Levalbuterol HCl 0.63 MG/3ML Inhalation N*120 mL 5 Sig: Inhale 3 mL via nebulizer every 6 hours. DX COPD J 44.9 Last Visit: 01/18/2022 (in office), Visit date not found (telemedicine) Next Visit: 05/02/2023 If no future appointments scheduled, and last appointment is greater than a year ago, please schedule patient for a follow-up appointment Last date the medication was ordered: 01/31/2021 Is this request for a controlled substance?No [...] 2:00 PM EST Office Visit Family Medicine [address] [place] [phone] Yasmeen Lowry PA-C [address] [place] [address] [place] [address] Health Maintenance Due Date Last Done Comments Alpha-1 Antitrypsin 07/16/1965 O2 ASSESSMENT COMPLETED IN PAST YEAR FOR COPD 07/16/1965 Zoster Vaccines (1 of 2) 07/16/1997 *ADVANCE DIRECTIVE NOT ON FILE 10/20/2018 CKD PHOS USE SMARTSET 73703 10/31/2019 10/30/2018 DXA Scan 06/21/2020 06/22/2015 Depression Screening 07/21/2021 07/21/2020 GFR 07/18/2022 01/18/2022, 10/17, 07/09/2020, Additional history exists Albumin/Creatinine Ratio 10/28/2022 10/28/2021 CKD HGB USE SMARTSET 25756 10/28/202210/28, 10/28/2021, 07/09/2020, Additional history exists COVID-19 [...]
--- OUTSIDE RECORDS SUMMARY | 2023-07-22 16:52 | External Medical Summary | Summary of Care ---
Author Name Unknown Organization [facility] Address [address] [facility] [place] [address] Phone [phone] Care Team Providers Care Hand Tacker Name Role Phone Unavailable Primary Care Provider Unavailabl e Reason for Visit * Reason Comments Outpatient Testing Encounter Details Date Type Department Care Team (Late st Contact Info) Description 05/02/2023 2:40 PM EST Laboratory Laboratory [address] [place] [phone] [place] [address] Encounter for long-term (current) use of medications; Stage 3a chronic kidney disease (HCC); Primary hypertension; Peripheral vascular disease (HCC); Encounter for long-term (current) use of other medications Allergies Active Allergy Reactions Criticality Noted Date [...] Respimat 2.5 MCG/ACT Inhalation Aerosol Solution (Tiotropium [place] Monohydrate)Indicat ions:COPD, severe (HCC) INHALE 2 PUFFS BY MOUTH EVERY DAY 12 g 1 11/07/2022 Active Atorvastatin Calcium 20 MG Oral Tablet (Lipitor)Indication s:Dyslipidemia, goal LDL below 100 TAKE 1 TABLET BY MOUTH EVERYDAY AT BEDTIME 90 Tablet 1 11/07/2022 Active amLODIPine Besylate 5 MG Oral Tablet (Norvasc)Indication s:Primary hypertension TAKE 1 TABLET BY MOUTH EVERY DAY 90 Tablet 0 01/22/2023 Active Ventolin HFA 108 (90 Base) MCG/ACT Inhalation Aerosol SolutionIndications :COPD, severe (HCC) Inhale 2 Puffs by mouth in the morning and 2 Puffs at noon and 2 Puffs in the evening and 2 Puffs before bedtime. 18 g 1 04/20/2023 Active Furosemide 40 MG Oral Tablet (Lasix)Indications: [...] the morning. 30 Tablet 5 05/02/2023 Active documented as of this encounter (statuses [...] on file documented as of this encounter Plan of Treatment Pending Results Name Type Priority Associated Diagnoses Date /Time CBC WITH WBC DIFFERENTIAL Lab Routine Encounter for long-term (current) use of medications 05/02/2023 2:25 PM EST LIPID PANEL WITH DIRECT LDL IF TG IS HIGH Lab Routine Encounter for long-term (current) use of medications 05/02/2023 2:25 PM EST RENAL FUNCTION PANEL Lab Routine Stage 3a chronic kidney disease (HCC) 05/02/2023 2:25 PM EST ALBUMIN / CREATININE RATIO, URINE Lab Routine Stage 3a chronic kidney disease (HCC) 05/02/2023 2:25 PM EST PTH Lab Routine Primary hypertension Stage 3a chronic kidney disease (HCC) Peripheral vascular disease (HCC) Encounter for long-term (current) use of other medications 05/02/2023 2:25 PM EST CBC Lab Routine Encounter for long-term (current) use of medications 05/02/2023 2:25 PM EST DIFFERENTIAL, AUTOMATED Lab Routine Encounter for long-term (current) use of medications 05/02/2023 2:25 PM EST Health Maintenance Due Date Last Done Comments Alpha-1 Antitrypsin 07/16/1965 O2 ASSESSMENT COMPLETED IN PAST YEAR FOR COPD 07/16/1965 Zoster Vaccines (1 of 2) 07/16/1997 *ADVANCE DIRECTIVE NOT ON FILE 10/20/2018 CKD PHOS USE SMARTSET 58967 10/31/2019 10/30/2018 DXA Scan 06/21/2020 06/22/2015 Depression Screening 07/21/2021 07/21/2020 GFR 07/18/2022 01/18/2022, 10/17, 07/09/2020, Additional history exists Albumin/Creatinine Ratio 10/28/2022 10/28/2021 CKD HGB USE SMARTSET 99347 10/28/202210/28, 10/28/2021, 07/09/2020, Additional history exists COVID-19 Vaccine (3 - 2022- season) 2022 09/01/2020, 08/03/2020 DTaP,Tdap,and Td Vaccines (2 - Tdap) 01/07/2029 [...] as of this encounter Visit Diagnoses Diagnosis Encounter for long-term (current) use of medications Encounter for long-term (current) use of other medications Stage 3a chronic kidney disease (HCC) Primary hypertension Unspecified essential hypertension Peripheral vascular disease (HCC) Peripheral vascular disease, unspecified Encounter for long-term (current) use of other medications documented in this encounter
--- OUTSIDE RECORDS SUMMARY | 2023-07-22 16:52 | External Medical Summary ---
Author Name Unknown Address Unknown Organization K01:[place] [facility] [place] [facility] [address] [facility] [address] [facility] [address] Laboratory Report Ordering Provider Test Date Status OLEG WRIGHT 05/02/2023 14:25:06 Final Observation Date Value Abnormality Reference (Units ) Status WBC, Total 05/02/2023 14:25:06 8.57 4.00-10.80 (K/uL) Final RBC 05/02/2023 14:25:06 3.96 3.85-5.15 (M/uL) Final Hemoglobin 05/02/2023 14:25:06 12.6 12.0-15.3 (g/dL) Final HCT 05/02/2023 14:25:06 40.9 36.0-45.2 (%) Final MCV 05/02/2023 14:25:06 103.3 81.5-97.5 (fL) Final MCH 05/02/2023 14:25:06 31.8 27.0-34.0 (pg) Final MCHC 05/02/2023 14:25:06 30.8 32.0-36.0 (g/dL) Final RDW 05/02/2023 14:25:06 12.4 11.5-15.5 (%) Final Platelets 05/02/2023 14:25:06 166 140-400 (K/uL) Final MPV 05/02/2023 14:25:06 12.3 6.6-11.1 (fL) Final Nucleated erythrocytes/100 leukocytes [Ratio] in Blood by Automated count 05/02/2023 14:25:06 0 <=0 (/100 WBCs) Final Performing Location [facility] [facility] [place] [address] [facility] [address]
--- OUTSIDE RECORDS SUMMARY | 2023-07-22 16:52 | External Medical Summary | Summary of Care ---
Author Name Unknown Organization [facility] Address [address] [place] [address] Phone [phone] Care Team Providers Care Skin Grader Name Role Phone Sharri Mc MD Primary Care Provide r Reason for Visit * Reason Comments Outpatient Testing Encounter Details Date Type Department Care Team (Late st Contact Info) Description 06/14/2023 12:40 PM EDT Laboratory Laboratory [address] [place] [phone] [place] [address] Primary hypertension; Stage 3a chronic kidney disease (HCC) Allergies Active Allergy Reactions Criticality Noted Date Comments Codeine 12/22/2014 Ringing in her head documented as of this encounter (statuses as of 06/14/2023) Medications Medication Sig Dispensed Refills Start Date [...] Respimat 2.5 MCG/ACT Inhalation Aerosol Solution (Tiotropium [place] Monohydrate)Indicat ions:COPD, severe (HCC) INHALE 2 PUFFS [...] 5 MG Oral Tablet (Norvasc)Indication s:Primary hypertension Take 2 Tablets by mouth in the morning. 90 Tablet 2 06/14/2023 Active documented as of this encounter (statuses as of 06/14/2023) Active Problems Problem Noted Date Diagnosed Date Stage 3a chronic kidney disease 10/28/2021 Overview: EGFR 58 Adrenal nodule 02/11/2019 Peripheral vascular disease 08/22/2018 Primary hypertension 12/22/2014 COPD, severe 12/22/2014 Dyslipidemia, goal LDL below 100 12/22/2014 Tobacco abuse Apnea, sleep documented as of this encounter (statuses as of 06/14/2023) Resolved Problems Problem Noted Date Diagnosed Date [...] as of this encounter (statuses as of 06/14/2023) Immunizations Name Administration Dates Next Due COVID-19 [...] as of this encounter Plan of Treatment Upcoming Encounters Date Type Department Care Team (Late st Contact Info) Description 2023 9:00 AM EDT Office Visit Family [address] [place] [phone] Chrissy Mays CRNP [address] [place] [address] [place] [address] 09/25/2023 9:00 AM EDT Office Visit Audiology [facility] [address] [facility] [place] [address] Tabatha Adhikari Au.D. [address] [facility] [place] [address] 11/12/2023 10:20 AM EDT Office Visit Family [address] [place] [phone] Sharri Mc MD [address] [place] [address] [place] [address] Pending Results Name Type Priority Associated Diagnoses Date /Time BASIC METABOLIC PANEL Lab Routine Primary hypertension Stage 3a chronic kidney disease (HCC) 06/14/2023 12:20 PM EDT Health Maintenance Due Date Last Done Comments Alpha-1 Antitrypsin 07/16/1965 Zoster Vaccines (1 of 2) 07/16/1997 *ADVANCE DIRECTIVE NOT ON FILE 10/20/2018 DXA Scan 06/21/2020 06/22/2015 Depression Screening 07/21/2021 07/21/2020 COVID-19 Vaccine ( season) 2022 09/01/2020, 08/03/2020 GFR 10/31/2023 05/02/2023, 04/2021, 10/28/2021, Additional history exists Albumin/Creatinine Ratio 05/02/2024 05/02/2023, 10/17 CKD HGB USE SMARTSET 71698 05/02/202405/02, 05/02/2023, 10/28/2021, Additional history exists CKD PHOS USE SMARTSET 65480 05/02/2024 05/02/2023, 0 10/30/2018 O2 ASSESSMENT COMPLETED [...] Diagnoses Diagnosis Primary hypertension Unspecified essential hypertension Stage 3a chronic kidney disease (HCC) documented in this encounter Care Teams Skin Grader Relationship Specialty Start Date End Date Sharri Mc MD [address] [place] [address] [place] [address] PCP - General Family Medicine 05/10/23 documented as of this encounter
--- OUTSIDE RECORDS SUMMARY | 2023-07-22 16:52 | External Medical Summary | Summary of Care ---
Author Name Unknown Organization [facility] Address [address] [place] [address] Phone [phone] Care Team Providers Care Fly Setter Name Role Phone Mitesh Kerr MD Primary Care Provider Reason for Visit * Reason Onset Date Comments Medication Refill 04/19/2023 Encounter Details Date Type Department Care Team (Late st Contact Info) Description 04/19/2023 Refill Family Medicine [address] [place] [phone] Yasmeen Lowry PA-C [address] [place] [address] [place] [address] COPD, severe (HCC) Allergies Active Allergy Reactions Criticality Noted Date Comments Codeine 12/22/2014 Ringing in her head documented as of this encounter (statuses as of 04/20/2023) Medications Medication Sig Dispensed Refills Start Date [...] Pain, Moderate. 30 Tablet 5 01/31/2021 Active Levalbuterol HCl 0.63 MG/3ML Inhalation Nebulization Solution (Xopenex)Indicatio ns:COPD, severe (HCC) Inhale 3 mL via nebulizer every 6 hours. DX COPD J 44.9 120 mL 5 01/31/2021 Active Loratadine 10 MG Oral Tablet (Claritin)Indicati ons:Allergic rhinitis, unspecified seasonality, unspecified trigger TAKE 1 TABLET BY MOUTH EVERY DAY 90 Tablet 0 10/06/2021 Active Spiriva Respimat 2.5 MCG/ACT Inhalation Aerosol Solution (Tiotropium [place] Monohydrate)Indica tions:COPD, severe (HCC) INHALE 2 PUFFS [...] before bedtime. 18 g 1 04/20/2023 Active Ventolin HFA 108 (90 Base) MCG/ACT Inhalation Aerosol SolutionIndication s:COPD, severe (HCC) INHALE 2 PUFFS BY MOUTH 4 TIMES A DAY 18 g 1 03/01/2023 Discontinue d(Refill) documented as of this encounter (statuses as of 04/20/2023) Active Problems Problem Noted Date Diagnosed Date Stage 3a chronic kidney disease 10/28/2021 Overview: EGFR 58 Adrenal nodule 02/11/2019 Peripheral vascular disease 08/22/2018 Primary hypertension 12/22/2014 COPD, severe 12/22/2014 Dyslipidemia, goal LDL below 100 12/22/2014 Tobacco abuse Apnea, sleep documented as of this encounter (statuses as of 04/20/2023) Resolved Problems Problem Noted Date Diagnosed Date [...] as of this encounter (statuses as of 04/20/2023) Immunizations Name Administration Dates Next Due COVID-19 [...] encounter Miscellaneous Notes * Telephone Encounter - Neel Zhao [facility] - 04/20/2023 9:39 AM EST Signed Prescriptions: Disp Refills Ventolin HFA 108 (90 Base) MCG/ACT Inhalat*18 g 1 Sig: Inhale 2 Puffs by mouth in the morning and 2 Puffs at noon and 2 Puffs in the evening and 2 Puffs before bedtime. Authorizing Provider: YASMEEN LOWRY Ordering User: NEEL ZHAO * Telephone Encounter - Julianna Cormier CPhT - 04/19/2023 12:08 PM EST Did you pend patient's preferred pharmacy and medication before forwarding?yes Pharmacy: [id number] Pending Prescriptions: Disp Refills Ventolin HFA 108 (90 Base) MCG/ACT Inhala*18 g 1 Sig: Inhale 2 Puffs by mouth in the morning and 2 Puffs at noon and 2 Puffs in the evening and 2 Puffs before bedtime. Last Visit: 01/18/2022 (in office), Visit date not found (telemedicine) Next Visit: 05/02/2023 If no future appointments scheduled, and last appointment is greater than a year ago, please schedule patient for a follow-up appointment Last date the medication was ordered: 03/01/23 Is this request for a controlled substance?No [...] Description 05/02/2023 2:00 PM EST Office Visit [address] [place] [phone] Yasmeen Lowry PA-C [address] [place] [address] [place] [id number] Health Maintenance Due Date Last Done Comments Alpha-1 Antitrypsin 07/16/1965 O2 ASSESSMENT COMPLETED IN PAST YEAR FOR COPD 07/16/1965 Zoster Vaccines (1 of 2) 07/16/1997 *ADVANCE DIRECTIVE NOT ON FILE 10/20/2018 CKD PHOS USE SMARTSET 46061 10/31/2019 10/30/2018 DXA Scan 06/21/2020 06/22/2015 Depression Screening 07/21/2021 07/21/2020 GFR 07/18/2022 01/18/2022, 10/17, 07/09/2020, Additional history exists Albumin/Creatinine Ratio 10/28/2022 10/28/2021 CKD HGB USE SMARTSET 69949 10/28/202210/28, 10/28/2021, 07/09/2020, Additional history exists COVID-19 Vaccine (3 - season) 2022 09/01/2020, 08/03/2020 Influenza Vaccine (FLU [...] not elsewhere classified documented in this encounter Care Teams Fly Setter Relationship Specialty Start Date End Date Mitesh Kerr MD [address] [place] [address] [place] [id number] PCP - General Family Medicine 12/22/14 documented as of this encounter
--- OUTSIDE RECORDS SUMMARY | 2023-07-22 16:52 | External Medical Summary | Summary of Care ---
Author Name Unknown Organization [facility] Address [address] [place] [address] Phone [phone] Care Team Providers Care Travel Specialist Name Role Phone Unavailable Primary Care Provider Unavailabl e Reason for Visit * Reason Onset Date Comments Re-Check Medication Administration 05/02/2023 Flu an d/or Pneumo Inj Encounter Details Date Type Department Care Team (Late st Contact Info) Description 05/02/2023 2:00 PM EST Office Visit Family Medicine [address] [phone] Florencia Bergman PA-C [address] [place] [address] [place] [address] COPD, severe (HCC)*; Primary hypertension; Need for prophylactic vaccination and inoculation against influenza; Adrenal nodule (HCC); Peripheral vascular disease (HCC); Central sleep apnea due to medical condition; Dyslipidemia, goal LDL below 100; Stage 3a chronic kidney disease (HCC); Tobacco abuse Allergies Active Allergy Reactions Criticality Noted Date [...] Respimat 2.5 MCG/ACT Inhalation Aerosol Solution (Tiotropium [place] Monohydrate)Indica tions:COPD, severe (HCC) INHALE 2 PUFFS [...] the morning. 30 Tablet 5 05/02/2023 Active Pentoxifylline ER 400 MG Oral Tablet Extended Release (TRENtal)Indicatio ns:Primary hypertension TAKE 1 TABLET BY MOUTH THREE TIMES A DAY 270 Tablet 1 11/28/2022 4 Discontinue d(Refill) Symbicort 160-4.5 MCG/ACT Inhalation Aerosol (Budesonide-Formot amie)Indications:C OPD, severe (HCC) TAKE 2 PUFFS BY MOUTH TWICE A DAY 30.6 g 1 12/20/2022 4 Discontinue d(Patient preference/ discontinua tion) Losartan Potassium 50 MG Oral Tablet (Cozaar)Indication s:Primary hypertension TAKE BY MOUTH 1 TABLET IN THE MORNING. WITH 25 MG FOR 75 MG DOSE. 90 Tablet 1 02/06/2023 4 Discontinue d(Refill) Losartan Potassium 25 MG Oral Tablet (Cozaar)Indication s:Primary hypertension TAKE 1 TAB BY MOUTH DAILY. TAKE ALONG WITH 50MG TABLET TO EQUAL 75MG DAILY 90 Tablet 1 04/04/2023 4 Discontinue d(Medicatio n/Dose Changed) documented as of this encounter (statuses as [...] Sign Reading Time Taken Comments Blood Pressure 150/78 05/02/2023 1:53 PM EST Pulse 80 05/02/2023 1:53 PM EST Temperature 36.1 C (97 F) 05/02/2023 1:53 PM EST Respiratory Rate 16 05/02/2023 1:53 PM EST Oxygen Saturation - - Inhaled Oxygen Concentration - - Weight 73 kg (161 lb) 05/02/2023 1:53 PM EST Height 154.9 cm (5' 1") 05/02/2023 1:53 PM EST Body Mass Index 30.42 05/02/2023 1:53 PM EST documented in this encounter Patient Instructions * Patient Instructions* Florencia Bergman PA-C - 05/02/2023 2:11 PM EST debrox documented in this encounter Progress Notes * Marianne Cha RN - 05/02/2023 2:02 PM EST PRE - ADMINISTRATION DOCUMENTATION Are you experiencing any cold symptoms or fever? No Have you had Guillain-[place] Syndrome (an illness that causes paralysis) within the last 6 weeks? No Have you had the flu shot in the past? YES Have you ever had a reaction to the flu shot? No Marianne Cha RN, 05/02/2023 2:02 PM Immunization Administration Documentation Time Out Procedure Performed: Yes Patient Identified (Ask Name/Date of ): Yes Does the patient have a fever greater than 101 degrees today? No Patient allergic to latex? No VFC Stock: No Immunization(s) verified: Yes, Immunization Name: Flu, VIS Sheet(s) given: Yes Verified Side and Site: Yes Verified Shot(s) with Parent(s)/Patient: Yes * Florencia Bergman PA-C - 05/02/2023 2:02 PM EST Nursing Notes: Marianne Cha RN 02/14/24 1404 Sign at exiting of workspace Check up BP is elevated Pt having hearing issue for several months Pt needs labs, (she is not able to come in early for fasting labs) Pt here today for recheck. Pt with PMH of allergies, dyslipidemia, HTN, COPD, PVD, CKD, tobacco usedisorder, sleep apnea, adrenal nodule. She is due for labs. Labs are already futured. Pt is having some issues with her hearing. Pt denies URI sx. BP has been elevated. She is taking losartan 75 mg daily. Pt denies chest pain, SOB, swelling in legs, headache, dizziness, lightheadedness, nosebleeds, facial flushing, ringing in ears. Review of patient's allergies indicates: Allergen Reactions Codeine Ringing in her head Current Outpatient Medications Medication Sig Dispense Refill oxygen GAS 4liters at rest 6 liters with movements 1 Each 0 cholecalciferol, VIT D3, (VITAMIN D3) 1000 UNITS Tablet Take 1 Tab by mouth daily. 30 Tab 0 guaifenesin ER (MUCINEX) 600 MG TB12 Take 600 mg by mouth 2 times a day. aspirin enteric coated (ASPIRIN LOW DOSE) 81 MG TBEC TAKE 1 TABLET BY MOUTH EVERY DAY 100 Tab 1 Potassium Citrate 99 MG CAPS Take 1 Cap by mouth daily. Ibuprofen 200 MG Oral Tablet (Motrin) Take 1 Tablet by mouth every 8 hours as needed for Pain, Moderate. 30 Tablet 5 Loratadine 10 MG Oral Tablet (Claritin) TAKE 1 TABLET BY MOUTH EVERY DAY 90 Tablet 0 Spiriva Respimat 2.5 MCG/ACT Inhalation Aerosol Solution (Tiotropium [place] Monohydrate) INHALE 2 PUFFS BY MOUTH EVERY DAY 12 g 1 Atorvastatin Calcium 20 MG Oral Tablet (Lipitor) TAKE 1 TABLET BY MOUTH EVERYDAY AT BEDTIME 90 Tablet 1 Pentoxifylline ER 400 MG Oral Tablet Extended Release (TRENtal) TAKE 1 TABLET BY MOUTH THREE TIMES A DAY 270 Tablet 1 amLODIPine Besylate 5 MG Oral Tablet (Norvasc) TAKE 1 TABLET BY MOUTH EVERY DAY 90 Tablet 0 Losartan Potassium 50 MG Oral Tablet (Cozaar) TAKE BY MOUTH 1 TABLET IN THE MORNING. WITH 25 MG FOR75 MG DOSE. 90 Tablet 1 Losartan Potassium 25 MG Oral Tablet (Cozaar) TAKE 1 TAB BY MOUTH DAILY. TAKE ALONG WITH 50MG TABLET TO EQUAL 75MG DAILY 90 Tablet 1 Ventolin HFA 108 (90 Base) MCG/ACT Inhalation Aerosol Solution Inhale 2 Puffs by mouth in the morning and 2 Puffs at noon and 2 Puffs in the evening and 2 Puffs before bedtime. 18 g 1 Furosemide 40 MG Oral Tablet (Lasix) TAKE 1 TABLET BY MOUTH EVERY DAY IN THE MORNING 30 Tablet 0 zoster vac recomb adjuvanted (SHINGRIX) 50 MCG/0.5ML injection Inject 0.5 mL into a large muscle now and repeat dose in 60 to 180 days (Patient not taking: Reported on 01/18/2022 ) 1 Each 1 Levalbuterol HCl 0.63 MG/3ML Inhalation Nebulization Solution (Xopenex) Inhale 3 mL via nebulizer every 6 hours. DX COPD J 44.9 120 mL 1 No current facility-administered medications for this visit. Past Medical History: Diagnosis Date Acute exacerbation of chronic obstructive pulmonary disease (COPD) ([facility]) 06/20/2018 admitted [facility] Acute exacerbation of chronic obstructive pulmonary disease (COPD) ([facility]) 10/27/2018 [facility] Apnea, sleep Chronic respiratory failure ([facility]) Dyslipidemia, goal LDL below 100 12/22/2014 Fracture [...] 100 Moderate COPD (chronic obstructive pulmonary disease) ([facility]) Need for hepatitis C screening test 04/06/2015 negative Nodule of right lung Stage 3a chronic kidney disease ([facility]) 10/28/2021 EGFR 58 Tobacco abuse Social History Socioeconomic History Marital status: Spouse name: Not on file Number of children: Not on file Years of education: Not on file Highest education level: Not on file Occupational History Not on file Tobacco Use Smoking status: Former Packs/day: 0.50 Years: 52.00 Additional pack years: 0.00 Total pack years: 26.00 Types: Cigarettes Start date: 07/16/1964 Smokeless tobacco: [...] on file Housing Stability: Not on file O:Blood pressure 150/78, pulse 80, temperature 36.1 C (97 F), resp. rate 16, height 1.549 m (5'1"), weight 73 kg (161 lb). GENERAL: alert, healthy, and no distress NECK: supple, no adenopathy, no bruits, thyroid normal size, non-tender, without nodularity EYES: PERRLA, conjunctiva are pink and non-injected, sclera clear EARS: External ears normal, Canals clear, TM's Normal NOSE: no mucosal erythema, no mucosal edema, no purulent discharge OROPHARYNX: no exudate, no erythema, lips, buccal mucosa, and tongue normal, and mucous membranes are moist HEART: regular rate & rhythm, no murmur, and no gallops LUNGS: chest symmetric with normal AP diameter, no chest deformities noted, no chest wall tenderness, lungs clear to auscultation ABDOMEN: abdomen soft, non-tender, normal bowel sounds, and no masses or organomegaly A:COPD, severe (HCC) (Primary) Primary hypertension - Pentoxifylline ER 400 MG Oral Tablet Extended Release (TRENtal); Take 1 Tablet by mouth in the morning and 1 Tablet at noon and 1 Tablet before bedtime. - Losartan Potassium 100 MG Oral Tablet (Cozaar); Take 1 Tablet by mouth in the morning. Need for prophylactic vaccination and inoculation against influenza Adrenal nodule (HCC) Peripheral vascular disease (HCC) Central sleep apnea due to medical condition Dyslipidemia, goal LDL below 100 Stage 3a chronic kidney disease (HCC) Tobacco abuse Other orders - INFLUENZA VACC, QUAD, HIGH DOSE (FLUZONE HD) Increase losartan to 100 mg daily. Will check some labs today. Any questions/problems, please call.If anything changes, worsens, develops new sx, please call JOSELYN. Follow-up: Return if symptoms worsen or fail to improve. | Check-out note: Pt needs to establish with a Doctor Florencia Bergman PA-C documented in this encounter Nursing Notes * Marianne Cha RN - 05/02/2023 1:53 PM EST Check up BP is elevated Pt having hearing issue for several months Pt needs labs, (she is not able to come in early for fasting labs) documented in this encounter Plan of Treatment Health Maintenance Due Date Last Done Comments Alpha-1 Antitrypsin 07[birth year]16/1963 O2 ASSESSMENT COMPLETED IN PAST YEAR FOR COPD 07/16/1965 Zoster Vaccines (1 of 2) 07/16/1997 *ADVANCE DIRECTIVE NOT ON FILE 10/20/2018 CKD PHOS USE SMARTSET 01286 10/31/2019 10/30/2018 DXA Scan 06/21/2020 06/22/2015 Depression Screening 07/21/2021 07/21/2020 GFR 07/18/2022 01/18/2022, 10/17, 07/09/2020, Additional history exists Albumin/Creatinine Ratio 10/28/2022 10/28/2021 CKD HGB USE SMARTSET 67294 10/28/202210/28, 10/28/2021, 07/09/2020, Additional history exists COVID-19 Vaccine (3 - season) 2022 09/01/2020, 08/03/2020 DTaP,Tdap,and Td Vaccines [...] this encounter Visit Diagnoses Diagnosis COPD, severe (HCC)- Primary Chronic airway obstruction, not elsewhere classified Primary hypertension Unspecified essential hypertension Need for prophylactic vaccination and inoculation against influenza Adrenal nodule (HCC) Other specified disorders of adrenal glands Peripheral vascular disease (HCC) Peripheral vascular disease, unspecified Central sleep apnea due to medical condition Unspecified sleep apnea Dyslipidemia, goal LDL below 100 Other and unspecified hyperlipidemia Stage 3a chronic kidney disease (HCC) Tobacco abuse Tobacco use disorder documented in this encounter
--- OUTSIDE RECORDS SUMMARY | 2023-07-22 16:52 | External Medical Summary | Summary of Care ---
Author Name Unknown Organization [facility] Address [address] [place] [address] Phone [phone] Care Team Providers Care Tinner Helper Name Role Phone Sharri Mc MD Primary Care Provide r Reason for Visit * Reason Onset Date Comments Medication Refill 05/31/2023 Encounter Details Date Type Department Care Team (Late st Contact Info) Description 05/31/2023 Refill Family Medicine [address] [place] [phone] Sharri Mc MD [address] [place], [place] [address] [address] COPD, severe (HCC); Bilateral edema of lower extremity Allergies Active Allergy Reactions Criticality Noted Date Comments Codeine 12/22/2014 Ringing in her head documented as of this encounter (statuses as of 05/31/2023) Medications Medication Sig Dispensed Refills Start Date [...] EVERY DAY 90 Tablet 0 10/06/2021 Active Ventolin HFA 108 (90 Base) MCG/ACT Inhalation Aerosol SolutionIndication s:COPD, severe (HCC) Inhale 2 Puffs by mouth in the morning and 2 Puffs at noon and 2 Puffs in the evening and 2 Puffs before bedtime. 18 g 1 04/20/2023 Active Pentoxifylline ER 400 MG Oral Tablet [...] Respimat 2.5 MCG/ACT Inhalation Aerosol Solution (Tiotropium [place] Monohydrate)Indica tions:COPD, severe (HCC) INHALE 2 PUFFS [...] 05/31/2023 Active Furosemide 40 MG Oral Tablet (Lasix)Indications :Bilateral edema of lower extremity TAKE 1 TABLET BY MOUTH EVERY DAY IN THE MORNING 90 Tablet 1 05/31/2023 Active Furosemide 40 MG Oral Tablet (Lasix)Indications :Bilateral edema of lower extremity TAKE 1 TABLET BY MOUTH EVERY DAY IN THE MORNING 30 Tablet 0 04/25/2023 4 Discontinue d(Refill) Levalbuterol HCl 0.63 MG/3ML Inhalation Nebulization Solution (Xopenex)Indicatio ns:COPD, severe (HCC) Inhale 3 mL via nebulizer every 6 hours. DX COPD J 44.9 120 mL 1 05/02/2023 4 Discontinue d(Refill) documented as of this encounter (statuses as of 05/31/2023) Active Problems Problem Noted Date Diagnosed Date Stage 3a chronic kidney disease 10/28/2021 Overview: EGFR 58 Adrenal nodule 02/11/2019 Peripheral vascular disease 08/22/2018 Primary hypertension 12/22/2014 COPD, severe 12/22/2014 Dyslipidemia, goal LDL below 100 12/22/2014 Tobacco abuse Apnea, sleep documented as of this encounter (statuses as of 05/31/2023) Resolved Problems Problem Noted Date Diagnosed Date [...] as of this encounter (statuses as of 05/31/2023) Immunizations Name Administration Dates Next Due COVID-19 [...] encounter Miscellaneous Notes * Telephone Encounter - Sharri Mc MD - 05/31/2023 2:35 PM EDT Signed Prescriptions: Disp Refills Levalbuterol HCl 0.63 MG/3ML Inhalation Ne*120 mL 1 Sig: Inhale 3 mL via nebulizer every 6 hours. DX COPD J 44.9 Authorizing Provider: SHARRI MC Furosemide 40 MG Oral Tablet (Lasix) 90 Tab*1 Sig: TAKE 1 TABLET BY MOUTH EVERY DAY IN THE MORNING Authorizing Provider: SHARRI MC * Telephone Encounter - Marianne Cha, GALE - 05/31/2023 2:02 PM EDTPending Prescriptions: Disp Refills Levalbuterol HCl 0.63 MG/3ML Inhalation Ne*120 mL 1 Sig: Inhale 3 mL via nebulizer every 6 hours. DX COPD J 44.9 Furosemide 40 MG Oral Tablet (Lasix) 90 Tab*1 Sig: TAKE 1 TABLET BY MOUTH EVERY DAY IN THE MORNING * Telephone Encounter - Marianne Cha RN - 05/31/2023 2:02 PM EDTPending Prescriptions: Disp Refills Levalbuterol HCl 0.63 MG/3ML Inhalation Ne*120 mL 1 Sig: Inhale 3 mL via nebulizer every 6 hours. DX COPD J 44.9 Furosemide 40 MG Oral Tablet (Lasix) 90 Tab*1 Sig: TAKE 1 TABLET BY MOUTH EVERY DAY IN THE MORNING * Telephone Encounter - Demetra Scott OSA - 05/31/2023 11:51 AM EDT Did you pend patient's preferred pharmacy and medication before forwarding?yes Pharmacy: [id number] Pending Prescriptions: Disp Refills Levalbuterol HCl 0.63 MG/3ML Inhalation N*120 mL 1 Sig: Inhale 3 mL via nebulizer every 6 hours. DX COPD J 44.9 Last Visit: 05/02/2023 (in office), Visit date not found (telemedicine) Next Visit: 06/14/2023 If no future appointments scheduled, and last appointment is greater than a year ago, please schedule patient for a follow-up appointment Last date the medication was ordered: 05.02.23 Is this request for a controlled substance?No Urine Drug Screen:No results found for this or any previous visit. Patient Phone Numbers Labs: Lab Results Component Value Date/Time CREAT 0.6 05/02/2023 02:25 PM CREAT 0.7 01/31/2019 04:02 PM POTASSIUM 4.9 05/02/2023 02:25 PM POTASSIUM 4.2 01/31/2019 04:02 PM TSH 1.88 10/28/2021 02:50 PM LDLCALC 71 05/02/2023 02:25 PM LDLCALC 100 06/28/2017 01:27 PM LDLDIRECT NOT APPLICABLE 06/28/2017 01:27 PM ALT 16 10/28/2021 02:50 PM ALT 16 12/27/2016 10:29 AM documented in this encounter Plan of Treatment Upcoming Encounters Date Type Department Care Team (Late st Contact Info) Description 06/14/2023 11:40 AM EDT Office Visit [address] [place] [phone] Chrissy Mays CRNP [address] [place] [address] [place] [address] 11/12/2023 10:20 AM EDT Office Visit [address] [place] [phone] Sharri Mc MD [address] [place] [address] [place] [address] Health Maintenance Due Date Last Done Comments Alpha-1 Antitrypsin 07/16/1965 O2 ASSESSMENT COMPLETED IN PAST YEAR FOR COPD 07/16/1965 Zoster Vaccines (1 of 2) 07/16/1997 *ADVANCE DIRECTIVE NOT ON FILE 10/20/2018 DXA Scan 06/21/2020 06/22/2015 Depression Screening 07/21/2021 07/21/2020 COVID-19 Vaccine ( season) 2022 09/01/2020, 08/03/2020 GFR 10/31/2023 05/02/2023, 04/2021, 10/28/2021, Additional history exists Albumin/Creatinine Ratio 05/02/2024 05/02/2023, 10/17 CKD HGB USE SMARTSET 91356 05/02/202405/02, 05/02/2023, 10/28/2021, Additional history exists CKD PHOS USE SMARTSET 86077 05/02/2024 05/02/2023, 0 10/30/2018 DTaP,Tdap,and Td Vaccines [...] (HCC) Chronic airway obstruction, not elsewhere classified Bilateral edema of lower extremity Edema documented in this encounter Care Teams Tinner Helper Relationship Specialty Start Date End Date Sharri Mc MD [address] [place] [address] [place] [id number] PCP - General Family Medicine 05/10/23 documented as of this encounter
--- OUTSIDE RECORDS SUMMARY | 2023-07-22 16:52 | External Medical Summary ---
Author Name Unknown Address Unknown Organization K01[place] [place] [facility] [id number] Laboratory Report Ordering Provider Test Date Status OLEG WRIGHT 05/02/2023 14:25:06 Final Observation Date Value Abnormality Reference (Units ) Status SYNC LEUKOCYTES IN BLOOD BY AUTOMATED COUNT 05/02/2023 14:25:06 8.57 4.00-10.80 (K/uL) Final Segs 05/02/2023 14:25:06 71.1 40.0-75.0 (%) Final Lymphs % 05/02/2023 14:25:06 21.4 18.0-42.0 (%) Final Monos 05/02/2023 14:25:06 6.5 1.0-11.0 (%) Final Eosinophils 05/02/2023 14:25:06 0.4 0.0-6.0 (%) Final Basos 05/02/2023 14:25:06 0.4 0.0-2.0 (%) Final Immature Granulocyte, Percent 05/02/2023 14:25:06 0.2 0.0-2.0 (%) Final Absolute Segs 05/02/2023 14:25:06 6.10 1.80-7.70 (K/uL) Final Lymphs, absolute 05/02/2023 14:25:06 1.83 1.00-4.80 (K/ul) Final Monos, Abs 05/02/2023 14:25:06 0.56 0.00-1.10 (K/uL) Final Eos, Abs 05/02/2023 14:25:06 0.03 0.00-0.70 (K/uL) Final Basos, Abs 05/02/2023 14:25:06 0.03 0.00-0.20 (K/uL) Final Immature Granulocytes, Number 05/02/2023 14:25:06 0.02 0.00-0.20 (K/uL) Final Performing Location [facility] [place] [address] [facility] [id number]
--- OUTSIDE RECORDS SUMMARY | 2023-07-22 16:52 | External Medical Summary | Summary of Care ---
Author Name Unknown Organization [facility] Address [address] [place] [address] Phone [phone] Care Team Providers Care Pipe Stem Aligner Name Role Phone Sharri Mc MD Primary Care Provide r Reason for Referral * Ancillary Services (Within 30 days (routine)) - Authorized Specialty Diagnoses / Procedures Referred By Nemo soria Referred To Contact Audiology Diagnoses Other specified hearing loss of both ears Chrissy Mays CRNP [address] [place] [address] [place] [address] Referral ID Status Reason Start Date Expiration Date Visits Requested Visits Authorized [id number] Authorized Ancillary Services Required 06/14/2023 999 999 [...] 11:40 AM EDT Office Visit Family Medicine [address] [place] [address] Chrissy Mays CRNP [address] [place] [address] [place] [address] Hypertension goal BP (blood pressure) < 140/90*; [...] Respimat 2.5 MCG/ACT Inhalation Aerosol Solution (Tiotropium [place] Monohydrate)Indic ations:COPD, severe (HCC) INHALE 2 PUFFS [...] but would like to get hearing aides. Patient Active Problem List Diagnosis Code Primary hypertension I10 COPD, severe (HCC) J44.9 Dyslipidemia, goal LDL below 100 E78.5 Tobacco abuse Z72.0 Apnea, sleep G47.30 Peripheral vascular disease (HCC) I73.9 Adrenal nodule (HCC) E27.8 Stage 3a chronic kidney disease (HCC) N18.31 Current Outpatient Medications Medication Sig Dispense [...] Respimat 2.5 MCG/ACT Inhalation Aerosol Solution (Tiotropium [place] Monohydrate) INHALE 2 PUFFS BY MOUTH EVERY [...] exacerbation of chronic obstructive pulmonary disease (COPD) ([facility]) 06/20/2018 admitted [facility] Acute exacerbation of chronic obstructive pulmonary disease (COPD) ([facility]) 10/27/2018 [facility] Apnea, sleep Chronic respiratory failure ([facility]) Dyslipidemia, goal LDL below 100 12/22/2014 [...] 100 Moderate COPD (chronic obstructive pulmonary disease) ([facility]) Need for hepatitis C screening test 04/06/2015 negative Nodule of right lung Stage 3a chronic kidney disease ([facility]) 10/28/2021 EGFR 58 Tobacco abuse Past [...] Notes * Delmy Gonsalves LPN - 06/14/2023 11:16 AM EDT C/o trouble hearing for months. Wants wheel chair. documented in this encounter Plan of Treatment Upcoming Encounters Date Type Department Care Team (Late st Contact Info) Description 2023 9:00 AM EDT Office Visit [address] [phone] Chrissy Mays CRNP [address] [place] [address] [place] [address] 09/25/2023 9:00 AM EDT Office Visit Audiology [facility] [address] [place] [address] Tabatha Adhikari Au.D. [address] [place] [address] 11/12/2023 10:20 AM EDT Office Visit [address] [address] Sharri Mc MD [address] [place] [address] [place] [address] Pending Results Name Type Priority Associated Diagnoses Date /Time BASIC METABOLIC PANEL Lab Routine Primary hypertension Stage 3a chronic kidney disease (HCC) 06/14/2023 12:20 PM EDT Scheduled Orders Name Type Priority Associated Diagnoses Orde r Schedule BASIC METABOLIC PANEL Lab Routine Stage 3a chronic kidney disease (HCC) Expected: 06/14/2023 (Approximate), Expires: 06/13/2024 Scheduled Referrals Name Type Priority Associated Diagnoses [...] 05/02/2024 05/02/2023, 10/17 CKD HGB USE SMARTSET 81479 05/02/202405/02, 05/02/2023, 10/28/2021, Additional history exists CKD PHOS USE SMARTSET 28326 05/02/2024 05/02/2023, 0 10/30/2018 O2 ASSESSMENT COMPLETED [...] as of this encounter Visit Diagnoses Diagnosis Hypertension goal BP (blood pressure) < 140/90- Primary Unspecified essential hypertension Stage 3a chronic kidney disease (HCC) COPD, severe (HCC) Chronic airway obstruction, not elsewhere classified Ambulatory dysfunction Other specified hearing loss of both ears documented in this encounter Care Teams Pipe Stem Aligner Relationship Specialty Start Date End Date Sharri Mc MD [address] [place] [address] [place] [phone] PCP - General Family Medicine 05/10/23 documented as of this encounter"
--- OUTSIDE RECORDS SUMMARY | 2023-07-22 16:52 | External Medical Summary | Summary of Care ---
Author Name Unknown Organization [facility] [address] [facility] [place] [address] Phone [phone] Care Team Providers Care Interdisciplinary Professor Name Role Phone Unavailable Primary Care Provider Unavailabl e Reason for Visit * Reason Onset Date Comments Medication Refill 04/25/2023 Encounter Details Date Type Department Care Team (Late st Contact Info) Description 04/25/2023 Refill Family Medicine [address] [place] [phone] [place] [address] Bilateral edema of lower extremity Allergies Active Allergy Reactions Criticality Noted Date Comments Codeine 12/22/2014 Ringing in her head documented as of this encounter (statuses as of 04/25/2023) Medications Medication Sig Dispensed Refills Start Date [...] Respimat 2.5 MCG/ACT Inhalation Aerosol Solution (Tiotropium [place] Monohydrate)Indica tions:COPD, severe (HCC) INHALE 2 PUFFS [...] J 44.9 120 mL 0 04/23/2023 Active Furosemide 40 MG Oral Tablet (Lasix)Indications :Bilateral edema of lower extremity TAKE 1 TABLET BY MOUTH EVERY DAY IN THE MORNING 30 Tablet 0 04/25/2023 Active Furosemide 40 MG Oral Tablet (Lasix)Indications :Bilateral edema of lower extremity TAKE 1 TABLET BY MOUTH EVERY DAY IN THE MORNING 30 Tablet 0 03/02/2023 Discontinue d(Refill) documented as of this encounter (statuses as of 04/25/2023) Active Problems Problem Noted Date Diagnosed Date Stage 3a chronic kidney disease 10/28/2021 Overview: EGFR 58 Adrenal nodule 02/11/2019 Peripheral vascular disease 08/22/2018 Primary hypertension 12/22/2014 COPD, severe 12/22/2014 Dyslipidemia, goal LDL below 100 12/22/2014 Tobacco abuse Apnea, sleep documented as of this encounter (statuses as of 04/25/2023) Resolved Problems Problem Noted Date Diagnosed Date [...] as of this encounter (statuses as of 04/25/2023) Immunizations Name Administration Dates Next Due COVID-19 [...] Telephone Encounter - Yasmeen Lowry PA-C - 04/25/2023 1:45 PM ESTSigned Prescriptions: Disp Refills Furosemide 40 MG Oral Tablet (Lasix) 30 Tab*0 Sig: TAKE 1 TABLET BY MOUTH EVERY DAY IN THE MORNING Authorizing Provider: YASMEEN LOWRY * Telephone Encounter - Marianne Cha RN - 04/25/2023 10:37 AM ESTPending Prescriptions: Disp Refills Furosemide 40 MG Oral Tablet (Lasix) 30 Tab*0 Sig: TAKE 1 TABLET BY MOUTH EVERY DAY IN THE MORNING * Telephone Encounter - Adrienne Figueredo OSA - 04/25/2023 8:27 AM EST Did you pend patient's preferred pharmacy and medication before forwarding?yes Pharmacy: [id number] Pending Prescriptions: Disp Refills Furosemide 40 MG Oral Tablet (Lasix) 30 Tab*0 Sig: TAKE 1 TABLET BY MOUTH EVERY DAY IN THE MORNING Last Visit: 01/18/2022 (in office), Visit date not found (telemedicine) Next Visit: 05/02/2023 If no future appointments scheduled, and last appointment is greater than a year ago, please schedule patient for a follow-up appointment Last date the medication was ordered: 03/02/2023 Is this request for a controlled substance?No [...] 2:00 PM EST Office Visit Family Medicine [address] [place] [phone] Yasmeen Lowry PA-C [address] [place] [address] [place] [address] Health Maintenance Due Date Last Done Comments Alpha-1 Antitrypsin 07/16/1965 O2 ASSESSMENT COMPLETED IN PAST YEAR FOR COPD 07/16/1965 Zoster Vaccines (1 of 2) 07/16/1997 *ADVANCE DIRECTIVE NOT ON FILE 10/20/2018 CKD PHOS USE SMARTSET 08810 10/31/2019 10/30/2018 DXA Scan 06/21/2020 06/22/2015 Depression Screening 07/21/2021 07/21/2020 GFR 07/18/2022 01/18/2022, 10/17, 07/09/2020, Additional history exists Albumin/Creatinine Ratio 10/28/2022 10/28/2021 CKD HGB USE SMARTSET 13284 10/28/202210/28, 10/28/2021, 07/09/2020, Additional history exists COVID-19 [...] as of this encounter Visit Diagnoses Diagnosis Bilateral edema of lower extremity Edema documented in this encounter
--- OUTSIDE RECORDS SUMMARY | 2023-07-22 16:52 | External Medical Summary ---
Author Name Unknown Address Unknown Organization K01:[facility] [place] - [address] [place] [address] Laboratory Report Ordering Provider Test Date Status ERA CARTAGENA 05/02/2023 14:25:06 Final Normal: <30 mg/g creatinine< br/>High: 30-300 mg/g creatinine
Very High: >300 mg/g creatinine
Nephrotic: >2200 mg/g creatinine Observation Date Value Abnormality Reference (Units ) Status Albumin, Urine 05/02/2023 14:25:06 4.95 (mg/dL) Final Creatinine, Urine 05/02/2023 14:25:06 64 (mg/dL) Final Albumin/Creatinine [Mass Ratio] in Urine 05/02/2023 14:25:06 77 Above high normal <30 (mg/g Creat) Final Performing Location [facility] [place] - [address] [place] [address]
--- OUTSIDE RECORDS SUMMARY | 2023-07-22 16:52 | External Medical Summary | Summary of Care ---
Author Name Unknown Organization [facility] Address [address] [facility] [place] [address] Phone [phone] Care Team Providers Care Rural Carrier Associate Name Role Phone Sharri Mc MD Primary Care Provide r Reason for Visit * Reason Comments eRx-Medication Refill Encounter Details Date Type Department Care Team (Late st Contact Info) Description 06/11/2023 Refill Family Medicine [address] [place] [phone] Yasmeen Lowry PA-C [address] [place] [address] [place] [phone] COPD, severe (HCC) Allergies Active Allergy Reactions Criticality Noted Date Comments Codeine 12/22/2014 Ringing in her head documented as of this encounter (statuses as of 06/12/2023) Medications Medication Sig Dispensed Refills Start Date [...] Respimat 2.5 MCG/ACT Inhalation Aerosol Solution (Tiotropium [place] Monohydrate)Indic ations:COPD, severe (HCC) INHALE 2 PUFFS [...] BEFORE BEDTIME 54 g 1 06/12/2023 Active Ventolin HFA 108 (90 Base) MCG/ACT Inhalation Aerosol SolutionIndicatio ns:COPD, severe (HCC) Inhale 2 Puffs by mouth in the morning and 2 Puffs at noon and 2 Puffs in the evening and 2 Puffs before bedtime. 18 g 1 04/20/2023 06/12/19 24 Discontinued documented as of this encounter (statuses as of 06/12/2023) Active Problems Problem Noted Date Diagnosed Date Stage 3a chronic kidney disease 10/28/2021 Overview: EGFR 58 Adrenal nodule 02/11/2019 Peripheral vascular disease 08/22/2018 Primary hypertension 12/22/2014 COPD, severe 12/22/2014 Dyslipidemia, goal LDL below 100 12/22/2014 Tobacco abuse Apnea, sleep documented as of this encounter (statuses as of 06/12/2023) Resolved Problems Problem Noted Date Diagnosed Date [...] as of this encounter (statuses as of 06/12/2023) Immunizations Name Administration Dates Next Due COVID-19 [...] encounter Miscellaneous Notes * Telephone Encounter - Vikas Retana [facility] - 06/12/2023 10:03 AM EDTSigned Prescriptions: Disp Refills Albuterol Sulfate HFA 108 (90 Base) MCG/AC*54 g 1 Sig: INHALE 2 PUFFS BY MOUTH IN THE MORNING AT AT NOON IN THE EVENING AND BEFORE BEDTIMEAuthorizing Provider: YASMEEN LOWRY User: VIKAS LEDESMA documented in this encounter Plan of Treatment Upcoming Encounters Date Type Department Care Team (Late st Contact Info) Description 06/14/2023 11:40 AM EDT Office [place] [address] [place] [phone] Chrissy Mays CRNP [address] [place] [address] [place] [address] 11/12/2023 10:20 AM EDT Office Visit [address] [place] [phone] Sharri Mc MD [address] [place] [address] [place] [address] Health Maintenance Due Date Last Done Comments Alpha-1 Antitrypsin 07/16/1965 O2 ASSESSMENT COMPLETED IN PAST YEAR FOR COPD 07/16/1965 Zoster Vaccines (1 of 2) 07/16/1997 *ADVANCE DIRECTIVE NOT ON FILE 10/20/2018 DXA Scan 06/21/2020 06/22/2015 Depression Screening 07/21/2021 07/21/2020 COVID-19 Vaccine ( season) 2022 09/01/2020, 08/03/2020 GFR 10/31/2023 05/02/2023, 04/2021, 10/28/2021, Additional history exists Albumin/Creatinine Ratio 05/02/2024 05/02/2023, 10/17 CKD HGB USE SMARTSET 82888 05/02/202405/02, 05/02/2023, 10/28/2021, Additional history exists CKD PHOS USE SMARTSET 08186 05/02/2024 05/02/2023, 0 10/30/2018 DTaP,Tdap,and Td Vaccines [...] classified documented in this encounter Care Teams Rural Carrier Associate Relationship Specialty Start Date End Date Sharri Mc MD [address] [place] [address] [place] [phone] PCP - General Family Medicine 05/10/23 documented as of this encounter
--- OUTSIDE RECORDS SUMMARY | 2023-07-22 16:52 | External Medical Summary ---
Author Name Unknown Address Unknown Organization K01:[facility] [address] [place] [address] Laboratory Report Ordering Provider Test Date Status JOSELITO LINCOLN 05/02/2023 14:25:06 Final Observation Date Value Abnormality Reference (Units ) Status Parathyrin.intact [Mass/volume] in Serum or Plasma 05/02/2023 14:25:06 45 15-65 (pg/mL) Final Performing Location [facility] [place] [address] [place] [address]
--- OUTSIDE RECORDS SUMMARY | 2023-07-22 16:52 | External Medical Summary | Summary of Care ---
Author Name Unknown Organization [facility] Address [address] [place] [address] Phone [phone] Care Team Providers Care Insole Stiffener Name Role Phone Sharri Mc MD Primary Care Provide r Reason for Visit * Reason Comments eRx-Medication Refill Encounter Details Date Type Department Care Team (Late st Contact Info) Description 05/23/2023 Refill Family Medicine [address] [place] [phone] Mitesh Kerr MD [address] [place] [address] [place] [address] Dyslipidemia, goal LDL below 100 Allergies Active Allergy Reactions Criticality Noted Date Comments Codeine 12/22/2014 Ringing in her head documented as of this encounter (statuses as of 05/24/2023) Medications Medication Sig Dispensed Refills Start Date [...] Respimat 2.5 MCG/ACT Inhalation Aerosol Solution (Tiotropium [place] Monohydrate)Indic ations:COPD, severe (HCC) INHALE 2 PUFFS BY MOUTH EVERY DAY 12 g 1 05/09/2023 Active Atorvastatin Calcium 20 MG Oral Tablet (Lipitor)Indicati ons:Dyslipidemia, goal LDL below 100 TAKE 1 TABLET BY MOUTH EVERYDAY AT BEDTIME 90 Tablet 3 05/24/2023 Active Atorvastatin Calcium 20 MG Oral Tablet (Lipitor)Indicati ons:Dyslipidemia, goal LDL below 100 TAKE 1 TABLET BY MOUTH EVERYDAY AT BEDTIME 90 Tablet 1 11/07/2022 05/24/19 24 Discontinued documented as of this encounter (statuses as of 05/24/2023) Active Problems Problem Noted Date Diagnosed Date Stage 3a chronic kidney disease 10/28/2021 Overview: EGFR 58 Adrenal nodule 02/11/2019 Peripheral vascular disease 08/22/2018 Primary hypertension 12/22/2014 COPD, severe 12/22/2014 Dyslipidemia, goal LDL below 100 12/22/2014 Tobacco abuse Apnea, sleep documented as of this encounter (statuses as of 05/24/2023) Resolved Problems Problem Noted Date Diagnosed Date [...] as of this encounter (statuses as of 05/24/2023) Immunizations Name Administration Dates Next Due COVID-19 [...] encounter Miscellaneous Notes * Telephone Encounter - Janes Nicholas RPh - 05/24/2023 1:28 PM EST Signed Prescriptions: Disp Refills Atorvastatin Calcium 20 MG Oral Tablet (Li*90 Tab*3 Sig: TAKE 1 TABLET BY MOUTH EVERYDAY AT BEDTIMEAuthorizing Provider: Ryne MC User: JANES NICHOLAS documented in this encounter Plan of Treatment Upcoming Encounters Date Type Department Care Team (Late st Contact Info) Description 11/12/2023 10:20 AM EDT Office Visit Family Medicine [address] [phone] Sharri Mc MD [address] [place] [address] [place] [address] Health Maintenance Due Date Last Done Comments Alpha-1 Antitrypsin 07/16/1965 O2 ASSESSMENT COMPLETED IN PAST YEAR FOR COPD 07/16/1965 Zoster Vaccines (1 of 2) 07/16/1997 *ADVANCE DIRECTIVE NOT ON FILE 10/20/2018 DXA Scan 06/21/2020 06/22/2015 Depression Screening 07/21/2021 07/21/2020 COVID-19 Vaccine ( season) 2022 09/01/2020, 08/03/2020 GFR 10/31/2023 05/02/2023, 04/2021, 10/28/2021, Additional history exists Albumin/Creatinine Ratio 05/02/2024 05/02/2023, 10/17 CKD HGB USE SMARTSET 50344 05/02/202405/02, 05/02/2023, 10/28/2021, Additional history exists CKD PHOS USE SMARTSET 58652 05/02/2024 05/02/2023, 0 10/30/2018 DTaP,Tdap,and Td Vaccines [...] as of this encounter Visit Diagnoses Diagnosis Dyslipidemia, goal LDL below 100 Other and unspecified hyperlipidemia documented in this encounter Care Teams Insole Stiffener Relationship Specialty Start Date End Date Sharri Mc MD [address] [place] [address] [place] [address] PCP - General Family Medicine 05/10/23 documented as of this encounter
--- OUTSIDE RECORDS SUMMARY | 2023-07-22 16:52 | External Medical Summary | Summary of Care ---
Author Name Unknown Organization [facility] Address [address] [place] [address] Phone [phone] Care Team Providers Care Electrotherapist Name Role Phone Sharri Mc MD Primary Care Provide r Reason for Referral * Ancillary Services (Within 30 days (routine)) - Authorized Specialty Diagnoses / Procedures Referred By Nemo soria Referred To Contact Audiology Diagnoses Other specified hearing loss of both ears Chrissy Mays CRNP [address] [place] [address] [place] [address] Referral ID Status Reason Start Date Expiration Date Visits Requested Visits Authorized [id number] Authorized Ancillary Services Required 06/14/2023 999 999 [...] 11:40 AM EDT Office Visit Family Medicine [address] [place] [address] Chrissy Mays CRNP [address] [place] [address] [place] [address] Hypertension goal BP (blood pressure) < 140/90*; [...] Respimat 2.5 MCG/ACT Inhalation Aerosol Solution (Tiotropium [place] Monohydrate)Indic ations:COPD, severe (HCC) INHALE 2 PUFFS [...] Respimat 2.5 MCG/ACT Inhalation Aerosol Solution (Tiotropium [place] Monohydrate) INHALE 2 PUFFS BY MOUTH EVERY [...] exacerbation of chronic obstructive pulmonary disease (COPD) ([facility]) 06/20/2018 admitted [facility] Acute exacerbation of chronic obstructive pulmonary disease (COPD) ([facility]) 10/27/2018 [facility] Apnea, sleep Chronic respiratory failure ([facility]) Dyslipidemia, goal LDL below 100 12/22/2014 [...] 100 Moderate COPD (chronic obstructive pulmonary disease) ([facility]) Need for hepatitis C screening test 04/06/2015 negative Nodule of right lung Stage 3a chronic kidney disease ([facility]) 10/28/2021 EGFR 58 Tobacco abuse Past [...] Faxed DME, office visit and demographics to [facility]. * Delmy Gonsalves LPN - 06/14/2023 11:16 AM EDT C/o trouble hearing for months. Wants wheel chair. documented in this encounter Plan of Treatment Upcoming Encounters Date Type Department Care Team (Late st Contact Info) Description 2023 9:00 AM EDT Office Visit [address] [phone] Chrissy Mays CRNP [address] [place] [address] [place] [address] 09/25/2023 9:00 AM EDT Office Visit Audiology [facility] [address] [place] [address] Tabatha Adhikari Au.D. [address] [place] [address] 11/12/2023 10:20 AM EDT Office Visit Family Medicine [address] [phone] Sharri Mc MD [address] [place] [address] [place] [address] Pending Results Name Type Priority Associated Diagnoses [...] 05/02/2024 05/02/2023, 10/17 CKD HGB USE SMARTSET 75202 05/02/202405/02, 05/02/2023, 10/28/2021, Additional history exists CKD PHOS USE SMARTSET 35034 05/02/2024 05/02/2023, 0 10/30/2018 O2 ASSESSMENT COMPLETED [...] ears documented in this encounter Care Teams Electrotherapist Relationship Specialty Start Date End Date Sharri Mc MD [address] [place] [address] [place] [address] PCP - General Family Medicine 05/10/23 documented as of this encounter"
--- OUTSIDE RECORDS SUMMARY | 2023-07-22 16:53 | External Medical Summary | Summary of Care ---
Author Name Unknown Organization [facility] Address [address] [facility] [place] [place] [address] Phone [phone] Care Team Providers Care Associate Account Executive Name Role Phone Mitesh Conklin MD Primary Care Provider Reason for Visit * Reason Comments eRx-Medication Refill Encounter Details Date Type Department Care Team (Late st Contact Info) Description 04/01/2023 Refill Family Medicine [address] [place] [address] Mitesh Conklin MD [address] [place] [address] [place] [address] Stage 3a chronic kidney disease (HCC)*; Primary hypertension; Peripheral vascular disease (HCC); Encounter for long-term (current) use of other medications Allergies Active Allergy Reactions Criticality Noted Date Comments Codeine 12/22/2014 Ringing in her head documented as of this encounter (statuses as of 04/04/2023) Medications Medication Sig Dispensed Refills Start Date [...] Respimat 2.5 MCG/ACT Inhalation Aerosol Solution (Tiotropium [place] Monohydrate)Indic ations:COPD, severe (HCC) INHALE 2 PUFFS BY MOUTH EVERY DAY 12 g 1 11/07/2022 Active Atorvastatin Calcium 20 MG Oral Tablet (Lipitor)Indicati ons:Dyslipidemia, goal LDL below 100 TAKE 1 TABLET BY MOUTH EVERYDAY AT BEDTIME 90 Tablet 1 11/07/2022 Active Pentoxifylline ER 400 MG Oral Tablet Extended Release (TRENtal)Indicati ons:Primary hypertension TAKE 1 TABLET BY MOUTH THREE TIMES A DAY 270 Tablet 1 11/28/2022 Active Symbicort 160-4.5 MCG/ACT Inhalation Aerosol (Budesonide-Formo terol)Indications :COPD, severe (HCC) TAKE 2 PUFFS BY MOUTH TWICE A DAY 30.6 g 1 12/20/2022 Active amLODIPine Besylate 5 MG Oral Tablet (Norvasc)Indicati ons:Primary hypertension TAKE 1 TABLET BY MOUTH EVERY DAY 90 Tablet 0 01/22/2023 Active Losartan Potassium 50 MG Oral Tablet (Cozaar)Indicatio ns:Primary hypertension TAKE BY MOUTH 1 TABLET IN THE MORNING. WITH 25 MG FOR 75 MG DOSE. 90 Tablet 1 02/06/2023 Active Ventolin HFA 108 (90 Base) MCG/ACT Inhalation Aerosol SolutionIndicatio ns:COPD, severe (HCC) INHALE 2 PUFFS BY MOUTH 4 TIMES A DAY 18 g 1 03/01/2023 Active Furosemide 40 MG Oral Tablet (Lasix)Indication s:Bilateral edema of lower extremity TAKE 1 TABLET BY MOUTH EVERY DAY IN THE MORNING 30 Tablet 0 03/02/2023 Active Losartan Potassium 25 MG Oral Tablet (Cozaar)Indicatio ns:Primary hypertension TAKE 1 TAB BY MOUTH DAILY. TAKE ALONG WITH 50MG TABLET TO EQUAL 75MG DAILY 90 Tablet 1 04/04/2023 Active Losartan Potassium 25 MG Oral Tablet (Cozaar)Indicatio ns:Primary hypertension TAKE 1 TAB BY MOUTH DAILY. TAKE ALONG WITH 50MG TABLET TO EQUAL 75MG DAILY 90 Tablet 1 10/07/2022 04/04/19 24 Discontinued documented as of this encounter (statuses as of 04/04/2023) Active Problems Problem Noted Date Diagnosed Date Stage 3a chronic kidney disease 10/28/2021 Overview: EGFR 58 Adrenal nodule 02/11/2019 Peripheral vascular disease 08/22/2018 Primary hypertension 12/22/2014 COPD, severe 12/22/2014 Dyslipidemia, goal LDL below 100 12/22/2014 Tobacco abuse Apnea, sleep documented as of this encounter (statuses as of 04/04/2023) Resolved Problems Problem Noted Date Diagnosed Date [...] as of this encounter (statuses as of 04/04/2023) Immunizations Name Administration Dates Next Due COVID-19 [...] encounter Miscellaneous Notes * Telephone Encounter - Mitesh Conklin MD - 04/04/2023 11:28 AM ESTSigned Prescriptions: Disp Refills Losartan Potassium 25 MG Oral Tablet (Coza*90 Tab*1 Sig: TAKE 1 TAB BY MOUTH DAILY. TAKE ALONG WITH 50MG TABLET TO EQUAL 75MG DAILY Authorizing Provider: MITESH CONKLIN * Telephone Encounter - Pia Morse CPhT - 04/03/2023 1:08 PM ESTPending Prescriptions: Disp Refills Losartan Potassium 25 MG Oral Tablet (Coza*90 Tab*1 Sig: TAKE 1 TAB BY MOUTH DAILY. TAKE ALONG WITH 50MG TABLET TO EQUAL 75MG DAILY * Telephone Encounter - Pia Morse CPhT - 04/03/2023 1:07 PM EST Received message from [facility] regarding patient needing appointment and labs. Placed call to patient toadvise. Unable to reach pt, as there was no answer and no VM available to leave message. Letter created and sent to patient. Thank you, Pia Morse CPhT Cloth Framer II [facility] ( Formerly Telepharmacy) 04/03/2023,1:07 PM * Telephone Encounter - Kayce Martins [facility] - 04/02/2023 3:22 PM ESTPending Prescriptions: Disp Refills Losartan Potassium 25 MG Oral Tablet (Coza*90 Tab*1 Sig: TAKE 1 TAB BY MOUTH DAILY. TAKE ALONG WITH 50MG TABLET TO EQUAL 75MG DAILY * Telephone Encounter - Kayce Martins [facility] - 04/02/2023 3:22 PM EST Pending Prescriptions: Disp Refills Losartan Potassium 25 MG Oral Tablet (Coz*90 Tab*1 Sig: TAKE 1 TAB BY MOUTH DAILY. TAKE ALONG WITH 50MG TABLET TO EQUAL 75MG DAILY Last Visit: 01/18/2022 (in office), Visit date not found (telemedicine) Next Visit: Visit date not found If no future appointments scheduled, and last appointment is greater than a year ago, please schedule patient for a follow-up appointment Last date the medication was ordered: 10/07/22 Pharmacy: [id number] [id number] [facility] Is this request for a controlled substance? No Urine Drug Screen:No results found for this [...] 02:50 PM ALT 16 12/27/2016 10:29 AM * Telephone Encounter - Kayce Martins RPh - 04/02/2023 3:17 PM EST Unable to authorize medication refills for pended medication(s) at this time. Part of the protocol criteria used for refill authorization was not satisfied. Per refill protocol patient should have annual labs + BP reading on file within past year. ReviewedAMP report, Care Gaps/Health Maintenance, medications list, and for any routine labs typically ordered for this patient. Lab orders placed. Please contact patient to schedule office visit with PRIMARY CARE and advise of labs ordered for blood draw AND URINE specimen (patient will have to be able to void to provide sample).. Recommend patient to fast if able for labs. Patient may still have water and regular medications. Advise to obtain labs before requesting the next refill. Last Visit: 01/18/2022 (in office), Visit date not found (telemedicine) Next Visit: Visit date not found After contacting patient, please forward request to Mitesh Conklin MD. Thank you, Kayce Martins, PharmD Clinical Pharmacist [facility] ([facility]) 04/02/23 3:17 PM [phone] documented in this encounter Plan of Treatment Scheduled Orders Name Type Priority Associated Diagnoses Orde r Schedule BASIC METABOLIC PANEL Lab Routine Primary hypertension Stage 3a chronic kidney disease (HCC) Peripheral vascular disease (HCC) Encounter for long-term (current) use of other medications Expected: 04/09/2023 (Approximate), Expires: 04/02/2024 PTH Lab Routine Primary hypertension Stage 3a chronic kidney disease (HCC) Peripheral vascular disease (HCC) Encounter for long-term (current) use of other medications Expected: 04/09/2023 (Approximate), Expires: 04/02/2024 Health Maintenance Due Date Last Done Comments Alpha-1 Antitrypsin 07/16/1965 O2 ASSESSMENT COMPLETED IN PAST YEAR FOR COPD 07/16/1965 Zoster Vaccines (1 of 2) 07/16/1997 *ADVANCE DIRECTIVE NOT ON FILE 10/20/2018 CKD PHOS USE SMARTSET 65739 10/31/2019 10/30/2018 DXA Scan 06/21/2020 06/22/2015 Depression Screening 07/21/2021 07/21/2020 GFR 07/18/2022 01/18/2022, 10/17, 07/09/2020, Additional history exists Albumin/Creatinine Ratio 10/28/2022 10/28/2021 CKD HGB USE SMARTSET 30150 10/28/202210/28, 10/28/2021, 07/09/2020, Additional history exists COVID-19 [...] as of this encounter Visit Diagnoses Diagnosis Stage 3a chronic kidney disease (HCC)- Primary Primary hypertension Unspecified essential hypertension Peripheral vascular disease (HCC) Peripheral vascular disease, unspecified Encounter for long-term (current) use of other medications documented in this encounter Care Teams Associate Account Executive Relationship Specialty Start Date End Date Mitesh Conklin MD [address] [place] [address] [place] [id number] PCP - General Family Medicine 12/22/14 documented as of this encounter
--- OUTSIDE RECORDS SUMMARY | 2023-07-22 16:53 | External Medical Summary | Summary of Care ---
Author Name Unknown Organization [facility] Address [address] [facility] [address] Phone [phone] Care Team Providers Care Assembler And Tester Electronics Name Role Phone Mitesh Conklin MD Primary Care Provider Reason for Visit * Reason Comments eRx-Medication Refill Encounter Details Date Type Department Care Team (Late st Contact Info) Description 11/06/2022 Refill Family Medicine [address] [place] [address] Mitesh Conklin MD [address] [place], [place] [address]MI[place]on [address] Encounter for long-term (current) use of medications*; Dyslipidemia, goal LDL below 100 Allergies Active Allergy Reactions Criticality Noted Date Comments Codeine 12/22/2014 Ringing in her head documented as of this encounter (statuses as of 02/01/2023) Medications Medication Sig Dispensed Refills Start Date [...] EVERY DAY 90 Tablet 0 10/06/2021 Active Furosemide 40 MG Oral Tablet (Lasix)Indication s:Bilateral edema of lower extremity Take by mouth 1 Tablet in the morning. 30 Tablet 11 01/18/2022 Active Losartan Potassium 50 MG Oral Tablet (Cozaar)Indicatio ns:Primary hypertension TAKE BY MOUTH 1 TABLET IN THE MORNING. WITH 25 MG FOR 75 MG DOSE. 90 Tablet 1 10/07/2022 Active Losartan Potassium 25 MG Oral Tablet (Cozaar)Indicatio ns:Primary hypertension TAKE 1 TAB BY MOUTH DAILY. TAKE ALONG WITH 50MG TABLET TO EQUAL 75MG DAILY 90 Tablet 1 10/07/2022 Active Spiriva Respimat 2.5 MCG/ACT Inhalation Aerosol Solution (Tiotropium [place] Monohydrate)Indic ations:COPD, severe (HCC) INHALE 2 PUFFS BY MOUTH EVERY DAY 12 g 1 11/07/2022 Active Atorvastatin Calcium 20 MG Oral Tablet (Lipitor)Indicati ons:Dyslipidemia, goal LDL below 100 TAKE 1 TABLET BY MOUTH EVERYDAY AT BEDTIME 90 Tablet 1 11/07/2022 Active Symbicort 160-4.5 MCG/ACT Inhalation Aerosol (budesonide-formo terol)Indications :COPD, severe (HCC) TAKE 2 PUFFS BY MOUTH TWICE A DAY 30.6 g 1 10/06/2021 12/21/19 23 Discontinued Ventolin HFA 108 (90 Base) MCG/ACT Inhalation Aerosol SolutionIndicatio ns:COPD, severe (HCC) INHALE 2 PUFFS BY MOUTH 4 TIMES A DAY 54 g 1 06/15/2022 11/29/19 23 Discontinued Atorvastatin Calcium 20 MG Oral Tablet (Lipitor)Indicati ons:Dyslipidemia, goal LDL below 100 TAKE 1 TABLET BY MOUTH EVERYDAY AT BEDTIME 90 Tablet 1 06/15/2022 11/08/19 23 Discontinued Pentoxifylline ER 400 MG Oral Tablet Extended Release (TRENtal)Indicati ons:Primary hypertension TAKE 1 TABLET BY MOUTH THREE TIMES A DAY 270 Tablet 1 07/29/2022 11/29/19 23 Discontinued amLODIPine Besylate 5 MG Oral Tablet (Norvasc)Indicati ons:Primary hypertension TAKE 1 TABLET BY MOUTH EVERY DAY 90 Tablet 1 07/29/2022 01/23/20 23 Discontinued documented as of this encounter (statuses as of 02/01/2023) Active Problems Problem Noted Date Diagnosed Date Stage 3a chronic kidney disease 10/28/2021 Overview: EGFR 58 Adrenal nodule 02/11/2019 Peripheral vascular disease 08/22/2018 Primary hypertension 12/22/2014 COPD, severe 12/22/2014 Dyslipidemia, goal LDL below 100 12/22/2014 Tobacco abuse Apnea, sleep documented as of this encounter (statuses as of 02/01/2023) Resolved Problems Problem Noted Date Diagnosed Date [...] as of this encounter (statuses as of 02/01/2023) Immunizations Name Administration Dates Next Due COVID-19 mRNA, LNP-s, No Pre serve, 2-Dose Series (Moderna) 09/01/2020,08/03/2020 DTaP Dipth/Tet/Acell Pertussis (Infanrix), Peds 01/07/2019 Pneumococcal Conjugate Vacc, 13 Valent (Prevnar) 03/02/2013 Pneumococcal Polysaccharide PPV23 (Pneumovax) 05/25/2016 SEASONAL INFLUENZA, PF, 6 M & Above, IM , (FLULAVAL or FLUZONE) 12/05/2018,12/31/2017,01/30/2017 Season Influenza, Quad, PF, Adjuvanted, 65+ Yrs, IM (FLUAD) 02/20/2020 Seasonal Influenza, Quadriva lent Hd (Fluzone Hd) [...] encounter Miscellaneous Notes * Telephone Encounter - Debra Husain hvac mechanic - 02/01/2023 6:41 AM EST Received message from [facility] regarding patient needing labs. Letter was sent out to patient to advise. Thank you, Debra Husain Swing Grinder [facility] 02/01/2023,6:41 AM * Telephone Encounter - Vikas Retana [facility] - 11/07/2022 9:53 AM EDTSigned Prescriptions: Disp Refills Atorvastatin Calcium 20 MG Oral Tablet (Li*90 Tab*1 Sig: TAKE 1 TABLET BY MOUTH EVERYDAY AT BEDTIMEAuthorizing Provider: MITESH CONKLIN User: VIKAS MCDONALD * Telephone Encounter - Vikas Retana [facility] - 11/07/2022 9:51 AM EDT Provided 90 days supply with 1 refill(s) until upcoming appointment. Per refill protocol patient should have Lipid panel on file within past year. Reviewed AMP report, Care Gaps/Health Maintenance, medications list, and for any routine labs typically ordered for this patient. Lab orders placed. Please contact patient to advise of labs ordered for blood draw. Fasting is not required. Advise toobtain labs before requesting next refill. Thank You, Vikas Mcdonald [facility] Clinical Pharmacist [facility] ([facility]) (formerly Telepharmacy) 11/07/2022, 9:51 AM * Telephone Encounter - Vikas Retana [facility] - 11/07/2022 9:50 AM EDT Pending Prescriptions: Disp Refills Atorvastatin Calcium 20 MG Oral Tablet (L*90 Tab*1 Sig: TAKE 1 TABLET BY MOUTH EVERYDAY AT BEDTIME Last Visit: 01/18/2022 (in office), Visit date not found (telemedicine) Next Visit: Visit date not found If no future appointments scheduled, and last appointment is greater than a year ago, please schedule patient for a follow-up appointment Last date the medication was ordered: 06/15/22 Pharmacy: [id number] [id number] [facility] Is this request for a controlled substance? [...] Type Priority Associated Diagnoses Orde r Schedule CBC WITH WBC DIFFERENTIAL Lab Routine Encounter for long-term (current) use of medications Expected: 11/07/2022 (Approximate), Expires: 11/08/2023 LIPID PANEL WITH DIRECT LDL IF TG IS HIGH Lab Routine Encounter for long-term (current) use of medications Expected: 11/07/2022 (Approximate), Expires: 11/08/2023 Health Maintenance Due Date Last Done Comments Alpha-1 Antitrypsin 07/16/1965 O2 ASSESSMENT COMPLETED IN PAST YEAR FOR COPD 07/16/1965 Zoster Vaccines (1 of 2) 07/16/1997 *ADVANCE DIRECTIVE NOT ON FILE 10/20/2018 CKD PHOS USE SMARTSET 60920 10/31/2019 10/30/2018 DXA Scan 06/21/2020 06/22/2015 Depression Screening 07/21/2021 07/21/2020 GFR 07/18/2022 01/18/2022, 10/17, 07/09/2020, Additional history exists Albumin/Creatinine Ratio 10/28/2022 10/28/2021 CKD HGB USE SMARTSET 54112 10/28/202210/28, 10/28/2021, 07/09/2020, Additional history exists COVID-19 [...] Diagnosis Encounter for long-term (current) use of medications- Primary Encounter for long-term (current) use of other medications Dyslipidemia, goal LDL below 100 Other and unspecified hyperlipidemia documented in this encounter Care Teams Assembler And Tester Electronics Relationship Specialty Start Date End Date Mitesh Conklin MD [address] [place] [address] [place] [id number] PCP - General Family Medicine 12/22/14 documented as of this encounter
--- OUTSIDE RECORDS SUMMARY | 2023-07-22 16:53 | External Medical Summary | Summary of Care ---
Author Name Unknown Organization [facility] Address [address] [facility] [address] Phone [phone] Care Team Providers Care Jig Mill Operator Name Role Phone Mitesh Conklin MD Primary Care Provider [phone] Reason for Visit * Reason Comments eRx-Medication Refill Encounter Details Date Type Department Care Team (Late st Contact Info) Description 01/21/2023 Refill Family Medicine [address] [place] [address] Mitesh Conklin MD [address] [place] [address] [place] [address] Primary hypertension Allergies Active Allergy Reactions Criticality Noted Date Comments Codeine 12/22/2014 Ringing in her head documented as of this encounter (statuses as of 03/10/2023) Medications Medication Sig Dispensed Refills Start Date [...] EVERY DAY 90 Tablet 0 10/06/2021 Active Losartan Potassium 25 MG Oral Tablet (Cozaar)Indicatio ns:Primary hypertension TAKE 1 TAB BY MOUTH DAILY. TAKE ALONG WITH 50MG TABLET TO EQUAL 75MG DAILY 90 Tablet 1 10/07/2022 Active Spiriva Respimat 2.5 MCG/ACT Inhalation Aerosol Solution (Tiotropium [place] Monohydrate)Indic ations:COPD, severe (HCC) INHALE 2 PUFFS [...] EVERY DAY 90 Tablet 0 01/22/2023 Active Furosemide 40 MG Oral Tablet (Lasix)Indication s:Bilateral edema of lower extremity Take by mouth 1 Tablet in the morning. 30 Tablet 11 01/18/2022 02/07/20 23 Discontinued amLODIPine Besylate 5 MG Oral Tablet (Norvasc)Indicati ons:Primary hypertension TAKE 1 TABLET BY MOUTH EVERY DAY 90 Tablet 1 07/29/2022 01/23/20 23 Discontinued Losartan Potassium 50 MG Oral Tablet (Cozaar)Indicatio ns:Primary hypertension TAKE BY MOUTH 1 TABLET IN THE MORNING. WITH 25 MG FOR 75 MG DOSE. 90 Tablet 1 10/07/2022 02/07/20 23 Discontinued Ventolin HFA 108 (90 Base) MCG/ACT Inhalation Aerosol SolutionIndicatio ns:COPD, severe (HCC) INHALE 2 PUFFS BY MOUTH 4 TIMES A DAY 18 g 1 11/28/2022 03/01/20 23 Discontinued documented as of this encounter (statuses as of 03/10/2023) Active Problems Problem Noted Date Diagnosed Date Stage 3a chronic kidney disease 10/28/2021 Overview: EGFR 58 Adrenal nodule 02/11/2019 Peripheral vascular disease 08/22/2018 Primary hypertension 12/22/2014 COPD, severe 12/22/2014 Dyslipidemia, goal LDL below 100 12/22/2014 Tobacco abuse Apnea, sleep documented as of this encounter (statuses as of 03/10/2023) Resolved Problems Problem Noted Date Diagnosed Date [...] as of this encounter (statuses as of 03/10/2023) Immunizations Name Administration Dates Next Due COVID-19 [...] encounter Miscellaneous Notes * Telephone Encounter - Luke Adame - 03/10/2023 9:08 AM EST Received message from [facility] regarding patient needing appointment. Patient was notified. Successfully contacted patient and provided [facility] message. * Telephone Encounter - Amy Moreira [facility] - 01/22/2023 1:53 PM ESTSigned Prescriptions: Disp Refills amLODIPine Besylate 5 MG Oral Tablet (Norv*90 Tab*0 Sig: TAKE 1 TABLET BY MOUTH EVERY DAY Authorizing Provider: MITESH CONKLIN Ordering User: AMY MOREIRA * Telephone Encounter - Amy Moreira RPh - 01/22/2023 1:52 PM EST Please contact patient so that an appointment can be scheduled with her PRIMARY CARE provider. Refill authorized to hold patient over in the mean time. Last Visit: 01/18/2022 (in office), Visit date not found (telemedicine) Next Visit: Visit date not found Amy Sorensen Clinical Pharmacist [facility] ([facility]) (Formerly Telepharmacy) [phone] 01/22/2023, 1:52 PM documented in this encounter Plan of Treatment Health Maintenance Due Date Last Done Comments Alpha-1 Antitrypsin 07/16/1965 O2 ASSESSMENT COMPLETED IN PAST YEAR FOR COPD 07/16/1965 Zoster Vaccines (1 of 2) 07/16/1997 *ADVANCE DIRECTIVE NOT ON FILE 10/20/2018 CKD PHOS USE SMARTSET 39222 10/31/2019 10/30/2018 DXA Scan 06/21/2020 06/22/2015 Depression Screening 07/21/2021 07/21/2020 GFR 07/18/2022 01/18/2022, 0804/2021, 07/09/2020, Additional history exists Albumin/Creatinine Ratio 10/28/2022 10/28/2021 CKD HGB USE SMARTSET 11218 10/28/202210/28, 10/28/2021, 07/09/2020, Additional history exists COVID-19 Vaccine (3 - 2022- season) 2022 09/01/2020, 08/03/2020 Influenza Vaccine (FLU [...] Unspecified essential hypertension documented in this encounter Care Teams Jig Mill Operator Relationship Specialty Start Date End Date Mitesh Conklin MD [address] [place] [address] [place] [phone] PCP - General Family Medicine 12/22/14 documented as of this encounter
--- OUTSIDE RECORDS SUMMARY | 2023-07-22 16:53 | External Medical Summary | Summary of Care ---
Author Name Unknown Organization [facility] Address [address] [facility] [address] Phone [phone] Care Team Providers Care Air Conditioning Sheet Metal Installer Name Role Phone Mitesh Conklin MD Primary Care Provider Reason for Visit * Reason Comments eRx-Medication Refill Encounter Details Date Type Department Care Team (Late st Contact Info) Description 03/01/2023 Refill Family Medicine [address] [place] [address] Mitesh Conklin MD [address] [place] [address] [place] [address] COPD, severe (HCC) Allergies Active Allergy Reactions Criticality Noted Date Comments Codeine 12/22/2014 Ringing in her head documented as of this encounter (statuses as of 03/01/2023) Medications Medication Sig Dispensed Refills Start Date [...] Respimat 2.5 MCG/ACT Inhalation Aerosol Solution (Tiotropium [place] Monohydrate)Indic ations:COPD, severe (HCC) INHALE 2 PUFFS [...] DAY IN THE MORNING 30 Tablet 0 02/06/2023 Active Losartan Potassium 50 MG Oral Tablet (Cozaar)Indicatio ns:Primary hypertension TAKE BY MOUTH 1 TABLET IN THE MORNING. WITH 25 MG FOR 75 MG DOSE. 90 Tablet 1 02/06/2023 Active Ventolin HFA 108 (90 Base) MCG/ACT Inhalation Aerosol SolutionIndicatio ns:COPD, severe (HCC) INHALE 2 PUFFS BY MOUTH 4 TIMES A DAY 18 g 1 03/01/2023 Active Ventolin HFA 108 (90 Base) MCG/ACT Inhalation Aerosol SolutionIndicatio ns:COPD, severe (HCC) INHALE 2 PUFFS BY MOUTH 4 TIMES A DAY 18 g 1 11/28/2022 03/01/20 23 Discontinued documented as of this encounter (statuses as of 03/01/2023) Active Problems Problem Noted Date Diagnosed Date Stage 3a chronic kidney disease 10/28/2021 Overview: EGFR 58 Adrenal nodule 02/11/2019 Peripheral vascular disease 08/22/2018 Primary hypertension 12/22/2014 COPD, severe 12/22/2014 Dyslipidemia, goal LDL below 100 12/22/2014 Tobacco abuse Apnea, sleep documented as of this encounter (statuses as of 03/01/2023) Resolved Problems Problem Noted Date Diagnosed Date [...] as of this encounter (statuses as of 03/01/2023) Immunizations Name Administration Dates Next Due COVID-19 [...] Telephone Encounter - Mitesh Conklin MD - 03/01/2023 11:36 AM ESTSigned Prescriptions: Disp Refills Ventolin HFA 108 (90 Base) MCG/ACT Inhalat*18 g 1 Sig: INHALE 2 PUFFS BY MOUTH 4 TIMES A DAY Authorizing Provider: MITESH CONKLIN * Telephone Encounter - Jazmyn Faye RPh - 03/01/2023 10:39 AM ESTPending Prescriptions: Disp Refills Ventolin HFA 108 (90 Base) MCG/ACT Inhalat*18 g 1 Sig: INHALE 2 PUFFS BY MOUTH 4 TIMES A DAY * Telephone Encounter - Jazmyn Faye RPh - 03/01/2023 10:36 AM EST Unable to authorize medication refills for pended medication(s) at this time. Part of the protocol criteria used for refill authorization was not satisfied. Patient needs labs and OV. Patient notified previously. Please approve if appropriate. ThanksJazmyn, PharmD Clinical Pharmacist [facility] ([facility]) [phone] 03/01/2023, 10:39 AM documented in this encounter Plan of Treatment Health Maintenance Due Date Last Done Comments Alpha-1 Antitrypsin 07/16/1965 O2 ASSESSMENT COMPLETED IN PAST YEAR FOR COPD 07/16/1965 Zoster Vaccines (1 of 2) 07/16/1997 *ADVANCE DIRECTIVE NOT ON FILE 10/20/2018 CKD PHOS USE SMARTSET 04284 10/31/2019 10/30/2018 DXA Scan 06/21/2020 06/22/2015 Depression Screening 07/21/2021 07/21/2020 GFR 07/18/2022 01/18/2022, 10/17, 07/09/2020, Additional history exists Albumin/Creatinine Ratio 10/28/2022 10/28/2021 CKD HGB USE SMARTSET 78777 10/28/202210/28, 10/28/2021, 07/09/2020, Additional history exists COVID-19 [...] classified documented in this encounter Care Teams Air Conditioning Sheet Metal Installer Relationship Specialty Start Date End Date Mitesh Conklin MD [address] [place] [address] [place] [phone] PCP - General Family Medicine 12/22/14 documented as of this encounter
--- OUTSIDE RECORDS SUMMARY | 2023-07-22 16:53 | External Medical Summary | Summary of Care ---
Author Name Unknown Organization [facility] Address [address] [facility] [address] Phone [phone] Care Team Providers Care Rn Prior Authorization Name Role Phone Mitesh Kerr MD Primary Care Provider [phone] Reason for Visit * Reason Comments eRx-Medication Refill Encounter Details Date Type Department Care Team (Late st Contact Info) Description 02/05/2023 Refill Family Medicine [address] [place] [address] Florencia Bergman PA-C [address] [place] [address] [place] [phone] Bilateral edema of lower extremity Allergies Active Allergy Reactions Criticality Noted Date Comments Codeine 12/22/2014 Ringing in her head documented as of this encounter (statuses as of 02/06/2023) Medications Medication Sig Dispensed Refills Start Date [...] Respimat 2.5 MCG/ACT Inhalation Aerosol Solution (Tiotropium [place] Monohydrate)Indic ations:COPD, severe (HCC) INHALE 2 PUFFS [...] A DAY 270 Tablet 1 11/28/2022 Active Ventolin HFA 108 (90 Base) MCG/ACT Inhalation Aerosol SolutionIndicatio ns:COPD, severe (HCC) INHALE 2 PUFFS BY MOUTH 4 TIMES A DAY 18 g 1 11/28/2022 Active Symbicort 160-4.5 MCG/ACT Inhalation [...] THE MORNING 30 Tablet 0 02/06/2023 Active Furosemide 40 MG Oral Tablet (Lasix)Indication s:Bilateral edema of lower extremity Take by mouth 1 Tablet in the morning. 30 Tablet 11 01/18/2022 02/07/20 23 Discontinued Losartan Potassium 50 MG Oral Tablet (Cozaar)Indicatio ns:Primary hypertension TAKE BY MOUTH 1 TABLET IN THE MORNING. WITH 25 MG FOR 75 MG DOSE. 90 Tablet 1 10/07/2022 02/07/20 23 Discontinued documented as of this encounter (statuses as of 02/06/2023) Active Problems Problem Noted Date Diagnosed Date Stage 3a chronic kidney disease 10/28/2021 Overview: EGFR 58 Adrenal nodule 02/11/2019 Peripheral vascular disease 08/22/2018 Primary hypertension 12/22/2014 COPD, severe 12/22/2014 Dyslipidemia, goal LDL below 100 12/22/2014 Tobacco abuse Apnea, sleep documented as of this encounter (statuses as of 02/06/2023) Resolved Problems Problem Noted Date Diagnosed Date [...] as of this encounter (statuses as of 02/06/2023) Immunizations Name Administration Dates Next Due COVID-19 [...] encounter Miscellaneous Notes * Telephone Encounter - Laure Healy MD - 02/06/2023 1:52 PM EST Signed Prescriptions: Disp Refills Furosemide 40 MG Oral Tablet (Lasix) 30 Tab*0 Sig: TAKE 1 TABLET BY MOUTH EVERY DAY IN THE MORNING Authorizing Provider: LAURE HEALY * Telephone Encounter - Sergio Dumas [facility] - 02/06/2023 1:16 PM EST Pending Prescriptions: Disp Refills Furosemide 40 MG Oral Tablet (Lasix) 30 Tab*0 Sig: TAKE 1 TABLET BY MOUTH EVERY DAY IN THE MORNING * Telephone Encounter - Sergio Dumas RP - 02/06/2023 1:16 PM EST Addressed in another encounter. Due for labs and OV. Thanks, Sergio Dumas, PharmD Clinical Pharmacist [facility] ([facility]) (formerly Telepharmacy) [phone] 02/06/2023,1:16 PM documented in this encounter Plan of Treatment Health Maintenance Due Date Last Done Comments Alpha-1 Antitrypsin 07/16/1965 O2 ASSESSMENT COMPLETED IN PAST YEAR FOR COPD 07/16/1965 Zoster Vaccines (1 of 2) 07/16/1997 *ADVANCE DIRECTIVE NOT ON FILE 10/20/2018 CKD PHOS USE SMARTSET 17733 10/31/2019 10/30/2018 DXA Scan 06/21/2020 06/22/2015 Depression Screening 07/21/2021 07/21/2020 GFR 07/18/2022 01/18/2022, 10/17, 07/09/2020, Additional history exists Albumin/Creatinine Ratio 10/28/2022 10/28/2021 CKD HGB USE SMARTSET 76533 10/28/202210/28, 10/28/2021, 07/09/2020, Additional history exists COVID-19 Vaccine (2022- season) 2022 09/01/2020, 08/03/2020 Influenza Vaccine (FLU [...] Edema documented in this encounter Care Teams Rn Prior Authorization Relationship Specialty Start Date End Date Mitesh Kerr MD [address] [place] [address] [place] [phone] PCP - General Family Medicine 12/22/14 documented as of this encounter
--- OUTSIDE RECORDS SUMMARY | 2023-07-22 16:53 | External Medical Summary | Summary of Care ---
Author Name Unknown Organization [facility] Address [address] [facility] [place] [address] Phone [phone] Care Team Providers Care Halver Machine Operator Name Role Phone Mitesh Kerr MD Primary Care Provider Reason for Visit * Reason Comments eRx-Medication Refill Encounter Details Date Type Department Care Team (Late st Contact Info) Description 04/01/2023 Refill Family Medicine [address] [place] [address] Florencia Bergman PA-C [address] [place] [address] [place] [address] Bilateral edema of lower extremity Allergies Active Allergy Reactions Criticality Noted Date Comments Codeine 12/22/2014 Ringing in her head documented as of this encounter (statuses as of 04/02/2023) Medications Medication Sig Dispensed Refills Start Date [...] Active Losartan Potassium 25 MG Oral Tablet (Cozaar)Indications :Primary hypertension TAKE 1 TAB BY MOUTH DAILY. TAKE ALONG WITH 50MG TABLET TO EQUAL 75MG DAILY 90 Tablet 1 10/07/2022 Active Spiriva Respimat 2.5 MCG/ACT Inhalation Aerosol Solution (Tiotropium [place] Monohydrate)Indicat ions:COPD, severe (HCC) INHALE 2 PUFFS BY MOUTH EVERY DAY 12 g 1 11/07/2022 Active Atorvastatin Calcium 20 MG Oral Tablet (Lipitor)Indication s:Dyslipidemia, goal LDL below 100 TAKE 1 TABLET BY MOUTH EVERYDAY AT BEDTIME 90 Tablet 1 11/07/2022 Active Pentoxifylline ER 400 MG Oral Tablet Extended Release (TRENtal)Indication s:Primary hypertension TAKE 1 TABLET BY MOUTH THREE TIMES A DAY 270 Tablet 1 11/28/2022 Active Symbicort 160-4.5 MCG/ACT Inhalation Aerosol (Budesonide-Formote rol)Indications:VEHICLE UPHOLSTERER D, severe (HCC) TAKE 2 PUFFS BY MOUTH TWICE A DAY 30.6 g 1 12/20/2022 Active amLODIPine Besylate 5 MG Oral Tablet (Norvasc)Indication s:Primary hypertension TAKE 1 TABLET BY MOUTH EVERY DAY 90 Tablet 0 01/22/2023 Active Losartan Potassium 50 MG Oral Tablet (Cozaar)Indications :Primary hypertension TAKE BY MOUTH 1 TABLET IN THE MORNING. WITH 25 MG FOR 75 MG DOSE. 90 Tablet 1 02/06/2023 Active Ventolin HFA 108 (90 Base) MCG/ACT Inhalation Aerosol SolutionIndications :COPD, severe (HCC) INHALE 2 PUFFS BY MOUTH 4 TIMES A DAY 18 g 1 03/01/2023 Active Furosemide 40 MG Oral Tablet (Lasix)Indications: Bilateral edema of lower extremity TAKE 1 TABLET BY MOUTH EVERY DAY IN THE MORNING 30 Tablet 0 03/02/2023 Active documented as of this encounter (statuses as of 04/02/2023) Active Problems Problem Noted Date Diagnosed Date Stage 3a chronic kidney disease 10/28/2021 Overview: EGFR 58 Adrenal nodule 02/11/2019 Peripheral vascular disease 08/22/2018 Primary hypertension 12/22/2014 COPD, severe 12/22/2014 Dyslipidemia, goal LDL below 100 12/22/2014 Tobacco abuse Apnea, sleep documented as of this encounter (statuses as of 04/02/2023) Resolved Problems Problem Noted Date Diagnosed Date [...] as of this encounter (statuses as of 04/02/2023) Immunizations Name Administration Dates Next Due COVID-19 [...] encounter Miscellaneous Notes * Telephone Encounter - Salazar Martins RPh - 04/02/2023 2:52 PM ESTRefused Prescriptions: Disp Refills Furosemide 20 MG Oral Tablet (Lasix) 30 Tab*3 Sig: TAKE 1 TABLET BY MOUTH EVERY DAY IN THE MORNINGRefused By: SALAZAR MARTINSason for Refusal: Other (commentbelow)Reason for Refusal Comment: pt was increased to 40mg on 01/18/22 documented in this encounter Plan of Treatment Health Maintenance Due Date Last Done Comments Alpha-1 Antitrypsin 07/16/1965 O2 ASSESSMENT COMPLETED IN PAST YEAR FOR COPD 07/16/1965 Zoster Vaccines (1 of 2) 07/16/1997 *ADVANCE DIRECTIVE NOT ON FILE 10/20/2018 CKD PHOS USE SMARTSET 60802 10/31/2019 10/30/2018 DXA Scan 06/21/2020 06/22/2015 Depression Screening 07/21/2021 07/21/2020 GFR 07/18/2022 01/18/2022, 10/17, 07/09/2020, Additional history exists Albumin/Creatinine Ratio 10/28/2022 10/28/2021 CKD HGB USE SMARTSET 35173 10/28/202210/28, 10/28/2021, 07/09/2020, Additional history exists COVID-19 [...] Edema documented in this encounter Care Teams Halver Machine Operator Relationship Specialty Start Date End Date Mitesh Kerr MD [address] [place] [address] [place] [address] PCP - General Family Medicine 12/22/14 documented as of this encounter
--- OUTSIDE RECORDS SUMMARY | 2023-07-22 16:53 | External Medical Summary | Summary of Care ---
Author Name Unknown Organization [facility] Address [address] [facility] [facility] [address] Phone [phone] Care Team Providers Care Kennel Manager Name Role Phone Mitesh Kerr MD Primary Care Provider Reason for Visit * Reason Comments eRx-Medication Refill Encounter Details Date Type Department Care Team (Late st Contact Info) Description 02/05/2023 Refill Family Medicine [address] [place] [address] Mitesh Krer MD [address] [place] [address] [place] [address] Primary hypertension; Stage 3a chronic kidney disease [...] Respimat 2.5 MCG/ACT Inhalation Aerosol Solution (Tiotropium [place] Monohydrate)Indic ations:COPD, severe (HCC) INHALE 2 PUFFS [...] 1:52 PM EST Signed Prescriptions: Disp Refills Losartan Potassium 50 MG Oral Tablet (Coza*90 Tab*1 Sig: TAKE BY MOUTH 1 TABLET IN THE MORNING. WITH 25 MG FOR 75 MG DOSE. Authorizing Provider: LAURE HEALY * Telephone Encounter - Alexandrea Davidson CPhT - 02/06/2023 1:23 PM ESTPending Prescriptions: Disp Refills Losartan Potassium 50 MG Oral Tablet (Coza*90 Tab*1 Sig: TAKE BY MOUTH 1 TABLET IN THE MORNING. WITH 25 MG FOR 75 MG DOSE. * Telephone Encounter - Alexandrea Davidson CPhT - 02/06/2023 1:21 PM EST Received message from [facility] regarding patient needing appointment and labs. Placed call to patient toadvise. Pt was agreeable to set up both an office visit and lab appointment. Pt stated she does notdrive anymore, and is going to schedule a ride before she can make the appt. Pt will call back to schedule. Thank you, Tania Davidson Vocational Rehab Consultant I [facility] ([facility]) (Formerly Telepharmacy) 02/06/2023,1:21 PM * Telephone Encounter - Sergio Dumas [facility] - 02/06/2023 1:15 PM EST Pending Prescriptions: Disp Refills Losartan Potassium 50 MG Oral Tablet (Coza*90 Tab*1 Sig: TAKE BY MOUTH 1 TABLET IN THE MORNING. WITH 25 MG FOR 75 MG DOSE. * Telephone Encounter - Sergio Dumas [facility] - 02/06/2023 1:14 PM EST Unable to authorize medication refills for pended medication(s) at this time. Part of the protocol criteria used for refill authorization was not satisfied. Per refill protocol patient should have routine on file within past year. Reviewed AMP report, CareGaps/Health Maintenance, medications list, and for any routine labs typically ordered for this patient. Lab orders placed. Please contact patient to schedule office visit with PRIMARY CARE and advise of labs ordered for blood draw AND URINE specimen (patient will have to be able to void to provide sample).. Fasting is not required. Advise to obtain labs before refills will be approved. Last Visit: 01/18/2022 (in office), Visit date not found (telemedicine) Next Visit: Visit date not found After contacting patient, please forward request to Mitesh Kerr MD. Pending Prescriptions: Disp Refills Losartan Potassium 50 MG Oral Tablet (Coz*90 Tab*1 Sig: TAKE BY MOUTH 1 TABLET IN THE MORNING. WITH 25 MG FOR 75 MG DOSE. Thanks, Sergio Dumas, PharmD Clinical Pharmacist [facility] ([facility]) (formerly Telepharmacy) [phone] 02/06/2023,1:15 PM documented in this encounter Plan of Treatment Scheduled Orders Name Type Priority Associated Diagnoses Orde r Schedule RENAL FUNCTION PANEL Lab Routine Stage 3a chronic kidney disease (HCC) Expected: 02/06/2023 (Approximate), Expires: 02/07/2024 ALBUMIN / CREATININE RATIO, URINE Lab Routine Stage 3a chronic kidney disease (HCC) Expected: 02/06/2023 (Approximate), Expires: 02/07/2024 Health Maintenance Due Date Last Done Comments Alpha-1 Antitrypsin 07/16/1965 O2 ASSESSMENT COMPLETED IN PAST YEAR FOR COPD 07/16/1965 Zoster Vaccines (1 of 2) 07/16/1997 *ADVANCE DIRECTIVE NOT ON FILE 10/20/2018 CKD PHOS USE SMARTSET 55023 10/31/2019 10/30/2018 DXA Scan 06/21/2020 06/22/2015 Depression Screening 07/21/2021 07/21/2020 GFR 07/18/2022 01/18/2022, 10/17, 07/09/2020, Additional history exists Albumin/Creatinine Ratio 10/28/2022 10/28/2021 CKD HGB USE SMARTSET 84850 10/28/202210/28, 10/28/2021, 07/09/2020, Additional history exists COVID-19 [...] (HCC) documented in this encounter Care Teams Kennel Manager Relationship Specialty Start Date End Date Mitesh Kerr MD [address] [place] [address] [place] [phone] PCP - General Family Medicine 12/22/14 documented as of this encounter
--- OUTSIDE RECORDS SUMMARY | 2023-07-22 16:53 | External Medical Summary | Summary of Care ---
Author Name Unknown Organization [facility] Address [address] [facility] [place] [address] Phone [phone] Care Team Providers Care Medical Records Manager Name Role Phone Mitesh Kerr MD Primary Care Provider [phone] Encounter Details Date Type Department Care Team (Late st Contact Info) Description 04/05/2023 Orders Only PATIENT PORTAL DO NOT DELETE THIS DEPT USED BY [place] [id number] Allergies Active Allergy Reactions Criticality Noted Date Comments Codeine 12/22/2014 Ringing in her head documented as of this encounter (statuses as of 04/05/2023) Medications Medication Sig Dispensed Refills Start Date [...] Respimat 2.5 MCG/ACT Inhalation Aerosol Solution (Tiotropium [place] Monohydrate)Indicat ions:COPD, severe (HCC) INHALE 2 PUFFS [...] Active Symbicort 160-4.5 MCG/ACT Inhalation Aerosol (Budesonide-Formote rol)Indications: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, 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) TAKE 2 PUFFS BY [...] 75MG DAILY 90 Tablet 1 04/04/2023 Active documented as of this encounter (statuses as of 04/05/2023) Active Problems Problem Noted Date Diagnosed Date Stage 3a chronic kidney disease 10/28/2021 Overview: EGFR 58 Adrenal nodule 02/11/2019 Peripheral vascular disease 08/22/2018 Primary hypertension 12/22/2014 COPD, severe 12/22/2014 Dyslipidemia, goal LDL below 100 12/22/2014 Tobacco abuse Apnea, sleep documented as of this encounter (statuses as of 04/05/2023) Resolved Problems Problem Noted Date Diagnosed Date [...] as of this encounter (statuses as of 04/05/2023) Immunizations Name Administration Dates Next Due COVID-19 [...] as of this encounter Plan of Treatment Health Maintenance Due Date Last Done Comments Alpha-1 Antitrypsin 07/16/1963 O2 ASSESSMENT COMPLETED IN PAST YEAR FOR COPD 07/16/1965 Zoster Vaccines (1 of 2) 07/16/1997 *ADVANCE DIRECTIVE NOT ON FILE 10/20/2018 CKD PHOS USE SMARTSET 01620 10/31/2019 10/30/2018 DXA Scan 06/21/2020 06/22/2015 Depression Screening 07/21/2021 07/21/2020 GFR 07/18/2022 01/18/2022, 10/17, 07/09/2020, Additional history exists Albumin/Creatinine Ratio 10/28/2022 10/28/2021 CKD HGB USE SMARTSET 17718 10/28/202210/28, 10/28/2021, 07/09/2020, Additional history exists COVID-19 [...] filedocumented as of this encounter Care Teams Medical Records Manager Relationship Specialty Start Date End Date Mitesh Kerr MD [address] [place] [address] [place] [address] PCP - General Family Medicine 12/22/14 documented as of this encounter
--- OUTSIDE RECORDS SUMMARY | 2023-07-22 16:53 | External Medical Summary | Summary of Care ---
Author Name Unknown Organization [facility] Address [address] [place] [address] Phone [phone] Care Team Providers Care [employer] Principal Name Role Phone Mitesh Kerr MD Primary Care Provider Reason for Visit * Reason Onset Date Comments Medication Refill 03/02/2023 Encounter Details Date Type Department Care Team (Late st Contact Info) Description 03/02/2023 Refill Family Medicine [address] [place] [address] Mitesh Kerr MD [address] [place], [place] [address] [address] Bilateral edema of lower extremity Allergies Active Allergy Reactions Criticality Noted Date Comments Codeine 12/22/2014 Ringing in her head documented as of this encounter (statuses as of 03/02/2023) Medications Medication Sig Dispensed Refills Start Date [...] Respimat 2.5 MCG/ACT Inhalation Aerosol Solution (Tiotropium [place] Monohydrate)Indica tions:COPD, severe (HCC) INHALE 2 PUFFS [...] 03/01/2023 Active Furosemide 40 MG Oral Tablet (Lasix)Indications :Bilateral edema of lower extremity TAKE 1 TABLET BY MOUTH EVERY DAY IN THE MORNING 30 Tablet 0 03/02/2023 Active Furosemide 40 MG Oral Tablet (Lasix)Indications :Bilateral edema of lower extremity TAKE 1 TABLET BY MOUTH EVERY DAY IN THE MORNING 30 Tablet 0 02/06/2023 Discontinue d(Refill) documented as of this encounter (statuses as of 03/02/2023) Active Problems Problem Noted Date Diagnosed Date Stage 3a chronic kidney disease 10/28/2021 Overview: EGFR 58 Adrenal nodule 02/11/2019 Peripheral vascular disease 08/22/2018 Primary hypertension 12/22/2014 COPD, severe 12/22/2014 Dyslipidemia, goal LDL below 100 12/22/2014 Tobacco abuse Apnea, sleep documented as of this encounter (statuses as of 03/02/2023) Resolved Problems Problem Noted Date Diagnosed Date [...] as of this encounter (statuses as of 03/02/2023) Immunizations Name Administration Dates Next Due COVID-19 [...] encounter Miscellaneous Notes * Telephone Encounter - Tootie Dutta DO - 03/02/2023 4:24 PM ESTSigned Prescriptions: Disp Refills Furosemide 40 MG Oral Tablet (Lasix) 30 Tab*0 Sig: TAKE 1 TABLET BY MOUTH EVERY DAY IN THE MORNINGAuthorizing Provider: TOOTIE DUTTA * Telephone Encounter - Frannie Azul LPN - 03/02/2023 11:29 AM ESTPending Prescriptions: Disp Refills Furosemide 40 MG Oral Tablet (Lasix) 30 Tab*0 * Telephone Encounter - Frannie Azul LPN - 03/02/2023 11:29 AM EST Pending Prescriptions: Disp Refills Furosemide 40 MG Oral Tablet (Lasix) 30 Tab*0 Last Visit: 01/18/2022 (in office), Visit date not found (telemedicine) Next Visit: Visit date not found Last date the medication was ordered: 02/06/2023 Patient Active Problem List Diagnosis Code Primary hypertension I10 COPD, severe (HCC) J44.9 Dyslipidemia, goal LDL below 100 E78.5 Tobacco abuse Z72.0 Apnea, sleep G47.30 Peripheral vascular disease (HCC) I73.9 Adrenal nodule (HCC) E27.8 Stage 3a chronic kidney disease (HCC) N18.31 Labs: Lab Results Component Value Date/Time CREATININE - [facility] 0.6 01/18/2022 03:31 PM CREATININE - [facility] 0.7 01/31/2019 04:02 PM CREATININE, RANDOM URINE - [facility] 107 10/28/2021 02:50 PM CREATININE, RD URINE 78 02/26/2019 11:50 AM CREATININE-OUTSIDE LAB 0.77 10/30/2018 12:00 AM Lab Results Component Value Date/Time POTASSIUM - [facility] 4.0 01/18/2022 03:31 PM POTASSIUM - [facility] 4.2 01/31/2019 04:02 PM POTASSIUM-OUTSIDE LAB 3.6 10/30/2018 12:00 AM Lab Results Component Value Date/Time TSH - [facility] 1.88 10/28/2021 02:50 PM Lab Results Component Value Date/Time LDL CHOLESTEROL (CALCULATED) - [facility] 72 10/28/2021 02:50 PM LDL CHOLESTEROL (CALCULATED) - [facility] 64 07/09/2020 09:36 AM LDL CHOLESTEROL (CALCULATED) - [facility] 100 06/28/2017 01:27 PM LDL CHOLESTEROL (CALCULATED) - [facility] 83 04/06/2015 03:17 PM LDL CHOLESTEROL (DIRECT MEASURE) - [facility] NOT APPLICABLE 06/28/2017 01:27 PM LDL CHOLESTEROL (DIRECT MEASURE) - [facility] NOT APPLICABLE 04/06/2015 03:17 PM Lab Results Component Value Date/Time ALT - [facility] 16 10/28/2021 02:50 PM ALT - [facility] 16 12/27/2016 10:29 AM Hemoglobin AIC Results: No results found for: "HEMOGLOBIN A1C" * Telephone Encounter - Adrienne Figueredo OSA - 03/02/2023 10:00 AM EST Did you pend patient's preferred pharmacy and medication before forwarding?yes Pharmacy: [id number] [id number] [facility] Pending Prescriptions: Disp Refills Furosemide 40 MG Oral Tablet (Lasix) 30 Tab*0 Last Visit: 01/18/2022 (in office), Visit date not found (telemedicine) Next Visit: Visit date not found If no future appointments scheduled, and last appointment is greater than a year ago, please schedule patient for a follow-up appointment Last date the medication was ordered: 02/06/23 Is this request for a controlled substance?No [...] ON FILE 10/20/2018 CKD PHOS USE SMARTSET 19292 10/31/2019 10/30/2018 DXA Scan 06/21/2020 06/22/2015 Depression Screening 07/21/2021 07/21/2020 GFR 07/18/2022 01/18/2022, 10/17, 07/09/2020, Additional history exists Albumin/Creatinine Ratio 10/28/2022 10/28/2021 CKD HGB USE SMARTSET 11461 10/28/202210/28, 10/28/2021, 07/09/2020, Additional history exists COVID-19 [...] Edema documented in this encounter Care Teams [employer] Principal Relationship Specialty Start Date End Date Mitesh Kerr MD [address] [place] [address] [place] [address] PCP - General Family Medicine 12/22/14 documented as of this encounter
[2023-07-22] MEDS: TRANEXAMIC ACID / 0.7% NACL 1000MG/100ML BAG IV ONE (18:03)
[2023-07-22] MEDS: MoRPHine SULFATE 2 MG/ML CARP IV PRN (19:26)
[2023-07-22] MEDS: ceFAZolin 1000MG 1,000 MG/7.5 ML SYR IV SCH (19:50)
[2023-07-22] MEDS: traMADol HCL 50 MG TABLET PO PRN (20:55)
--- NOTE | 2023-07-22 21:56 | Electrocardiogram Report ---
Test Reason : Blood Pressure : / mmHG Vent. Rate : 097 BPM Atrial Rate : 097 BPM P-R Int : 172 ms QRS Dur : 086 ms QT Int : 372 ms P-R-T Axes : 109 072 057 degrees QTc Int : 472 ms Sinus rhythm with frequent Premature ventricular complexes Otherwise normal ECG When compared with ECG of 27-OCT-2018 15:42, Premature ventricular complexes are now Present Confirmed by Chris Christianson ([id number]) on 07/22/2023 9:55:48 PM Referred By: REFERRED SELF Confirmed By:Chris Christianson
--- OUTSIDE RECORDS SUMMARY | 2023-07-22 22:26 | External Medical Summary | Summary of Care ---
Author Name Unknown Organization [facility] Address [address] [place] [address] Phone [phone] Care Team Providers Care Seasonal Clerk Name Role Phone Sharri Mc MD Primary Care Provide r Reason for Visit * Reason Comments eRx-Medication Refill Encounter Details Date Type Department Care Team (Late st Contact Info) Description 07/19/2023 Refill Family Medicine [address] [address] Mitesh Kerr MD [address] [place], [place] [address] [address] COPD, severe (HCC) Allergies Active Allergy [...] Respimat 2.5 MCG/ACT Inhalation Aerosol Solution (Tiotropium [place] Monohydrate)Indica tions:COPD, severe (HCC) INHALE 2 PUFFS [...] J 44.9 120 mL 1 05/31/2023 Active amLODIPine Besylate 5 MG Oral Tablet [...] a week. 30 Tablet 0 2023 Active Ventolin HFA 108 (90 Base) MCG/ACT Inhalation Aerosol SolutionIndication s:COPD, severe (HCC) INHALE 2 PUFFS BY MOUTH 4 TIMES A DAY 18 g 1 07/20/2023 Active Albuterol Sulfate HFA 108 (90 Base) MCG/ACT Inhalation Aerosol SolutionIndication s:COPD, severe (HCC) INHALE 2 PUFFS BY MOUTH IN THE MORNING AT AT NOON IN THE EVENING AND BEFORE BEDTIME 54 g 1 06/12/2023 4 Discontinued documented as of this encounter (statuses [...] Miscellaneous Notes * Telephone Encounter - Zulema Pete RPh - 07/20/2023 2:54 PM EDTSigned Prescriptions: Disp Refills Ventolin HFA 108 (90 Base) MCG/ACT Inhalat*18 g 1 Sig: INHALE 2 PUFFS BY MOUTH 4 TIMES A DAYAuthorizing Provider: PELON CARDONA User: ZULEMA PETE- documented in this encounter Plan of Treatment Upcoming Encounters Date Type Department Care Team (Late st Contact Info) Description 09/25/2023 9:00 AM EDT Office Visit Audiology [facility] [address] [place] [address] Tabatha Adhikari Au.D. [address] [place] [address] 11/12/2023 10:20 AM EDT Office Visit Family Medicine [address] [place] [phone] Sharri Mc MD [address] [place] [address] [place] [address] Health Maintenance Due Date Last Done Comments Alpha-1 Antitrypsin 07/16/1965 Zoster Vaccines (1 of 2) 07/16/1997 *ADVANCE DIRECTIVE NOT ON FILE 10/20/2018 DXA Scan 06/21/2020 06/22/2015 Depression Screening 07/21/2021 07/21/2020 COVID-19 Vaccine ( season) 2022 09/01/2020, 08/03/2020 GFR 12/15/2023 06/14/2023, 04/19, 01/18/2022, Additional history exists Albumin/Creatinine Ratio 05/02/2024 05/02/2023, 10/17 CKD HGB USE SMARTSET 88338 05/02/202405/02, 05/02/2023, 10/28/2021, Additional history exists CKD PHOS USE SMARTSET 05958 05/02/2024 05/02/2023, 0 10/30/2018 O2 ASSESSMENT COMPLETED [...] classified documented in this encounter Care Teams Seasonal Clerk Relationship Specialty Start Date End Date Sharri Mc MD [address] [place] [address] [place] [address] PCP - General Family Medicine 05/10/23 documented as of this encounter
[2023-07-22] MEDS: cloNIDine HCL 0.1 MG TAB PO ONE (22:44)
[2023-07-23 07:58] LABS: Basophils # (auto) 0.01 K/uL (0.00-0.20); Basophils % (auto) 0.1 %; Hematocrit (blood only) 29.5 % (37.0-47.0); Hemoglobin 9.4 g/dl (12.0-16.0); Immature Granulocytes # (auto) 0.11 K/uL (0.01-0.20); Immature Granulocytes % (auto) 0.8 %; Lymphocytes # (auto) 0.98 K/uL (1.20-3.40); Lymphocytes % (auto) 6.9 %; Mean Corpuscular Hgb Conc 31.9 g/dL (32.0-36.0); Mean Corpuscular Volume 97.4 fL (80.0-100.0); Mean Platelet Volume 11.1 fL (9.4-12.4); Monocytes # (auto) 1.14 K/uL (0.11-0.59); Neutrophils # (auto) 11.96 K/uL (1.40-6.50); Neutrophils % (auto) 84.2 %; Nucleated RBC # (auto) 0.02 K/uL (0.00-0.12); Nucleated RBC % (auto) 0.1 %; Platelet Count 118 K/uL (130-400); RDW Coefficient of Variation 12.6 % (11.5-14.5); Red Blood Count 3.03 M/uL (4.20-5.40)
[2023-07-23 08:24] LABS: BUN Creatinine Ratio 53.1 (10-20); Calcium 8.6 mg/dl (8.6-10.3); Creatinine Clr Calc Pharmacy 73.5 ml/min; Est GFR (African American) 100.5 ml/min; Est GFR (Non-African American) 86.7 ml/min; Potassium 4.6 mmol/L (3.5-5.1)
[2023-07-23] MEDS: APIXABAN 2.5 MG TAB PO SCH (09:00)
[2023-07-23 09:39] LABS: iSTAT Allen Test Pass; iSTAT Art Bld Gas pCO2 Correct 62 mmHg (35-46); iSTAT Art Bld Gas pH Corrected 7.376 (7.35-7.45); iSTAT Arterial Blood Gas HCO3 36 meg/L (19-24); iSTAT Arterial Blood Gas pCO2 64 mmHg (35-46); iSTAT Arterial Blood Gas pH 7.36 (7.35-7.45); iSTAT Arterial Blood Gas pO2 61 mmHg (80-95); iSTAT Arterial Blood Gas pO2 C 57; iSTAT Carbon Dioxide 38 mmol/L (24-31); iSTAT FiO2 50 %; iSTAT Hematocrit 31 % (37-47); iSTAT Hemoglobin 10.5 g/dl (12.0-16.0); iSTAT Site R Radial; iSTAT Sodium 134 mmol/L (135-144)
--- NOTE | 2023-07-23 12:50 | Pulmonology Progress Note ---
Date of Service July 23, 2023 Assessment & Plan (1) Acute exacerbation of chronic obstructive pulmonary disease: (2) Chronic hypoxic respiratory failure: (3) Osteoporotic fracture of right hip: Encounter type: initial encounter Qualified Code(s): M80.051A - Age-related osteoporosis with current pathological fracture, right femur, initial encounter for fracture (4) Diastolic CHF, acute on chronic: Plan Impression: 78-year-old female with a history of advanced COPD with hypoxemic and hypercarbic respiratory failure, noncompliant with BiPAP therapy, significant underlying anxiety, chronic hypoxia and continued tobacco abuse presenting to the hospital due to a right hip fracture and COPD exacerbation. Recommendations: 1. Hypercapnia: The patient appears to be stable currently. Her bicarb is significantly elevated indicating chronic hypercarbic respiratory failure. She adamantly refuses any attempts at noninvasive positive pressure ventilation. I advised her that this would be the only therapy designed to extend her life. She expressed understanding and again reiterates that she is not willing to consider use of any noninvasive positive pressure ventilation. In light of this, reassessing goals of therapy may be appropriate as the patient meets criteria for end-stage COPD with hypoxemic and hypercarbic respiratory failure. 2. Advanced COPD: Continue ICS/LABA nebulizer regimen. She does not appear bronchospastic today. Will transition to oral steroids for 5 days and complete 5 days of doxycycline for acute exacerbation of COPD. 3. Hypoxemia: Would not target oxygen saturations much above 88 to 89% given her concomitant hypercarbia. Her baseline requirement is between 4 and 6 L/min and may actually be significantly higher than that as she has not been assessed in quite some time. Will add incentive spirometry and flutter valve to her regiment. Ambulatory and out of bed to chair is much as possible will improve shunting and atelectasis. Patient will likely require transition to rehab versus SNF. Admission and Anticipated Discharge Date Admission Date: July 20, 2023 Subjective Patient seen and examined. EMR reviewed. Discussed with off going instrumentation and controls designer. The patient is sitting up in a chair. She feels her breathing is about the same. She is not coughing. She is not wheezing or expectorating any phlegm. No chest pain or palpitations. Patient relates that she uses 4 to 6 L of oxygen at baseline. She continues to abuse tobacco products at the rate of half a pack per day. Patient is not used CPAP or BiPAP overnight and states he has no intention of using it. Patient was last seen in the pulmonary clinic back in 2019 and had been followed previously by Dr. Spear. Her last PFTs were performed in 2019 and at that point time showed an FEV1 of less than 0.5 L or 20% predicted Review of Systems 2 Review of Systems: All systems reviewed & are unremarkable except as noted in HPI & below Physical Exam 2 Constitutional: WD/WN, vitals as above Neck: trachea midline, no thyromegaly Respiratory: normal respiratory effort, lungs clear to auscultation Cardiovascular: RRR, no murmur, no edema Gastrointestinal (Abdomen): normal bowel sounds, soft, nontender, no hepatosplenomegaly Musculoskeletal: Extremities: extremities normal to inspection Skin: no rashes, warm and dry Neurologic: Nonfocal exam Lymphatic: no cervical lymphadenopathy Results & Data Results & Data Vital Signs (Past 12 Hours) Vital Signs Temp Pulse Resp BP Pulse Ox O2 Del Method O2 Flow Rate 07/23/23 10:29 36.5 C 78 20 165/66 H 100 Oxymask 07/23/23 07:55 High Flow Nasal Cannula 8 07/23/23 07:03 36.3 C L 86 18 183/50 H 95 Oxymask 07/23/23 07:00 86 18 94 Nasal Cannula 8 07/23/23 03:07 36.8 C 96 H 18 171/61 H 94 Oxymask 6 Laboratory Results 07/23/23 07:38 07/23/23 07:38 Diagnostic Findings No new imaging PG Care Time/CCT Total # of Minutes Spent Total Time Spent with Patient: Total time spent is greater than 50% in coordination of care (as documented) at patient's floor/unit and/or counseling patient: Coding Level of Care Code 83648 SUB INP/OBS CARE 3/50MIN Diagnoses Acute exacerbation of chronic obstructive pulmonary disease J44.1 Chronic hypoxic respiratory failure J96.11 Fracture of right hip due to osteoporosis, initial encounter M80.051A Encounter type: initial encounter Diastolic CHF, acute on chronic I50.33
--- NOTE | 2023-07-23 13:40 | Orthopedic Progress Note ---
Date of Service July 23, 2023 Assessment & Plan (1) Osteoporotic fracture of right hip: Overall she is doing very well. She is having some pain in the right hip but she is much more functional today. She is currently on an oxygen mask. She can be weightbearing as tolerated on the right hip. She is on Eliquis for DVT prophylaxis. She is orthopedically stable for discharge when medically ready. She can follow-up with orthopedics in 2 weeks. Full orthopedic discharge instructions were placed in the discharge summary. Please Rheems text me if you have any further questions or concerns. Shahrzad Ny was seen and examined at bedside this morning. Overall she is doing fairly well. She says her hip is painful but it is much more stable. She was actually sitting up at bedside when I entered the room.. Review of Systems All systems reviewed & are unremarkable except as noted in HPI & below. Physical Exam On physical examination of the right hip, the dressing is clean and dry. She is sitting with her hip at 90 degrees. Her leg lengths are equal.. Results & Data Results & Data Laboratory Results . Diagnostic Findings . PG Care Time/CCT Total # of Minutes Spent Total Time Spent with Patient: Total time spent is greater than 50% in coordination of care (as documented) at patient's floor/unit and/or counseling patient: Coding Level of Care Code 05749 Post Operative Follow-Up Diagnoses Fracture of right hip due to osteoporosis, initial encounter M80.051A Encounter type: initial encounter (1) Osteoporotic fracture of right hip Encounter type: initial encounter Qualified Code(s): M80.051A - Age-related osteoporosis with current pathological fracture, right femur, initial encounter for fracture
--- NOTE | 2023-07-23 17:06 | Hospitalist Progress Note ---
Date of Service July 23, 2023 Assessment & Plan (1) Osteoporotic fracture of right hip: (2) Fracture of right hip: Plan: Admit to [facility] Patient presenting from home after a mechanical fall In the ED, hip/pelvis XR comminuted intertrochanteric fracture of the right proximal femur Pain control with bowel regimen Ortho consult, tentatively planning for intramedullary nail fixation of the right hip tomorrow Check vitamin D level Patient has COPD with chronic hypoxic respiratory failure on 6 L of oxygen, currently saturating well on her chronic 6 L. Reports cough and shortness of breath are at her chronic baseline. No other cardiopulmonary complaints. EKG without acute ST changes. CXR unremarkable. Patient considered acceptable risk to proceed to surgery. 5/4 COPD exacerbation Acute and chronic respiratory failure with hypoxia Possible acute on chronic diastolic congestive heart failure exacerbation component Repeat chest x-ray noted Echocardiogram ordered Lasix 40 mg IV 1 dose given Solu-Medrol 40 mg twice daily, Perforomist and Pulmicort twice daily started Continue Xopenex Atrovent nebs every 6 hours Continue doxycycline Pulmonology service consulted, appreciate the recommendations Patient currently being optimized from the respiratory standpoint Will reevaluate patient's progress tomorrow and at that point we will decide whether patient can proceed with planned orthopedic surgery 5/5 S/p p Intramedullary Nail Right Hip Respiratory is improving Continue Solu-Medrol 40 mg twice daily, Perforomist, Pulmicort, Xopenex Atrovent, doxycycline Monitor closely 5/6 Stable overall after surgery Transition to prednisone Continue nebs, Doxycycline (3) Ankle pain, right: Plan: X-ray ordered: No fractures (4) Hyperglycemia: Plan: Glucose 163 on BMP ? Stress response secondary to fall/fracture A1c 5.9 (5) Chronic hypoxic respiratory failure: (6) COPD (chronic obstructive pulmonary disease): Plan: Management exacerbation as above (7) Hypertension: Plan: BP elevated likely situational/due to pain Control pain, reevaluate BP Continue home amlodipine, losartan add HCTZ As needed hydralazine (8) Peripheral vascular disease: Plan: ASA, Pentoxyfilline on hold currently on Eliquis 2.5mg po BID (9) HLD (hyperlipidemia): Plan: Chronic, stable Continue statin DVT PROPHYLAXIS Eliquis 2.5mg BID Admission and Anticipated Discharge Date Admission Date: July 20, 2023 Subjective Follow-up for right hip fracture, status post surgery, CHF exacerbation, etc. Seen resting in bed, sleeping but easily awakened States that she feels okay overall Denies shortness of breath, cough, chest pain Minimal right hip pain No other new symptom Review of Systems Review of Systems: all noted and negative except for above Physical Exam Physical Exam: General- oriented x 3, not in distress, speaks in sentences with no effort or accessory muscle use Eyes- anicteric Neck- no JVD Lungs- clear breath sounds bilaterally, No crackles or wheezes Heart- normal rate, regular rhythm; no murmurs Abdomen- normal bowel sounds, nondistended, soft, No tenderness Extremities- no pretibial edema, no calf tenderness Neuro- alert, oriented x 3; no gross focal neurologic deficits Skin- warm & dry Results & Data Results & Data Vital Signs (Past 12 Hours) Vital Signs Temp Pulse Pulse Resp BP Pulse Ox O2 Del Method 07/23/23 14:45 36.6 C 82 20 161/62 H 98 Oxymask 07/23/23 14:00 91 H 07/23/23 10:29 36.5 C 78 20 165/66 H 100 Oxymask 07/23/23 07:55 High Flow Nasal Cannula 07/23/23 07:03 36.3 C L 86 18 183/50 H 95 Oxymask 07/23/23 07:00 86 18 94 Nasal Cannula 07/23/23 06:36 82 O2 Flow Rate 07/23/23 14:45 07/23/23 14:00 07/23/23 10:29 07/23/23 07:55 8 07/23/23 07:03 07/23/23 07:00 8 07/23/23 06:36 all noted and reviewed including below (1) Osteoporotic fracture of right hip Encounter type: initial encounter Qualified Code(s): M80.051A - Age-related osteoporosis with current pathological fracture, right femur, initial encounter for fracture (2) Fracture of right hip Encounter type: initial encounter Fracture type: closed Qualified Code(s): S72.001A - Fracture of unspecified part of neck of right femur, initial encounter for closed fracture (6) COPD (chronic obstructive pulmonary disease) COPD type: unspecified COPD Qualified Code(s): J44.9 - Chronic obstructive pulmonary disease, unspecified (7) Hypertension Hypertension type: essential hypertension Qualified Code(s): I10 - Essential (primary) hypertension (9) HLD (hyperlipidemia) Hyperlipidemia type: unspecified Qualified Code(s): E78.5 - Hyperlipidemia, unspecified
[2023-07-23] MEDS: hydroCHLOROthiazide 25 MG TAB PO SCH (18:35)
[2023-07-24] MEDS: cloNIDine HCL 0.1 MG TAB PO ONE (01:09)
--- NOTE | 2023-07-24 08:40 | Pulmonology Progress Note ---
Date of Service July 24, 2023 Assessment & Plan (1) Acute exacerbation of chronic obstructive pulmonary disease: (2) Chronic hypoxic respiratory failure: (3) Osteoporotic fracture of right hip: Encounter type: initial encounter Qualified Code(s): M80.051A - Age-related osteoporosis with current pathological fracture, right femur, initial encounter for fracture (4) Diastolic CHF, acute on chronic: Plan IMPRESSION: 78-year-old female with a significant past medical history of advanced COPD, chronic hypoxic respiratory failure on 4 to 6 L at home, and hypercarbic respiratory failure noncompliant on BiPAP for obstructive sleep apnea. RECOMMENDATIONS: 1. Hypercapnia - In the setting of end-stage COPD with poor ventilatory function. Patient would benefit from her BiPAP therapy which she has been refusing to use at home. Thankfully, she is well compensated at this point. This is largely driving a degree of the patient's profound hypoxia as well. Did have extensive discussion with her to review with her [employer] company obtaining new machine. She seems reluctant to do so. 2. COPD with exacerbation - Continue current nebulizer regime. She is slightly bronchospastic on exam right now. Complete course of steroids and doxycycline in the setting of exacerbation. 3. Hypoxemia - Patient is hovering around her baseline which is 6 L at all times. Thank you for allowing us to participate in the care of this patient. Pulmonary medicine will sign off at this time. Please feel free to reach out to us for any further questions or concerns. Admission and Anticipated Discharge Date Admission Date: July 20, 2023 Supervising Physician Co-Signing Physician Notes Patient seen and examined. EMR reviewed. Labs and imaging studies were independently reviewed. The patient is sitting in bed. Her breathing status appears to be stable. Her oxygen requirement is decreasing down to her baseline. She not had any new respiratory issues overnight. The patient appears to be approaching her pulmonary baseline. Recommend comple ting prednisone taper and continued use of bronchodilators. Smoking cessation recommended. Patient can likely transfer to rehab as soon as her oxygen needs can be safely met there. Pulmonary will sign off at this point in time. Feel free to contact us with questions or concerns Subjective Patient seen and evaluated at bedside. She reports that she has been using her BiPAP overnight. She reports that she did previously use a BiPAP at home, but has not used it since the recall of her machine. She was instructed on the utility of this in the setting of chronic hypoxemic respiratory failure and advanced COPD with hypercapnia. Otherwise, she offers no pulmonary complaints today. Review of Systems Review of Systems: As per HPI Physical Exam Physical Exam: VITAL SIGNS - Vital signs and nursing notes were reviewed. GENERAL - 78-year-old female appearing her stated age who is in no acute distress. Communicates well with provider and answers questions appropriately LUNGS - Auscultation reveals scattered wheezes appreciated. CARDIAC - RRR with S1/S2. No murmur, rubs, or gallops appreciated. EXTREMITIES - No peripheral cyanosis. No pretibial edema present. +3/5 radial palpated throughout. PSYCH - A&Ox3 and cooperates fully with examiner. Pt is very pleasant and interacts well with examiner. Results & Data Results & Data Vital Signs (Past 12 Hours) Vital Signs Temp Pulse Pulse Pulse Resp BP Pulse Ox 07/24/23 07:18 07/24/23 07:10 90 22 92 07/24/23 07:07 36.6 C 80 20 162/64 H 92 07/24/23 06:55 36.4 C L 97 H 20 151/68 H 93 07/24/23 02:47 36.8 C 93 H 22 154/69 H 95 07/23/23 23:28 88 22 93 07/23/23 23:17 91 H 24 94 07/23/23 22:38 36.3 C L 84 16 199/70 H 97 07/23/23 22:09 81 07/23/23 21:00 O2 Del Method O2 Flow Rate FiO2 07/24/23 07:18 Oxymask 4 07/24/23 07:10 Oxymask 6 07/24/23 07:07 Oxymask 07/24/23 06:55 Room Air 07/24/23 02:47 Oxymask 7 07/23/23 23:28 BiPAP 40 07/23/23 23:17 40 07/23/23 22:38 Oxymask 07/23/23 22:09 07/23/23 21:00 Oxymask 7 PG Care Time/CCT Total # of Minutes Spent Total Time Spent with Patient: Total time spent is greater than 50% in coordination of care (as documented) at patient's floor/unit and/or counseling patient: Coding Level of Care Code 53719 SUB INP/OBS CARE 2/35MIN Diagnoses Acute exacerbation of chronic obstructive pulmonary disease J44.1 Chronic hypoxic respiratory failure J96.11 Fracture of right hip due to osteoporosis, initial encounter M80.051A Encounter type: initial encounter Diastolic CHF, acute on chronic I50.33
[2023-07-24] MEDS: predniSONE 20 MG TAB PO SCH (08:56)
--- NOTE | 2023-07-24 18:32 | Hospitalist Progress Note ---
Date of Service July 24, 2023 Assessment & Plan (1) Osteoporotic fracture of right hip: (2) Fracture of right hip: Plan: Patient presenting from home after a mechanical fall In the ED, hip/pelvis XR comminuted intertrochanteric fracture of the right proximal femur Patient has COPD with chronic hypoxic respiratory failure on 6 L of oxygen, currently saturating well on her chronic 6 L. Reports cough and shortness of breath are at her chronic baseline. No other cardiopulmonary complaints. EKG without acute ST changes. CXR unremarkable. Patient considered acceptable risk to proceed to surgery. COPD exacerbation Acute and chronic respiratory failure with hypoxia Possible acute on chronic diastolic congestive heart failure exacerbation component Echocardiogram: EF 65 to 70%, right ventricular systolic function is normal, no significant valvular disease Lasix 40 mg IV 1 dose given Solu-Medrol 40 mg twice daily, Perforomist and Pulmicort twice daily started Continue Xopenex Atrovent nebs every 6 hours Continue doxycycline required Bipap Pulmonology service consulted 07/21 S/p p Intramedullary Nail Right Hip respiratory status improving 5/6 Stable overall after surgery / weightbearing as tolerated on the right hip Eliquis BID for DVT prophylaxis back to baseline 6 L NC Transitioned to prednisone Continue nebs, Doxycycline transition to Acute Rehab when medically stable (3) Ankle pain, right: Plan: X-ray ordered: No fractures (4) Hyperglycemia: Plan: Glucose 163 on BMP ? Stress response secondary to fall/fracture A1c 5.9 (5) Chronic hypoxic respiratory failure: (6) COPD (chronic obstructive pulmonary disease): Plan: Management exacerbation as above (7) Hypertension: Plan: BP elevated likely situational/due to pain Control pain, reevaluate BP Continue home amlodipine, losartan added HCTZ for better BP control As needed hydralazine (8) Peripheral vascular disease: Plan: usual ASA, Pentoxyfilline on hold currently on Eliquis 2.5mg po BID (9) HLD (hyperlipidemia): Plan: Chronic, stable Continue statin DVT PROPHYLAXIS Eliquis 2.5mg BID transition to acute rehab when medically stable Admission and Anticipated Discharge Date Admission Date: July 20, 2023 Subjective ff up for R femoral fracture, s/p surgery, COPD exacerbation, etc seen resting in chair, watching TV on 6 L O2 via NC states she feels improved overall pain over the surgical site adequately improved breathing continues to improve, has productive cough no other symptoms Review of Systems Review of Systems: all noted and negative except for above Physical Exam Physical Exam: General- oriented x 3, not in distress, speaks in sentences with no effort or accessory muscle use Eyes- anicteric Neck- no JVD Lungs- somewhat diminished but clear breath sounds bilaterally, no rales/wheezes Heart- normal rate, regular rhythm; no murmurs Abdomen- normal bowel sounds, nondistended, soft, nontender Extremities- R hip: mild edema, no hematoma no pretibial edema, no calf tenderness Neuro- alert, oriented x 3; no gross focal neurologic deficits Skin- warm & dry Results & Data Results & Data Vital Signs (Past 12 Hours) Vital Signs Temp Pulse Pulse Pulse Resp BP Pulse Ox 07/24/23 16:00 07/24/23 15:00 90 07/24/23 14:50 36.2 C L 79 22 130/61 92 07/24/23 12:55 85 22 90 07/24/23 11:05 36.5 C 93 H 20 185/85 H 92 07/24/23 09:52 82 07/24/23 07:18 07/24/23 07:10 90 22 92 07/24/23 07:07 36.6 C 80 20 162/64 H 92 07/24/23 06:55 36.4 C L 97 H 20 151/68 H 93 O2 Del Method O2 Flow Rate 07/24/23 16:00 Oxymask 9 07/24/23 15:00 07/24/23 14:50 Oxymask, High Flow Nasal Cannula 9 07/24/23 12:55 Nasal Cannula 7 07/24/23 11:05 Oxymask 07/24/23 09:52 07/24/23 07:18 Oxymask 4 07/24/23 07:10 Oxymask 6 07/24/23 07:07 Oxymask 07/24/23 06:55 Room Air all noted and reviewed including below (1) Osteoporotic fracture of right hip Encounter type: initial encounter Qualified Code(s): M80.051A - Age-related osteoporosis with current pathological fracture, right femur, initial encounter for fracture (2) Fracture of right hip Encounter type: initial encounter Fracture type: closed Qualified Code(s): S72.001A - Fracture of unspecified part of neck of right femur, initial encounter for closed fracture (6) COPD (chronic obstructive pulmonary disease) COPD type: unspecified COPD Qualified Code(s): J44.9 - Chronic obstructive pulmonary disease, unspecified (7) Hypertension Hypertension type: essential hypertension Qualified Code(s): I10 - Essential (primary) hypertension (9) HLD (hyperlipidemia) Hyperlipidemia type: unspecified Qualified Code(s): E78.5 - Hyperlipidemia, unspecified
[2023-07-25] MEDS: POLYETHYLENE (MIRALAX) 17 GM PACK PO SCH (09:42)
--- NOTE | 2023-07-25 16:54 | Hospitalist Progress Note ---
Date of Service July 25, 2023 Assessment & Plan (1) Osteoporotic fracture of right hip: (2) Fracture of right hip: Plan: Patient presenting from home after a mechanical fall In the ED, hip/pelvis XR comminuted intertrochanteric fracture of the right proximal femur Status post intramedullary nail right hip on 07/22/2023 Appreciate Ortho input and recommendation Pain is reasonably controlled and continue with physical therapy weightbearing as tolerated on the right hip Eliquis BID for DVT prophylaxis COPD exacerbation Acute and chronic respiratory failure with hypoxia Patient has COPD with chronic hypoxic respiratory failure on 6 L of oxygen, currently saturating well on her chronic 6 L. Reports cough and shortness of breath are at her chronic baseline. Solu-Medrol 40 mg twice daily, Perforomist and Pulmicort twice daily started Continue Xopenex Atrovent nebs every 6 hours Continue doxycycline required [facility] Pulmonology service consulted-appreciate input and recommendation back to baseline 6 L NC Transitioned to prednisone Continue nebs, Doxycycline Possible acute on chronic diastolic congestive heart failure exacerbation component Echocardiogram: EF 65 to 70%, right ventricular systolic function is normal, no significant valvular disease No other cardiopulmonary complaints. EKG without acute ST changes. CXR unremarkable. Patient considered acceptable risk to proceed to surgery. Lasix 40 mg IV 1 dose given DVT prophylaxis Eliquis twice daily CODE STATUS Full Transition to Acute Rehab when medically stable (3) Ankle pain, right: Plan: X-ray ordered: No fractures (4) Hyperglycemia: Plan: Glucose 163 on BMP ? Stress response secondary to fall/fracture A1c 5.9 (5) Chronic hypoxic respiratory failure: (6) COPD (chronic obstructive pulmonary disease): Plan: Management exacerbation as above (7) Hypertension: Plan: BP elevated likely situational/due to pain Control pain, reevaluate BP Continue home amlodipine, losartan added HCTZ for better BP control As needed hydralazine (8) Peripheral vascular disease: Plan: usual ASA, Pentoxyfilline on hold currently on Eliquis 2.5mg po BID (9) HLD (hyperlipidemia): Plan: Chronic, stable Continue statin DVT PROPHYLAXIS Eliquis 2.5mg BID transition to acute rehab when medically stable Admission and Anticipated Discharge Date Admission Date: July 20, 2023 Subjective 07/25/2023 The patient was seen and examined in telemetry unit She has been feeling much better but is still requiring about 12 L/min oxygen to maintain saturation Denies any significant symptoms Remain generally weak Review of Systems Review of Systems: all noted and negative except for above Physical Exam Physical Exam: Sitting on a chair without any acute distress Constitutional: well developed, well nourished, + ill appearing and average body habitus Eyes: PERRL, conjunctivae normal, anicteric sclerae ENMT: external ear and nose normal, oropharynx normal Neck: trachea midline, no thyromegaly Respiratory: no respiratory distress Auscultation: + diminished lung sounds, + crackles (Bibasilar crackles) and + wheezes (Minimal wheezing bilaterally) Cardiovascular: Rate/Rhythm: regular rate and regular rhythm; not tachycardic Heart Sounds: normal S1 and normal S2; no murmur Extremities: no edema Gastrointestinal (Abdomen): Inspection/Auscultation: normal bowel sounds; abdomen not distended Percussion/Palpation: abdomen soft; abdomen nontender Musculoskeletal: No acute arthritis involving any of the joint Neurologic: normal touch/pain/proprioception and moves all extremities; no focal motor deficits Lymphatic: no cervical or axillary lymphadenopathy Results & Data Results & Data Vital Signs (Past 12 Hours) Vital Signs Temp Pulse Pulse Pulse Pulse Resp BP 07/25/23 15:47 36.7 C 95 H 22 07/25/23 14:35 108 H 26 H 07/25/23 11:30 91 H 22 07/25/23 11:06 36.3 C L 99 H 23 145/64 H 07/25/23 08:00 07/25/23 07:29 36.4 C L 88 24 182/46 H 07/25/23 07:07 100 H 22 07/25/23 07:00 105 H BP Pulse Ox O2 Del Method O2 Flow Rate FiO2 07/25/23 15:47 121/63 90 High Flow Nasal Cannula 12 07/25/23 14:35 97 40 07/25/23 11:30 91 Nasal Cannula 10 07/25/23 11:06 90 High Flow Nasal Cannula 15 07/25/23 08:00 High Flow Nasal Cannula 12 07/25/23 07:29 97 High Flow Nasal Cannula 11 07/25/23 07:07 89 L Nasal Cannula 11 07/25/23 07:00 Medications Administered Current Inpatient Medications Acetaminophen (Acetaminophen 500 Mg Tab) 1,000 mg PO Q8H [facility]N Stop: 08/19/23 21:59 Last Admin: 07/25/23 05:32 Dose: 1,000 mg Amlodipine Besylate (Amlodipine Besylate 5 Mg Tab) 10 mg PO QAM [facility] Stop: 08/20/23 00:29 Last Admin: 07/25/23 09:30 Dose: 10 mg Apixaban (Apixaban 2.5 Mg Tab) 2.5 mg PO BID JO[facility]LYN Stop: 08/22/23 08:59 Last Admin: 07/25/23 09:28 Dose: 2.5 mg Atorvastatin Calcium (Atorvastatin 20 Mg Tab) 20 mg PO PM [facility]SELYN Stop: 08/19/23 21:18 Last Admin: 07/24/23 22:04 Dose: 20 mg Bisacodyl (Bisacodyl 10 Mg Supp) 10 mg FL DAILY PRN PRN Reason: Constipation Stop: 08/19/23 21:18 Budesonide (Budesonide 0.5 Mg/2 Ml Vial (Pulmicort)) 0.5 mg NEB BIDR [facility] Stop: 08/20/23 18:59 Last Admin: 07/25/23 07:05 Dose: 0.5 mg Doxycycline Hyclate (Doxycycline Hyclate 100 Mg Cap) 100 mg PO BID [facility] Stop: 07/29/23 08:59 Last Admin: 07/25/23 09:30 Dose: 100 mg Formoterol Fumarate (Formoterol 20 Mcg/2 Ml Vial) 20 mcg NEB BIDR [facility] Stop: 08/20/23 10:59 Last Admin: 07/25/23 07:05 Dose: 20 mcg Guaifenesin (Guaifenesin 600 Mg Tabcr) 600 mg PO BID [facility] Stop: 08/19/23 21:18 Last Admin: 07/25/23 09:30 Dose: 600 mg Hydralazine HCl (Hydralazine Hcl 20 Mg/Ml Vial) 5 mg IV Q6H PRN PRN Reason: systolic bp > 160 Stop: 08/21/23 16:36 Last Admin: 07/23/23 22:51 Dose: 5 mg Hydrochlorothiazide (Hydrochlorothiazide 25 Mg Tab) 12.5 mg PO DAILY [facility] Stop: 08/22/23 17:14 Last Admin: 07/25/23 09:28 Dose: 12.5 mg Ipratropium [place] (Ipratropium [place] Neb Soln 0.02% 0.5mg/2.5ml Vial) 0.5 mg INH Q6R [facility] Stop: 08/20/23 06:59 Last Admin: 07/25/23 11:28 Dose: 0.5 mg Levalbuterol HCl (Levalbuterol Hcl 0.63 Mg/3 Ml Neb) 0.63 mg INH Q6H PRN; Protocol PRN Reason: Shortness Of Breath Or Wheezing Stop: 08/19/23 21:18 Last Admin: 07/24/23 12:51 Dose: 0.63 mg Levalbuterol HCl (Levalbuterol 1.25 Mg/3 Ml Neb) 1.25 mg NEB Q6R [facility] Stop: 08/20/23 06:59 Last Admin: 07/25/23 11:28 Dose: 1.25 mg Loratadine (Loratadine 10 Mg Tab) 10 mg PO HS [facility] Stop: 08/19/23 21:18 Last Admin: 07/24/23 22:04 Dose: 10 mg Losartan Potassium (Losartan Potassium 50 Mg Tab) 100 mg PO QAM [facility] Stop: 08/20/23 08:59 Last Admin: 07/25/23 09:29 Dose: 100 mg Magnesium Hydroxide (Magnesium Hydroxide Susp 30 Ml Udc) 30 ml PO DAILY PRN PRN Reason: Constipation Stop: 08/19/23 21:18 Miscellaneous (Remove Nicoderm Patch) 1 each N/A DAILY@0859 [facility] Stop: 08/20/23 08:58 Last Admin: 07/25/23 09:32 Dose: 1 each Morphine Sulfate (Morphine Sulfate 2 Mg/Ml Carp) 2 mg IV Q4H PRN PRN Reason: Pain Stop: 08/04/23 02:23 Last Admin: 07/22/23 19:26 Dose: 2 mg Naloxone HCl (Naloxone Hcl 0.4 Mg/1 Ml Vial/Carp) 0.1 mg IV UD PRN PRN Reason: Opiate Overdose Stop: 08/19/23 21:18 Nicotine (Nicotine 21 Mg/24 Hr Tdsy) 1 patch TD [facility] Stop: 08/19/23 21:44 Last Admin: 07/25/23 09:30 Dose: 1 patch Olanzapine (Olanzapine 10 Mg/2.1 Ml Sdv) 2.5 mg IM Q4H PRN PRN Reason: Agitation Stop: 08/20/23 01:33 Last Admin: 07/22/23 02:24 Dose: 2.5 mg Ondansetron HCl (Ondansetron Inj 2 Mg/Ml 2 Ml Vial) 4 mg IV Q6H PRN PRN Reason: Nausea And Vomiting Stop: 08/19/23 21:18 Pentoxifylline (Pentoxifylline 400mg Ext Rel Tab) 400 mg PO TID [facility] Stop: 08/19/23 21:18 Last Admin: 07/20/23 23:15 Dose: 400 mg Polyethylene Glycol (Polyethylene (Miralax) 17 Gm Pack) 17 gm PO DAILY [facility] Stop: 08/24/23 09:14 Last Admin: 07/25/23 09:42 Dose: 17 gm Prednisone (Prednisone 20 Mg Tab) 40 mg PO DAILY [facility] Stop: 08/23/23 08:59 Last Admin: 07/25/23 09:32 Dose: 40 mg Tramadol HCl (Tramadol Hcl 50 Mg Tablet) 25 - 50 mg PO Q4H PRN PRN Reason: Pain Stop: 08/20/23 02:22 Last Admin: 07/22/23 20:55 Dose: 50 mg Vitamin D (Cholecalciferol 25 Mcg (1000 Units) Tab) 25 mcg PO QAM [facility] Stop: 08/20/23 08:59 Last Admin: 07/25/23 09:31 Dose: 25 mcg (1) Osteoporotic fracture of right hip Encounter type: initial encounter Qualified Code(s): M80.051A - Age-related osteoporosis with current pathological fracture, right femur, initial encounter for fracture (2) Fracture of right hip Encounter type: initial encounter Fracture type: closed Qualified Code(s): S72.001A - Fracture of unspecified part of neck of right femur, initial encounter for closed fracture (6) COPD (chronic obstructive pulmonary disease) COPD type: unspecified COPD Qualified Code(s): J44.9 - Chronic obstructive pulmonary disease, unspecified (7) Hypertension Hypertension type: essential hypertension Qualified Code(s): I10 - Essential (primary) hypertension (9) HLD (hyperlipidemia) Hyperlipidemia type: unspecified Qualified Code(s): E78.5 - Hyperlipidemia, unspecified
[2023-07-26 06:38] LABS: Basophils # (auto) 0.03 K/uL (0.00-0.20); Basophils % (auto) 0.3 %; Eosinophils # (auto) 0.01 K/uL (0.00-0.50); Eosinophils % (auto) 0.1 %; Hematocrit (blood only) 30.1 % (37.0-47.0); Hemoglobin 9.6 g/dl (12.0-16.0); Immature Granulocytes # (auto) 0.27 K/uL (0.01-0.20); Immature Granulocytes % (auto) 2.3 %; Lymphocytes # (auto) 3.68 K/uL (1.20-3.40); Lymphocytes % (auto) 31.5 %; Mean Corpuscular Hgb Conc 31.9 g/dL (32.0-36.0); Mean Corpuscular Volume 97.1 fL (80.0-100.0); Mean Platelet Volume 10.9 fL (9.4-12.4); Monocytes # (auto) 0.89 K/uL (0.11-0.59); Monocytes % (auto) 7.6 %; Neutrophils # (auto) 6.82 K/uL (1.40-6.50); Neutrophils % (auto) 58.2 %; Nucleated RBC # (auto) 0.02 K/uL (0.00-0.12); Nucleated RBC % (auto) 0.2 %; Platelet Count 154 K/uL (130-400); RDW Standard Deviation 46.1 fL (36.4-46.3)
[2023-07-26 07:03] LABS: BUN Creatinine Ratio 51.9 (10-20); Calcium 8.4 mg/dl (8.6-10.3); Creatinine Clr Calc Pharmacy 89.4 ml/min; Est GFR (African American) 106.2 ml/min; Est GFR (Non-African American) 91.7 ml/min; Potassium 4.1 mmol/L (3.5-5.1)
--- NOTE | 2023-07-26 17:10 | Hospitalist Progress Note ---
Date of Service July 26, 2023 Assessment & Plan (1) Osteoporotic fracture of right hip: (2) Fracture of right hip: Plan: Patient presenting from home after a mechanical fall In the ED, hip/pelvis XR comminuted intertrochanteric fracture of the right proximal femur Status post intramedullary nail right hip on 07/22/2023 Appreciate Ortho input and recommendation Pain is reasonably controlled and continue with physical therapy weightbearing as tolerated on the right hip Eliquis BID for DVT prophylaxis Remains stable with minimal pain Continue PT OT and awaiting rehab COPD exacerbation Acute and chronic respiratory failure with hypoxia Patient has COPD with chronic hypoxic respiratory failure on 6 L of oxygen, currently saturating well on her chronic 6 L. Reports cough and shortness of breath are at her chronic baseline. Solu-Medrol 40 mg twice daily, Perforomist and Pulmicort twice daily started Continue Xopenex Atrovent nebs every 6 hours Continue doxycycline required [facility]ip[facility] Pulmonology service consulted-appreciate input and recommendation back to baseline 6 L NC Transitioned to prednisone Continue nebs, Doxycycline Denies any chest pain or shortness of breath Gradual improvement Possible acute on chronic diastolic congestive heart failure exacerbation component Echocardiogram: EF 65 to 70%, right ventricular systolic function is normal, no significant valvular disease No other cardiopulmonary complaints. EKG without acute ST changes. CXR unremarkable. Patient considered acceptable risk to proceed to surgery. Lasix 40 mg IV 1 dose given DVT prophylaxis Eliquis twice daily CODE STATUS Full Transition to Acute Rehab when medically stable (3) Ankle pain, right: Plan: X-ray ordered: No fractures (4) Hyperglycemia: Plan: Glucose 163 on BMP ? Stress response secondary to fall/fracture A1c 5.9 (5) Chronic hypoxic respiratory failure: (6) COPD (chronic obstructive pulmonary disease): Plan: Management exacerbation as above (7) Hypertension: Plan: BP elevated likely situational/due to pain Control pain, reevaluate BP Continue home amlodipine, losartan added HCTZ for better BP control As needed hydralazine (8) Peripheral vascular disease: Plan: usual ASA, Pentoxyfilline on hold currently on Eliquis 2.5mg po BID (9) HLD (hyperlipidemia): Plan: Chronic, stable Continue statin DVT PROPHYLAXIS Eliquis 2.5mg BID transition to acute rehab when medically stable Admission and Anticipated Discharge Date Admission Date: July 20, 2023 Subjective 07/25/2023 The patient was seen and examined in telemetry unit She has been feeling much better but is still requiring about 12 L/min oxygen to maintain saturation Denies any significant symptoms Remain generally weak 07/26/2023 The patient was seen and examined in telemetry She has been stable but remains weak and lethargic Still requiring 12 L to maintain saturation Has been getting physical therapy Review of Systems Review of Systems: all noted and negative except for above Physical Exam Physical Exam: Sitting on a chair without any acute distress Constitutional: well developed, well nourished, + ill appearing and average body habitus Eyes: PERRL, conjunctivae normal, anicteric sclerae ENMT: external ear and nose normal, oropharynx normal Neck: trachea midline, no thyromegaly Respiratory: no respiratory distress Auscultation: + diminished lung sounds, + crackles (Bibasilar crackles) and + wheezes (Minimal wheezing bilaterally) Cardiovascular: Rate/Rhythm: regular rate and regular rhythm; not tachycardic Heart Sounds: normal S1 and normal S2; no murmur Extremities: no edema Gastrointestinal (Abdomen): Inspection/Auscultation: normal bowel sounds; abdomen not distended Percussion/Palpation: abdomen soft; abdomen nontender Neurologic: normal touch/pain/proprioception and moves all extremities; no focal motor deficits Lymphatic: no cervical or axillary lymphadenopathy Results & Data Results & Data Vital Signs (Past 12 Hours) Vital Signs Temp Pulse Pulse Resp BP BP Pulse Ox 07/26/23 15:04 36.4 C L 84 22 150/56 H 90 07/26/23 13:36 90 24 90 07/26/23 13:23 97 07/26/23 10:56 36.5 C 86 22 165/65 H 98 07/26/23 09:42 07/26/23 08:00 90 07/26/23 07:14 36.5 C 86 18 161/54 H 95 07/26/23 06:15 83 18 90 O2 Del Method O2 Flow Rate 07/26/23 15:04 High Flow Nasal Cannula 12 07/26/23 13:36 Nasal Cannula 9 07/26/23 13:23 12 07/26/23 10:56 Nasal Cannula 12 07/26/23 09:42 Nasal Cannula 12 07/26/23 08:00 07/26/23 07:14 High Flow Nasal Cannula 07/26/23 06:15 Nasal Cannula 11 Laboratory Results Short CBC 07/26/23 Range/Units 05:58 WBC 11.70 H (4.8-10.8) K/ul Hgb 9.6 L (12.0-16.0) g/dl Hct 30.1 L (37.0-47.0) % Plt Count 154 (130-400) K/uL BMP 07/26/23 05:58 Sodium 139 Potassium 4.1 Chloride 96 L Carbon Dioxide 39 H BUN 28 H Creatinine 0.54 L Glucose 99 Calcium 8.4 L Medications Administered Current Inpatient Medications Acetaminophen (Acetaminophen 500 Mg Tab) 1,000 mg PO Q8H [facility]LYN Stop: 08/19/23 21:59 Last Admin: 07/26/23 15:46 Dose: 1,000 mg Amlodipine Besylate (Amlodipine Besylate 5 Mg Tab) 10 mg PO QAM [facility] Stop: 08/20/23 00:29 Last Admin: 07/26/23 09:11 Dose: 10 mg Apixaban (Apixaban 2.5 Mg Tab) 2.5 mg PO BID [facility] Stop: 08/22/23 08:59 Last Admin: 07/26/23 09:11 Dose: 2.5 mg Atorvastatin Calcium (Atorvastatin 20 Mg Tab) 20 mg PO PM [facility] Stop: 08/19/23 21:18 Last Admin: 07/25/23 20:39 Dose: 20 mg Bisacodyl (Bisacodyl 10 Mg Supp) [address] DAILY PRN PRN Reason: Constipation Stop: 08/19/23 21:18 Budesonide (Budesonide 0.5 Mg/2 Ml Vial (Pulmicort)) 0.5 mg NEB BIDR [facility] Stop: 08/20/23 18:59 Last Admin: 07/26/23 13:36 Dose: Not Given Doxycycline Hyclate (Doxycycline Hyclate 100 Mg Cap) 100 mg PO BID [facility] Stop: 07/29/23 08:59 Last Admin: 07/26/23 09:12 Dose: 100 mg Formoterol Fumarate (Formoterol 20 Mcg/2 Ml Vial) 20 mcg NEB BIDR [facility] Stop: 08/20/23 10:59 Last Admin: 07/26/23 13:36 Dose: Not Given Guaifenesin (Guaifenesin 600 Mg Tabcr) 600 mg PO BID [facility] Stop: 08/19/23 21:18 Last Admin: 07/26/23 09:12 Dose: 600 mg Hydralazine HCl (Hydralazine Hcl 20 Mg/Ml Vial) 5 mg IV Q6H PRN PRN Reason: systolic bp > 160 Stop: 08/21/23 16:36 Last Admin: 07/23/23 22:51 Dose: 5 mg Hydrochlorothiazide (Hydrochlorothiazide 25 Mg Tab) 12.5 mg PO DAILY [facility] Stop: 08/22/23 17:14 Last Admin: 07/26/23 09:11 Dose: 12.5 mg Ipratropium [place] (Ipratropium [place] Neb Soln 0.02% 0.5mg/2.5ml Vial) 0.5 mg INH Q6R [facility] Stop: 08/20/23 06:59 Last Admin: 07/26/23 13:36 Dose: 0.5 mg Levalbuterol HCl (Levalbuterol Hcl 0.63 Mg/3 Ml Neb) 0.63 mg INH Q6H PRN; Protocol PRN Reason: Shortness Of Breath Or Wheezing Stop: 08/19/23 21:18 Last Admin: 07/24/23 12:51 Dose: 0.63 mg Levalbuterol HCl (Levalbuterol 1.25 Mg/3 Ml Neb) 1.25 mg NEB Q6R [facility] Stop: 08/20/23 06:59 Last Admin: 07/26/23 13:36 Dose: 1.25 mg Loratadine (Loratadine 10 Mg Tab) 10 mg PO HS [facility] Stop: 08/19/23 21:18 Last Admin: 07/25/23 20:40 Dose: 10 mg Losartan Potassium (Losartan Potassium 50 Mg Tab) 100 mg PO QAM [facility] Stop: 08/20/23 08:59 Last Admin: 07/26/23 09:12 Dose: 100 mg Magnesium Hydroxide (Magnesium Hydroxide Susp 30 Ml Udc) 30 ml PO DAILY PRN PRN Reason: Constipation Stop: 08/19/23 21:18 Miscellaneous (Remove Nicoderm Patch) 1 each N/A DAILY@0859 [facility] Stop: 08/20/23 08:58 Last Admin: 07/26/23 09:13 Dose: 1 each Morphine Sulfate (Morphine Sulfate 2 Mg/Ml Carp) 2 mg IV Q4H PRN PRN Reason: Pain Stop: 08/04/23 02:23 Last Admin: 07/22/23 19:26 Dose: 2 mg Naloxone HCl (Naloxone Hcl 0.4 Mg/1 Ml Vial/Carp) 0.1 mg IV UD PRN PRN Reason: Opiate Overdose Stop: 08/19/23 21:18 Nicotine (Nicotine 21 Mg/24 Hr Tdsy) 1 patch TD QAM [facility] Stop: 08/19/23 21:44 Last Admin: 07/26/23 09:13 Dose: 1 patch Olanzapine (Olanzapine 10 Mg/2.1 Ml Sdv) 2.5 mg IM Q4H PRN PRN Reason: Agitation Stop: 08/20/23 01:33 Last Admin: 07/22/23 02:24 Dose: 2.5 mg Ondansetron HCl (Ondansetron Inj 2 Mg/Ml 2 Ml Vial) 4 mg IV Q6H PRN PRN Reason: Nausea And Vomiting Stop: 08/19/23 21:18 Pentoxifylline (Pentoxifylline 400mg Ext Rel Tab) 400 mg PO TID [facility] Stop: 08/19/23 21:18 Last Admin: 07/20/23 23:15 Dose: 400 mg Polyethylene Glycol (Polyethylene (Miralax) 17 Gm Pack) 17 gm PO DAILY [facility] Stop: 08/24/23 09:14 Last Admin: 07/26/23 09:13 Dose: 17 gm Prednisone (Prednisone 20 Mg Tab) 40 mg PO DAILY [facility] Stop: 08/23/23 08:59 Last Admin: 07/26/23 09:12 Dose: 40 mg Tramadol HCl (Tramadol Hcl 50 Mg Tablet) 25 - 50 mg PO Q4H PRN PRN Reason: Pain Stop: 08/20/23 02:22 Last Admin: 07/22/23 20:55 Dose: 50 mg Vitamin D (Cholecalciferol 25 Mcg (1000 Units) Tab) 25 mcg PO QAM [facility] Stop: 08/20/23 08:59 Last Admin: 07/26/23 09:12 Dose: 25 mcg (1) Osteoporotic fracture of right hip Encounter type: initial encounter Qualified Code(s): M80.051A - Age-related osteoporosis with current pathological fracture, right femur, initial encounter for fracture (2) Fracture of right hip Encounter type: initial encounter Fracture type: closed Qualified Code(s): S72.001A - Fracture of unspecified part of neck of right femur, initial encounter for closed fracture (6) COPD (chronic obstructive pulmonary disease) COPD type: unspecified COPD Qualified Code(s): J44.9 - Chronic obstructive pulmonary disease, unspecified (7) Hypertension Hypertension type: essential hypertension Qualified Code(s): I10 - Essential (primary) hypertension (9) HLD (hyperlipidemia) Hyperlipidemia type: unspecified Qualified Code(s): E78.5 - Hyperlipidemia, unspecified
--- NOTE | 2023-07-27 15:40 | Hospitalist Progress Note ---
Date of Service July 27, 2023 Assessment & Plan (1) Osteoporotic fracture of right hip: (2) Fracture of right hip: Plan: Patient presenting from home after a mechanical fall In the ED, hip/pelvis XR comminuted intertrochanteric fracture of the right proximal femur Status post intramedullary nail right hip on 07/22/2023 Appreciate Ortho input and recommendation Pain is reasonably controlled and continue with physical therapy weightbearing as tolerated on the right hip Eliquis BID for DVT prophylaxis Remains stable with minimal pain Continue PT OT and awaiting rehab Pain is reasonably controlled COPD exacerbation Acute and chronic respiratory failure with hypoxia Patient has COPD with chronic hypoxic respiratory failure on 6 L of oxygen, currently saturating well on her chronic 6 L. Reports cough and shortness of breath are at her chronic baseline. Solu-Medrol 40 mg twice daily, Perforomist and Pulmicort twice daily started Continue Xopenex Atrovent nebs every 6 hours Continue doxycycline required Bipap Pulmonology service consulted-appreciate input and recommendation back to baseline 6 L NC Transitioned to prednisone Continue nebs, Doxycycline Denies any chest pain or shortness of breath Has severe COPD with minimal air movement in the lung Still requiring high flow oxygen and does not seems to be at her baseline Possible acute on chronic diastolic congestive heart failure exacerbation component Echocardiogram: EF 65 to 70%, right ventricular systolic function is normal, no significant valvular disease No other cardiopulmonary complaints. EKG without acute ST changes. CXR unremarkable. Patient considered acceptable risk to proceed to surgery. Lasix 40 mg IV 1 dose given Has had enough diuresis with negative balance of more than 7 L will not give any Lasix for now DVT prophylaxis Eliquis twice daily CODE STATUS Full Transition to Acute Rehab when medically stable Awaiting placement (3) Ankle pain, right: Plan: X-ray ordered: No fractures (4) Hyperglycemia: Plan: Glucose 163 on BMP ? Stress response secondary to fall/fracture A1c 5.9 (5) Chronic hypoxic respiratory failure: (6) COPD (chronic obstructive pulmonary disease): Plan: Management exacerbation as above (7) Hypertension: Plan: BP elevated likely situational/due to pain Control pain, reevaluate BP Continue home amlodipine, losartan added HCTZ for better BP control As needed hydralazine (8) Peripheral vascular disease: Plan: usual ASA, Pentoxyfilline on hold currently on Eliquis 2.5mg po BID (9) HLD (hyperlipidemia): Plan: Chronic, stable Continue statin DVT PROPHYLAXIS Eliquis 2.5mg BID transition to acute rehab when medically stable Admission and Anticipated Discharge Date Admission Date: July 20, 2023 Subjective 07/25/2023 The patient was seen and examined in telemetry unit She has been feeling much better but is still requiring about 12 L/min oxygen to maintain saturation Denies any significant symptoms Remain generally weak 07/26/2023 The patient was seen and examined in telemetry She has been stable but remains weak and lethargic Still requiring 12 L to maintain saturation Has been getting physical therapy 07/27/2023 The patient was seen and examined in telemetry unit He has been feeling a little better today but is still requiring high flow oxygen to maintain saturation Still has pain in the right hip Remains weak and getting physical therapy Review of Systems Review of Systems: all noted and negative except for above Physical Exam Physical Exam: Sitting on a chair without any acute distress Constitutional: well developed, well nourished, + ill appearing and average body habitus Eyes: PERRL, conjunctivae normal, anicteric sclerae ENMT: external ear and nose normal, oropharynx normal Neck: trachea midline, no thyromegaly Respiratory: no respiratory distress Auscultation: + diminished lung sounds, + crackles (Bibasilar crackles) and + wheezes (Minimal wheezing bilaterally) Cardiovascular: Rate/Rhythm: regular rate and regular rhythm; not tachycardic Heart Sounds: normal S1 and normal S2; no murmur Extremities: no edema Gastrointestinal (Abdomen): Inspection/Auscultation: normal bowel sounds; abdomen not distended Percussion/Palpation: abdomen soft; abdomen nontender Musculoskeletal: Left hip pain with movement Neurologic: normal touch/pain/proprioception and moves all extremities; no focal motor deficits Lymphatic: no cervical or axillary lymphadenopathy Results & Data Results & Data Vital Signs (Past 12 Hours) Vital Signs Temp Pulse Pulse Resp BP BP Pulse Ox 07/27/23 14:41 36.5 C 87 22 158/63 H 91 07/27/23 13:30 82 18 93 07/27/23 10:41 36.6 C 78 22 161/56 H 95 07/27/23 08:00 07/27/23 07:34 36.5 C 81 20 139/63 99 07/27/23 07:17 79 07/27/23 07:01 80 18 99 07/27/23 05:24 74 18 89 L O2 Del Method O2 Flow Rate 07/27/23 14:41 High Flow Nasal Cannula 07/27/23 13:30 Nasal Cannula 8 07/27/23 10:41 High Flow Nasal Cannula 07/27/23 08:00 Nasal Cannula 8 07/27/23 07:34 Nasal Cannula 07/27/23 07:17 07/27/23 07:01 Nasal Cannula 9 07/27/23 05:24 Nasal Cannula 9 Medications Administered Current Inpatient Medications Acetaminophen (Acetaminophen 500 Mg Tab) 1,000 mg PO Q8H [facility]SE[facility]N Stop: 08/19/23 21:59 Last Admin: 07/27/23 13:58 Dose: 1,000 mg Amlodipine Besylate (Amlodipine Besylate 5 Mg Tab) 10 mg PO QAM [facility] Stop: 08/20/23 00:29 Last Admin: 07/27/23 08:09 Dose: 10 mg Apixaban (Apixaban 2.5 Mg Tab) 2.5 mg PO BID [facility] Stop: 08/22/23 08:59 Last Admin: 07/27/23 08:09 Dose: 2.5 mg Atorvastatin Calcium (Atorvastatin 20 Mg Tab) 20 mg PO PM [facility]N Stop: 08/19/23 21:18 Last Admin: 07/26/23 21:04 Dose: 20 mg Bisacodyl (Bisacodyl 10 Mg Supp) 10 mg GA DAILY PRN PRN Reason: Constipation Stop: 08/19/23 21:18 Budesonide (Budesonide 0.5 Mg/2 Ml Vial (Pulmicort)) 0.5 mg NEB BIDR [facility]N Stop: 08/20/23 18:59 Last Admin: 07/27/23 07:00 Dose: 0.5 mg Doxycycline Hyclate (Doxycycline Hyclate 100 Mg Cap) 100 mg PO BID [facility]N Stop: 07/29/23 08:59 Last Admin: 07/27/23 08:10 Dose: 100 mg Formoterol Fumarate (Formoterol 20 Mcg/2 Ml Vial) 20 mcg NEB BIDR [facility] Stop: 08/20/23 10:59 Last Admin: 07/27/23 07:00 Dose: 20 mcg Guaifenesin (Guaifenesin 600 Mg Tabcr) 600 mg PO BID [facility]N Stop: 08/19/23 21:18 Last Admin: 07/27/23 08:10 Dose: 600 mg Hydralazine HCl (Hydralazine Hcl 20 Mg/Ml Vial) 5 mg IV Q6H PRN PRN Reason: systolic bp > 160 Stop: 08/21/23 16:36 Last Admin: 07/23/23 22:51 Dose: 5 mg Hydrochlorothiazide (Hydrochlorothiazide 25 Mg Tab) 12.5 mg PO DAILY [facility] Stop: 08/22/23 17:14 Last Admin: 07/27/23 08:10 Dose: 12.5 mg Ipratropium [place] (Ipratropium [place] Neb Soln 0.02% 0.5mg/2.5ml Vial) 0.5 mg INH Q6R [facility] Stop: 08/20/23 06:59 Last Admin: 07/27/23 13:28 Dose: 0.5 mg Levalbuterol HCl (Levalbuterol Hcl 0.63 Mg/3 Ml Neb) 0.63 mg INH Q6H PRN; Protocol PRN Reason: Shortness Of Breath Or Wheezing Stop: 08/19/23 21:18 Last Admin: 07/27/23 13:28 Dose: 0.63 mg Levalbuterol HCl (Levalbuterol 1.25 Mg/3 Ml Neb) 1.25 mg NEB Q6R [facility] Stop: 08/20/23 06:59 Last Admin: 07/27/23 14:03 Dose: Not Given Loratadine (Loratadine 10 Mg Tab) 10 mg PO HS [facility] Stop: 08/19/23 21:18 Last Admin: 07/26/23 21:04 Dose: 10 mg Losartan Potassium (Losartan Potassium 50 Mg Tab) 100 mg PO QAM [facility] Stop: 08/20/23 08:59 Last Admin: 07/27/23 08:11 Dose: 100 mg Magnesium Hydroxide (Magnesium Hydroxide Susp 30 Ml Udc) 30 ml PO DAILY PRN PRN Reason: Constipation Stop: 08/19/23 21:18 Miscellaneous (Remove Nicoderm Patch) 1 each N/A DAILY@0859 [facility] Stop: 08/20/23 08:58 Last Admin: 07/27/23 08:09 Dose: 1 each Morphine Sulfate (Morphine Sulfate 2 Mg/Ml Carp) 2 mg IV Q4H PRN PRN Reason: Pain Stop: 08/04/23 02:23 Last Admin: 07/22/23 19:26 Dose: 2 mg Naloxone HCl (Naloxone Hcl 0.4 Mg/1 Ml Vial/Carp) 0.1 mg IV UD PRN PRN Reason: Opiate Overdose Stop: 08/19/23 21:18 Nicotine (Nicotine 21 Mg/24 Hr Tdsy) 1 patch TD QAM [facility] Stop: 08/19/23 21:44 Last Admin: 07/27/23 08:08 Dose: 1 patch Olanzapine (Olanzapine 10 Mg/2.1 Ml Sdv) 2.5 mg IM Q4H PRN PRN Reason: Agitation Stop: 08/20/23 01:33 Last Admin: 07/22/23 02:24 Dose: 2.5 mg Ondansetron HCl (Ondansetron Inj 2 Mg/Ml 2 Ml Vial) 4 mg IV Q6H PRN PRN Reason: Nausea And Vomiting Stop: 08/19/23 21:18 Pentoxifylline (Pentoxifylline 400mg Ext Rel Tab) 400 mg PO TID [facility] Stop: 08/19/23 21:18 Last Admin: 07/20/23 23:15 Dose: 400 mg Polyethylene Glycol (Polyethylene (Miralax) 17 Gm Pack) 17 gm PO DAILY [facility] Stop: 08/24/23 09:14 Last Admin: 07/27/23 08:11 Dose: Not Given Prednisone (Prednisone 20 Mg Tab) 40 mg PO DAILY [facility] Stop: 08/23/23 08:59 Last Admin: 07/27/23 08:11 Dose: 40 mg Tramadol HCl (Tramadol Hcl 50 Mg Tablet) 25 - 50 mg PO Q4H PRN PRN Reason: Pain Stop: 08/20/23 02:22 Last Admin: 07/27/23 10:17 Dose: 50 mg Vitamin D (Cholecalciferol 25 Mcg (1000 Units) Tab) 25 mcg PO QAM [facility] Stop: 08/20/23 08:59 Last Admin: 07/27/23 08:09 Dose: 25 mcg (1) Osteoporotic fracture of right hip Encounter type: initial encounter Qualified Code(s): M80.051A - Age-related osteoporosis with current pathological fracture, right femur, initial encounter for fracture (2) Fracture of right hip Encounter type: initial encounter Fracture type: closed Qualified Code(s): S72.001A - Fracture of unspecified part of neck of right femur, initial encounter for closed fracture (6) COPD (chronic obstructive pulmonary disease) COPD type: unspecified COPD Qualified Code(s): J44.9 - Chronic obstructive pulmonary disease, unspecified (7) Hypertension Hypertension type: essential hypertension Qualified Code(s): I10 - Essential (primary) hypertension (9) HLD (hyperlipidemia) Hyperlipidemia type: unspecified Qualified Code(s): E78.5 - Hyperlipidemia, unspecified
[2023-07-28 07:22] LABS: Basophils # (auto) 0.06 K/uL (0.00-0.20); Basophils % (auto) 0.4 %; Eosinophils % (auto) 0.7 %; Hematocrit (blood only) 28.9 % (37.0-47.0); Hemoglobin 9.3 g/dl (12.0-16.0); Immature Granulocytes # (auto) 0.67 K/uL (0.01-0.20); Immature Granulocytes % (auto) 4.8 %; Lymphocytes # (auto) 4.01 K/uL (1.20-3.40); Lymphocytes % (auto) 28.6 %; Mean Corpuscular Hgb Conc 32.2 g/dL (32.0-36.0); Mean Corpuscular Volume 96.3 fL (80.0-100.0); Mean Platelet Volume 10.3 fL (9.4-12.4); Monocytes % (auto) 7.1 %; Neutrophils % (auto) 58.4 %; Nucleated RBC # (auto) 0.03 K/uL (0.00-0.12); Nucleated RBC % (auto) 0.2 %; Platelet Count 222 K/uL (130-400); RDW Coefficient of Variation 12.8 % (11.5-14.5); RDW Standard Deviation 44.3 fL (36.4-46.3); White Blood Count 14.04 K/ul (4.8-10.8)
[2023-07-28 07:48] LABS: BUN Creatinine Ratio 41.8 (10-20); Calcium 9.1 mg/dl (8.6-10.3); Creatinine Clr Calc Pharmacy 85.6 ml/min; Est GFR (African American) 105.6 ml/min; Est GFR (Non-African American) 91.1 ml/min; Magnesium 1.9 mg/dl (1.7-2.4); Potassium 4.1 mmol/L (3.5-5.1)
--- NOTE | 2023-07-28 14:08 | Hospitalist Progress Note ---
Date of Service July 28, 2023 Assessment & Plan (1) Osteoporotic fracture of right hip: (2) Fracture of right hip: Plan: Patient presenting from home after a mechanical fall In the ED, hip/pelvis XR comminuted intertrochanteric fracture of the right proximal femur Status post intramedullary nail right hip on 07/22/2023 Appreciate Ortho input and recommendation Pain is reasonably controlled and continue with physical therapy weightbearing as tolerated on the right hip Eliquis BID for DVT prophylaxis Remains stable with minimal pain Continue PT OT and awaiting rehab Pain is reasonably controlled Still remains weak and lethargic but participating in physical therapy Awaiting placement COPD exacerbation Acute and chronic respiratory failure with hypoxia Patient has COPD with chronic hypoxic respiratory failure on 6 L of oxygen, c urrently saturating well on her chronic 6 L. Reports cough and shortness of breath are at her chronic baseline. Solu-Medrol 40 mg twice daily, Perforomist and Pulmicort twice daily started Continue Xopenex Atrovent nebs every 6 hours Continue doxycycline required Bipap Pulmonology service consulted-appreciate input and recommendation back to baseline 6 L NC Transitioned to prednisone Continue nebs, Doxycycline Denies any chest pain or shortness of breath Has severe COPD with minimal air movement in the lung Still requiring high flow oxygen and does not seems to be at her baseline Severe COPD with minimal air entry to the lungs-noted to have high CO2 at 42 Will continue with BiPAP Possible acute on chronic diastolic congestive heart failure exacerbation component Echocardiogram: EF 65 to 70%, right ventricular systolic function is normal, no significant valvular disease No other cardiopulmonary complaints. EKG without acute ST changes. CXR unremarkable. Patient considered acceptable risk to proceed to surgery. Lasix 40 mg IV 1 dose given Has had enough diuresis with negative balance of more than 7 L will not give any Lasix for now DVT prophylaxis Eliquis twice daily CODE STATUS Full Transition to Acute Rehab when medically stable Awaiting placement (3) Ankle pain, right: Plan: X-ray ordered: No fractures (4) Hyperglycemia: Plan: Glucose 163 on BMP ? Stress response secondary to fall/fracture A1c 5.9 (5) Chronic hypoxic respiratory failure: (6) COPD (chronic obstructive pulmonary disease): Plan: Management exacerbation as above (7) Hypertension: Plan: BP elevated likely situational/due to pain Control pain, reevaluate BP Continue home amlodipine, losartan added HCTZ for better BP control As needed hydralazine (8) Peripheral vascular disease: Plan: usual ASA, Pentoxyfilline on hold currently on Eliquis 2.5mg po BID (9) HLD (hyperlipidemia): Plan: Chronic, stable Continue statin DVT PROPHYLAXIS Eliquis 2.5mg BID transition to acute rehab when medically stable Admission and Anticipated Discharge Date Admission Date: July 20, 2023 Subjective 07/25/2023 The patient was seen and examined in telemetry unit She has been feeling much better but is still requiring about 12 L/min oxygen to maintain saturation Denies any significant symptoms Remain generally weak 07/26/2023 The patient was seen and examined in telemetry She has been stable but remains weak and lethargic Still requiring 12 L to maintain saturation Has been getting physical therapy 07/27/2023 The patient was seen and examined in telemetry unit He has been feeling a little better today but is still requiring high flow oxy gen to maintain saturation Still has pain in the right hip Remains weak and getting physical therapy 07/28/2023 The patient was seen and examined in telemetry unit She has been feeling better but her CO2 level is elevated to 42 Remains weak and lethargic and feels that she is not yet ready to be discharged Review of Systems Review of Systems: all noted and negative except for above Physical Exam Physical Exam: Sitting on a chair without any acute distress Constitutional: well developed, well nourished, + ill appearing and average body habitus Eyes: PERRL, conjunctivae normal, anicteric sclerae ENMT: external ear and nose normal, oropharynx normal Neck: trachea midline, no thyromegaly Respiratory: no respiratory distress Auscultation: + diminished lung sounds, + crackles (Bibasilar crackles) and + wheezes (Minimal wheezing bilaterally) Cardiovascular: Rate/Rhythm: regular rate and regular rhythm; not tachycardic Heart Sounds: normal S1 and normal S2; no murmur Extremities: no edema Gastrointestinal (Abdomen): Inspection/Auscultation: normal bowel sounds; abdomen not distended Percussion/Palpation: abdomen soft; abdomen nontender Neurologic: normal touch/pain/proprioception and moves all extremities; no focal motor deficits Lymphatic: no cervical or axillary lymphadenopathy Results & Data Results & Data Vital Signs (Past 12 Hours) Vital Signs Temp Pulse Pulse Pulse Resp BP Pulse Ox 07/28/23 13:01 90 24 86 L 07/28/23 11:19 35.8 C L 97 H 18 146/67 H 92 07/28/23 08:30 79 22 94 07/28/23 07:39 36.5 C 84 20 169/62 H 98 07/28/23 07:31 80 18 94 07/28/23 03:31 36.5 C 80 20 149/78 H 97 O2 Del Method O2 Flow Rate FiO2 07/28/23 13:01 Nasal Cannula 7 07/28/23 11:19 BiPAP 8 07/28/23 08:30 40 07/28/23 07:39 Nasal Cannula 07/28/23 07:31 Nasal Cannula 8 07/28/23 03:31 High Flow Nasal Cannula Laboratory Results Short CBC 07/28/23 Range/Units 06:44 WBC 14.04 H (4.8-10.8) K/ul Hgb 9.3 L (12.0-16.0) g/dl Hct 28.9 L (37.0-47.0) % Plt Count 222 (130-400) K/uL BMP 07/28/23 06:44 Sodium 136 Potassium 4.1 Chloride 93 L Carbon Dioxide 42 H* BUN 23 Creatinine 0.55 L Glucose 93 Calcium 9.1 Medications Administered Current Inpatient Medications Acetaminophen (Acetaminophen 500 Mg Tab) 1,000 mg PO Q8H [facility] Stop: 08/19/23 21:59 Last Admin: 07/28/23 13:28 Dose: 1,000 mg Amlodipine Besylate (Amlodipine Besylate 5 Mg Tab) 10 mg PO QAM [facility] Stop: 08/20/23 00:29 Last Admin: 07/28/23 08:48 Dose: 10 mg Apixaban (Apixaban 2.5 Mg Tab) 2.5 mg PO BID [facility] Stop: 08/22/23 08:59 Last Admin: 07/28/23 08:48 Dose: 2.5 mg Atorvastatin Calcium (Atorvastatin 20 Mg Tab) 20 mg PO PM [facility] Stop: 08/19/23 21:18 Last Admin: 07/27/23 20:14 Dose: 20 mg Bisacodyl (Bisacodyl 10 Mg Supp) 10 mg SC DAILY PRN PRN Reason: Constipation Stop: 08/19/23 21:18 Budesonide (Budesonide 0.5 Mg/2 Ml Vial (Pulmicort)) 0.5 mg NEB BIDR [facility] Stop: 08/20/23 18:59 Last Admin: 07/28/23 07:30 Dose: 0.5 mg Doxycycline Hyclate (Doxycycline Hyclate 100 Mg Cap) 100 mg PO BID [facility] Stop: 07/29/23 08:59 Last Admin: 07/28/23 08:48 Dose: 100 mg Formoterol Fumarate (Formoterol 20 Mcg/2 Ml Vial) 20 mcg NEB BIDR [facility] Stop: 08/20/23 10:59 Last Admin: 07/28/23 07:30 Dose: 20 mcg Guaifenesin (Guaifenesin 600 Mg Tabcr) 600 mg PO BID [facility] Stop: 08/19/23 21:18 Last Admin: 07/28/23 08:48 Dose: 600 mg Hydralazine HCl (Hydralazine Hcl 20 Mg/Ml Vial) 5 mg IV Q6H PRN PRN Reason: systolic bp > 160 Stop: 08/21/23 16:36 Last Admin: 07/23/23 22:51 Dose: 5 mg Hydrochlorothiazide (Hydrochlorothiazide 25 Mg Tab) 12.5 mg PO DAILY [facility] Stop: 08/22/23 17:14 Last Admin: 07/28/23 08:48 Dose: 12.5 mg Ipratropium [place] (Ipratropium [place] Neb Soln 0.02% 0.5mg/2.5ml Vial) 0.5 mg INH Q6R [facility] Stop: 08/20/23 06:59 Last Admin: 07/28/23 13:00 Dose: 0.5 mg Levalbuterol HCl (Levalbuterol Hcl 0.63 Mg/3 Ml Neb) 0.63 mg INH Q6H PRN; Protocol PRN Reason: Shortness Of Breath Or Wheezing Stop: 08/19/23 21:18 Last Admin: 07/28/23 00:45 Dose: 0.63 mg Levalbuterol HCl (Levalbuterol 1.25 Mg/3 Ml Neb) 1.25 mg NEB Q6R [facility] Stop: 08/20/23 06:59 Last Admin: 07/28/23 13:00 Dose: 1.25 mg Loratadine (Loratadine 10 Mg Tab) 10 mg PO HS [facility] Stop: 08/19/23 21:18 Last Admin: 07/27/23 20:14 Dose: 10 mg Losartan Potassium (Losartan Potassium 50 Mg Tab) 100 mg PO QAM [facility] Stop: 08/20/23 08:59 Last Admin: 07/28/23 08:48 Dose: 100 mg Magnesium Hydroxide (Magnesium Hydroxide Susp 30 Ml Udc) 30 ml PO DAILY PRN PRN Reason: Constipation Stop: 08/19/23 21:18 Miscellaneous (Remove Nicoderm Patch) 1 each N/A DAILY@0859 [facility] Stop: 08/20/23 08:58 Last Admin: 07/28/23 08:48 Dose: 1 each Morphine Sulfate (Morphine Sulfate 2 Mg/Ml Carp) 2 mg IV Q4H PRN PRN Reason: Pain Stop: 08/04/23 02:23 Last Admin: 07/22/23 19:26 Dose: 2 mg Naloxone HCl (Naloxone Hcl 0.4 Mg/1 Ml Vial/Carp) 0.1 mg IV UD PRN PRN Reason: Opiate Overdose Stop: 08/19/23 21:18 Nicotine (Nicotine 21 Mg/24 Hr Tdsy) 1 patch TD [facility] Stop: 08/19/23 21:44 Last Admin: 07/28/23 08:48 Dose: 1 patch Olanzapine (Olanzapine 10 Mg/2.1 Ml Sdv) 2.5 mg IM Q4H PRN PRN Reason: Agitation Stop: 08/20/23 01:33 Last Admin: 07/22/23 02:24 Dose: 2.5 mg Ondansetron HCl (Ondansetron Inj 2 Mg/Ml 2 Ml Vial) 4 mg IV Q6H PRN PRN Reason: Nausea And Vomiting Stop: 08/19/23 21:18 Pentoxifylline (Pentoxifylline 400mg Ext Rel Tab) 400 mg PO TID [facility] Stop: 08/19/23 21:18 Last Admin: 07/20/23 23:15 Dose: 400 mg Polyethylene Glycol (Polyethylene (Miralax) 17 Gm Pack) 17 gm PO DAILY [facility] Stop: 08/24/23 09:14 Last Admin: 07/28/23 08:47 Dose: Not Given Prednisone (Prednisone 20 Mg Tab) 40 mg PO DAILY [facility] Stop: 08/23/23 08:59 Last Admin: 07/28/23 08:48 Dose: 40 mg Tramadol HCl (Tramadol Hcl 50 Mg Tablet) 25 - 50 mg PO Q4H PRN PRN Reason: Pain Stop: 08/20/23 02:22 Last Admin: 07/27/23 10:17 Dose: 50 mg Vitamin D (Cholecalciferol 25 Mcg (1000 Units) Tab) 25 mcg PO QAM [facility] Stop: 08/20/23 08:59 Last Admin: 07/28/23 08:48 Dose: 25 mcg (1) Osteoporotic fracture of right hip Encounter type: initial encounter Qualified Code(s): M80.051A - Age-related osteoporosis with current pathological fracture, right femur, initial encounter for fracture (2) Fracture of right hip Encounter type: initial encounter Fracture type: closed Qualified Code(s): S72.001A - Fracture of unspecified part of neck of right femur, initial encounter for closed fracture (6) COPD (chronic obstructive pulmonary disease) COPD type: unspecified COPD Qualified Code(s): J44.9 - Chronic obstructive pulmonary disease, unspecified (7) Hypertension Hypertension type: essential hypertension Qualified Code(s): I10 - Essential (primary) hypertension (9) HLD (hyperlipidemia) Hyperlipidemia type: unspecified Qualified Code(s): E78.5 - Hyperlipidemia, unspecified
[2023-07-29 07:42] LABS: Calcium 8.6 mg/dl (8.6-10.3); Creatinine Clr Calc Pharmacy 90.8 ml/min; Est GFR (African American) 107.6 ml/min; Est GFR (Non-African American) 92.8 ml/min; Potassium 3.9 mmol/L (3.5-5.1)
--- NOTE | 2023-07-29 12:50 | Hospitalist Progress Note ---
Date of Service July 29, 2023 Assessment & Plan (1) Osteoporotic fracture of right hip: (2) Fracture of right hip: Plan: Patient presenting from home after a mechanical fall In the ED, hip/pelvis XR comminuted intertrochanteric fracture of the right proximal femur Status post intramedullary nail right hip on 07/22/2023 Appreciate Ortho input and recommendation Pain is reasonably controlled and continue with physical therapy weightbearing as tolerated on the right hip Eliquis BID for DVT prophylaxis Remains stable with minimal pain Continue PT OT and awaiting rehab Pain is reasonably controlled Still remains weak and lethargic but participating in physical therapy Awaiting placement-likely to go to wound to heal in a day or 2 COPD exacerbation Acute and chronic respiratory failure with hypoxia Patient has COPD with chronic hypoxic respiratory failure on 6 L of oxygen, currently saturating well on her chronic 6 L. Reports cough and shortness of breath are at her chronic baseline. Solu-Medrol 40 mg twice daily, Perforomist and Pulmicort twice daily started Continue Xopenex Atrovent nebs every 6 hours Continue doxycycline required Bipap Pulmonology service consulted-appreciate input and recommendation back to baseline 6 L NC Transitioned to prednisone Continue nebs, Doxycycline Denies any chest pain or shortness of breath Has severe COPD with minimal air movement in the lung Still requiring high flow oxygen and does not seems to be at her baseline Severe COPD with minimal air entry to the lungs-noted to have high CO2 at 42 Will continue with BiPAP-specially at night CO2 has been down to 40 today and will continue current management Possible acute on chronic diastolic congestive heart failure exacerbation component Echocardiogram: EF 65 to 70%, right ventricular systolic function is normal, no significant valvular disease No other cardiopulmonary complaints. EKG without acute ST changes. CXR unremarkable. Patient considered acceptable risk to proceed to surgery. Lasix 40 mg IV 1 dose given Has had enough diuresis with negative balance of more than 7 L will not give any Lasix for now No signs and symptoms of fluid overload DVT prophylaxis Eliquis twice daily CODE STATUS Full Transition to Acute Rehab when medically stable Awaiting placement (3) Ankle pain, right: Plan: X-ray ordered: No fractures (4) Hyperglycemia: Plan: Glucose 163 on BMP ? Stress response secondary to fall/fracture A1c 5.9 (5) Chronic hypoxic respiratory failure: (6) COPD (chronic obstructive pulmonary disease): Plan: Management exacerbation as above (7) Hypertension: Plan: BP elevated likely situational/due to pain Control pain, reevaluate BP Continue home amlodipine, losartan added HCTZ for better BP control As needed hydralazine (8) Peripheral vascular disease: Plan: usual ASA, Pentoxyfilline on hold currently on Eliquis 2.5mg po BID (9) HLD (hyperlipidemia): Plan: Chronic, stable Continue statin DVT PROPHYLAXIS Eliquis 2.5mg BID transition to acute rehab when medically stable Admission and Anticipated Discharge Date Admission Date: July 20, 2023 Subjective 07/25/2023 The patient was seen and examined in telemetry unit She has been feeling much better but is still requiring about 12 L/min oxygen to maintain saturation Denies any significant symptoms Remain generally weak 07/26/2023 The patient was seen and examined in telemetry She has been stable but remains weak and lethargic Still requiring 12 L to maintain saturation Has been getting physical therapy 07/27/2023 The patient was seen and examined in telemetry unit He has been feeling a little better today but is still requiring high flow oxygen to maintain saturation Still has pain in the right hip Remains weak and getting physical therapy 07/28/2023 The patient was seen and examined in telemetry unit She has been feeling better but her CO2 level is elevated to 42 Remains weak and lethargic and feels that she is not yet ready to be discharged 07/29/2023 The patient was seen and examined in telemetry unit She has been feeling a little better today Still has shortness of breath at rest and requiring 8 L to maintain saturation Her pain in the right hip is improving Awaiting placement likely to go to [facility] tomorrow or day after Review of Systems Review of Systems: all noted and negative except for above Physical Exam Physical Exam: Sitting on a chair without any acute distress Constitutional: well developed, well nourished, + ill appearing and average body habitus Eyes: PERRL, conjunctivae normal, anicteric sclerae ENMT: external ear and nose normal, oropharynx normal Neck: trachea midline, no thyromegaly Respiratory: no respiratory distress Auscultation: + diminished lung sounds, + crackles (Bibasilar crackles) and + wheezes (Minimal wheezing bilaterally) Cardiovascular: Rate/Rhythm: regular rate and regular rhythm; not tachycardic Heart Sounds: normal S1 and normal S2; no murmur Extremities: no edema Gastrointestinal (Abdomen): Inspection/Auscultation: normal bowel sounds; abdomen not distended Percussion/Palpation: abdomen soft; abdomen nontender Neurologic: normal touch/pain/proprioception and moves all extremities; no focal motor deficits Lymphatic: no cervical or axillary lymphadenopathy Results & Data Results & Data Vital Signs (Past 12 Hours) Vital Signs Temp Pulse Pulse Resp BP Pulse Ox O2 Del Method 07/29/23 08:15 36.6 C 95 H 22 166/60 H 91 High Flow Nasal Cannula 07/29/23 07:18 86 22 97 Oxymask 07/29/23 03:24 77 20 93 07/29/23 02:51 36.3 C L 75 18 176/61 H 96 BiPAP 07/29/23 01:07 73 18 98 BiPAP O2 Flow Rate FiO2 07/29/23 08:15 8 07/29/23 07:18 8 07/29/23 03:24 07/29/23 02:51 07/29/23 01:07 40 Laboratory Results [facility] 07/29/23 07:00 Sodium 135 L Potassium 3.9 Chloride 93 L Carbon Dioxide 40 H BUN 26 H Creatinine 0.52 L Glucose 119 H Calcium 8.6 Medications Administered Current Inpatient Medications Acetaminophen (Acetaminophen 500 Mg Tab) 1,000 mg PO Q8H [facility] Stop: 08/19/23 21:59 Last Admin: 07/29/23 06:20 Dose: 1,000 mg Amlodipine Besylate (Amlodipine Besylate 5 Mg Tab) 10 mg PO QAM [facility] Stop: 08/20/23 00:29 Last Admin: 07/29/23 09:01 Dose: 10 mg Apixaban (Apixaban 2.5 Mg Tab) 2.5 mg PO BID [facility] Stop: 08/22/23 08:59 Last Admin: 07/29/23 09:01 Dose: 2.5 mg Atorvastatin Calcium (Atorvastatin 20 Mg Tab) 20 mg PO PM [facility] Stop: 08/19/23 21:18 Last Admin: 07/28/23 21:09 Dose: 20 mg Bisacodyl (Bisacodyl 10 Mg Supp) 10 mg [place] DAILY PRN PRN Reason: Constipation Stop: 08/19/23 21:18 Budesonide (Budesonide 0.5 Mg/2 Ml Vial (Pulmicort)) 0.5 mg NEB BIDR [facility] Stop: 08/20/23 18:59 Last Admin: 07/29/23 07:16 Dose: 0.5 mg Formoterol Fumarate (Formoterol 20 Mcg/2 Ml Vial) 20 mcg NEB BIDR [facility] Stop: 08/20/23 10:59 Last Admin: 07/29/23 07:16 Dose: 20 mcg Guaifenesin (Guaifenesin 600 Mg Tabcr) 600 mg PO BID [facility] Stop: 08/19/23 21:18 Last Admin: 07/29/23 09:01 Dose: 600 mg Hydralazine HCl (Hydralazine Hcl 20 Mg/Ml Vial) 5 mg IV Q6H PRN PRN Reason: systolic bp > 160 Stop: 08/21/23 16:36 Last Admin: 07/23/23 22:51 Dose: 5 mg Hydrochlorothiazide (Hydrochlorothiazide 25 Mg Tab) 12.5 mg PO DAILY [facility] Stop: 08/22/23 17:14 Last Admin: 07/29/23 09:01 Dose: 12.5 mg Ipratropium [place] (Ipratropium [place] Neb Soln 0.02% 0.5mg/2.5ml Vial) 0.5 mg INH Q6R [facility] Stop: 08/20/23 06:59 Last Admin: 07/29/23 07:17 Dose: Not Given Levalbuterol HCl (Levalbuterol Hcl 0.63 Mg/3 Ml Neb) 0.63 mg INH Q6H PRN; Protocol PRN Reason: Shortness Of Breath Or Wheezing Stop: 08/19/23 21:18 Last Admin: 07/29/23 01:07 Dose: 0.63 mg Levalbuterol HCl (Levalbuterol 1.25 Mg/3 Ml Neb) 1.25 mg NEB Q6R [facility] Stop: 08/20/23 06:59 Last Admin: 07/29/23 07:17 Dose: Not Given Loratadine (Loratadine 10 Mg Tab) 10 mg PO HS [facility] Stop: 08/19/23 21:18 Last Admin: 07/28/23 21:09 Dose: 10 mg Losartan Potassium (Losartan Potassium 50 Mg Tab) 100 mg PO QAM [facility] Stop: 08/20/23 08:59 Last Admin: 07/29/23 09:01 Dose: 100 mg Magnesium Hydroxide (Magnesium Hydroxide Susp 30 Ml Udc) 30 ml PO DAILY PRN PRN Reason: Constipation Stop: 08/19/23 21:18 Miscellaneous (Remove Nicoderm Patch) 1 each N/A DAILY@0859 [facility] Stop: 08/20/23 08:58 Last Admin: 07/29/23 09:01 Dose: 1 each Morphine Sulfate (Morphine Sulfate 2 Mg/Ml Carp) 2 mg IV Q4H PRN PRN Reason: Pain Stop: 08/04/23 02:23 Last Admin: 07/22/23 19:26 Dose: 2 mg Naloxone HCl (Naloxone Hcl 0.4 Mg/1 Ml Vial/Carp) 0.1 mg IV UD PRN PRN Reason: Opiate Overdose Stop: 08/19/23 21:18 Nicotine (Nicotine 21 Mg/24 Hr Tdsy) 1 patch TD [facility] Stop: 08/19/23 21:44 Last Admin: 07/29/23 09:01 Dose: 1 patch Olanzapine (Olanzapine 10 Mg/2.1 Ml Sdv) 2.5 mg IM Q4H PRN PRN Reason: Agitation Stop: 08/20/23 01:33 Last Admin: 07/22/23 02:24 Dose: 2.5 mg Ondansetron HCl (Ondansetron Inj 2 Mg/Ml 2 Ml Vial) 4 mg IV Q6H PRN PRN Reason: Nausea And Vomiting Stop: 08/19/23 21:18 Pentoxifylline (Pentoxifylline 400mg Ext Rel Tab) 400 mg PO TID [facility] Stop: 08/19/23 21:18 Last Admin: 07/20/23 23:15 Dose: 400 mg Polyethylene Glycol (Polyethylene (Miralax) 17 Gm Pack) 17 gm PO DAILY [facility] Stop: 08/24/23 09:14 Last Admin: 07/29/23 09:02 Dose: Not Given Prednisone (Prednisone 20 Mg Tab) 40 mg PO DAILY [facility] Stop: 08/23/23 08:59 Last Admin: 07/29/23 09:01 Dose: 40 mg Tramadol HCl (Tramadol Hcl 50 Mg Tablet) 25 - 50 mg PO Q4H PRN PRN Reason: Pain Stop: 08/20/23 02:22 Last Admin: 07/27/23 10:17 Dose: 50 mg Vitamin D (Cholecalciferol 25 Mcg (1000 Units) Tab) 25 mcg PO QAM [facility] Stop: 08/20/23 08:59 Last Admin: 07/29/23 09:01 Dose: 25 mcg (1) Osteoporotic fracture of right hip Encounter type: initial encounter Qualified Code(s): M80.051A - Age-related osteoporosis with current pathological fracture, right femur, initial encounter for fracture (2) Fracture of right hip Encounter type: initial encounter Fracture type: closed Qualified Code(s): S72.001A - Fracture of unspecified part of neck of right femur, initial encounter for closed fracture (6) COPD (chronic obstructive pulmonary disease) COPD type: unspecified COPD Qualified Code(s): J44.9 - Chronic obstructive pulmonary disease, unspecified (7) Hypertension Hypertension type: essential hypertension Qualified Code(s): I10 - Essential (primary) hypertension (9) HLD (hyperlipidemia) Hyperlipidemia type: unspecified Qualified Code(s): E78.5 - Hyperlipidemia, unspecified
[2023-07-30 07:25] LABS: Hematocrit (blood only) 27.7 % (37.0-47.0); Mean Corpuscular Hemoglobin 31.5 pg (25.0-34.0); Mean Corpuscular Hgb Conc 32.5 g/dL (32.0-36.0); Mean Corpuscular Volume 96.9 fL (80.0-100.0); Nucleated RBC # (auto) 0.02 K/uL (0.00-0.12); Nucleated RBC % (auto) 0.1 %; Platelet Count 231 K/uL (130-400); RDW Coefficient of Variation 13.2 % (11.5-14.5); RDW Standard Deviation 46.5 fL (36.4-46.3); Red Blood Count 2.86 M/uL (4.20-5.40); White Blood Count 14.24 K/ul (4.8-10.8)
[2023-07-30 07:48] LABS: Basophils # (auto) 0.04 K/uL (0.00-0.20); Basophils % (auto) 0.3 %; Eosinophils # (auto) 0.09 K/uL (0.00-0.50); Eosinophils % (auto) 0.6 %; Immature Granulocytes # (auto) 0.73 K/uL (0.01-0.20); Immature Granulocytes % (auto) 5.1 %; Lymphocytes # (auto) 4.13 K/uL (1.20-3.40); Monocytes # (auto) 0.78 K/uL (0.11-0.59); Monocytes % (auto) 5.5 %; Neutrophils # (auto) 8.47 K/uL (1.40-6.50); Neutrophils % (auto) 59.5 %
[2023-07-30 08:14] LABS: BUN Creatinine Ratio 46.4 (10-20); Calcium 8.8 mg/dl (8.6-10.3); Creatinine Clr Calc Pharmacy 84.5 ml/min; Est GFR (Non-African American) 90.6 ml/min; Magnesium 1.8 mg/dl (1.7-2.4); Phosphorus 3.3 mg/dl (2.5-4.9); Potassium 3.7 mmol/L (3.5-5.1)
--- NOTE | 2023-07-30 14:01 | Hospitalist Progress Note ---
Date of Service July 30, 2023 Assessment & Plan (1) Osteoporotic fracture of right hip: (2) Fracture of right hip: Plan: Patient presenting from home after a mechanical fall In the ED, hip/pelvis XR comminuted intertrochanteric fracture of the right proximal femur Status post intramedullary nail right hip on 07/22/2023 Appreciate Ortho input and recommendation Pain is reasonably controlled and continue with physical therapy weightbearing as tolerated on the right hip Eliquis BID for DVT prophylaxis Remains stable with minimal pain Continue PT OT and awaiting rehab Pain is reasonably controlled Still remains weak and lethargic but participating in physical therapy Awaiting placement-likely to go to wound to heal in a day or 2 Clinically much better and the pain seems to be reasonably controlled Will continue physical therapy in the facility COPD exacerbation Acute and chronic respiratory failure with hypoxia Patient has COPD with chronic hypoxic respiratory failure on 6 L of oxygen, currently saturating well on her chronic 6 L. Reports cough and shortness of breath are at her chronic baseline. Solu-Medrol 40 mg twice daily, Perforomist and Pulmicort twice daily started Continue Xopenex Atrovent nebs every 6 hours Continue doxycycline required Bipap Pulmonology service consulted-appreciate input and recommendation back to baseline 6 L NC Transitioned to prednisone Continue nebs, Doxycycline Denies any chest pain or shortness of breath Has severe COPD with minimal air movement in the lung Still requiring high flow oxygen and does not seems to be at her baseline Severe COPD with minimal air entry to the lungs-noted to have high CO2 at 42 Will continue with BiPAP-specially at night CO2 has been down to 40 today and will continue current management Seems to be at her baseline Medically stable to be discharged Possible acute on chronic diastolic congestive heart failure exacerbation component Echocardiogram: EF 65 to 70%, right ventricular systolic function is normal, no significant valvular disease No other cardiopulmonary complaints. EKG without acute ST changes. CXR unremarkable. Patient considered acceptable risk to proceed to surgery. Lasix 40 mg IV 1 dose given Has had enough diuresis with negative balance of more than 7 L will not give any Lasix for now No signs and symptoms of fluid overload DVT prophylaxis Eliquis twice daily CODE STATUS Full Transition to Acute Rehab when medically stable Awaiting placement (3) Ankle pain, right: Plan: X-ray ordered: No fractures (4) Hyperglycemia: Plan: Glucose 163 on BMP ? Stress response secondary to fall/fracture A1c 5.9 (5) Chronic hypoxic respiratory failure: (6) COPD (chronic obstructive pulmonary disease): Plan: Management exacerbation as above (7) Hypertension: Plan: BP elevated likely situational/due to pain Control pain, reevaluate BP Continue home amlodipine, losartan added HCTZ for better BP control As needed hydralazine (8) Peripheral vascular disease: Plan: usual ASA, Pentoxyfilline on hold currently on Eliquis 2.5mg po BID (9) HLD (hyperlipidemia): Plan: Chronic, stable Continue statin DVT PROPHYLAXIS Eliquis 2.5mg BID transition to acute rehab when medically stable Admission and Anticipated Discharge Date Admission Date: July 20, 2023 Subjective 07/25/2023 The patient was seen and examined in telemetry unit She has been feeling much better but is still requiring about 12 L/min oxygen to maintain saturation Denies any significant symptoms Remain generally weak 07/26/2023 The patient was seen and examined in telemetry She has been stable but remains weak and lethargic Still requiring 12 L to maintain saturation Has been getting physical therapy 07/27/2023 The patient was seen and examined in telemetry unit He has been feeling a little better today but is still requiring high flow oxygen to maintain saturation Still has pain in the right hip Remains weak and getting physical therapy 07/28/2023 The patient was seen and examined in telemetry unit She has been feeling better but her CO2 level is elevated to 42 Remains weak and lethargic and feels that she is not yet ready to be discharged 07/29/2023 The patient was seen and examined in telemetry unit She has been feeling a little better today Still has shortness of breath at rest and requiring 8 L to maintain saturation Her pain in the right hip is improving Awaiting placement likely to go to [facility] tomorrow or day after 07/30/2023 The patient was seen and examined in telemetry unit She has been feeling a lot better and requiring 7 L to maintain saturation Denies any shortness of breath at rest and the pain seems to be reasonably controlled Awaiting placement Review of Systems Review of Systems: all noted and negative except for above Physical Exam Physical Exam: Sitting on a chair without any acute distress Constitutional: well developed, well nourished, + ill appearing and average body habitus Eyes: PERRL, conjunctivae normal, anicteric sclerae ENMT: external ear and nose normal, oropharynx normal Neck: trachea midline, no thyromegaly Respiratory: no respiratory distress Auscultation: + diminished lung sounds, + crackles (Bibasilar crackles) and + wheezes (Minimal wheezing bilaterally) Cardiovascular: Rate/Rhythm: regular rate and regular rhythm; not tachycardic Heart Sounds: normal S1 and normal S2; no murmur Extremities: no edema Gastrointestinal (Abdomen): Inspection/Auscultation: normal bowel sounds; abdomen not distended Percussion/Palpation: abdomen soft; abdomen nontender Neurologic: normal touch/pain/proprioception and moves all extremities; no focal motor deficits Lymphatic: no cervical or axillary lymphadenopathy Results & Data Results & Data Vital Signs (Past 12 Hours) Vital Signs Temp Pulse Pulse Resp BP BP Pulse Ox 07/30/23 12:02 69 18 97 07/30/23 11:21 36.7 C 92 H 21 142/58 H 92 07/30/23 08:00 88 07/30/23 07:29 36.4 C L 82 22 147/48 H 93 07/30/23 07:27 85 18 95 07/30/23 02:59 68 15 97 07/30/23 02:48 36.3 C L 73 17 166/67 H 98 O2 Del Method O2 Flow Rate FiO2 07/30/23 12:02 Nasal Cannula 7 07/30/23 11:21 High Flow Nasal Cannula 7 07/30/23 08:00 07/30/23 07:29 Nasal Cannula 6 07/30/23 07:27 Nasal Cannula 6 07/30/23 02:59 40 07/30/23 02:48 BiPAP Laboratory Results Short CBC 07/30/23 Range/Units 06:25 WBC 14.24 H (4.8-10.8) K/ul Hgb 9.0 L (12.0-16.0) g/dl Hct 27.7 L (37.0-47.0) % Plt Count 231 (130-400) K/uL BMP 07/30/23 06:25 Sodium 137 Potassium 3.7 Chloride 94 L Carbon Dioxide 38 H BUN 26 H Creatinine 0.56 L Glucose 124 H Calcium 8.8 Medications Administered Current Inpatient Medications Acetaminophen (Acetaminophen 500 Mg Tab) 1,000 mg PO Q8H [facility] Stop: 08/19/23 21:59 Last Admin: 07/30/23 06:23 Dose: 1,000 mg Amlodipine Besylate (Amlodipine Besylate 5 Mg Tab) 10 mg PO QAM [facility] Stop: 08/20/23 00:29 Last Admin: 07/30/23 08:13 Dose: 10 mg Apixaban (Apixaban 2.5 Mg Tab) 2.5 mg PO BID [facility] Stop: 08/22/23 08:59 Last Admin: 07/30/23 08:13 Dose: 2.5 mg Atorvastatin Calcium (Atorvastatin 20 Mg Tab) 20 mg PO PM [facility] Stop: 08/19/23 21:18 Last Admin: 07/29/23 21:33 Dose: 20 mg Bisacodyl (Bisacodyl 10 Mg Supp) 10 mg [place] DAILY PRN PRN Reason: Constipation Stop: 08/19/23 21:18 Budesonide (Budesonide 0.5 Mg/2 Ml Vial (Pulmicort)) 0.5 mg NEB BIDR [facility] Stop: 08/20/23 18:59 Last Admin: 07/30/23 07:25 Dose: 0.5 mg Formoterol Fumarate (Formoterol 20 Mcg/2 Ml Vial) 20 mcg NEB BIDR [facility] Stop: 08/20/23 10:59 Last Admin: 07/30/23 07:25 Dose: 20 mcg Guaifenesin (Guaifenesin 600 Mg Tabcr) 600 mg PO BID [facility] Stop: 08/19/23 21:18 Last Admin: 07/30/23 08:13 Dose: 600 mg Hydralazine HCl (Hydralazine Hcl 20 Mg/Ml Vial) 5 mg IV Q6H PRN PRN Reason: systolic bp > 160 Stop: 08/21/23 16:36 Last Admin: 07/23/23 22:51 Dose: 5 mg Hydrochlorothiazide (Hydrochlorothiazide 25 Mg Tab) 12.5 mg PO DAILY [facility] Stop: 08/22/23 17:14 Last Admin: 07/30/23 08:13 Dose: 12.5 mg Ipratropium [place] (Ipratropium [place] Neb Soln 0.02% 0.5mg/2.5ml Vial) 0.5 mg INH Q6R [facility] Stop: 08/20/23 06:59 Last Admin: 07/30/23 12:01 Dose: 0.5 mg Levalbuterol HCl (Levalbuterol Hcl 0.63 Mg/3 Ml Neb) 0.63 mg INH Q6H PRN; Protocol PRN Reason: Shortness Of Breath Or Wheezing Stop: 08/19/23 21:18 Last Admin: 07/29/23 01:07 Dose: 0.63 mg Levalbuterol HCl (Levalbuterol 1.25 Mg/3 Ml Neb) 1.25 mg NEB Q6R [facility] Stop: 08/20/23 06:59 Last Admin: 07/30/23 12:00 Dose: 1.25 mg Loratadine (Loratadine 10 Mg Tab) 10 mg PO HS [facility] Stop: 08/19/23 21:18 Last Admin: 07/29/23 21:33 Dose: 10 mg Losartan Potassium (Losartan Potassium 50 Mg Tab) 100 mg PO QAM [facility] Stop: 08/20/23 08:59 Last Admin: 07/30/23 08:13 Dose: 100 mg Magnesium Hydroxide (Magnesium Hydroxide Susp 30 Ml Udc) 30 ml PO DAILY PRN PRN Reason: Constipation Stop: 08/19/23 21:18 Miscellaneous (Remove Nicoderm Patch) 1 each N/A DAILY@0859 [facility] Stop: 08/20/23 08:58 Last Admin: 07/30/23 08:13 Dose: 1 each Morphine Sulfate (Morphine Sulfate 2 Mg/Ml Carp) 2 mg IV Q4H PRN PRN Reason: Pain Stop: 08/04/23 02:23 Last Admin: 07/22/23 19:26 Dose: 2 mg Naloxone HCl (Naloxone Hcl 0.4 Mg/1 Ml Vial/Carp) 0.1 mg IV UD PRN PRN Reason: Opiate Overdose Stop: 08/19/23 21:18 Nicotine (Nicotine 21 Mg/24 Hr Tdsy) 1 patch TD [facility] Stop: 08/19/23 21:44 Last Admin: 07/30/23 08:12 Dose: 1 patch Olanzapine (Olanzapine 10 Mg/2.1 Ml Sdv) 2.5 mg IM Q4H PRN PRN Reason: Agitation Stop: 08/20/23 01:33 Last Admin: 07/22/23 02:24 Dose: 2.5 mg Ondansetron HCl (Ondansetron Inj 2 Mg/Ml 2 Ml Vial) 4 mg IV Q6H PRN PRN Reason: Nausea And Vomiting Stop: 08/19/23 21:18 Pentoxifylline (Pentoxifylline 400mg Ext Rel Tab) 400 mg PO TID [facility] Stop: 08/19/23 21:18 Last Admin: 07/20/23 23:15 Dose: 400 mg Polyethylene Glycol (Polyethylene (Miralax) 17 Gm Pack) 17 gm PO DAILY [facility] Stop: 08/24/23 09:14 Last Admin: 07/30/23 08:14 Dose: Not Given Prednisone (Prednisone 20 Mg Tab) 40 mg PO DAILY [facility] Stop: 08/23/23 08:59 Last Admin: 07/30/23 08:13 Dose: 40 mg Tramadol HCl (Tramadol Hcl 50 Mg Tablet) 25 - 50 mg PO Q4H PRN PRN Reason: Pain Stop: 08/20/23 02:22 Last Admin: 07/27/23 10:17 Dose: 50 mg Vitamin D (Cholecalciferol 25 Mcg (1000 Units) Tab) 25 mcg PO QAM [facility] Stop: 08/20/23 08:59 Last Admin: 07/30/23 08:13 Dose: 25 mcg (1) Osteoporotic fracture of right hip Encounter type: initial encounter Qualified Code(s): M80.051A - Age-related osteoporosis with current pathological fracture, right femur, initial encounter for fracture (2) Fracture of right hip Encounter type: initial encounter Fracture type: closed Qualified Code(s): S72.001A - Fracture of unspecified part of neck of right femur, initial encounter for closed fracture (6) COPD (chronic obstructive pulmonary disease) COPD type: unspecified COPD Qualified Code(s): J44.9 - Chronic obstructive pulmonary disease, unspecified (7) Hypertension Hypertension type: essential hypertension Qualified Code(s): I10 - Essential (primary) hypertension (9) HLD (hyperlipidemia) Hyperlipidemia type: unspecified Qualified Code(s): E78.5 - Hyperlipidemia, unspecified
--- NOTE | 2023-07-31 14:24 | Hospitalist Progress Note ---
Date of Service July 31, 2023 Assessment & Plan (1) Osteoporotic fracture of right hip: (2) Fracture of right hip: Plan: Patient presenting from home after a mechanical fall In the ED, hip/pelvis XR comminuted intertrochanteric fracture of the right proximal femur Status post intramedullary nail right hip on 07/22/2023 Appreciate Ortho input and recommendation Pain is reasonably controlled and continue with physical therapy weightbearing as tolerated on the right hip Eliquis BID for DVT prophylaxis Remains stable with minimal pain Continue PT OT and awaiting rehab Pain is reasonably controlled Still remains weak and lethargic but participating in physical therapy Awaiting placement-likely to go to wound to heal in a day or 2 Clinically much better and the pain seems to be reasonably controlled Will continue physical therapy in the facility Remains stable and getting physical therapy-physical therapy will be continued at [facility] Medically stable to be transferred COPD exacerbation Acute and chronic respiratory failure with hypoxia Patient has COPD with chronic hypoxic respiratory failure on 6 L of oxygen, currently saturating well on her chronic 6 L. Reports cough and shortness of breath are at her chronic baseline. Solu-Medrol 40 mg twice daily, Perforomist and Pulmicort twice daily started Continue Xopenex Atrovent nebs every 6 hours Continue doxycycline required Bipap Pulmonology service consulted-appreciate input and recommendation back to baseline 6 L NC Transitioned to prednisone Continue nebs, Doxycycline Denies any chest pain or shortness of breath Has severe COPD with minimal air movement in the lung Still requiring high flow oxygen and does not seems to be at her baseline Severe COPD with minimal air entry to the lungs-noted to have high CO2 at 42 Will continue with BiPAP-specially at night CO2 has been down to 40 today and will continue current management Seems to be at her baseline Requiring up to 8 L of oxygen to maintain saturation Seems to be at her baseline Possible acute on chronic diastolic congestive heart failure exacerbation component Echocardiogram: EF 65 to 70%, right ventricular systolic function is normal, no significant valvular disease No other cardiopulmonary complaints. EKG without acute ST changes. CXR unremarkable. Patient considered acceptable risk to proceed to surgery. Lasix 40 mg IV 1 dose given Has had enough diuresis with negative balance of more than 7 L will not give any Lasix for now No signs and symptoms of fluid overload DVT prophylaxis Eliquis twice daily CODE STATUS Full Transition to Acute Rehab when medically stable She will be transferred to [facility] this afternoon (3) Ankle pain, right: Plan: X-ray ordered: No fractures (4) Hyperglycemia: Plan: Glucose 163 on BMP ? Stress response secondary to fall/fracture A1c 5.9 (5) Chronic hypoxic respiratory failure: (6) COPD (chronic obstructive pulmonary disease): Plan: Management exacerbation as above (7) Hypertension: Plan: BP elevated likely situational/due to pain Control pain, reevaluate BP Continue home amlodipine, losartan added HCTZ for better BP control As needed hydralazine (8) Peripheral vascular disease: Plan: usual ASA, Pentoxyfilline on hold currently on Eliquis 2.5mg po BID (9) HLD (hyperlipidemia): Plan: Chronic, stable Continue statin DVT PROPHYLAXIS Eliquis 2.5mg BID transition to acute rehab when medically stable Admission and Anticipated Discharge Date Admission Date: July 20, 2023 Subjective 07/25/2023 The patient was seen and examined in telemetry unit She has been feeling much better but is still requiring about 12 L/min oxygen to maintain saturation Denies any significant symptoms Remain generally weak 07/26/2023 The patient was seen and examined in telemetry She has been stable but remains weak and lethargic Still requiring 12 L to maintain saturation Has been getting physical therapy 07/27/2023 The patient was seen and examined in telemetry unit He has been feeling a little better today but is still requiring high flow oxygen to maintain saturation Still has pain in the right hip Remains weak and getting physical therapy 07/28/2023 The patient was seen and examined in telemetry unit She has been feeling better but her CO2 level is elevated to 42 Remains weak and lethargic and feels that she is not yet ready to be discharged 07/29/2023 The patient was seen and examined in telemetry unit She has been feeling a little better today Still has shortness of breath at rest and requiring 8 L to maintain saturation Her pain in the right hip is improving Awaiting placement likely to go to [facility] tomorrow or day after 07/30/2023 The patient was seen and examined in telemetry unit She has been feeling a lot better and requiring 7 L to maintain saturation Denies any shortness of breath at rest and the pain seems to be reasonably controlled Awaiting placement 07/31/2023 The patient was seen and examined in telemetry unit She has been feeling much better and is out of bed on a chair Denies any chest pain or shortness of breath at rest She is ready to be discharged Review of Systems Review of Systems: all noted and negative except for above Physical Exam Physical Exam: Sitting on a chair without any acute distress Constitutional: well developed, well nourished, + ill appearing and average body habitus Eyes: PERRL, conjunctivae normal, anicteric sclerae ENMT: external ear and nose normal, oropharynx normal Neck: trachea midline, no thyromegaly Respiratory: no respiratory distress Auscultation: + diminished lung sounds, + crackles (Bibasilar crackles) and + wheezes (Minimal wheezing bilaterally) Cardiovascular: Rate/Rhythm: regular rate and regular rhythm; not tachycardic Heart Sounds: normal S1 and normal S2; no murmur Extremities: no edema Gastrointestinal (Abdomen): Inspection/Auscultation: normal bowel sounds; abdomen not distended Percussion/Palpation: abdomen soft; abdomen nontender Neurologic: normal touch/pain/proprioception and moves all extremities; no focal motor deficits Lymphatic: no cervical or axillary lymphadenopathy Results & Data Results & Data Vital Signs (Past 12 Hours) Vital Signs Temp Pulse Pulse Pulse Resp BP Pulse Ox 07/31/23 14:05 88 19 91 07/31/23 11:00 36.4 C L 84 20 170/52 H 93 07/31/23 08:00 07/31/23 07:17 36.4 C L 83 18 166/59 H 100 07/31/23 07:00 90 07/31/23 06:57 81 18 96 07/31/23 03:59 83 165/62 H 07/31/23 03:26 79 179/70 H 07/31/23 02:49 36.5 C 77 18 170/77 H 100 O2 Del Method O2 Flow Rate 07/31/23 14:05 Nasal Cannula 8 07/31/23 11:00 Nasal Cannula 6 07/31/23 08:00 High Flow Nasal Cannula 6 07/31/23 07:17 Nasal Cannula, Nebulizer 6 07/31/23 07:00 07/31/23 06:57 Nasal Cannula 6 07/31/23 03:59 07/31/23 03:26 07/31/23 02:49 Room Air Medications Administered Current Inpatient Medications Acetaminophen (Acetaminophen 500 Mg Tab) 1,000 mg PO Q8H JOSELYN Stop: 08/19/23 21:59 Last Admin: 07/31/23 14:17 Dose: 1,000 mg Amlodipine Besylate (Amlodipine Besylate 5 Mg Tab) 10 mg PO QAM [facility] Stop: 08/20/23 00:29 Last Admin: 07/31/23 08:10 Dose: 10 mg Apixaban (Apixaban 2.5 Mg Tab) 2.5 mg PO BID JOSELYN Stop: 08/22/23 08:59 Last Admin: 07/31/23 08:09 Dose: 2.5 mg Atorvastatin Calcium (Atorvastatin 20 Mg Tab) 20 mg PO PM JOSELYN Stop: 08/19/23 21:18 Last Admin: 07/30/23 20:05 Dose: 20 mg Bisacodyl (Bisacodyl 10 Mg Supp) 10 mg HI DAILY PRN PRN Reason: Constipation Stop: 08/19/23 21:18 Budesonide (Budesonide 0.5 Mg/2 Ml Vial (Pulmicort)) 0.5 mg NEB BIDR [facility] Stop: 08/20/23 18:59 Last Admin: 07/31/23 06:57 Dose: 0.5 mg Formoterol Fumarate (Formoterol 20 Mcg/2 Ml Vial) 20 mcg NEB BIDR [facility] Stop: 08/20/23 10:59 Last Admin: 07/31/23 06:56 Dose: 20 mcg Guaifenesin (Guaifenesin 600 Mg Tabcr) 600 mg PO BID [facility] Stop: 08/19/23 21:18 Last Admin: 07/31/23 08:09 Dose: 600 mg Hydralazine HCl (Hydralazine Hcl 20 Mg/Ml Vial) 5 mg IV Q6H PRN PRN Reason: systolic bp > 160 Stop: 08/21/23 16:36 Last Admin: 07/31/23 03:33 Dose: 5 mg Hydrochlorothiazide (Hydrochlorothiazide 25 Mg Tab) 12.5 mg PO DAILY [facility] Stop: 08/22/23 17:14 Last Admin: 07/31/23 08:09 Dose: 12.5 mg Ipratropium [place] (Ipratropium [place] Neb Soln 0.02% 0.5mg/2.5ml Vial) 0.5 mg INH Q6R [facility] Stop: 08/20/23 06:59 Last Admin: 07/31/23 14:05 Dose: 0.5 mg Levalbuterol HCl (Levalbuterol Hcl 0.63 Mg/3 Ml Neb) 0.63 mg INH Q6H PRN; Protocol PRN Reason: Shortness Of Breath Or Wheezing Stop: 08/19/23 21:18 Last Admin: 07/31/23 14:05 Dose: 0.63 mg Levalbuterol HCl (Levalbuterol 1.25 Mg/3 Ml Neb) 1.25 mg NEB Q6R [facility] Stop: 08/20/23 06:59 Last Admin: 07/31/23 14:18 Dose: Not Given Loratadine (Loratadine 10 Mg Tab) 10 mg PO HS [facility] Stop: 08/19/23 21:18 Last Admin: 07/30/23 20:05 Dose: 10 mg Losartan Potassium (Losartan Potassium 50 Mg Tab) 100 mg PO QAM [facility] Stop: 08/20/23 08:59 Last Admin: 07/31/23 08:10 Dose: 100 mg Magnesium Hydroxide (Magnesium Hydroxide Susp 30 Ml Udc) 30 ml PO DAILY PRN PRN Reason: Constipation Stop: 08/19/23 21:18 Miscellaneous (Remove Nicoderm Patch) 1 each N/A DAILY@0859 [facility] Stop: 08/20/23 08:58 Last Admin: 07/31/23 08:11 Dose: 1 each Morphine Sulfate (Morphine Sulfate 2 Mg/Ml Carp) 2 mg IV Q4H PRN PRN Reason: Pain Stop: 08/04/23 02:23 Last Admin: 07/22/23 19:26 Dose: 2 mg Naloxone HCl (Naloxone Hcl 0.4 Mg/1 Ml Vial/Carp) 0.1 mg IV UD PRN PRN Reason: Opiate Overdose Stop: 08/19/23 21:18 Nicotine (Nicotine 21 Mg/24 Hr Tdsy) 1 patch TD [facility] Stop: 08/19/23 21:44 Last Admin: 07/31/23 08:11 Dose: 1 patch Olanzapine (Olanzapine 10 Mg/2.1 Ml Sdv) 2.5 mg IM Q4H PRN PRN Reason: Agitation Stop: 08/20/23 01:33 Last Admin: 07/22/23 02:24 Dose: 2.5 mg Ondansetron HCl (Ondansetron Inj 2 Mg/Ml 2 Ml Vial) 4 mg IV Q6H PRN PRN Reason: Nausea And Vomiting Stop: 08/19/23 21:18 Pentoxifylline (Pentoxifylline 400mg Ext Rel Tab) 400 mg PO TID JOSELYN Stop: 08/19/23 21:18 Last Admin: 07/20/23 23:15 Dose: 400 mg Polyethylene Glycol (Polyethylene (Miralax) 17 Gm Pack) 17 gm PO DAILY JOSELYN Stop: 08/24/23 09:14 Last Admin: 07/31/23 08:10 Dose: 17 gm Prednisone (Prednisone 20 Mg Tab) 40 mg PO DAILY JOSELYN Stop: 08/23/23 08:59 Last Admin: 07/31/23 08:11 Dose: 40 mg Tramadol HCl (Tramadol Hcl 50 Mg Tablet) 25 - 50 mg PO Q4H PRN PRN Reason: Pain Stop: 08/20/23 02:22 Last Admin: 07/27/23 10:17 Dose: 50 mg Vitamin D (Cholecalciferol 25 Mcg (1000 Units) Tab) 25 mcg PO QAM JOSELYN Stop: 08/20/23 08:59 Last Admin: 07/31/23 08:10 Dose: 25 mcg (1) Osteoporotic fracture of right hip Encounter type: initial encounter Qualified Code(s): M80.051A - Age-related osteoporosis with current pathological fracture, right femur, initial encounter for fracture (2) Fracture of right hip Encounter type: initial encounter Fracture type: closed Qualified Code(s): S72.001A - Fracture of unspecified part of neck of right femur, initial encounter for closed fracture (6) COPD (chronic obstructive pulmonary disease) COPD type: unspecified COPD Qualified Code(s): J44.9 - Chronic obstructive pulmonary disease, unspecified (7) Hypertension Hypertension type: essential hypertension Qualified Code(s): I10 - Essential (primary) hypertension (9) HLD (hyperlipidemia) Hyperlipidemia type: unspecified Qualified Code(s): E78.5 - Hyperlipidemia, unspecified
--- NOTE | 2023-07-31 19:15 | Discharge Summary ---
Date of Service July 31, 2023 Admission HPI Per Admitting Provider 78-year-old female with PMH COPD, chronic hypoxic respiratory failure on 6 L of oxygen, PVD, tobacco abuse, sleep apnea, dyslipidemia, and other problems as below who presents to the ED for evaluation of fall and right hip pain. History is obtained from the patient and review of outpatient PCP records. Patient reports she was in her kitchen when she tripped and fell onto the ground. She reports experiencing right hip pain and she was unable to get up. She pressed her life alert button and was brought to the ED for further evaluation. Patient reports she otherwise has been feeling well recently. Chronic cough and shortness of breath is unchanged from baseline. Denies chest pain. No lightheadedness, dizziness, diaphoresis, syncopal events. She denies abdominal pain, nausea, vomiting, diarrhea. No urinary symptoms. Patient is currently reporting some right ankle pain. In the ED, hip/pelvis x-ray shows Comminuted intertrochanteric fracture of the right proximal femur. Labs show WBC 16 K, otherwise unremarkable. Patient was given IV morphine and IV Zofran in the ED. Admission Exam Per Admitting Provider Constitutional: WD/WN, vitals as above no acute distress Eyes: PERRL, conjunctivae normal, anicteric sclerae ENMT: external ear and nose normal, oropharynx normal Respiratory: normal respiratory effort; no respiratory distress Auscultation: + diminished lung sounds Cardiovascular: Rate/Rhythm: regular rate and regular rhythm Vessels: normal peripheral pulses Gastrointestinal (Abdomen): normal bowel sounds, soft, nontender, no hepatosplenomegaly Musculoskeletal: RLE shortened and externally rotated, edema noted to the right foot Skin: no rashes, warm and dry Neurologic: PERRL, EOMI, accommodation nl, no face palsy, no dysarthria Psychiatric: A+Ox3, euthymic affect Principal Diagnosis Osteoporotic fracture of the right hip, COPD exacerbation, acute on chronic diastolic heart failure Discharge Exam Sitting on a chair without any acute distress Constitutional well developed, well nourished, + ill appearing and average body habitus Eyes PERRL, conjunctivae normal, anicteric sclerae ENMT external ear and nose normal, oropharynx normal Neck trachea midline, no thyromegaly Respiratory no respiratory distress Auscultation: + diminished lung sounds, + crackles (Bibasilar crackles) and + wheezes (Minimal wheezing bilaterally) Cardiovascular Rate/Rhythm: regular rate and regular rhythm; not tachycardic Heart Sounds: normal S1 and normal S2; no murmur Extremities: no edema Gastrointestinal (Abdomen) Inspection/Auscultation: normal bowel sounds; abdomen not distended Percussion/Palpation: abdomen soft; abdomen nontender Neurologic normal touch/pain/proprioception and moves all extremities; no focal motor deficits Lymphatic no cervical or axillary lymphadenopathy Discharge Data Allergies Allergy/AdvReac Type Severity Reaction Status Date / Time codeine AdvReac Intermediate tinnitus Verified 07/20/23 17:44 oxycodone AdvReac Intermediate Confusion Verified 07/21/23 02:25 Consultations 07/20/23 16:04 ED Decision to Admit Stat 07/20/23 21:19 Consult Orthopedic Surgery Routine 07/21/23 06:58 Consult Pulmonology Routine 07/21/23 09:41 Consult Pulmonology Routine Procedures Performed Operation Date: 07/22/23 07:30 Actual Procedures p Intramedullary Nail Right Hip(Right) - Khanh Foy DO Ordered Studies 07/22/23 [place] hip RT 2-3V Routine Hospital Course (1) Osteoporotic fracture of right hip: (2) Fracture of right hip: Patient presenting from home after a mechanical fall In the ED, hip/pelvis XR comminuted intertrochanteric fracture of the right proximal femur Status post intramedullary nail right hip on 07/22/2023 Appreciate Ortho input and recommendation Pain is reasonably controlled and continue with physical therapy weightbearing as tolerated on the right hip Eliquis BID for DVT prophylaxis Remains stable with minimal pain Continue PT OT and awaiting rehab Pain is reasonably controlled Still remains weak and lethargic but participating in physical therapy Awaiting placement-likely to go to wound to heal in a day or 2 Clinically much better and the pain seems to be reasonably controlled Will continue physical therapy in the facility Remains stable and getting physical therapy-physical therapy will be continued at [facility] Medically stable to be transferred COPD exacerbation Acute and chronic respiratory failure with hypoxia Patient has COPD with chronic hypoxic respiratory failure on 6 L of oxygen, currently saturating well on her chronic 6 L. Reports cough and shortness of breath are at her chronic baseline. Solu-Medrol 40 mg twice daily, Perforomist and Pulmicort twice daily started Continue Xopenex Atrovent nebs every 6 hours Continue doxycycline required Bipap Pulmonology service consulted-appreciate input and recommendation back to baseline 6 L NC Transitioned to prednisone Continue nebs, Doxycycline Denies any chest pain or shortness of breath Has severe COPD with minimal air movement in the lung Still requiring high flow oxygen and does not seems to be at her baseline Severe COPD with minimal air entry to the lungs-noted to have high CO2 at 42 Will continue with BiPAP-specially at night CO2 has been down to 40 today and will continue current management Seems to be at her baseline Requiring up to 8 L of oxygen to maintain saturation Seems to be at her baseline Possible acute on chronic diastolic congestive heart failure exacerbation component Echocardiogram: EF 65 to 70%, right ventricular systolic function is normal, no significant valvular disease No other cardiopulmonary complaints. EKG without acute ST changes. CXR unremarkable. Patient considered acceptable risk to proceed to surgery. Lasix 40 mg IV 1 dose given Has had enough diuresis with negative balance of more than 7 L will not give any Lasix for now No signs and symptoms of fluid overload DVT prophylaxis Eliquis twice daily CODE STATUS Full Transition to Acute Rehab when medically stable She will be transferred to [facility] this afternoon (3) Ankle pain, right: X-ray ordered: No fractures (4) Hyperglycemia: Glucose 163 on BMP ? Stress response secondary to fall/fracture A1c 5.9 (5) Chronic hypoxic respiratory failure: (6) COPD (chronic obstructive pulmonary disease): Management exacerbation as above (7) Hypertension: BP elevated likely situational/due to pain Control pain, reevaluate BP Continue home amlodipine, losartan added HCTZ for better BP control As needed hydralazine (8) Peripheral vascular disease: usual ASA, Pentoxyfilline on hold currently on Eliquis 2.5mg po BID (9) HLD (hyperlipidemia): Chronic, stable Continue statin DVT PROPHYLAXIS Eliquis 2.5mg BID transition to acute rehab when medically stable Total Time Total Time Spent Total Time Spent (In Minutes): 40 minutes Discharge Plan Discharge Items Patient Disposition: Transfer [facility] Reason For Visit: HIP FRACTURE Discharge Diagnosis: Osteoporotic fracture of the right hip, COPD exacerbation, acute on chronic diastolic heart failure Condition on Discharge: Fair Activity: As commented below Activity Comment: Continue with PT and OT Non-emergency contact: Primary Care Provider Call non-emergency contact if: you have any medication questions and your symptoms worsen Follow-up/Referrals: PELON Mays [Other] (Please make an appointment with your PCP within 7 days following discharge from the facility) Diet: Heart Healthy Marisela Attending Provider Instructions: Please take precautions to avoid falls Take your medications as advised Please have follow-up appointments with the healthcare providers Marisela Camera Repair Technician Provider Instructions: ORTHOPEDIC INSTRUCTIONS Hip Fracture Activity and Therapy Recommendations: 1. You were shown a series of exercises in the hospital. Do these exercises three times each day if you are able. 2. Get up and walk several times each day if you are capable. Make sure you have assistance is needed. For the first four weeks, try not to stand or walk for more than one hour at a time. If you do stand or walk for more than one hour, you will not hurt anything, but your leg will likely swell. 3. As you feel comfortable, you may change from the walker or crutches to a cane and then to independent walking if you are able. Please be safe. Medications: 1. Narcotic You will likely be sent from the hospital with the narcotic pain medication that worked best throughout your stay. 2. Eliquistake Eliquis 2.5 mg twice a day for 6 weeks to prevent blood clots. 3. Other medications may be given for specific circumstances. If you have any questions, please call the office at [phone]. 4. Resume previous home medications unless otherwise instructed TEDs/Elastic Stockings: The white elastic stockings help limit swelling and prevent blood clots from forming in your legs. The more you wear them, the more they work. Wear them for six weeks. Dressing Care: Myles can be open to air as long as the incisions are not draining. If the incisions are draining or if the myles are getting caught on your clothes then please cover the myles with dry gauze. Change the dressings as necessary to keep the incision as dry as possible Showering: You may shower 5 days from the day of surgery as long as the incisions are not draining. Do not soak the incision. Let soapy water run over the myles and pat them dry. Things To Watch For: 1. Drainage from the incision site that occurs more than one week after your surgery. 2. Increased redness at the incision site. 3. Fever above 102 degrees Fahrenheit. 4. Unusual chest pain or shortness of breath. 5. Call [facility] at with any of the above problems Follow-Up Visit: Follow-up with Dr. Foy's PA (Khanh Figueroa) 2-3 weeks after your day of surgery. He will remove your myles and answer any questions. If you have any additional questions or concerns, Dr Foy is usually in the office at the same time and will be available Please call the office to set up an appointment for a time that works for you Pending Studies at Discharge: No Stand-Alone Forms: My [facility] Skilled Items Patient informed of condition?: Yes DNR: No Discharge Level of Care: Skilled Communicable Disease: No Discharge Prognosis: Stable Lines: None Urinary Catheter: No Medications and DC Order Prescriptions: New Eliquis 2.5 mg Tablet 2.5 mg PO BID Qty: 60 0RF amlodipine [Norvasc] 5 mg Tablet 10 mg PO QAM Qty: 6 0RF hydrochlorothiazide 25 mg Tablet 12.5 mg PO DAILY Qty: 30 0RF prednisone 10 mg tablet 10 mg PO DIRECTED Qty: 42 0RF Rx Instructions: 3 a day for 7 days, 2 a day for 7 days, 1 daily for 7 days Continued albuterol sulfate [Ventolin HFA] 90 mcg/actuation HFA aerosol inhaler 2 puff inhalation Q4H PRN (Reason: Shortness Of Breath Or Wheezing) Qty: 54 3RF (DME) Oxygen Home [id number] Liters Per Minute See Dose Instructions .ROUTE .MEDSUPPLY Qty: 1 Rx Instructions: As directed Spiriva Respimat 2.5 mcg/actuation mist 2 puffs INH DAILY Qty: 1 5RF guaifenesin [Mucinex] 600 mg tablet extended release 12hr 600 mg PO BID Qty: 60 5RF atorvastatin 20 mg Tablet 20 mg PO PM pentoxifylline 400 mg tablet extended release 400 mg PO TID Patient Comments: Patient states she takes 1 tablet in the morning and 2 tablets at bedtime cholecalciferol (vitamin D3) [Vitamin D3] 1,000 unit Capsule 1,000 unit PO QAM loratadine 10 mg tablet 10 mg PO HS losartan 100 mg tablet 100 mg PO QAM levalbuterol HCl 0.63 mg/3 mL solution for nebulization 0.63 mg INH Q6H PRN (Reason: Shortness Of Breath Or Wheezing) Rx Instructions: J44.9 COPD R00.0 TACHYCARDIA Can be mixed with 7% NaCl once daily Discontinued potassium 99 mg tablet 99 mg PO DAILY amlodipine 5 mg Tablet 5 mg PO DAILY Rx Instructions: BETTINA LIST SAYS TAKE 2 TABS A DAY, BUT PATIENT TAKES 1 TAB. aspirin 81 mg Tablet,Delayed Release (Dr/Ec) 81 mg PO QAM furosemide 40 mg tablet 40 mg PO QAM PRN (Reason: .SWELLING/WT GAIN) ibuprofen 200 mg Tablet 200 mg PO Q6H PRN (Reason: Pain) Discharge Orders: Discharge Order (Routine); Ordered 07/31/23 Ordered By: Dereck Ren Admission Data Admit Date/Time: 07/20/23 16:20 Attending Provider: Dereck Ren Admit Provider: Caprice Trammell Primary Care Provider: Maribel Mays Other Providers: Aneudy Luo; Irvin Jason; Peyman Wise; Lloyd Dillon; Maria Dolores Abernathy; Heike Ryees; Loy Leon; Jose Sharma; Malathi De La Rosa; Caprice Trammell; Khanh Foy; Sophia Rodriguez Other Interventions: Discharge Summary Assessment (RN) Last Done: 07/31/23 15:38
== END 2023-08-01 10:29 | DRG 480 ==
LOC: ED 13:06 → 3N 16:20 → SUATTDRO 16:20 → 3N 21:25 → 2S 07-21 02:56